=== PATIENT | female | born 1945 | race Caucasian/White ===

== ENCOUNTER → 2016-09-05 | Outpatient (CLI) | payer OTHER ==
[~2016-09-05] MED LIST: ADVIN25/60 INH; ASPEC325 PO; CHOL100027 PO; CYAN100020 PO; FRS/40 PO; LISI-725 PO; LPT/40 PO; METO-551 PO; POTA-327 PO; VERA360C2 PO
[2016-09-05 13:30] LABS: BASO % 0.4 %; BASO ABS # 0.04 K/uL (0-0.2); COMPLETE YES; EOS % 2.1 %; HEMATOCRIT 38.3 % (37-47); IG% 0.2 %; LYMPH % 17.9 %; LYMPH ABS # 1.95 K/uL (1.2-3.4); MEAN CELL VOLUME 85.5 fL (80-100); MEAN CORPUSCULAR HEMOGLOBIN 28.6 pg (25-34); MEAN CORPUSCULAR HGB CONC 33.4 g/dl (32-36); MEAN PLATELET VOLUME 11.1 fL (7.4-10.4); MONO % 7.3 %; NEUT % 72.1 %; PLATELET COUNT 283 K/uL (130-400); RED BLOOD COUNT 4.48 M/uL (4.2-5.4); WHITE BLOOD COUNT 10.88 K/uL (4.8-10.8)
[2016-09-05 13:43] LABS: BLOOD UREA NITROGEN 20 mg/dl (7-18); GLUCOSE 90 mg/dl (70-99)
[2016-09-05 13:44] LABS: ALT/SGPT 12 U/L (12-78); BUN/CREATININE RATIO 10.4 (10-20); CALCIUM 8.8 mg/dl (8.5-10.1); CARBON DIOXIDE 24 mmol/L (21-32); CHLORIDE 105 mmol/L (98-107); POTASSIUM 3.4 mmol/L (3.5-5.1); SODIUM 141 mmol/L (136-145)
[2016-09-05 13:46] LABS: ALB/GLOB RATIO 0.6 (0.9-2); ALKALINE PHOSPHATASE 121 U/L (45-117); AST/SGOT 10 U/L (15-37)
== END | disposition home or self-care (01) ==
LOC: C.LABBC 09:32
PROVIDERS: ATTEND Internal Medicine Geriatric Medicine
DX: I12.9 Hypertensive chronic kidney disease with stage 1 through stage 4 chronic kidney disease, or unspecified chronic kidney disease (principal); E78.5 Hyperlipidemia, unspecified; M19.90 Unspecified osteoarthritis, unspecified site; I42.2 Other hypertrophic cardiomyopathy; M48.00 Spinal stenosis, site unspecified; J44.9 Chronic obstructive pulmonary disease, unspecified; I65.23 Occlusion and stenosis of bilateral carotid arteries; N18.3 Chronic kidney disease, stage 3 (moderate); I25.10 Atherosclerotic heart disease of native coronary artery without angina pectoris

== ENCOUNTER → 2016-11-08 | Outpatient (CLI) | payer OTHER ==
--- NOTE | 2016-11-09 07:42 | MAMMOGRAPHY REPORT ---
BILATERAL DIGITAL SCREENING MAMMOGRAM WITH CAD: 11/08/2016 TECHNIQUE: Current study was also evaluated with a Computer Aided Detection (CAD) system. Bilatera l CC and MLO views were obtained. COMPARISON: Comparison is made to exams dated: 10/11/2014 mammogram, 10/02/2013 mammogram, 09/22/2012 m ammogram, 07/18/2010 mammogram, 06/22/2009 mammogram - [facility], and 04/19/2008. BREAST COMPOSITION: There are scattered areas of fibroglandular density in both breasts. FINDINGS: No suspicious masses, calcifications, or areas of architectural distortion are noted in e ither breast. There has been no significant interval change compared to prior exams. Scattered bilat eral benign-appearing calcifications are not significantly changed. Prominent bilateral axillary ly mph nodes are stable dating back to at least the 2008 and 2009 exams. IMPRESSION: ACR BI-RADS CATEGORY 2: BENIGN There is no mammographic evidence of malignancy. A 1 year screening mammogram is recommended. The p atient will receive written notification of the results. Approximately 10% of breast cancers are not detected with mammography. A negative mammographic repor t should not delay biopsy if a clinically suggestive mass is present. Destiny Anthony M.D. /:11/08/2016 16:21:48 Street Vendor: Brooklynn BO)(M), [facility] letter sent: Normal 1/2 BI-RADS Code: ACR BI-RADS Category 2: Benign
== END | disposition home or self-care (01) ==
LOC: C.MAMM 11:48
PROVIDERS: ATTEND Internal Medicine Geriatric Medicine
DX: Z12.31 Encounter for screening mammogram for malignant neoplasm of breast (principal)

== ENCOUNTER → 2017-01-09 | Outpatient (CLI) | payer OTHER ==
[2017-01-09 13:52] LABS: BASO % 0.4 %; BASO ABS # 0.04 K/uL (0-0.2); COMPLETE YES; HEMATOCRIT 39.4 % (37-47); IG% 0.4 %; LYMPH % 21.6 %; LYMPH ABS # 2.36 K/uL (1.2-3.4); MEAN CELL VOLUME 87.6 fL (80-100); MEAN CORPUSCULAR HEMOGLOBIN 28.7 pg (25-34); MEAN CORPUSCULAR HGB CONC 32.7 g/dl (32-36); MEAN PLATELET VOLUME 10.5 fL (7.4-10.4); MONO % 5.3 %; NEUT % 69.3 %; PLATELET COUNT 251 K/uL (130-400); WHITE BLOOD COUNT 10.91 K/uL (4.8-10.8)
[2017-01-09 18:09] LABS: ALT/SGPT 19 U/L (12-78); BLOOD UREA NITROGEN 23 mg/dl (7-18); BUN/CREATININE RATIO 13.5 (10-20); CARBON DIOXIDE 25 mmol/L (21-32); CHLORIDE 105 mmol/L (98-107); CHOLESTEROL 130 mg/dl (0-200); GLUCOSE 97 mg/dl (70-99); POTASSIUM 4.1 mmol/L (3.5-5.1); SODIUM 141 mmol/L (136-145); TRIGLYCERIDES 243 mg/dl (0-150); VERY LOW DENSITY LIPOPROT CALC 49 mg/dl
[2017-01-09 18:20] LABS: ALB/GLOB RATIO 0.9 (0.9-2); ALKALINE PHOSPHATASE 97 U/L (45-117); AST/SGOT 16 U/L (15-37); HDL CHOLESTEROL 26 mg/dl; LDL CHOLESTEROL CALCULATED 55 mg/dl
== END ==
LOC: C.LABBC 12:20
PROVIDERS: ATTEND Internal Medicine Geriatric Medicine
DX: I10 Essential (primary) hypertension (principal); E78.5 Hyperlipidemia, unspecified; I42.2 Other hypertrophic cardiomyopathy; E53.8 Deficiency of other specified B group vitamins; E55.9 Vitamin D deficiency, unspecified; I25.10 Atherosclerotic heart disease of native coronary artery without angina pectoris; N18.3 Chronic kidney disease, stage 3 (moderate)

== ENCOUNTER → 2017-01-14 | Outpatient (CLI) | payer OTHER ==
--- NOTE | 2017-01-14 15:42 | DIAGNOSTIC IMAGING REPORT ---
CHEST 2 VIEWS ROUTINE CLINICAL HISTORY: CHRONIC OBSTRUCTIVE PULMONARY DISEASE SHORTNESS OF BREATH COMPARISON STUDY: 10/06/2015 FINDINGS: The cardiac and mediastinal contours are normal. There is no evidence of focal pulmonary consolidation. There is no evidence of failure. No pleural effusions are visualized.[ There is minor basilar atelectasis. There are old mild thoracic vertebral body compression deformities.. IMPRESSION: No active disease in the chest. Electronically signed by: Monster Fernandez M.D. 01/14/2017 3:41 PM Dictated Date/Time: 01/14/2017 3:40 PM
== END ==
LOC: C.RADBC 15:23
PROVIDERS: ATTEND Internal Medicine Geriatric Medicine
DX: J44.9 Chronic obstructive pulmonary disease, unspecified (principal)

== ENCOUNTER → 2017-04-17 | Outpatient (CLI) | payer OTHER | END | disposition home or self-care (01) | LOC: C.PATHSPEC 16:57 | PROVIDERS: ATTEND Dermatology | DX: L82.1 Other seborrheic keratosis (principal) ==

== ENCOUNTER → 2017-07-23 | Outpatient (CLI) | payer OTHER ==
[2017-07-23 17:09] LABS: BASO % 0.3 %; BASO ABS # 0.04 K/uL (0-0.2); COMPLETE YES; EOS % 1.9 %; HEMATOCRIT 37.8 % (37-47); IG% 0.4 %; LYMPH % 17.5 %; LYMPH ABS # 2.25 K/uL (1.2-3.4); MEAN CELL VOLUME 87.7 fL (80-100); MEAN CORPUSCULAR HEMOGLOBIN 29.2 pg (25-34); MEAN CORPUSCULAR HGB CONC 33.3 g/dl (32-36); MEAN PLATELET VOLUME 10.5 fL (7.4-10.4); MONO % 6.2 %; NEUT % 73.7 %; PLATELET COUNT 289 K/uL (130-400); RED BLOOD COUNT 4.31 M/uL (4.2-5.4); WHITE BLOOD COUNT 12.85 K/uL (4.8-10.8)
[2017-07-23 17:21] LABS: BLOOD UREA NITROGEN 20 mg/dl (7-18); BUN/CREATININE RATIO 10.7 (10-20); CALCIUM 8.9 mg/dl (8.5-10.1); CARBON DIOXIDE 30 mmol/L (21-32); CHLORIDE 103 mmol/L (98-107); CREATININE 1.83 mg/dl (0.60-1.20); GLUCOSE 86 mg/dl (70-99); POTASSIUM 4.3 mmol/L (3.5-5.1); SODIUM 138 mmol/L (136-145)
== END | disposition home or self-care (01) ==
LOC: C.LABBC 14:06
PROVIDERS: ATTEND Internal Medicine Geriatric Medicine
DX: I12.9 Hypertensive chronic kidney disease with stage 1 through stage 4 chronic kidney disease, or unspecified chronic kidney disease (principal); N18.3 Chronic kidney disease, stage 3 (moderate)

== ENCOUNTER 2017-08-14 03:36 | Emergency (ER) | payer OTHER ==
[~2017-08-14] VITALS: Ht 154.9 cm; Wt 113.0 kg
[2017-08-14 03:41] VITALS: TEMP 36.5; Ht 154.9 cm; Wt 113.0 kg
[2017-08-14] MEDS ORDERED: ACETAMINOPHEN 500 MG TAB PO STA (04:55)
[2017-08-14 05:46] VITALS: BP 142/80; PULSE 86; O2SAT 95
--- NOTE | 2017-08-14 06:42 | DIAGNOSTIC IMAGING REPORT ---
L ANKLE MIN 3 VIEWS ROUTINE CLINICAL HISTORY: eval for fx. Trauma. Pain. COMPARISON: None. DISCUSSION: Tiny avulsion lateral talus medially inferior to the distal fibula. Soft tissue edema. No additional acute bony abnormality. The ankle mortise is aligned anatomically. IMPRESSION: Tiny avulsion lateral talus. Soft tissue edema. The above report was generated using voice recognition software. It may contain grammatical, syntax or spelling errors. Electronically signed by: Herb Velez M.D. 08/14/2017 6:41 AM Dictated Date/Time: 08/14/2017 6:39 AM
--- NOTE | 2017-08-14 07:45 | DIAGNOSTIC IMAGING REPORT ---
LEFT FOOT 3 VIEWS HISTORY: Left lateral foot pain. eval for fifth metatarsal fx. COMPARISON: None. FINDINGS: There is no fracture or dislocation. The Lisfranc joint is intact. Soft tissue swelling within the foot. Plantar and posterior calcaneal spurs. IMPRESSION: Soft tissue swelling within the left foot. No acute fractures. Electronically signed by: Farhad Dhillon M.D. 08/14/2017 7:44 AM Dictated Date/Time: 08/14/2017 7:40 AM
--- NOTE | 2017-08-14 09:18 | EMERGENCY ROOM VISIT NOTE ---
History Report prepared by Ludwig: Juliet Henriquez Under the Supervision of: Dr. Silvia Medina D.O. First contact with patient: 03:54 Chief Complaint: FALL Stated Complaint: FELL History of Present Illness The patient is a 72 year old female who presents to the Emergency Room with complaints of an episode of a fall occurring last night. The patient states that she has spinal stenosis and sometimes her legs go numb. She states that she was at the neighbor's house when this happened and she fell. She reports that she hurt her left ankle, but walked back to her house. She states that the pain has been getting worse and it has had increased swelling. She reports that now just sitting there it hurts. The patient denies hitting her head, taking anything for the pain, abdominal pain, and back pain. She notes a history of an abdominal aortic aneurysm and a heart murmur. Source of History: patient Onset: last night Position: other (global) Quality: other (swollen) Timing: other (episode) Associated Symptoms: No abdominal pain, No back pain Review of Systems See HPI for pertinent positives & negatives. A total of 10 systems reviewed and were otherwise negative. Past Medical & Surgical Medical Problems: (1) AAA (abdominal aortic aneurysm) (2) Asthma (3) Heart murmur (4) History of echocardiogram (5) History of kidney problems (6) Hypertension (7) Spinal stenosis Family History FHx: [place] (sister) Social History Smoking Status: Current Every Day Smoker Alcohol Use: none Marital Status: Housing Status: lives alone Occupation Status: disabled Current/Historical Medications Scheduled Aspirin (Aspirin *), 325 MG PO DAILY Atorvastatin (Lipitor), 40 MG PO DAILY Cholecalciferol (Vitamin D 1000 Unit), 3,000 INTER.UNIT PO DAILY Cyanocobalamin (Vitamin B12), 1,000 MCG PO BID Fluticasone Prop/Salmeterol (Advair Diskus 250/50 60 Dose), 1 PUFF INH BID Furosemide (Lasix), 40 MG PO DAILY Lisinopril (Zestril), 20 MG PO DAILY Metoprolol Tartrate (Lopressor), 50 MG PO BID Potassium Ext Rel (Klor-Con), 10 MEQ PO DAILY Verapamil Hcl (Verapamil Hcl Sr), 360 MG PO DAILY Allergies Coded Allergies: Cephalosporins (Verified Allergy, Mild, KEFLEX=RASH, 04/22/14) Diltiazem (Verified Allergy, Unknown, RASH, 04/22/14) Iodinated Contrast Media (Verified Adverse Reaction, Unknown, CT Contrast = kidney infection, 04/22/14) Physical Exam Vital Signs Date Time Temp Pulse Resp B/P (MAP) Pulse Ox O2 Delivery O2 Flow Rate FiO2 08/14/17 05:46 86 20 142/80 95 08/14/17 03:41 36.5 61 18 143/83 97 Room Air Physical Exam HEENT: Head - normocephalic and atraumatic. Pupils are equal, round, and reactive to light. Extraocular eye muscles are intact and sclera are anicteric. Ears - bilaterally patent canals with no evidence of hemotympanum. Nose - moist nasal mucosa without evidence of trauma or discharge. Mouth - moist buccal mucosa with no trauma to the teeth or signs of malocclusion. Neck: The neck is supple and there is no pain to palpation over the posterior cervical spine and no obvious step-offs or deformities. There is no JVD or tracheal deviation. Chest: There are no signs of deformities, contusions or abrasions to the chest wall. There is no obvious crepitus or paradoxical chest rise. Heart: Regular, rate, and rhythm. There is a normal S1 and S2 with no murmurs, clicks, or gallops appreciated. Lungs: Clear to auscultation bilaterally with no wheezes, rales, or rhonchi. Abdomen: Soft, completely nontender, nondistended, with good bowel sounds. There is no sign of trauma such as contusions, abrasions or penetrations. There are no palpable pulsatile masses or hepatosplenomegaly. There is no guarding, rigidity, or rebound noted. Pelvis: Stable to rock and compression. Extremities: No obvious deformities or contusions. There are easily palpable peripheral pulses. Left ankle has significant edema over the lateral malleolus and fifth metatarsal. Neuro: The patient is awake and alert and easily able to follow commands. Muscle strength is 5 out of 5 in all 4 extremities. Otherwise, neuro exam is unremarkable. Back: The entire thoracic, lumbar, and sacral spine were palpated. There are no obvious step-offs or deformities noted. There are no obvious signs of trauma such as contusions abrasions penetrations noted to the back. Medical Decision & Procedures ER Provider Diagnostic Interpretation: X-RAY LEFT FOOT AND ANKLE: The results were interpreted by me. No ankle fracture. No fifth metatarsal fracture. Medications Administered Medications (Trade) Dose Ordered Sig/Ashtyn Route Start Time Stop Time Status Last Admin Dose Admin Acetaminophen (Tylenol Tab) 1,000 mg NOW STAT PO 08/14/17 04:55 08/14/17 04:57 DC 08/14/17 05:05 1,000 MG Procedure 0455: Ordered Tylenol Tab 1000 mg PO. ED Course 0452: Past medical records reviewed. The patient was evaluated in room A2. A complete history and physical exam was performed. 0455: Ordered Tylenol Tab 1000 mg PO. The patient went for plain films of her left foot and ankle as described above. 0520: Upon reevaluation, the patient is doing better and states that the Tylenol helped. I discussed findings and results with her. She verbalized agreement of the treatment plan. The patient was discharged home. Medical Decision This is a 72-year-old female patient who fell at a friend's house tonight. After getting a from the fall and walking home, she noticed some discomfort in the left ankle and foot. Differential diagnoses include ankle fracture, ankle sprain, fifth metatarsal fracture. Patient has moderate edema over the left lateral malleolus but x-ray showed no obvious fracture. She was placed in a Gelfoam ankle splint and will use a walker. She can use Tylenol or Motrin for pain. Medication Reconcilliation Current Medication List: was personally reviewed by me Blood Pressure Screening Patient's blood pressure: Elevated blood pressure Blood pressure disposition: Elevated BP felt to be situational Impression Primary Impression: Left ankle sprain Scribe Attestation The scribe's documentation has been prepared under my direction and personally reviewed by me in its entirety. I confirm that the note above accurately reflects all work, treatment, procedures, and medical decision making performed by me. Departure Information Dispostion Home / Self-Care Referrals Len Hudson M.D. (PCP) Forms HOME CARE DOCUMENTATION FORM, IMPORTANT VISIT INFORMATION Patient Instructions My [facility] Additional Instructions Rest with your left foot elevated and iced. Wear splint when up walking. Use a walker Use tylenol for pain. Follow up with [facility]th[facility] if pain continues Problem Qualifiers Primary Impression: Left ankle sprain Encounter type: initial encounter Involved ligament of ankle: calcaneofibular ligament Qualified Codes: S93.412A - Sprain of calcaneofibular ligament of left ankle, initial encounter
== END 2017-08-14 05:35 | disposition home or self-care (01) ==
LOC: C.EDB 03:37 → C.EDA 05:35
DX: S93.412A Sprain of calcaneofibular ligament of left ankle, initial encounter (principal); W19.XXXA Unspecified fall, initial encounter; M48.00 Spinal stenosis, site unspecified; J45.909 Unspecified asthma, uncomplicated; I10 Essential (primary) hypertension; F17.200 Nicotine dependence, unspecified, uncomplicated; Z79.82 Long term (current) use of aspirin; Z82.49 Family history of ischemic heart disease and other diseases of the circulatory system

== ENCOUNTER → 2017-09-16 | Outpatient (CLI) | payer OTHER ==
--- NOTE | 2017-09-16 11:30 | DIAGNOSTIC IMAGING REPORT ---
CHEST 2 VIEWS ROUTINE CLINICAL HISTORY: Acute bronchitis. COMPARISON STUDY: Chest radiograph January 14, 2017. FINDINGS: Lung volumes are normal. No pneumothorax or pleural effusion is noted. Cardiac silhouette is unremarkable. There is no evidence for pulmonary edema. Lateral view demonstrates an old lower thoracic compression fracture. Mild bilateral lower lung opacities favor atelectasis. IMPRESSION: Mild bilateral lower lung opacities. Atelectasis is favored although a mild infectious process could appear similar. Electronically signed by: Noah Brown M.D. 09/16/2017 11:29 AM Dictated Date/Time: 09/16/2017 11:27 AM
== END | disposition home or self-care (01) ==
LOC: C.RADBC 10:51
PROVIDERS: ATTEND Internal Medicine Geriatric Medicine
DX: J20.9 Acute bronchitis, unspecified (principal)

== ENCOUNTER → 2017-11-05 | Outpatient (CLI) | payer OTHER ==
[2017-11-05 12:09] LABS: BASO % 0.3 %; BASO ABS # 0.04 K/uL (0-0.2); EOS % 2.1 %; EOS ABS # 0.26 K/uL (0-0.5); HEMATOCRIT 39.3 % (37-47); HEMOGLOBIN 13.3 g/dL (12.0-16.0); IG# 0.05 K/uL (0.00-0.02); LYMPH % 22.1 %; MEAN CELL VOLUME 86.8 fL (80-100); MEAN CORPUSCULAR HEMOGLOBIN 29.4 pg (25-34); MEAN CORPUSCULAR HGB CONC 33.8 g/dl (32-36); MEAN PLATELET VOLUME 10.1 fL (7.4-10.4); MONO % 5.5 %; NEUT % 69.6 %; NEUT ABS # 8.81 K/uL (1.4-6.5); PLATELET COUNT 292 K/uL (130-400); RED CELL DISTRIBUTION WIDTH SD 51.1 fL (36.4-46.3); WHITE BLOOD COUNT 12.66 K/uL (4.8-10.8)
[2017-11-05 12:23] LABS: BLOOD UREA NITROGEN 27 mg/dl (7-18); CALCIUM 9.1 mg/dl (8.5-10.1); CARBON DIOXIDE 27 mmol/L (21-32); CREATININE 2.14 mg/dl (0.60-1.20); GLUCOSE 96 mg/dl (70-99); POTASSIUM 4.5 mmol/L (3.5-5.1); SODIUM 135 mmol/L (136-145)
== END | disposition home or self-care (01) ==
LOC: C.LAB1850 10:42
PROVIDERS: ATTEND Physician Assistant Medical
DX: E55.9 Vitamin D deficiency, unspecified (principal); I25.10 Atherosclerotic heart disease of native coronary artery without angina pectoris; N18.3 Chronic kidney disease, stage 3 (moderate); J44.9 Chronic obstructive pulmonary disease, unspecified

== ENCOUNTER → 2018-03-31 | Outpatient (CLI) | payer OTHER ==
[2018-03-31 12:07] LABS: BASO % 0.2 %; BASO ABS # 0.02 K/uL (0-0.2); EOS % 2.9 %; HEMATOCRIT 37.7 % (37-47); HEMOGLOBIN 12.4 g/dL (12.0-16.0); IG# 0.02 K/uL (0.00-0.02); LYMPH % 22.9 %; LYMPH ABS # 2.39 K/uL (1.2-3.4); MEAN CELL VOLUME 89.8 fL (80-100); MEAN CORPUSCULAR HEMOGLOBIN 29.5 pg (25-34); MEAN CORPUSCULAR HGB CONC 32.9 g/dl (32-36); MEAN PLATELET VOLUME 11.2 fL (7.4-10.4); MONO % 5.4 %; MONO ABS # 0.56 K/uL (0.11-0.59); NEUT % 68.4 %; NEUT ABS # 7.15 K/uL (1.4-6.5); PLATELET COUNT 234 K/uL (130-400); RED CELL DISTRIBUTION WIDTH SD 48.9 fL (36.4-46.3); WHITE BLOOD COUNT 10.44 K/uL (4.8-10.8)
[2018-03-31 12:52] LABS: ALBUMIN 2.8 gm/dl (3.4-5.0); ALKALINE PHOSPHATASE 108 U/L (45-117); ALT/SGPT 13 U/L (12-78); AST/SGOT 13 U/L (15-37); BLOOD UREA NITROGEN 19 mg/dl (7-18); CALCIUM 8.6 mg/dl (8.5-10.1); CARBON DIOXIDE 25 mmol/L (21-32); CHOLESTEROL 122 mg/dl (0-200); CREATININE 1.63 mg/dl (0.60-1.20); GLUCOSE 86 mg/dl (70-99); LDL CHOLESTEROL CALCULATED 64 mg/dl; SODIUM 142 mmol/L (136-145); TOTAL PROTEIN 6.7 gm/dl (6.4-8.2)
== END | disposition home or self-care (01) ==
LOC: C.LAB1850 11:22
PROVIDERS: ATTEND Internal Medicine Geriatric Medicine
DX: I12.9 Hypertensive chronic kidney disease with stage 1 through stage 4 chronic kidney disease, or unspecified chronic kidney disease (principal); E78.5 Hyperlipidemia, unspecified; R05 Cough; E55.9 Vitamin D deficiency, unspecified; D72.819 Decreased white blood cell count, unspecified; N18.4 Chronic kidney disease, stage 4 (severe)

== ENCOUNTER 2020-04-30 08:29 | Observation (INO) ==
--- NOTE | 2020-04-30 08:48 | Emergency Department Note ---
History of Present Illness General Chief Complaint: Chest Pain Stated Complaint: CHEST PAIN Time Seen by Provider: 04/30/20 08:40 Source: patient, EMS, RN notes reviewed and old records reviewed Mode of arrival: EMS Limitations: no limitations History of Present Illness Provider Complaint: chest pain Onset (ago): hour(s) 2 Duration: intermittent and improved Onset: during rest and awoke with symptoms Pain Location: substernal and left chest Pain Radiation: back Severity: severe Maximum Pain Intensity: 10 Current Pain Intensity: 0 Quality: + tightness Relieved By: + rest Exacerbated By: + exertion Associated symptoms: no vomiting, no diaphoresis and no dyspnea Treatments prior to arrival: none This is a 74-year-old female who presents emergency department complaining of chest pain that radiates into her back that she describes as a pressure sensation. The patient reports movement makes the chest pain worse however rest makes the chest pain better. She has not taken anything for the pain prior to arrival. Patient has a history of COPD as well as CHF as well as a history of a AAA. She denies any abdominal pain. Related Data On Oral Contraceptives: No Home Medications Home Medications Medication Instructions Recorded Confirmed Type aspirin [Aspirin Low Dose] 81 mg PO QAM 05/11/19 04/30/20 History atorvastatin 40 mg PO QAM 05/11/19 04/30/20 History cholecalciferol (vitamin D3) 1,000 unit PO QAM 05/11/19 04/30/20 History [Vitamin D3] cyanocobalamin (vitamin B-12) 1,000 mcg PO QAM 05/11/19 04/30/20 History [Vitamin B-12] metoprolol succinate 50 mg 50 mg PO BID #180 tab 10/06/19 04/30/20 Rx tablet,extended release 24 hr amlodipine 5 mg tablet 5 mg PO DAILY #90 tab 01/13/20 04/30/20 Rx calcitriol 0.5 mcg capsule 0.5 mcg PO UD #45 cap 02/02/20 04/30/20 Rx losartan 100 mg tablet 100 mg PO QAM #30 tab 02/02/20 04/30/20 Rx furosemide 40 mg tablet 40 mg PO QAM #90 tab 02/25/20 04/30/20 Rx albuterol sulfate 90 mcg/actuation 2 puff INH Q4H PRN #18 g 04/12/20 04/30/20 Rx aerosol inhaler prednisone 20 mg tablet See Rx Instructions PO DAILY #11 04/25/20 04/30/20 Rx tab Allergies Allergy/AdvReac Type Severity Reaction Status Date / Time benzonatate Allergy Mild Dizziness Verified 04/25/20 09:33 Cephalosporins Allergy Mild KEFLEX=RASH Verified 04/25/20 09:33 diltiazem Allergy Mild RASH Verified 04/25/20 09:33 Iodinated Contrast Media Allergy Mild CT Verified 04/25/20 09:33 Contrast = kidney infection Past Med/Surg History Medical History AAA (abdominal aortic aneurysm) follows with Dr. Dangelo Abnormal diffusion capacity determined by pulmonary function test Anemia Asthma Atherosclerosis of both carotid arteries Atrial fibrillation per pt, no blood thinners just aspirin daily Cardiomyopathy, hypertrophic Carpal tunnel syndrome Chronic diastolic congestive heart failure Chronic kidney disease, stage IV (severe) Chronic osteoarthritis COPD (chronic obstructive pulmonary disease) Coronary artery disease Current smoker Dyslipidemia History of uterine cancer 2008--sx only Hypertension Nocturnal hypoxia Obstructive sleep apnea of adult no device Peripheral vascular disease Renal artery stenosis Secondary hyperparathyroidism Spinal stenosis Tubular adenoma of colon (~04/2014) Vitamin B12 deficiency Vitamin D deficiency Surgical History History of bilateral cataract extraction History of cardiac cath [address] Dangelo--no stent History of colonoscopy (~04/2014) History of tonsillectomy and adenoidectomy History of tooth extraction all teeth removed History of total hysterectomy with bilateral salpingo-oophorectomy (BSO) Family History Unknown Hypertension Mother Stroke syndrome Sister Uterine cancer Diabetes Other No family history of adverse response to anesthesia Social History Smoking Status: Current every day smoker Tobacco Type: Cigarettes Age Started Using Tobacco: 19; packs per day: 0.5; Cigarettes Per Day: 12; Second Hand Exposure: Yes (parents smoked/nephew smokes); Do You Dip or Chew Tobacco: No; Hx Alcohol Use: No Hx Substance Use: No Preferred Language: Gambian Communication Ability: Effective Visual Impairment: No Limitations Hearing Ability: Normal Pickling Operator Required: No Beliefs That Will Affect Care: None marital status: / Current Living Situation: Alone current occupational status: retired How many Children do You have: 0 Other Information That Helps Us Care for You: No Feels Safe at Home: Yes Safety Concerns: Feels Safe At This Time Childhood Exposure to Second-Hand Smoke: Yes caffeine: Yes Dental Care, Regularly: No Physical Activity Frequency: Does not Exercise Seatbelt Use: always Sunscreen Use: No Assistive Devices: Brace/Splint/Immobilizer and Oxygen - Continuous Review of Systems A total of 10 systems reviewed and were otherwise negative Physical Exam Vital Signs Vital Signs - 24 hr 04/30/20 08:31 Temperature 36.1 C L Temperature Source Oral Pulse Rate 66 Respiratory Rate 92 H Respiratory Effort / Characteristics Short of Breath Respiratory Pattern Regular Blood Pressure 142/70 H Blood Pressure Mean 94 Blood Pressure Position Sitting Pulse Oximetry 93 Oxygen Delivery Method Room Air Sepsis Recent Fever Within 48 Hours No Sepsis New/Unexplained Change in Mental Status N/A Sepsis Action Taken by Nursing No Action Required VITAL SIGNS - Vital signs and nursing notes were reviewed. GENERAL - 74-year-old female appearing stated age who is in no acute distress. Communicates well with provider and answers questions appropriately. SKIN - Without rashes. HEAD - NC/AT. EYES - PERRL with EOMI bilaterally. Sclera anicteric. Palpebral conjunctiva pink and moist with no injection noted. EARS - No deformities of external structures noted on gross examination bilaterally. No pain elicited with palpation of the tragus bilaterally. External auditory canals without discharge or otorrhea. Tympanic membranes pearly temple without retraction or bulging. No fluid or purulent material visualized behind the TM. Handle of malleus, umbo, cone of light, pars tensa/flaccid all easily visualized. NOSE - Midline and without cyanosis. No epistaxis or purulent drainage noted. Septum midline without deviation or septal hematoma noted. MOUTH/OROPHARYNX - Without perioral cyanosis. Buccal mucosa pink and moist and without leukoplakia. Tongue midline with equal elevation of palate bilaterally. No tonsillar hypertrophy, erythema, or exudates noted. dentition noted. NECK - Neck with FROM. Supple to palpation. lymphadenopathy noted. No nuchal rigidity. LUNGS - Chest wall symmetric without accessory muscle use, intercostals retractions, or central cyanosis. Normal vesicular breath sounds CTA B/L. No wheezes, rales, or rhonchi appreciated. CARDIAC - RRR with S1/S2. No murmur, rubs, or gallops appreciated. ABDOMEN - Abdominal contour without pulsations or visible masses. BS normoactive all four quadrants. No tenderness, palpable masses, hepatosplenomegaly, or ascites noted. EXTREMITIES - No clubbing or peripheral cyanosis. No pretibial edema present. +3/5 radial, posterior tibial, and dorsalis pedis pulses palpated throughout. +5/5 strength noted in UE/LE bilaterally. NEUROLOGIC - Cranial nerves II through XII grossly intact. Sensory intact to light touch throughout. Patellar reflexes +2/4. PSYCH - A&Ox3 and cooperates fully with examiner. Pt is very pleasant and interacts well with examiner. Course Administered Medications Albuterol (Albuterol Hfa 8 Gm Inhaler) 2 puffs INH Q4H PRN PRN Reason: shortness of breath or wheezing Stop: 05/30/20 12:33 Last Admin: 05/01/20 01:32 Dose: 2 puffs Documented by: [id number] Admin: 04/30/20 20:37 Dose: 2 puffs Documented by: [id number] Amlodipine Besylate (Amlodipine Besylate 5 Mg Tab) 10 mg PO DAILY [facility] Stop: 05/31/20 08:59 Last Admin: 05/01/20 08:24 Dose: 10 mg Documented by: [id number] Aspirin (Aspirin 81 Mg Ectab) 81 mg PO [facility] Stop: 05/30/20 10:59 Last Admin: 05/01/20 08:23 Dose: 81 mg Documented by: [id number] Admin: 04/30/20 14:21 Dose: 81 mg Documented by: [id number] Atorvastatin Calcium (Atorvastatin 40 Mg Tab) 40 mg PO [facility] Stop: 05/30/20 10:59 Last Admin: 05/01/20 08:23 Dose: 40 mg Documented by: [id number] Admin: 04/30/20 14:20 Dose: 40 mg Documented by: [id number] Cyanocobalamin (Cyanocobalamin 500 Mcg Tablet (Vitamin B-12)) 1,000 mcg PO [facility] Stop: 05/31/20 08:59 Last Admin: 05/01/20 08:24 Dose: 1,000 mcg Documented by: [id number] Famotidine (Famotidine 20 Mg Tab) 20 mg PO BID [facility] Stop: 05/30/20 10:59 Last Admin: 05/01/20 08:22 Dose: 20 mg Documented by: [id number] Admin: 04/30/20 19:57 Dose: 20 mg Documented by: [id number] Admin: 04/30/20 14:19 Dose: 20 mg Documented by: [id number] Furosemide (Furosemide 40 Mg Tab) 40 mg PO QAM [facility] Stop: 05/31/20 08:59 Last Admin: 05/01/20 08:22 Dose: 40 mg Documented by: [id number] Heparin Sodium (Porcine) (Heparin Sod 5,000 Unit/0.5 Ml Vial) 5,000 units SQ Q8 [facility] Stop: 05/30/20 21:59 Last Admin: 05/01/20 11:24 Dose: Not Given Documented by: [id number] Admin: 05/01/20 05:41 Dose: Not Given Documented by: [id number] Admin: 04/30/20 19:58 Dose: Not Given Documented by: [id number] Hydralazine HCl (Hydralazine Hcl 25 Mg Tab) 25 mg PO Q8 [facility] Stop: 05/31/20 13:59 Last Admin: 05/01/20 11:23 Dose: 25 mg Documented by: [id number] Losartan Potassium (Losartan Potassium 50 Mg Tab) 100 mg PO QAM [facility] Stop: 05/31/20 08:59 Last Admin: 05/01/20 08:23 Dose: 100 mg Documented by: [id number] Metoprolol Succinate (Metoprolol Succ 50mg Ext Rel Tab) 50 mg PO BID [facility] Stop: 05/30/20 20:59 Last Admin: 05/01/20 08:22 Dose: 50 mg Documented by: [id number] Admin: 04/30/20 19:57 Dose: Not Given Documented by: [id number] Umeclidinium Harris (Umeclidinium Harris 62.5mcg/Blister 7 Puffs/Inhaler) 1 puffs INH DAILY [facility] Stop: 05/30/20 12:59 Last Admin: 05/01/20 08:23 Dose: 1 puffs Documented by: [id number] Admin: 04/30/20 14:21 Dose: 1 puffs Documented by: [id number] Vitamin D (Cholecalciferol 1,000 Units 25 Mcg Tab) 1,000 units PO QAM [facility] Stop: 05/31/20 08:59 Last Admin: 05/01/20 08:24 Dose: 1,000 units Documented by: [id number] Discontinued Medications Albuterol (Albuterol Hfa 8 Gm Inhaler) 2 puffs INH NOW ONE Stop: 04/30/20 08:55 Last Admin: 04/30/20 09:03 Dose: 2 puffs Documented by: [id number] Amlodipine Besylate (Amlodipine Besylate 5 Mg Tab) 5 mg PO NOW ONE Stop: 04/30/20 09:37 Last Admin: 04/30/20 10:07 Dose: 5 mg Documented by: [id number] Calcium Carbonate (Calcium Carbonate 500 Mg Chewable Tab) 1,500 mg PO ONE ONE Stop: 04/30/20 10:58 Last Admin: 04/30/20 14:22 Dose: Not Given Documented by: [id number] Furosemide (Furosemide 40 Mg/4 Ml Vial) 40 mg IV NOW STA Stop: 04/30/20 08:55 Last Admin: 04/30/20 09:03 Dose: 40 mg Documented by: [id number] Hydralazine HCl (Hydralazine 10 Mg Tab) 10 mg PO Q8 [facility] Stop: 05/30/20 15:30 Last Admin: 05/01/20 05:40 Dose: 10 mg Documented by: [id number] Admin: 04/30/20 19:57 Dose: 10 mg Documented by: [id number] Admin: 04/30/20 16:13 Dose: 10 mg Documented by: [id number] Losartan Potassium (Losartan Potassium 50 Mg Tab) 100 mg PO QAM [facility] Stop: 05/30/20 09:44 Last Admin: 04/30/20 10:08 Dose: 100 mg Documented by: [id number] Metoprolol Succinate (Metoprolol Succ 50mg Ext Rel Tab) 50 mg PO NOW STA Stop: 04/30/20 09:37 Last Admin: 04/30/20 10:08 Dose: Not Given Documented by: [id number] Potassium Chloride (Potassium Chloride 20 Meq Tabcr) 40 meq PO NOW STA Stop: 04/30/20 09:17 Last Admin: 04/30/20 09:33 Dose: 40 meq Documented by: [id number] Tiotropium Harris (Tiotropium Harris 5 Puff/90 Mcg Inh) 1 puffs INH QAM [facility] Stop: 05/30/20 12:14 Last Admin: 04/30/20 14:31 Dose: Not Given Documented by: [id number] Verapamil HCl (Verapamil Hcl 180 Mg Tabcr) 360 mg PO NOW STA Stop: 04/30/20 09:37 Last Admin: 04/30/20 10:08 Dose: 360 mg Documented by: [id number] Medical Decision Making Differential Diagnosis + fracture of rib, + pneumothorax, + stable angina, + unstable angina pectoris, + atypical chest pain, + st elevation myocardial infarction, + costochondritis, + chest pain, + biliary colic, + cardiac ischemia, + myocarditis, + pericarditis, + costochondritis, + pleurisy, + aortic dissection, + pulmonary embolism, + pneumonia, + musculoskeletal, + infections, + cholecystitis, + pancreatitis and + esophageal rupture Medical Records Attestation: I reviewed the patient's medical records. Home Medications Current Medication List: was personally reviewed by me Laboratory Data Attestation: I reviewed the patient's lab results. Result diagrams: 05/01/20 05:39 05/01/20 05:39 Labs: Lab Results 04/30/20 04/30/20 04/30/20 Range/Units 08:49 08:49 08:49 WBC 15.11 H (4.8-10.8) K/uL RBC 3.79 L (4.2-5.4) M/uL Hgb 11.0 L (12.0-16.0) g/dL Hct 34.4 L (37-47) % MCV 90.8 (80-100) fL MCH 29.0 (25-34) pg MCHC 32.0 (32-36) g/dL RDW Std Deviation 54.7 H (36.4-46.3) fL RDW Coeff of Lakshmi 16.5 H (11.5-14.5) % Plt Count 308 (130-400) K/uL MPV 10.6 H (7.4-10.4) fL Immature Gran % (Auto) 1.1 % Neut % (Auto) 82.2 % Lymph % (Auto) 12.2 % Ray % (Auto) 4.4 % Eos % (Auto) 0.0 % Baso % (Auto) 0.1 % Neut # (Auto) 12.43 H (1.4-6.5) K/uL Lymph # (Auto) 1.85 (1.2-3.4) K/uL Ray # (Auto) 0.66 H (0.11-0.59) K/uL Eos # (Auto) 0.00 (0-0.5) K/uL Baso # (Auto) 0.01 (0-0.2) K/uL Immature Gran # (Auto) 0.16 H (0.00-0.02) K/uL Absolute Nucleated RBC 0.04 H (0-0) K/uL Nucleated RBC % (auto) 0.3 % PT 10.6 (9.0-12.0) Seconds INR 1.0 (0.9-1.1) APTT 23.6 (21.0-31.0) Seconds PTT Ratio 0.8 Sodium 144 (136-145) mmol/L Potassium 3.3 L (3.5-5.1) mmol/L Chloride 109 H (98-107) mmol/L Carbon Dioxide 26 (21-32) mmol/L Anion Gap 9.0 (3-11) BUN 31 H (7-18) mg/dl Creatinine 2.17 H (0.6-1.2) mg/dl Est Cr Clr Drug Dosing 26.6 ml/min Est GFR ( Amer) 25.5 Est GFR (Non-Af Amer) 22.0 BUN/Creatinine Ratio 14.2 (10-20) Glucose 121 H (70-99) mg/dl Calcium 9.6 (8.5-10.1) mg/dl Total Bilirubin 0.3 (0.2-1) mg/dl AST 12 L (15-37) U/L ALT 16 (12-78) U/L Alkaline Phosphatase 84 (45-117) U/L Total Creatine Kinase 26 (26-192) U/L CK-MB (CK-2) < 1.0 (0.5-3.6) ng/ml CK/CKMB % Calc TNP Troponin I 0.036 (0-0.045) ng/ml NT-Pro-B Natriuret Pep 91293 H (0-900) pg/ml Total Protein 7.0 (6.4-8.2) gm/dl Albumin 3.1 L (3.4-5.0) gm/dl Globulin 3.9 (2.5-4.0) gm/dl Albumin/Globulin Ratio 0.8 L (0.9-2) Lipase 83 (73-393) U/L Imaging Data Chest x-ray: Radiologist's impression: [facility], [place] [phone] XRay Report Patient: WYATT SANTOS AAdmit Date: 04/30/20 MR#: [id number]: Jose MABRY Acct ID:[id number]: Date: 1945City Zip: [place] [address] Age: 74Location: ED Sex: FRoom/Bed: Att Phy:Diagnosis: CHEST PAIN Lizet Phy: Shravan Chicas, DOService Date: 04/30/20 Fam Phy:Interpreting Phy: Javier Childs Admit Phy: Ordering Phy: Dylon Nolasco MD cc: ~ XR chest 1V portable HISTORY: 74 years-old Female Chest Pain acute atypical chest pain COMPARISON: Chest radiographs 01/13/2019 TECHNIQUE: Portable AP view of the chest FINDINGS: Cardiomediastinal and hilar silhouettes are within normal limits. Mild linear subsegmental bibasilar densities. Calcified plaque of the thoracic aortic arch. No pneumothorax or overt pulmonary edema. Degenerative changes of the shoulders and spine. IMPRESSION: 1. Mild linear bibasilar densities suggest atelectasis. ACT 112: Negative or not required by law. The above report was generated using voice recognition software. It may contain grammatical, syntax or spelling errors. Electronically signed by: Rex Childs M.D. 04/30/2020 9:45 AM Dictated: 04/30/20 0944 ECG Data Attestation: I personally reviewed and interpreted this ECG as follows: Indication: chest pain Rate (beats per minute): 62 Rhythm: sinus rhythm Findings: + other (Left axis deviation) and + 1st degree AV block Comparison ECG Date: from (06/04/2019) Change: no significant change MDM Narrative Patient was seen and evaluated as above in room B4. Review was performed of nursing notes and vital signs. I did review pertinent previous visits and patient history. After obtaining a thorough history and physical examination the above work up was performed. This is a 74-year-old female who presents emergency department complaining of chest pain. The patient appears to be volume overloaded and was given Lasix here in the emergency department. She was also given breathing treatments. She is pain-free here. Due to her multiple comorbidities I did discuss case the hospitalist service who did agree to meet the patient. Patient is in agreement with the treatment plan. She was found to have an elevation in her troponin as well as her white blood cell count. While in the department, I personally reevaluated the patient several times and each time the patient was found to be resting comfortably. The patient was educated upon management, educated upon todays findings/results, educated upon importance of follow up from today's visit, educated upon symptoms in which to return, had questions answered prior to discharge, verbalized understanding, and was discharged home in good condition. 74 An order was placed for continuous cardiac monitoring. The monitor shows a rate of 74 with Normal Sinus rhythm. The patient was evaluated during the global COVID-19 pandemic, and that diagnosis was suspected/considered upon their initial presentation. Their evaluation, treatment and testing was consistent with current guidelines for patients who present with complaints or symptoms that may be related to COVID- 19. Impression & Plan Chest pain, COPD (chronic obstructive pulmonary disease), Chronic diastolic congestive heart failure Discharge Plan Visit Data Chief Complaint: Chest Pain Stated Complaint: CHEST PAIN ED Provider: Dylon Nolasco Discharge Problem: Chest pain, COPD (chronic obstructive pulmonary disease), Chronic diastolic congestive heart failure Patient Disposition: Admitted As Inpatient Discharge Instructions Interventions: ED Discharge Assessment Last Done: 04/30/20 12:02 Discharge Problem: Chest pain Qualifiers: Chest pain type: unspecified Qualified Code(s): R07.9 - Chest pain, unspecified COPD (chronic obstructive pulmonary disease) Qualifiers: COPD type: unspecified COPD Qualified Code(s): J44.9 - Chronic obstructive pulmonary disease, unspecified
[2020-04-30] MEDS ORDERED: FUROSEMIDE 40 MG/4 ML VIAL IV STA (08:54)
[2020-04-30] MEDS ORDERED: ALBUTEROL HFA 8 GM INHALER INH ONE (08:54)
[2020-04-30 08:57] LABS: Basophils # (auto) 0.01 K/uL (0-0.2); Basophils % (auto) 0.1 %; Hematocrit (blood only) 34.4 % (37-47); Immature Granulocytes # (auto) 0.16 K/uL (0.00-0.02); Immature Granulocytes % (auto) 1.1 %; Lymphocytes # (auto) 1.85 K/uL (1.2-3.4); Lymphocytes % (auto) 12.2 %; Mean Corpuscular Volume 90.8 fL (80-100); Mean Platelet Volume 10.6 fL (7.4-10.4); Monocytes # (auto) 0.66 K/uL (0.11-0.59); Monocytes % (auto) 4.4 %; Neutrophils # (auto) 12.43 K/uL (1.4-6.5); Neutrophils % (auto) 82.2 %; Nucleated RBC # (auto) 0.04 K/uL (0-0); Nucleated RBC % (auto) 0.3 %; Platelet Count 308 K/uL (130-400); RDW Coefficient of Variation 16.5 % (11.5-14.5); RDW Standard Deviation 54.7 fL (36.4-46.3); Red Blood Count 3.79 M/uL (4.2-5.4); White Blood Count 15.11 K/uL (4.8-10.8)
[2020-04-30 09:11] LABS: Partial Thromboplastin Ratio 0.8; Partial Thromboplastin Time 23.6 Seconds (21.0-31.0); Prothrombin Time 10.6 Seconds (9.0-12.0)
[2020-04-30 09:14] LABS: Alanine Aminotransferase 16 U/L (12-78); Albumin Level 3.1 gm/dl (3.4-5.0); BUN Creatinine Ratio 14.2 (10-20); Blood Urea Nitrogen 31 mg/dl (7-18); Calcium 9.6 mg/dl (8.5-10.1); Carbon Dioxide 26 mmol/L (21-32); Chloride 109 mmol/L (98-107); Creatinine Clr Calc Pharmacy 26.6 ml/min; Est GFR (African American) 25.5; Glucose 121 mg/dl (70-99); Lipase 83 U/L (73-393); Potassium 3.3 mmol/L (3.5-5.1); Sodium 144 mmol/L (136-145)
[2020-04-30] MEDS ORDERED: POTASSIUM CHLORIDE 20 MEQ TABCR PO STA (09:16)
[2020-04-30 09:19] LABS: Albumin Globulin Ratio 0.8 (0.9-2); Alkaline Phosphatase 84 U/L (45-117); Aspartate Aminotransferase 12 U/L (15-37); Bilirubin,Total 0.3 mg/dl (0.2-1); Creatine Kinase 26 U/L (26-192); Creatine Kinase MB < 1.0 ng/ml (0.5-3.6); Globulin 3.9 gm/dl (2.5-4.0); NT Pro B Type Natriuretic Pept 17452 pg/ml (0-900); Troponin I 0.036 ng/ml (0-0.045)
[2020-04-30] MEDS ORDERED: VERAPAMIL HCL 180 MG TABCR PO STA (09:36)
[2020-04-30] MEDS ORDERED: METOPROLOL SUCC 50MG EXT REL TAB PO STA (09:36)
[2020-04-30] MEDS ORDERED: AMLODIPINE BESYLATE 5 MG TAB PO ONE (09:36)
[2020-04-30] MEDS ORDERED: LOSARTAN POTASSIUM 50 MG TAB PO SCH (09:45)
--- NOTE | 2020-04-30 09:47 | XRay Report ---
XR chest 1V portable HISTORY: 74 years-old Female Chest Pain acute atypical chest pain COMPARISON: Chest radiographs 01/13/2019 TECHNIQUE: Portable AP view of the chest FINDINGS: Cardiomediastinal and hilar silhouettes are within normal limits. Mild linear subsegmental bibasilar densities. Calcified plaque of the thoracic aortic arch. No pneumothorax or overt pulmonary edema. De generative changes of the shoulders and spine. IMPRESSION: 1. Mild linear bibasilar densities suggest atelectasis. ACT 112: Negative or not required by law. The above report was generated using voice recognition software. It may contain grammatical, syntax o r spelling errors. Electronically signed by: Rex Childs M.D. 04/30/2020 9:45 AM
--- NOTE | 2020-04-30 10:25 | History & Physical Report ---
Date of Service April 30, 2020 Assessment & Plan (1) Chest pain: Presents with substernal chest pain radiating to the mid back waking her from sleep and going away mostly on its own without any intervention. Lasted for 2 hours and troponin on arrival is 0.03. ECG without ischemic change s. She is high risk for acute coronary syndrome given HOCM, PAD, CKD stage IV, HTN with hypertensive urgency here proBNP is markedly elevated 12,000 although no baseline to follow-with HOCM she may always have some elevation Does not seem significantly volume overloaded but does report some increased lower extremity edema- did receive 1 dose of IV Lasix in the ER Chest pain could be GI in nature, does not seem musculoskeletal. She has been on prednisone for last 5 days which could cause some GI upset. Could be thoracic aortic dissection. No mediastinal widening on chest x-ray. She cannot have IV contrast due to CKD stage IV -Admit to PCU for telemetry monitoring -Serial troponin and ECG -Repeat echocardiogram for wall motion abnormalities and to look at aortic root -Will check noncontrast CT of the chest/abdomen/pelvis -Cardiology consultation placed in case discussed with cardiology -Will continue home blood pressure meds, and add hydralazine IV as needed for SBP greater than 180 to bring blood pressure down-hydralazine confirmed with cardiology that this is okay to be given with HOCM In general, want to avoid preload reducers such as nitroglycerin -Will try Tums and Pepcid as well in case of GI cause and hold on any further prednisone -Continue aspirin, statin, beta-harsha -No anticoagulation needed at this point unless troponin trends upwards (2) Chronic diastolic congestive heart failure: With HOCM as above With possible acute on chronic diastolic CHF with elevated proBNP and mildly increased lower extremity edema Received 1 dose of IV Lasix 40 mg in the ER Caution with overdiuresis in the setting of HOCM Will plan to just continue home Lasix p.o. in the morning, blood pressure control Checking echocardiogram (3) Cardiomyopathy, hypertrophic: As noted above, caution with preload reducers and overdiuresis She has been seen at the [facility] by cardiology who determined that she is not a good surgical candidate for myectomy or ablation therapy given her comorbid conditions (4) Chronic kidney disease, stage IV (severe): Creatinine is around baseline at 2.0, follows with nephrology at [facility] Yana Garvey Follow BMP Avoid nephrotoxins and will renally dose medications when necessary (5) Coronary artery disease: With mild to moderate nonobstructive disease on cardiac catheterization performed in 2007 with mild disease of the LAD and left circumflex as well as moderate mid RCA stenosis at that time Continue aspirin, statin, beta-harsha, losartan (6) Dyslipidemia: Continue statin, last LDL was only 51 in 10/2017 (7) Peripheral vascular disease: With known AAA with thrombus and distally occluded aorta with some collaterals Has lower extremity claudication Seen by vascular surgery at [facility] in [place] in 09/2019-deemed not a good surgical candidate for AAA or angiography given CKD and other comorbid conditions -Checking CT of the abdomen without contrast today to assess for enlargement of AAA (8) Current smoker: Counseled on cessation She continues to smoke 1/2 pack a day for decades (9) Spinal stenosis: Pain medication as needed (10) COPD (chronic obstructive pulmonary disease): Continues to smoke Continue home albuterol She was supposed to be on Spiriva as an outpatient-sees Dr. zarco for pulmonology -will prescribe Incruse Ellipta here (11) Hypertension: With hypertensive urgency as noted above likely secondary to chest pain and not taking her morning medications. She received first dose of her morning medications in the ER. Continue home amlodipine 5 mg daily, verapamil 360 mg once daily, metoprolol succinate 50 mg p.o. twice daily, losartan 100 mg p.o. once daily, and furosemide 40 mg p.o. once daily -Will add on hydralazine 10 mg IV every 8 hours as needed SBP greater than 180 in the setting of chest pain with hypertensive urgency (12) Atrial fibrillation: This is noted in the chart and patient admits to this, however I cannot find evidence of this in the notes She is not on anticoagulation Monitor on telemetry (13) Anemia: Hemoglobin chronically around 11 and is normocytic Most likely anemia of chronic kidney disease Transferrin saturation 12% in 07/2019 Follow iron studies as an outpatient with nephrology No acute issues at this time (14) Leukocytosis: WBC count elevated at 15 on admission, likely secondary to recent prednisone burst No evidence of infection or fevers at this time Holding prednisone and follow CBC (15) BMI 40.0-44.9, adult: BMI 39.5 Needs weight loss and low carbohydrate diet (16) Nocturnal hypoxia: Has known diagnosis of moderate JOAQUINA but continues to refuse CPAP therapy or oxygen therapy Follow pulse ox and apply supplemental O2 to keep pulse ox greater than 88% (17) AAA (abdominal aortic aneurysm): 5 cm infrarenal AAA noted on CT of the abdomen/pelvis in 05/2019 And noted to have a 5.6 cm AAA infrarenally on cardiac MRI from 10/2018 She also had a CT angiogram on 09/04/2027 which showed stability of the AAA size at 5.7 and she was seen by vascular surgery at [facility] in [place]-because of her high risk for surgery, they decided to continue with surveillance. Checking CT of the abdomen and pelvis without contrast today (18) Renal artery stenosis: Has a history of bilateral renal artery stenosis-abdominal MRI from 2005 shows 50-70% stenosis of left renal artery at origin and 50 to 60% stenosis in the right Patient reports she has not had any intervention She remains on losartan at this time and follows with nephrology Continue aspirin and statin Follow blood pressure and BMP (19) Hypokalemia: Potassium 3.3 on arrival, was given potassium chloride 40 mEq along with Lasix in the ER today Follow BMP (20) DVT prophylaxis: Heparin SQ, SCDs Disposition-admit to PCU, expected least a 2 midnight stay for hypertensive urgency, chest pain Lives alone DNR/DNI Patient reports that she is a and has no children. Her HCPOA while not officially on official paperwork is her good friend, Dia Gates. She designates Dia to make any decisions for her if she is not able to. Dia is aware that the patient is currently in the hospital. History of Present Illness Chief Complaint: Chest pain Primary Care Provider: Shravan Chicas, DO This patient is a 74-year-old female with a history of chronic diastolic CHF and hypertrophic obstructive cardiomyopathy, CAD, CKD stage IV, COPD, current smoker, atrial fibrillation not on anticoagulation, HTN, PAD, ALEXANDER without history of stent?, hyperlipidemia, AAA, JOAQUINA not on CPAP, and obesity, who presents to the ER after waking up with chest pain at 5:00 this morning. She reports the pain was substernal and severe in nature, radiated through to the upper mid back and was not associated with diaphoresis or nausea or vomiting. No abdominal pain. She got up out of bed and let her dog out and then decided to sit on the couch until the pain went away down to a very dull ache at which it remains. She did not take any medication at all and did not do anything to try to make the pain go away. She denies any heartburn symptoms. Denies headache or lightheadedness, no numbness or tingling or weakness or stroke symptoms. She does think that her legs have been a bit swollen in the last week since she had a fall hurting her hip and back last week. She was started on a prednisone burst for this about 5 days ago by her PCP. A friend drove her to the hospital and when she arrived, her blood pressure was significantly elevated at 200/100. She was given her usual morning medications for blood pressure. Her chest x-ray was clear but she seemed volume overloaded and was given IV Lasix. Her troponin was mildly elevated at 0.038 and her proBNP was markedly elevated at 17,452. Her CBC was significant for leukocytosis but she has been on prednisone. Otherwise she has stable mild anemia. Her creatinine was around baseline at 2.1. She will be admitted for chest pain work-up and hypertensive urgency. Allergies Allergy/AdvReac Type Severity Reaction Status Date / Time benzonatate Allergy Mild Dizziness Verified 04/25/20 09:33 Cephalosporins Allergy Mild KEFLEX=RASH Verified 04/25/20 09:33 diltiazem Allergy Mild RASH Verified 04/25/20 09:33 Iodinated Contrast Media Allergy Mild CT Verified 04/25/20 09:33 Contrast = kidney infection Home Medications Home Medications Medication Instructions Recorded Confirmed Type aspirin [Aspirin Low Dose] 81 mg PO QAM 05/11/19 04/30/20 History atorvastatin 40 mg PO QAM 05/11/19 04/30/20 History cholecalciferol (vitamin D3) 1,000 unit PO QAM 05/11/19 04/30/20 History [Vitamin D3] cyanocobalamin (vitamin B-12) 1,000 mcg PO QAM 05/11/19 04/30/20 History [Vitamin B-12] verapamil 360 mg 24 hr 360 mg PO QAM #90 cap 05/12/19 04/30/20 Rx capsule,extended release metoprolol succinate 50 mg 50 mg PO BID #180 tab 10/06/19 04/30/20 Rx tablet,extended release 24 hr amlodipine 5 mg tablet 5 mg PO DAILY #90 tab 01/13/20 04/30/20 Rx calcitriol 0.5 mcg capsule 0.5 mcg PO UD #45 cap 02/02/20 04/30/20 Rx losartan 100 mg tablet 100 mg PO QAM #30 tab 02/02/20 04/30/20 Rx furosemide 40 mg tablet 40 mg PO QAM #90 tab 02/25/20 04/30/20 Rx albuterol sulfate 90 mcg/actuation 2 puff INH Q4H PRN #18 g 04/12/20 04/30/20 Rx aerosol inhaler prednisone 20 mg tablet See Rx Instructions PO DAILY #11 04/25/20 04/30/20 Rx tab Past Med/Surg History Medical History AAA (abdominal aortic aneurysm) follows with Dr. Dangelo Abnormal diffusion capacity determined by pulmonary function test Anemia Asthma Atherosclerosis of both carotid arteries Atrial fibrillation per pt, no blood thinners just aspirin daily Cardiomyopathy, hypertrophic Carpal tunnel syndrome Chronic diastolic congestive heart failure Chronic kidney disease, stage IV (severe) Chronic osteoarthritis COPD (chronic obstructive pulmonary disease) Coronary artery disease Current smoker Dyslipidemia History of uterine cancer 2008--sx only Hypertension Nocturnal hypoxia Obstructive sleep apnea of adult no device Peripheral vascular disease Renal artery stenosis Secondary hyperparathyroidism Spinal stenosis Tubular adenoma of colon (~04/2014) Vitamin B12 deficiency Vitamin D deficiency Surgical History History of bilateral cataract extraction History of cardiac cath [address] Dangelo--no stent History of colonoscopy (~04/2014) History of tonsillectomy and adenoidectomy History of tooth extraction all teeth removed History of total hysterectomy with bilateral salpingo-oophorectomy (BSO) Family History Unknown Hypertension Mother Stroke syndrome Sister Uterine cancer Diabetes Other No family history of adverse response to anesthesia Social History (Updated 04/30/20 @ 11:33 by Shaunna Reyez MD) Smoking Status: Current every day smoker Tobacco Type: Cigarettes Age Started Using Tobacco: 19; packs per day: 0.5; Cigarettes Per Day: 12; Second Hand Exposure: Yes (parents smoked/nephew smokes); Do You Dip or Chew Tobacco: No; Hx Alcohol Use: No Hx Substance Use: No Preferred Language: Namibian Communication Ability: Effective Visual Impairment: No Limitations Hearing Ability: Normal [employer] Helper Required: No Beliefs That Will Affect Care: None marital status: / Current Living Situation: Alone current occupational status: retired How many Children do You have: 0 Other Information That Helps Us Care for You: No Feels Safe at Home: Yes Safety Concerns: Feels Safe At This Time Childhood Exposure to Second-Hand Smoke: Yes caffeine: Yes Dental Care, Regularly: No Physical Activity Frequency: Does not Exercise Seatbelt Use: always Sunscreen Use: No Assistive Devices: Denture - Upper and Denture - Lower Review of Systems Review of Systems: All systems reviewed & are unremarkable except as noted in HPI & below Physical Exam Constitutional: WD/WN, vitals as above + morbidly obese; no acute distress Eyes: PERRL, conjunctivae normal, anicteric sclerae ENMT: external ear and nose normal, oropharynx normal (With dentures in place) Neck: trachea midline, no thyromegaly Respiratory: Auscultation: + diminished lung sounds (Throughout due to body habitus) and + crackles (Mild at the bases bilaterally); no rhonchi and no wheezes Cardiovascular: Rate/Rhythm: regular rate and regular rhythm Heart Sounds: + murmur (3/6 holosystolic murmur heard at the lower sternal border) Extremities: + edema (Trace pitting edema of the ankles to the mid tibia bilaterally) Chest (Breasts): Chest: normal inspection of chest Additional Comments: No tenderness to palpation over the chest wall Gastrointestinal (Abdomen): normal bowel sounds, soft, nontender, no hepatosplenomegaly Musculoskeletal: Extremities: extremities normal to inspection; no cyanosis and no clubbing Skin: no rashes, warm and dry Neurologic: moves all extremities and awake; no focal motor deficits Psychiatric: Orientation: alert, oriented x 3 and cooperative Eye Contact: + fair eye contact Affect: + flat affect Results & Data Results & Data ([facility]) Vital Signs (Past 12 Hours) Vital Signs Temp Pulse Pulse Resp BP BP Pulse Ox 04/30/20 10:11 65 22 171/78 H 94 04/30/20 09:33 54 L 18 205/90 H 95 04/30/20 08:44 95 04/30/20 08:31 36.1 C L 66 92 H 142/70 H 93 Laboratory Results 04/30/20 04/30/20 04/30/20 Range/Units 08:49 08:49 08:49 WBC 15.11 H (4.8-10.8) K/uL RBC 3.79 L (4.2-5.4) M/uL Hgb 11.0 L (12.0-16.0) g/dL Hct 34.4 L (37-47) % MCV 90.8 (80-100) fL MCH 29.0 (25-34) pg MCHC 32.0 (32-36) g/dL RDW Std Deviation 54.7 H (36.4-46.3) fL RDW Coeff of Lakshmi 16.5 H (11.5-14.5) % Plt Count 308 (130-400) K/uL MPV 10.6 H (7.4-10.4) fL Immature Gran % (Auto) 1.1 % Neut % (Auto) 82.2 % Lymph % (Auto) 12.2 % Carroll % (Auto) 4.4 % Eos % (Auto) 0.0 % Baso % (Auto) 0.1 % Neut # (Auto) 12.43 H (1.4-6.5) K/uL Lymph # (Auto) 1.85 (1.2-3.4) K/uL Carroll # (Auto) 0.66 H (0.11-0.59) K/uL Eos # (Auto) 0.00 (0-0.5) K/uL Baso # (Auto) 0.01 (0-0.2) K/uL Immature Gran # (Auto) 0.16 H (0.00-0.02) K/uL Absolute Nucleated RBC 0.04 H (0-0) K/uL Nucleated RBC % (auto) 0.3 % PT 10.6 (9.0-12.0) Seconds INR 1.0 (0.9-1.1) APTT 23.6 (21.0-31.0) Seconds PTT Ratio 0.8 Sodium 144 (136-145) mmol/L Potassium 3.3 L (3.5-5.1) mmol/L Chloride 109 H (98-107) mmol/L Carbon Dioxide 26 (21-32) mmol/L Anion Gap 9.0 (3-11) BUN 31 H (7-18) mg/dl Creatinine 2.17 H (0.6-1.2) mg/dl Est Cr Clr Drug Dosing 26.6 ml/min Est GFR ( Amer) 25.5 Est GFR (Non-Af Amer) 22.0 BUN/Creatinine Ratio 14.2 (10-20) Glucose 121 H (70-99) mg/dl Calcium 9.6 (8.5-10.1) mg/dl Total Bilirubin 0.3 (0.2-1) mg/dl AST 12 L (15-37) U/L ALT 16 (12-78) U/L Alkaline Phosphatase 84 (45-117) U/L Total Creatine Kinase 26 (26-192) U/L CK-MB (CK-2) < 1.0 (0.5-3.6) ng/ml CK/CKMB % Calc TNP Troponin I 0.036 (0-0.045) ng/ml NT-Pro-B Natriuret Pep 38505 H (0-900) pg/ml Total Protein 7.0 (6.4-8.2) gm/dl Albumin 3.1 L (3.4-5.0) gm/dl Globulin 3.9 (2.5-4.0) gm/dl Albumin/Globulin Ratio 0.8 L (0.9-2) Lipase 83 (73-393) U/L Diagnostic Findings Chest x-ray image personally reviewed by me and agree with the following report: XR chest 1V portable HISTORY: 74 years-old Female Chest Pain acute atypical chest pain COMPARISON: Chest radiographs 01/13/2019 TECHNIQUE: Portable AP view of the chest FINDINGS: Cardiomediastinal and hilar silhouettes are within normal limits. Mild linear subsegmental bibasilar densities. Calcified plaque of the thoracic aortic arch. No pneumothorax or overt pulmonary edema. Degenerative changes of the shoulders and spine. IMPRESSION: 1. Mild linear bibasilar densities suggest atelectasis. ECG Additional Comments: ECG on 04/30/2020 at 0 841 with sinus rhythm with first- degree AV block, left axis deviation, LVH with repolarization abnormality with T wave inversions in leads I and aVL, unchanged from previous Code Status & VTE Plan Code Status DNR/DNI VTE Prophylaxis Plan VTE Prophylaxis will be ordered: Yes PG Care Time/CCT Total # of Minutes Spent Total Time Spent with Patient: Total time spent is greater than 50% in coordination of care (as documented) at patient's floor/unit and/or counseling patient: Coding Level of Care Code 04460 Initial Inpt Care Lvl 3 Diagnoses Chest pain R07.9 Chronic diastolic congestive heart failure I50.32 Cardiomyopathy, hypertrophic I42.2 Chronic kidney disease, stage IV (severe) N18.4 Coronary artery disease I25.10 Dyslipidemia E78.5 Peripheral vascular disease I73.9 Current smoker F17.200 Spinal stenosis M48.00 COPD (chronic obstructive pulmonary disease) J44.9 Hypertension I10 Atrial fibrillation I48.91 Anemia D64.9 Leukocytosis D72.829 BMI 40.0-44.9, adult Z68.41 Nocturnal hypoxia G47.34 AAA (abdominal aortic aneurysm) I71.4 Renal artery stenosis I70.1 Hypokalemia E87.6 DVT prophylaxis Z29.9
[2020-04-30] MEDS ORDERED: CALCIUM CARBONATE 500 MG CHEWABLE TAB PO ONE (10:57)
[2020-04-30] MEDS ORDERED: HydrALAZINE HCL 20 MG/ML VIAL IV PRN ×2 (10:57→11:06)
--- NOTE | 2020-04-30 11:55 | CT Scan Report ---
CT chest wo con, CT abd pelvis wo con CT DOSE: 2272.56 mGy.cm CLINICAL HISTORY: 74 years-old Female with chest pain,look for dissection,can't have IV con. Acute c hest and abdominal pain with shortness of breath. TECHNIQUE: Multiaxial CT images of the chest, abdomen and pelvis were performed without contrast. A dose lowering technique was utilized adhering to the principles of ALARA. COMPARISON: CT abdomen and pelvis 06/02/2019, chest CT 09/25/2018 FINDINGS: CT CHEST: Mild cardiomegaly with unchanged trace pericardial effusion. Extensive coronary artery calcifications . Calcifications of the aortic and mitral annulus and thoracic aorta. There is no thoracic aortic ane urysm or mediastinal hematoma. Mild left hemidiaphragmatic elevation. No pneumothorax or pleural effusion. Mild bilateral intralobul ar septal thickening with dependent subsegmental bibasilar atelectasis. Mild bibasilar predominant br onchial wall thickening. Stable 6 mm solid nodule of the right lower lobe, image 237 series 6. Unchan ged 6 mm solid nodule of the right upper lobe on image 106 series 6. There are a few additional scatt ered tiny pulmonary nodules measuring 2-3 mm. Central airways are patent. Soft tissues are unremarkab le. Degenerative changes of the shoulders and spine. No acute fracture or suspicious bone lesion. Unc hanged appearance of the T11 vertebral body suggestive of remote compression deformity versus develop mental segmentation anomaly. CT ABDOMEN/PELVIS: There is no pneumatosis or pneumoperitoneum. Limited evaluation of the solid abdominal organs without the use of IV contrast. Within the limitations of the study, the spleen, pancreas and adrenal glands are unremarkable. Cholelithiasis without CT evidence of acute cholecystitis. No biliary ductal dilat ion. Unremarkable liver. Mild nonspecific bilateral perinephric stranding. Bilateral renal cysts. 7 mm mildly hyperdense lesio n of the interpolar left kidney with Hounsfield unit of 81 is suggestive of a proteinaceous or hemorr hagic cyst. 1.7 cm lesion of the posterior interpolar right kidney demonstrates Hounsfield unit of 44 , previously 79 which is indeterminate however may also reflect a complex cyst. Cortical scarring of the bilateral kidneys. There are a few calcifications of the superior pole left kidney which are like ly vascular. No hydronephrosis. Mild urinary bladder distention. Hysterectomy. No adnexal mass lesion . Extensive calcified plaque of the abdominal aorta. Fusiform aneurysm dilation of the infrarenal abdom inal aorta redemonstrated measuring 5.2 x 5.2 cm. When measured in a similar fashion on comparison [facility] this measured the same on comparison. No periaortic stranding or retroperitoneal hematoma. Extens marilee calcified plaque of the iliac and femoral arteries with likely high-grade stenosis of the common iliac arteries. Evaluation limited without the use of IV contrast. Surgical clips are seen within the bilateral adnexal distributions. No bowel obstruction or bowel wall thickening. Mild colonic diverticulosis without acute diverticulit is. The terminal ileum is unremarkable. Unremarkable appendix. No ascites or mesenteric inflammation. Degenerative changes of the spine, pelvis and hips. No acute fracture. Lumbar levoscoliosis. IMPRESSION: 1. Fusiform aneurysmal dilation of the infrarenal abdominal aorta redemonstrated measuring 5.2 x 5.2 cm, unchanged in size and appearance from the 06/02/2019 exam. There is extensive associated atherosc lerotic vascular disease which extends into the bilateral iliac arteries. No retroperitoneal hematoma or evidence of aneurysm rupture. 2. Cardiomegaly with mild intralobular septal thickening of the lungs suggestive of mild pulmonary ed kamari. 3. No acute intra-abdominal or intrapelvic abnormality. 4. Cholelithiasis without CT evidence of acute cholecystitis. 5. Additional findings as above. ACT 112: Negative or not required by law. Electronically signed by: Rex Childs M.D. 04/30/2020 11:54 AM
[2020-04-30] MEDS ORDERED: TIOTROPIUM BROMIDE 5 PUFF/90 MCG INH INH SCH (12:15)
[2020-04-30] MEDS ORDERED: ACETAMINOPHEN 325 MG TAB PO PRN (12:30)
[2020-04-30] MEDS ORDERED: MoRPHine SULFATE 2 MG/ML CARP IV PRN (12:30)
[2020-04-30] MEDS ORDERED: NITROGLYCERIN SL 0.4 MG/TAB TAB SL PRN (12:30)
[2020-04-30] MEDS: FAMOTIDINE 20 MG TAB PO SCH ×2 (14:19→19:57)
[2020-04-30] MEDS: ATORVASTATIN 40 MG TAB PO SCH (14:20)
[2020-04-30] MEDS: UMECLIDINIUM BROMIDE 62.5MCG/BLISTER 7 PUFFS/INHALER INH SCH (14:21)
[2020-04-30] MEDS: ASPIRIN 81 MG ECTAB PO SCH (14:21)
--- NOTE | 2020-04-30 14:26 | Cardiology Consultation ---
Date of Consultation April 30, 2020 Assessment & Plan (1) Hypertensive urgency: (2) Chest pain: (3) AAA (abdominal aortic aneurysm): (4) Atrial fibrillation: (5) Renal artery stenosis: (6) Peripheral vascular disease: (7) Nocturnal hypoxia: (8) Current smoker: (9) Coronary artery disease: (10) Chronic kidney disease, stage IV (severe): (11) Cardiomyopathy, hypertrophic: I believe the patient's presenting symptoms are due to hypertensive urgency. Her echocardiogram shows no wall motion abnormalities and asymmetric septal hypertrophy without significant LVOT obstruction. Agree with medications being restarted and discontinuing the verapamil and increasing the amlodipine. BP still remains elevated so we will add low-dose hydralazine 10 mg p.o. every 8 hours and follow-up. History of Present Illness Reason for Consultation: Chest pain/hypertensive urgency Requesting Physician: Dr. Gonzalez Attending Physician: Shaunna Reyez MD History of Present Illness It was my pleasure to see Mrs. Bailon in cardiac consultation today April 30, 2020. She is a very pleasant 74-year-old woman who presents to the ER after waking up with chest pain at 5:00 this morning. She reports the pain was substernal and severe in nature, radiated through to the upper mid back and was not associated with diaphoresis or nausea or vomiting. No abdominal pain. She got up out of bed and let her dog out and then decided to sit on the couch until the pain went away down to a very dull ache at which it remains. She did not take any medication at all and did not do anything to try to make the pain go away. She denies any heartburn symptoms. Denies headache or lightheadedness, no numbness or tingling or weakness or stroke symptoms. She does think that her legs have been a bit swollen in the last week since she had a fall hurting her hip and back last week. She was started on a prednisone burst for this about 5 days ago by her PCP. A friend drove her to the hospital and when she arrived, her blood pressure was significantly elevated at 200/100. She was given her usual morning medications for blood pressure. Her chest x-ray was clear but she seemed volume overloaded and was given IV Lasix. Her troponin was mildly elevated at 0.038 and her proBNP was markedly elevated at 17,452. Her CBC was significant for leukocytosis but she has been on prednisone. Otherwise she has stable mild anemia. Her creatinine was around baseline at 2.1. Currently she is chest discomfort free and her only complaint is that of fatigue. Allergies Allergy/AdvReac Type Severity Reaction Status Date / Time benzonatate Allergy Mild Dizziness Verified 05/09/20 10:30 Cephalosporins Allergy Mild KEFLEX=RASH Verified 05/09/20 10:30 diltiazem Allergy Mild RASH Verified 05/09/20 10:30 Iodinated Contrast Media Allergy Mild CT Verified 05/09/20 10:30 Contrast = kidney infection Home Medications Home Medications Medication Instructions Recorded Confirmed Type aspirin [Aspirin Low Dose] 81 mg PO QAM 05/11/19 05/09/20 History atorvastatin 40 mg PO QAM 05/11/19 05/09/20 History cholecalciferol (vitamin D3) 1,000 unit PO QAM 05/11/19 05/09/20 History [Vitamin D3] cyanocobalamin (vitamin B-12) 1,000 mcg PO QAM 05/11/19 05/09/20 History [Vitamin B-12] metoprolol succinate 50 mg 50 mg PO BID #180 tab 10/06/19 05/09/20 Rx tablet,extended release 24 hr calcitriol 0.5 mcg capsule 0.5 mcg PO UD #45 cap 02/02/20 05/09/20 Rx losartan 100 mg tablet 100 mg PO QAM #30 tab 02/02/20 05/09/20 Rx furosemide 40 mg tablet 40 mg PO QAM #90 tab 02/25/20 05/09/20 Rx albuterol sulfate 90 mcg/actuation 2 puff INH Q4H PRN #18 g 04/12/20 05/09/20 Rx aerosol inhaler amlodipine 10 mg PO DAILY #30 tab 05/02/20 05/09/20 Rx hydralazine 50 mg tablet 50 mg PO BID 30 Days #60 tab 05/09/20 05/09/20 Rx Patient History Medical History AAA (abdominal aortic aneurysm) follows with Dr. Dangelo Abnormal diffusion capacity determined by pulmonary function test Anemia Asthma Atherosclerosis of both carotid arteries Atrial fibrillation per pt, no blood thinners just aspirin daily Cardiomyopathy, hypertrophic Carpal tunnel syndrome Chronic diastolic congestive heart failure Chronic kidney disease, stage IV (severe) Chronic osteoarthritis COPD (chronic obstructive pulmonary disease) Coronary artery disease Current smoker Dyslipidemia History of uterine cancer 2008--sx only Hypertension Nocturnal hypoxia Obstructive sleep apnea of adult no device Peripheral vascular disease Renal artery stenosis Secondary hyperparathyroidism Spinal stenosis Tubular adenoma of colon (~04/2014) Vitamin B12 deficiency Vitamin D deficiency Surgical History History of bilateral cataract extraction History of cardiac cath [address] Dangelo--no stent History of colonoscopy (~04/2014) History of tonsillectomy and adenoidectomy History of tooth extraction all teeth removed History of total hysterectomy with bilateral salpingo-oophorectomy (BSO) Family History Unknown Hypertension Mother Stroke syndrome Sister Uterine cancer Diabetes Other No family history of adverse response to anesthesia Social History Smoking Status: Current every day smoker Tobacco Type: Cigarettes Age Started Using Tobacco: 19; packs per day: 0.5; Cigarettes Per Day: 12; Second Hand Exposure: Yes (parents smoked/nephew smokes); Hx Alcohol Use: No Hx Substance Use: No Preferred Language: Slovak Communication Ability: Effective Visual Impairment: No Limitations Hearing Ability: Normal Solvent Mixer Required: No Beliefs That Will Affect Care: None marital status: / Current Living Situation: Alone current occupational status: retired How many Children do You have: 0 Feels Safe at Home: Yes Childhood Exposure to Second-Hand Smoke: Yes caffeine: Yes Dental Care, Regularly: No Physical Activity Frequency: Does not Exercise Seatbelt Use: always Sunscreen Use: No Assistive Devices: Denture - Upper, Denture - Lower and Oxygen - Continuous Review of Systems Review of Systems: All systems reviewed & are unremarkable except as noted in HPI & below Physical Exam Physical Exam: General: Awake, alert and oriented x 3. No acute distress. HEENT: Normocephalic, atraumatic. Pupils equal, round and reactive to light and accommodation. Extraocular muscles are intact. Anicteric sclera. Moist mucous membranes. Neck: No JVD. No bruit. Cardiovascular: Regular. Positive S-4. Normal S-1 and S-2. No S-3. 3/6 mid to late systolic ejection murmur, greatest at the right sternal border, second intercostal space with radiation to the bilateral carotids. No rubs. Pulmonary: Clear to auscultation bilaterally. No rales, rhonchi, or wheezing. Abdomen: Bowel sounds x 4, soft. No rebound, guarding or tenderness. No organomegaly. Extremities: No clubbing, cyanosis or edema. +2 pedal pulses bilaterally. Skin: Warm and dry. Results & Data ([facility]) Vital Signs (Past 12 Hours) Vital Signs Temp Pulse Pulse Resp BP BP Pulse Ox 04/30/20 12:26 56 L 04/30/20 12:15 36.7 C 50 L 24 172/78 H 94 04/30/20 11:50 59 L 20 209/93 H 04/30/20 10:48 55 L 20 208/100 H 94 04/30/20 10:11 65 22 171/78 H 94 04/30/20 09:33 54 L 18 205/90 H 95 04/30/20 08:44 95 04/30/20 08:31 36.1 C L 66 92 H 142/70 H 93
[2020-04-30] MEDS: HydrALAZINE 10 MG TAB PO SCH ×2 (16:13→19:57)
[2020-04-30] MEDS: METOPROLOL SUCC 50MG EXT REL TAB PO SCH (19:57)
[2020-04-30] MEDS: HEPARIN SOD 5,000 UNIT/0.5 ML VIAL SQ SCH (19:58)
[2020-04-30] MEDS: ALBUTEROL HFA 8 GM INHALER INH PRN (20:37)
[2020-04-30] MEDS ORDERED: HEPARIN SOD 5,000 UNIT/0.5 ML VIAL SQ SCH (21:00)
[2020-05-01] MEDS: ALBUTEROL HFA 8 GM INHALER INH PRN (01:32)
[2020-05-01] MEDS: HydrALAZINE 10 MG TAB PO SCH (05:40)
[2020-05-01] MEDS: HEPARIN SOD 5,000 UNIT/0.5 ML VIAL SQ SCH ×3 (05:41→21:46)
[2020-05-01 06:01] LABS: Basophils # (auto) 0.02 K/uL (0-0.2); Basophils % (auto) 0.1 %; Eosinophils % (auto) 0.5 %; Hematocrit (blood only) 32.6 % (37-47); Hemoglobin 10.5 g/dL (12.0-16.0); Immature Granulocytes # (auto) 0.21 K/uL (0.00-0.02); Immature Granulocytes % (auto) 1.1 %; Lymphocytes # (auto) 2.24 K/uL (1.2-3.4); Lymphocytes % (auto) 12.1 %; Mean Corpuscular Hemoglobin 28.9 pg (25-34); Mean Corpuscular Hgb Conc 32.2 g/dL (32-36); Mean Corpuscular Volume 89.8 fL (80-100); Mean Platelet Volume 10.6 fL (7.4-10.4); Monocytes # (auto) 1.85 K/uL (0.11-0.59); Neutrophils # (auto) 14.03 K/uL (1.4-6.5); Neutrophils % (auto) 76.2 %; Platelet Count 253 K/uL (130-400); RDW Coefficient of Variation 16.4 % (11.5-14.5); RDW Standard Deviation 53.9 fL (36.4-46.3); Red Blood Count 3.63 M/uL (4.2-5.4); White Blood Count 18.45 K/uL (4.8-10.8)
[2020-05-01 06:28] LABS: BUN Creatinine Ratio 16.4 (10-20); Calcium 8.5 mg/dl (8.5-10.1); Creatinine Clr Calc Pharmacy 27.9 ml/min; Est GFR (Non-African American) 23.3; Potassium 3.6 mmol/L (3.5-5.1)
[2020-05-01] MEDS: FUROSEMIDE 40 MG TAB PO SCH (08:22)
[2020-05-01] MEDS: METOPROLOL SUCC 50MG EXT REL TAB PO SCH ×2 (08:22→21:48)
[2020-05-01] MEDS: FAMOTIDINE 20 MG TAB PO SCH ×2 (08:22→21:47)
[2020-05-01] MEDS: LOSARTAN POTASSIUM 50 MG TAB PO SCH (08:23)
[2020-05-01] MEDS: ATORVASTATIN 40 MG TAB PO SCH (08:23)
[2020-05-01] MEDS: ASPIRIN 81 MG ECTAB PO SCH (08:23)
[2020-05-01] MEDS: UMECLIDINIUM BROMIDE 62.5MCG/BLISTER 7 PUFFS/INHALER INH SCH (08:23)
[2020-05-01] MEDS: CHOLECALCIFEROL 1,000 UNITS 25 MCG TAB PO SCH (08:24)
[2020-05-01] MEDS: CYANOCOBALAMIN 500 MCG TABLET (VITAMIN B-12) PO SCH (08:24)
[2020-05-01] MEDS: AMLODIPINE BESYLATE 5 MG TAB PO SCH (08:24)
--- NOTE | 2020-05-01 08:41 | Electrocardiogram Report ---
Test Reason : Blood Pressure : / mmHG Vent. Rate : 062 BPM Atrial Rate : 062 BPM P-R Int : 212 ms QRS Dur : 086 ms QT Int : 426 ms P-R-T Axes : 018 -33 125 degrees QTc Int : 432 ms Sinus rhythm with 1st degree A-V block Left axis deviation Left ventricular hypertrophy with repolarization abnormality Abnormal ECG When compared with ECG of 04-JUN-2019 15:31, No significant change was found Confirmed by Devante Dumont ([id number]) on 05/01/2020 8:40:48 AM Referred By: REFERRED SELF Confirmed By:Devante Dumont
--- NOTE | 2020-05-01 08:47 | Electrocardiogram Report ---
Test Reason : Blood Pressure : / mmHG Vent. Rate : 063 BPM Atrial Rate : 063 BPM P-R Int : 176 ms QRS Dur : 078 ms QT Int : 416 ms P-R-T Axes : 004 -41 110 degrees QTc Int : 425 ms Normal sinus rhythm Left axis deviation Left ventricular hypertrophy with repolarization abnormality Abnormal ECG When compared with ECG of 30-APR-2020 08:41, (unconfirmed) ID interval has decreased T wave inversion now evident in Anterior leads Confirmed by Devante Dumont ([id number]) on 05/01/2020 8:47:14 AM Referred By: REFERRED SELF Confirmed By:Devante Dumont
[2020-05-01] MEDS ORDERED: VERAPAMIL HCL 180 MG TABCR PO SCH (09:00)
[2020-05-01] MEDS ORDERED: AMLODIPINE BESYLATE 5 MG TAB PO SCH (09:00)
--- NOTE | 2020-05-01 14:27 | Cardiology Progress Note ---
Date of Service May 01, 2020 Assessment & Plan (1) Hypertensive urgency: (2) Chest pain: (3) AAA (abdominal aortic aneurysm): (4) Atrial fibrillation: (5) Renal artery stenosis: (6) Peripheral vascular disease: (7) Nocturnal hypoxia: (8) Current smoker: (9) Coronary artery disease: (10) Chronic kidney disease, stage IV (severe): (11) Cardiomyopathy, hypertrophic: I believe the patient's presenting symptoms are due to hypertensive urgency. Her echocardiogram shows no wall motion abnormalities and asymmetric septal hypertrophy without significant LVOT obstruction. Agree with medications being restarted and discontinuing the verapamil and increasing the amlodipine. BP still remains elevated so we will increase hydralazine to 25 mg and follow blood pressures. May require further titration. Would prefer patient remain admitted overnight, however, blood pressures are i mproved and should she insist on leaving would recommend follow-up with PCP within the week as well as follow-up with cardiology in the very near future. She will require nuclear stress testing as an outpatient to rule out any significant ischemic burden. Admission and Anticipated Discharge Date Admission Date: April 30, 2020 Subjective Patient seen and examined, chart reviewed. Patient states that she is not happy to have to be in the hospital and feels very fatigued today. She denies any chest pain, shortness of breath, palpitations, lightheadedness, dizziness or syncope. Telemetry reviewed: Normal sinus rhythm without arrhythmia or significant ectopy. Review of Systems Review of Systems: All systems reviewed & are unremarkable except as noted in HPI & below Physical Exam Physical Exam: General: Awake, alert and oriented x 3. No acute distress. HEENT: Normocephalic, atraumatic. Pupils equal, round and reactive to light and accommodation. Extraocular muscles are intact. Anicteric sclera. Moist mucous membranes. Neck: No JVD. No bruit. Cardiovascular: Regular. Positive S-4. Normal S-1 and S-2. No S-3. 3/6 mid to late systolic ejection murmur, greatest at the right sternal border, second intercostal space with radiation to the bilateral carotids. No rubs. Pulmonary: Clear to auscultation bilaterally. No rales, rhonchi, or wheezing. Abdomen: Bowel sounds x 4, soft. No rebound, guarding or tenderness. No organomegaly. Extremities: No clubbing, cyanosis or edema. +2 pedal pulses bilaterally. Skin: Warm and dry. Results & Data ([facility]) Vital Signs (Past 12 Hours) Vital Signs Temp Pulse Pulse Resp BP BP Pulse Ox 05/01/20 11:17 36.9 C 72 17 153/92 H 92 05/01/20 10:16 60 05/01/20 07:31 36.6 C 66 22 190/84 H 90 05/01/20 04:05 36.6 C 62 22 156/74 H 93 (1) Chest pain Chest pain type: unspecified Qualified Code(s): R07.9 - Chest pain, unspecified
--- NOTE | 2020-05-01 16:09 | Hospitalist Progress Note ---
Date of Service May 01, 2020 Assessment & Plan Admission and Anticipated Discharge Date Admission Date: April 30, 2020 Chest pain Presents with substernal chest pain radiating to the mid back waking her from sleep and going away mostly on its own without any intervention. Lasted for 2 hours, ECG without ischemic changes. She is high risk for acute coronary syndrome given hypertrophic cardiomyopathy, PAD, CKD stage IV, HTN with hypertensive urgency here proBNP is markedly elevated 12,000 although no baseline to follow-with HCM she may always have some elevation. Does not seem significantly volume overloaded but does report some increased lower extremity edema- did receive 1 dose of IV Lasix in the ER. Chest pain could be GI in nature, does not seem musculoskeletal. She has been on prednisone for last 5 days which could cause some GI upset. -Serial troponin 0.036 -> 0.102 -> 0.106 and ECG: Normal sinus rhythm, Left axis deviation, T-wave inversion in anterior leads -Noncontrast CT of the chest/abdomen/pelvis w/: fusiform aneurysmal dilation of infrarenal AA 5.2x5.2 cm (unchanged), cardiomegaly, and cholelithiasis -Cardiology consultation placed, case discussed with cardiology -Will continue home blood pressure meds, and add hydralazine IV as needed for SBP greater than 180 to bring blood pressure down-hydralazine confirmed with cardiology that this is okay to be given with HCM -In general, want to avoid preload reducers such as nitroglycerin -Will try Tums and Pepcid -holding prednisone given concern for GI source of pain -Continue aspirin, statin, beta-harsha -No anticoagulation needed at this point unless troponin trends upwards -plan for outpatient functional cardiac evaluation per cardiology Coronary artery disease: With mild to moderate nonobstructive disease on cardiac catheterization performed in 2007 with mild disease of the LAD and left circumflex as well as moderate mid RCA stenosis at that time - Continue aspirin, statin, beta-harsha, losartan Hypertension With hypertensive urgency as noted above likely secondary to chest pain and not taking her morning medications. She received first dose of her morning medications in the ER. - Amlodipine increased to 10 mg daily, - Discontinued Verapamil 360 mg once daily given pt. already on calcium channel harsha - Metoprolol succinate 50 mg p.o. twice daily, - Losartan 100 mg p.o. once daily - Furosemide 40 mg p.o. once daily - On hydralazine 10 mg IV every 8 hours as needed SBP greater than 180 in the setting of chest pain with hypertensive urgency Chronic diastolic congestive heart failure: - With HCM as above - With possible acute on chronic diastolic CHF with elevated proBNP and mildly increased lower extremity edema - Received 1 dose of IV Lasix 40 mg in the ER - Caution with overdiuresis in the setting of HCM - Will plan to just continue home Lasix p.o. - Echocardiogram with EF 55-60% and aortic sclerosis Cardiomyopathy, hypertrophic: As noted above, caution with preload reducers and overdiuresis She has been seen at the [facility] by cardiology who determined that she is not a good surgical candidate for myectomy or ablation therapy given her comorbid conditions Chronic kidney disease, stage IV (severe): Creatinine is around baseline at 2.0, follows with nephrology at [facility], Dr. Millan - Follow BMP - Avoid nephrotoxins and will renally dose medications when necessary COPD (chronic obstructive pulmonary disease): Continues to smoke - Continue home albuterol - She was supposed to be on Spiriva as an outpatient-sees Dr. zaroc for pulmonology - will prescribe Incruse Ellipta here Atrial fibrillation This is noted in the chart and patient admits to this, however I cannot find evidence of this in the notes She is not on anticoagulation Monitor on telemetry Anemia Hemoglobin chronically around 11 and is normocytic Most likely anemia of chronic kidney disease Transferrin saturation 12% in 07/2019 Follow iron studies as an outpatient with nephrology No acute issues at this time Leukocytosis: WBC count elevated at 15 on admission, likely secondary to recent prednisone burst No evidence of infection or fevers at this time Holding prednisone and follow CBC BMI 40.0-44.9, adult: BMI 39.5 Needs weight loss and low carbohydrate diet Nocturnal hypoxia: Has known diagnosis of moderate JOAQUINA but continues to refuse CPAP therapy or oxygen therapy Follow pulse ox and apply supplemental O2 to keep pulse ox greater than 88% AAA (abdominal aortic aneurysm): 5 cm infrarenal AAA noted on CT of the abdomen/pelvis in 05/2019 And noted to have a 5.6 cm AAA infrarenally on cardiac MRI from 10/2018 She also had a CT angiogram on 09/04/2027 which showed stability of the AAA size at 5.7 and she was seen by vascular surgery at [facility] in [place]-because of her high risk for surgery, they decided to continue with surveillance. Checking CT of the abdomen and pelvis without contrast today Renal artery stenosis: Has a history of bilateral renal artery stenosis-abdominal MRI from 2005 shows 50-70% stenosis of left renal artery at origin and 50 to 60% stenosis in the right - Patient reports she has not had any intervention - She remains on losartan at this time and follows with nephrology - Continue aspirin and statin - Follow blood pressure and BMP Hypokalemia (improved) - Potassium 3.3 on arrival, was given potassium chloride 40 mEq along with Lasix in the ER today - Follow BMP Dyslipidemia - Continue statin, last LDL was only 51 in 10/2017 Peripheral vascular disease With known AAA with thrombus and distally occluded aorta with some collaterals - Has lower extremity claudication - Seen by vascular surgery at [facility] in [place] in 09/2019-deemed not a good surgical candidate for AAA repair or angiography given CKD and other comorbid conditions - AAA stable on CT Current smoker Counseled on cessation - She continues to smoke 1/2 pack a day for decades Spinal stenosis Pain medication as needed DVT prophylaxis: - Heparin SQ, SCDs Disposition-admit to PCU, expected least a 2 midnight stay for hypertensive urgency, chest pain Lives alone - placed order for PT/OT given recent fall DNR/DNI Patient reports that she is a and has no children. Her HCPOA while not officially on official paperwork is her good friend, Dia Gates. She designates Dia to make any decisions for her if she is not able to. Dia is aware that the patient is currently in the hospital. Supervising Physician Co-Signing Physician Notes Resident Physician Supervision Note: I independently interviewed and examined the patient and verified the renee history and physical, reviewed labs and image studies, discussed the case with the resident Dr. Gil and agree with the findings and care plan. Subjective Talking with the patient today she explained that she had pain that started on 04/30 at 5 AM and lasted approximately 2 hours. The pain radiated to her back. She has also noticed some swelling in her legs. She was anxious to go home but understood that given her new oxygen requirement and elevated blood pressure that we want to continue to watch her. Review of Systems Review of Systems: Constitutional: denies fevers, chills Cardiac: denies chest pain, palpitations Pulm: denies cough, admits shortness of breath Physical Exam Constitutional: well developed and well nourished; no acute distress Eyes: PERRL, conjunctivae normal, anicteric sclerae ENMT: external ear and nose normal, oropharynx normal Neck: normal visual inspection Respiratory: - clear to auscultation with no wheezes, rhonchi, or rales - good air movement - no respiratory distress - able to speak in full sentences Cardiovascular: RRR, no murmur, no edema Gastrointestinal (Abdomen): - soft, nTTP, no guarding Skin: no rashes, warm and dry Results & Data Results & Data ([facility]) Vital Signs (Past 12 Hours) Vital Signs Temp Pulse Pulse Resp BP BP Pulse Ox 05/01/20 15:27 36.4 C L 68 20 159/79 H 92 05/01/20 11:17 36.9 C 72 17 153/92 H 92 05/01/20 10:16 60 05/01/20 07:31 36.6 C 66 22 190/84 H 90 05/01/20 04:05 36.6 C 62 22 156/74 H 93 CBC Results Results Complete Blood Count Results: RBC 3.63 M/uL (4.2-5.4) L 05/01/20 WBC 18.45 K/uL (4.8-10.8) H 05/01/20 Hgb 10.5 g/dL (12.0-16.0) L 05/01/20 Hct 32.6 % (37-47) L 05/01/20 Plt Count 253 K/uL (130-400) 05/01/20 Chemistry (BMP) Results BMP Results: Sodium 143 mmol/L (136-145) 05/01/20 Potassium 3.6 mmol/L (3.5-5.1) 05/01/20 Chloride 108 mmol/L (98-107) H 05/01/20 BUN 34 mg/dl (7-18) H 05/01/20 Creatinine 2.07 mg/dl (0.6-1.2) H 05/01/20 Glucose 87 mg/dl (70-99) 05/01/20 Resident Activity Tracking Resident Involvement: Resident Care Provided Care Provided: Adult [facility] Medicine
[2020-05-01] MEDS: HydrALAZINE TAB 50 MG TAB PO SCH (21:47)
[2020-05-02] MEDS: HydrALAZINE TAB 50 MG TAB PO SCH (06:19)
[2020-05-02] MEDS: HEPARIN SOD 5,000 UNIT/0.5 ML VIAL SQ SCH ×2 (06:20→13:13)
[2020-05-02 06:39] LABS: Basophils # (auto) 0.02 K/uL (0-0.2); Basophils % (auto) 0.2 %; Eosinophils # (auto) 0.23 K/uL (0-0.5); Eosinophils % (auto) 1.9 %; Hematocrit (blood only) 31.5 % (37-47); Hemoglobin 9.8 g/dL (12.0-16.0); Immature Granulocytes # (auto) 0.09 K/uL (0.00-0.02); Immature Granulocytes % (auto) 0.7 %; Lymphocytes # (auto) 1.58 K/uL (1.2-3.4); Lymphocytes % (auto) 12.7 %; Mean Corpuscular Hemoglobin 27.5 pg (25-34); Mean Corpuscular Hgb Conc 31.1 g/dL (32-36); Mean Corpuscular Volume 88.2 fL (80-100); Mean Platelet Volume 10.8 fL (7.4-10.4); Monocytes # (auto) 1.13 K/uL (0.11-0.59); Monocytes % (auto) 9.1 %; Neutrophils # (auto) 9.37 K/uL (1.4-6.5); Neutrophils % (auto) 75.4 %; Platelet Count 227 K/uL (130-400); RDW Coefficient of Variation 16.1 % (11.5-14.5); RDW Standard Deviation 51.9 fL (36.4-46.3); Red Blood Count 3.57 M/uL (4.2-5.4); White Blood Count 12.42 K/uL (4.8-10.8)
[2020-05-02 07:09] LABS: BUN Creatinine Ratio 15.2 (10-20); Calcium 8.5 mg/dl (8.5-10.1); Creatinine Clr Calc Pharmacy 30.4 ml/min; Est GFR (Non-African American) 25.9; Potassium 3.5 mmol/L (3.5-5.1)
[2020-05-02] MEDS ORDERED: HydrALAZINE TAB 50 MG TAB PO ONE (08:15)
[2020-05-02] MEDS: FUROSEMIDE 40 MG TAB PO SCH (08:42)
[2020-05-02] MEDS: LOSARTAN POTASSIUM 50 MG TAB PO SCH (08:42)
[2020-05-02] MEDS: ASPIRIN 81 MG ECTAB PO SCH (08:42)
[2020-05-02] MEDS: UMECLIDINIUM BROMIDE 62.5MCG/BLISTER 7 PUFFS/INHALER INH SCH (08:43)
[2020-05-02] MEDS: ATORVASTATIN 40 MG TAB PO SCH (08:44)
[2020-05-02] MEDS: CYANOCOBALAMIN 500 MCG TABLET (VITAMIN B-12) PO SCH (08:44)
[2020-05-02] MEDS: FAMOTIDINE 20 MG TAB PO SCH (08:44)
[2020-05-02] MEDS: CHOLECALCIFEROL 1,000 UNITS 25 MCG TAB PO SCH (08:45)
[2020-05-02] MEDS: AMLODIPINE BESYLATE 5 MG TAB PO SCH (08:45)
[2020-05-02] MEDS: METOPROLOL SUCC 50MG EXT REL TAB PO SCH (08:45)
[2020-05-02] MEDS ORDERED: CALCITRIOL 0.25 MCG CAPSULE PO SCH (09:00)
[2020-05-02 11:59] VITALS: PULSE 63; TEMP 98.1; O2SAT 94
[2020-05-02 12:49] VITALS: BP 190/84
--- NOTE | 2020-05-02 12:50 | Discharge Summary ---
Date of Service May 02, 2020 Admission HPI Per Admitting Provider This patient is a 74-year-old female with a history of chronic diastolic CHF and hypertrophic obstructive cardiomyopathy, CAD, CKD stage IV, COPD, current smoker, atrial fibrillation not on anticoagulation, HTN, PAD, ALEXANDER without history of stent?, hyperlipidemia, AAA, JOAQUINA not on CPAP, and obesity, who presents to the ER after waking up with chest pain at 5:00 this morning. She reports the pain was substernal and severe in nature, radiated through to the upper mid back and was not associated with diaphoresis or nausea or vomiting. No abdominal pain. She got up out of bed and let her dog out and then decided to sit on the couch until the pain went away down to a very dull ache at which it remains. She did not take any medication at all and did not do anything to try to make the pain go away. She denies any heartburn symptoms. Denies headache or lightheadedness, no numbness or tingling or weakness or stroke symptoms. She does think that her legs have been a bit swollen in the last week since she had a fall hurting her hip and back last week. She was started on a prednisone burst for this about 5 days ago by her PCP. A friend drove her to the hospital and when she arrived, her blood pressure was significantly elevated at 200/100. She was given her usual morning medications for blood pressure. Her chest x-ray was clear but she seemed volume overloaded and was given IV Lasix. Her troponin was mildly elevated at 0.038 and her proBNP was markedly elevated at 17,452. Her CBC was significant for leukocytosis but she has been on prednisone. Otherwise she has stable mild anemia. Her creatinine was around baseline at 2.1. She will be admitted for chest pain work-up and hypertensive urgency. Principal Diagnosis Hypertensive Urgency Discharge Exam Constitutional WD/WN, vitals as above Eyes PERRL, conjunctivae normal, anicteric sclerae ENMT external ear and nose normal, oropharynx normal Respiratory able to speak in complete sentences and + audible wheezes; no respiratory distress, no labored breathing, no nasal flaring and no pursed lip breathing Auscultation: + diminished lung sounds Cardiovascular RRR, no murmur, no edema Gastrointestinal (Abdomen) normal bowel sounds, soft, nontender, no hepatosplenomegaly Musculoskeletal no cyanosis or clubbing, extremities motor strength 5/5 Skin no rashes, warm and dry Neurologic patellar DTR's 2+ bilat, sensation intact and PERRL, EOMI, accommodation nl, no face palsy, no dysarthria Psychiatric A+Ox3, euthymic affect Discharge Data Allergies Allergy/AdvReac Type Severity Reaction Status Date / Time benzonatate Allergy Mild Dizziness Verified 04/25/20 09:33 Cephalosporins Allergy Mild KEFLEX=RASH Verified 04/25/20 09:33 diltiazem Allergy Mild RASH Verified 04/25/20 09:33 Iodinated Contrast Media Allergy Mild CT Verified 04/25/20 09:33 Contrast = kidney infection Consultations 04/30/20 10:15 ED Decision to Admit Stat 04/30/20 10:57 Consult Cardiology Routine 04/30/20 12:30 Consult Case Management - Discharge Planning Routine Ordered Studies 04/30/20 11:09 CT abd pelvis wo con Stat CT chest wo con Stat Hospital Course (1) Hypertensive urgency: Judi Bailon is a 74y/o F w/ PMH significant for hypertrophic cardiomyopathy, PAD, CKD stage IV, HTN with hypertensive urgency; who presented with substernal chest pain radiating to the mid back waking her from sleep and going away mostly on its own without any intervention. Lasted for 2 hours, ECG without ischemic changes. here proBNP is markedly elevated 12,000 although no baseline to follow-with HCM she may always have some elevation. Does not seem significantly volume overloaded but does report some increased lower extremity edema- did receive 1 dose of IV Lasix in the ER. Chest pain could be GI in nature, does not seem musculoskeletal. She has been on prednisone for last 5 days which could cause some GI upset. Chest pain -likely secondary to hypertensive urgency -Serial troponin trended -Noncontrast CT of the chest/abdomen/pelvis: fusiform aneurysmal dilation of infrarenal AA 5.2x5.2 cm (unchanged), cardiomegaly, and cholelithiasis -Cardiology consultation: symptoms likely secondary to uncontrolled hypertension -Continue home regimen with increase of Amlodipine, and addition of 50mg Hydralazine TID -plan for outpatient functional cardiac evaluation per cardiology Coronary artery disease: - Continue aspirin, statin, beta-harsha, losartan Hypertension: - Amlodipine increased to 10 mg daily - Hydralazine 50mg TID started - Discontinued Verapamil 360 mg once daily given pt. already on calcium channel harsha - Metoprolol succinate 50 mg p.o. BID - Losartan 100 mg p.o. once daily - Furosemide 40 mg p.o. once daily Chronic diastolic congestive heart failure: - With HCM as above - With possible acute on chronic diastolic CHF with elevated proBNP and mildly increased lower extremity edema - Received 1 dose of IV Lasix 40 mg in the ER - Caution with overdiuresis in the setting of HCM - Will plan to just continue home Lasix p.o. - Echocardiogram with EF 55-60% and aortic sclerosis Cardiomyopathy, hypertrophic: -caution with preload reducers and overdiuresis Chronic kidney disease, stage IV (severe): -Creatinine baseline at 2.0, follows with nephrology at [facility], Dr. Millan -Cr 1.90 on discharge COPD (chronic obstructive pulmonary disease): - continue home inhalers Obstructive sleep apnea: - Has known diagnosis of moderate JOAQUINA but continues to refuse CPAP therapy or oxygen therapy AAA (abdominal aortic aneurysm): -5 cm infrarenal AAA noted on CT of the abdomen/pelvis in 05/2019 And noted to have a 5.6 cm AAA infrarenally on cardiac MRI from 10/2018 -CT angiogram on 09/04/2017 which showed stability of the AAA size at 5.7 -Vascular surgery at [facility] in [place] previously decided to continue with surveillance due to high surgical risk Renal artery stenosis: Has a history of bilateral renal artery stenosis-abdominal MRI from 2005 shows 50-70% stenosis of left renal artery at origin and 50 to 60% stenosis in the right - Patient reports she has not had any intervention - She remains on losartan at this time and follows with nephrology - Continue aspirin and statin - Follow blood pressure and BMP Dyslipidemia: - Continue statin Peripheral vascular disease: - Has lower extremity claudication - Seen by vascular surgery at [facility] in [place] in 09/2019-deemed not a good surgical candidate for AAA repair or angiography given CKD and other comorbid conditions - AAA stable on CTl (2) Hypokalemia: (3) Chest pain: (4) Renal artery stenosis: (5) AAA (abdominal aortic aneurysm): (6) Cardiomyopathy, hypertrophic: (7) Chronic diastolic congestive heart failure: (8) Chronic kidney disease, stage IV (severe): (9) Coronary artery disease: (10) Dyslipidemia: (11) Peripheral vascular disease: (12) Current smoker: (13) COPD (chronic obstructive pulmonary disease): (14) Atrial fibrillation: (15) Hypertension: Total Time Total Time Spent Total Time Spent (In Minutes): <30 Discharge Plan Discharge Items Patient Disposition: Home - Self-Care Reason For Visit: CHEST PAIN,chf Discharge Diagnosis: Hypertensive urgency Activity: Per Instructions section Non-emergency contact: Primary Care Provider and Child Care Cook Call non-emergency contact if: you have any medication questions and your symptoms worsen Follow-up/Referrals: Shravan Chicas DO [Primary Care Provider] - 05/09/20 10:30 am Diet: Heart Healthy Addtl Attending Provider Instructions: You were seen and admitted following concern for new chest pain in the setting of your heart disease history. During this admission, you were evaluated for worsening of your heart disease and monitoring of your heart over this time. T his did not demonstrate a new worsening of your heart disease that would have generated the chest pain that you were experiencing. However, it was demonstrated that your blood pressure remained uncontrolled despite the medications that you are on at home. Looking back through your chart demonstrated that you had a sleep study in 2019 that demonstrated that you have sleep apnea, but did not want to use a CPAP mask. In addition to continuing smoking, not utilizing an effective treatment for your sleep apnea can increased your blood pressure. You should continue to have conversations with your PCP, and radiotelegrapher about these potential additional options. You are being discharged on your home anti-hypertensive regimen, with the following changes: increasing amlodipine to 10mg daily, and with the addition of Hydralazine 50mg that you take three times a day. Now that you are going home and with these new medications it is important that you continue to monitor to see if your blood pressure goes too low. This can look like lightheadedness, dizziness, passing out, and increase weakness when standing up. If you notice any of these symptoms or notice concerning symptoms, reduce the Hydralazine and call your primary care doctor for evaluation. Pending Studies at Discharge: No Stand-Alone Forms: [facility], Smoking Cessation Medications and DC Order Prescriptions: New hydralazine 50 mg tablet 50 mg PO TID 30 Days Qty: 90 RF: 0 amlodipine 10 mg tablet 10 mg PO DAILY Qty: 30 RF: 0 Continued metoprolol succinate 50 mg tablet extended release 24 hr 50 mg PO BID Qty: 180 RF: 3 losartan 100 mg tablet 100 mg PO QAM Qty: 30 RF: 5 calcitriol 0.5 mcg capsule 0.5 mcg PO UD Qty: 45 RF: 3 furosemide 40 mg tablet 40 mg PO QAM Qty: 90 RF: 3 albuterol sulfate [ProAir HFA] 90 mcg/actuation HFA aerosol inhaler 2 puff INH Q4H PRN (Reason: shortness of breath or wheezing) Qty: 18 RF: 1 cyanocobalamin (vitamin B-12) [Vitamin B-12] 1,000 mcg Tablet 1,000 mcg PO QAM RF: 0 aspirin [Aspirin Low Dose] 81 mg Tablet,Delayed Release (Dr/Ec) 81 mg PO QAM RF: 0 cholecalciferol (vitamin D3) [Vitamin D3] 1,000 unit Capsule 1,000 unit PO QAM RF: 0 atorvastatin 40 mg tablet 40 mg PO QAM RF: 0 Discontinued amlodipine 5 mg tablet 5 mg PO DAILY Qty: 90 RF: 3 prednisone 20 mg tablet See Rx Instructions PO DAILY Qty: 11 RF: 0 Discharge Orders: Discharge Order (Routine); Ordered 05/02/20 Ordered By: Josh Briones/Other Patient Handouts: Your High Blood Pressure Risk Factors, Taking Amlodipine, Hydralazine tablets Admission Data Admit Date/Time: 04/30/20 10:57 Attending Provider: Xiang Cramer Admit Provider: Shaunna Reyez Primary Care Provider: Shravan Chicas Other Providers: Ramírez Anderson ; Shaunna Reyez ; Giaan Pope Other Interventions: Discharge Summary Assessment (RN) Last Done: 05/02/20 12:45 Supervising Physician Co-Signing Physician Notes I personally examined the patient and verified all renee points of history and exam, discussed case, and agree with decision making with Dr Savage. feeling better breathing at baseline, really wants to go home vitals noted nad heent nc at mmm breathing unlabored no accessory muscles good effort skin no rashes no pallor or icterus HTN urgency - really wanting to go home, does appear medically stable - but seeing as she's dressed and ready to leave, i suspect she would leave AMA if she didn't leave with advice. increased meds - hydralazine 50mg TID - can titrate up further if she tolerates but the counter concern is of course orthostasis. refusing to consider smoke cessation or JOAQUINA treatment otherwise as above Resident Activity Tracking Resident Involvement: Resident Care Provided Care Provided: Adult [facility] Medicine
--- NOTE | 2020-05-02 13:15 | Cardiology Progress Note ---
Date of Service May 02, 2020 Assessment & Plan (1) Hypertensive urgency: (2) Chest pain: (3) AAA (abdominal aortic aneurysm): (4) Atrial fibrillation: (5) Renal artery stenosis: (6) Peripheral vascular disease: (7) Nocturnal hypoxia: (8) Current smoker: (9) Coronary artery disease: (10) Chronic kidney disease, stage IV (severe): (11) Cardiomyopathy, hypertrophic: I believe the patient's presenting symptoms are due to hypertensive urgency. Her echocardiogram shows no wall motion abnormalities and asymmetric septal hypertrophy without significant LVOT obstruction. Agree with medications being restarted and discontinuing the verapamil and increasing the amlodipine. BP still remains elevated so we will increase hydralazine to 100 mg and follow blood pressures. May require further titration. will need close f/u with pcp as well to follow bp She will require nuclear stress testing as an outpatient to rule out any significant ischemic burden. Admission and Anticipated Discharge Date Admission Date: April 30, 2020 Subjective Patient seen and examined, chart reviewed. Patient is aggravated that she remains hospitalized. Denies cardiac complaints of chest pain, shortness of breath, palpitations, lightheadedness, dizziness or syncope. Telemetry reviewed: Normal sinus rhythm without arrhythmia or significant ectopy. Review of Systems Review of Systems: All systems reviewed & are unremarkable except as noted in HPI & below Physical Exam Physical Exam: General: Awake, alert and oriented x 3. No acute distress. HEENT: Normocephalic, atraumatic. Pupils equal, round and reactive to light and accommodation. Extraocular muscles are intact. Anicteric sclera. Moist mucous membranes. Neck: No JVD. No bruit. Cardiovascular: Regular. Positive S-4. Normal S-1 and S-2. No S-3. 3/6 mid to late systolic ejection murmur, greatest at the right sternal border, second intercostal space with radiation to the bilateral carotids. No rubs. Pulmonary: Clear to auscultation bilaterally. No rales, rhonchi, or wheezing. Abdomen: Bowel sounds x 4, soft. No rebound, guarding or tenderness. No organomegaly. Extremities: No clubbing, cyanosis or edema. +2 pedal pulses bilaterally. Skin: Warm and dry. Results & Data ([facility]) Vital Signs (Past 12 Hours) Vital Signs Temp Pulse Pulse Resp BP BP Pulse Ox 05/02/20 12:45 36.7 C 63 20 115/60 190/84 H 94 05/02/20 11:58 36.7 C 63 20 115/60 94 05/02/20 10:06 76 (1) Chest pain Chest pain type: unspecified Qualified Code(s): R07.9 - Chest pain, unspecified
[2020-05-02] MEDS ORDERED: HydrALAZINE TAB 50 MG TAB PO SCH (14:00)
--- NOTE | 2020-05-02 19:05 | Billing Data ---
Date of Service May 02, 2020 Coding Level of Care Code D/C Day Management <30 mins
--- NOTE | 2020-05-03 05:55 | Electrocardiogram Report ---
Test Reason : Blood Pressure : / mmHG Vent. Rate : 064 BPM Atrial Rate : 064 BPM P-R Int : 184 ms QRS Dur : 084 ms QT Int : 430 ms P-R-T Axes : -05 -20 123 degrees QTc Int : 443 ms Normal sinus rhythm Left ventricular hypertrophy with repolarization abnormality Poor R wave progression, consider anterior MD vs. lead placement vs. LVH Abnormal ECG When compared with ECG of 01-MAY-2020 07:21, No significant change Confirmed by Kevin Bain ([id number]) on 05/03/2020 5:55:43 AM Referred By: REFERRED SELF Confirmed By:Kevin Bain
== END 2020-05-02 13:50 | disposition home or self-care (01) ==
LOC: ED 08:29 → SUATTDRO 10:57 → 2S 10:57 → INTOOBSV 10:57 → 2S 12:02

== ENCOUNTER 2022-04-13 15:52 | Observation (INO) ==
--- NOTE | 2022-04-13 16:04 | ED Triage Note ---
Date of Service April 13, 2022 History of Present Illness This patient was briefly evaluated while in triage. An abbreviated physical exam was performed. This patient is a 76-year-old Female with past medical history of CAD, HTN, HCMO, CHF, COPD, CKD who presents to the ED for evaluation of chest pain last night, her doctor told her to come. States the chest pain was in the center of her chest abdomen was normal and "someone was sitting on my chest." She denies any chest pain now. No SOB. Slipped out of chair in waiting room, but denies dizziness. Physical Exam CONSTITUTIONAL: No acute distress. Well appearing. RESPIRATORY: Clear to auscultation bilaterally. Equal expansion bilaterally. CARDIOVASCULAR: Regular rate and rhythm with no murmurs, rubs or gallops, quiet heart sounds. Normal peripheral perfusion. GASTROINTESTINAL: Soft, nontender. NEUROLOGIC: Alert and oriented X 4 with normal affect. Initial orders for labs and / or imaging were placed and patient was placed in the waiting area until a bed is available. Please see further documentation for the full ED course.
[2022-04-13 17:24] LABS: Basophils # (auto) 0.07 K/uL (0-0.2); Basophils % (auto) 0.6 %; Eosinophils # (auto) 0.11 K/uL (0-0.50); Eosinophils % (auto) 0.9 %; Hematocrit (blood only) 32.2 % (34.1-44.9); Hemoglobin 10.9 g/dl (12.0-16.0); Immature Granulocytes # (auto) 0.06 K/uL (0.00-0.02); Immature Granulocytes % (auto) 0.5 %; Lymphocytes % (auto) 11.9 %; Mean Corpuscular Hgb Conc 33.9 g/dL (32.0-36.0); Mean Corpuscular Volume 85.6 fL (80.0-100.0); Mean Platelet Volume 11.2 fL (9.4-12.3); Monocytes # (auto) 0.79 K/uL (0.24-0.82); Monocytes % (auto) 6.3 %; Neutrophils # (auto) 10.07 K/uL (1.4-6.5); Neutrophils % (auto) 79.8 %; Platelet Count 313 K/uL (130-400); RDW Coefficient of Variation 16.1 % (11.5-14.5); RDW Standard Deviation 50.5 fL (36.4-46.3); Red Blood Count 3.76 M/uL (3.93-5.22)
[2022-04-13 17:36] LABS: INR 1.1 (0.9-1.1); Partial Thromboplastin Time 26.8 Seconds (21.0-31.0); Prothrombin Time 11.4 Seconds (9.0-12.0)
[2022-04-13 17:56] LABS: Alanine Aminotransferase 8 U/L (7-52); Albumin Globulin Ratio 0.9 (0.9-2); Albumin Level 3.4 gm/dl (3.4-5.0); Alkaline Phosphatase 97 U/L (34-104); Anion Gap 12 (3-11); Aspartate Aminotransferase 12 U/L (13-39); BUN Creatinine Ratio 10.3 (10-20); Bilirubin,Total 0.4 mg/dl (0.2-1.0); Blood Urea Nitrogen 28 mg/dl (6-23); Carbon Dioxide 24 mmol/L (21-32); Chloride 97 mmol/L (98-107); Est GFR (African American) 19.3 ml/min; Est GFR (Non-African American) 16.6 ml/min; Globulin 3.8 gm/dl (2.5-4.0); Glucose 94 mg/dl (70-99(Fasting)); Lipase 16 U/L (11-82); Potassium 3.3 mmol/L (3.5-5.1); Sodium 133 mmol/L (136-145); Total Protein 7.2 gm/dl (6.0-8.3)
[2022-04-13 17:59] LABS: Troponin I High Sensitivity 261.4 pg/ml (0-14)
[2022-04-13] MEDS ORDERED: ASPIRIN CHEW 324 MG PO STA (18:07)
[2022-04-13] MEDS ORDERED: SODIUM CHLORIDE 0.9% 1000ML 500 ML IV ONE (18:07)
--- NOTE | 2022-04-13 18:23 | XRay Report ---
XR chest 1V portable HISTORY: 76 years-old Female Chest Pain acute chest pain COMPARISON: Chest radiograph 12/22/2020 TECHNIQUE: Portable AP view of the chest FINDINGS: Cardiac silhouette is enlarged. Atherosclerosis of the aorta. No pneumothorax, large pleural effusion or overt pulmonary edema. Mild linear subsegmental bibasilar densities. Degenerative changes of the shoulders and spine. IMPRESSION: Cardiomegaly with subsegmental bibasilar atelectasis. ACT 112: Negative or not required by law. The above report was generated using voice recognition software. It may contain grammatical, syntax o r spelling errors. Electronically signed by: Javier Childs M.D. 04/13/2022 6:21 PM
--- NOTE | 2022-04-13 18:36 | Emergency Department Note ---
Impression & Plan Non-ST elevation (NSTEMI) myocardial infarction, MATT (acute kidney injury), Chest pain ED Provider Note NAME: WYATT SANTOS AGE: 76 SEX: F : 1945 ARRIVES VIA: Walk-In INFORMANT: Patient ED PROVIDER(S): Xiang Melton DO CHIEF COMPLAINT: chest pain HPI: Patient is a 76-year-old female with a past medical history CHF, hypertrophic cardiomyopathy, A. fib, hypertension, AAA, COPD, asthma who presents the ER for chest pressure which started last night around 8 PM and lasted for several hours. It was midsternal and described as a heaviness. It resolved with her sisters nitro that she took. She denies any arm or jaw pain. She does have shortness of breath but notes that was stable and she always has shortness of breath. No belly pain, nausea, vomiting, or diarrhea. No dysuria, urgency, or frequency. No other exacerbating or remitting factors. ROS: See above HPI for pertinent positives & negatives. A total of 10 systems reviewed and were otherwise negative. PAST MEDICAL HISTORY:See Below PAST SURGICAL HISTORY:See Below FAMILY HISTORY:See Below SOCIAL HISTORY:See Below HOME MEDICATIONS:See Below ALLERGIES:See Below VITALS:See Below PHYSICAL EXAMINATION: GENERAL: Sitting up in bed, alert, well appearing, well nourished, no distress, non-toxic EYE EXAM: normal conjunctiva. OROPHARYNX: no exudate, no erythema, lips, buccal mucosa, and tongue normal and mucous membranes are moist NECK: supple, no nuchal rigidity, no adenopathy, non-tender LUNGS: Clear to auscultation. Normal chest wall mechanics HEART: no murmurs, S1 normal and S2 normal ABDOMEN: abdomen soft, non-tender, normo-active bowel sounds, no masses, no rebound or guarding. UPPER EXTREMITIES: upper extremities are grossly normal. LOWER EXTREMITIES: No pitting edema. NEURO EXAM: Normal sensorium, cranial nerves II-XII grossly intact, normal speech, no gross weakness of arms, no gross weakness of legs. MEDICAL DECISION MAKING: Patient is a 76-year-old female who presents ER for midsternal chest pain which started yesterday and resolved last night. IV was established blood work was obtained. Labs show mild leukocytosis of 12.6 thousand. Mild anemia 10. INR unremarkable. BMP with a mild hypokalemia 3.3 and creatinine at 2.7 up from baseline of what appears to be 2.2. Troponin was markedly elevated at 226. Lipase was negative. EKG did be slightly worse than previous. Patient was given aspirin. She is pain-free. She is updated bedside. Chest x-ray was unremarkable. She was discussed with hospitalist admitted for an NSTEMI. Triage Nursing notes reviewed. Limited review of prior medical records performed Vital Signs: reviewed and remarkable for no significant abnormalities Differential diagnosis: Cardiac ischemia, aortic dissection, pulmonary embolism, pneumothorax, pneumonia, pericarditis, myocarditis, esophageal rupture, GERD, cholecystitis, pancreatitis, musculoskeletal, as well as other pathologies. ER treatment provided: See below Diagnostics interpreted by me: ECG: Sinus rhythm at 63 Left axis T wave inversion in the high lateral leads with ST depressions as well as T wave inversion in V2 with ST depressions which are slightly worse than previous QTC 476 Cardiac Monitoring: An order was placed for continuous cardiac monitoring. The monitor shows a rate of 68 with sinus rhythm. Laboratory studies: As stated above and show below. Imaging studies: See below Consultation(s): Discussed with Michael Correia for further evaluation Procedures: none Critical Care: None Past Med/Surg History Medical History AAA (abdominal aortic aneurysm) Followed at [facility] Abnormal CT scan, chest Abnormal diffusion capacity determined by pulmonary function test Anemia Anemia due to chronic kidney disease Asthma Atherosclerosis of both carotid arteries Atrial fibrillation Cardiomyopathy, hypertrophic Carpal tunnel syndrome Chronic diastolic congestive heart failure Chronic kidney disease, stage IV (severe) Chronic osteoarthritis COPD (chronic obstructive pulmonary disease) Coronary artery disease Current smoker Diffusion capacity of lung (dl), decreased Dyslipidemia History of uterine cancer 2008--sx only Hypertension Hypotension Nocturnal hypoxia Obstructive sleep apnea of adult no device Paroxysmal atrial fibrillation Peripheral vascular disease Renal artery stenosis Secondary hyperparathyroidism Short of breath on exertion Shortness of breath Spinal stenosis Tobacco abuse counseling Tubular adenoma of colon (~04/2014) Vitamin B12 deficiency Vitamin D deficiency Surgical History History of bilateral cataract extraction History of cardiac cath [address] Dangelo--no stent History of colonoscopy (~04/2014) History of tonsillectomy and adenoidectomy History of tooth extraction all teeth removed History of total hysterectomy with bilateral salpingo-oophorectomy (BSO) Family History Unknown Hypertension Mother Stroke syndrome Sister Uterine cancer Diabetes Myocardial infarction Ovarian cancer Other No family history of adverse response to anesthesia Denies family history of Prostate cancer Breast cancer Lung cancer Colorectal cancer Social History Smoking Status: Heavy tobacco smoker Tobacco Type: Cigarettes Age Started Using Tobacco: 19; packs per day: 0.5; Cigarettes Per Day: 12; Second Hand Exposure: Yes (parents smoked/nephew smokes); Hx Alcohol Use: No Hx Substance Use: No Preferred Language: Syriac Communication Ability: Effective Visual Impairment: No Limitations Hearing Ability: Normal Freight Claim Investigator Required: No Beliefs That Will Affect Care: None marital status: / Current Living Situation: Family current occupational status: retired How many Children do You have: 0 Feels Safe at Home: Yes Childhood Exposure to Second-Hand Smoke: Yes caffeine: Yes Dental Care, Regularly: No Physical Activity Frequency: Does not Exercise Seatbelt Use: never Sunscreen Use: No Assistive Devices: None Allergies Allergies Allergy/AdvReac Type Severity Reaction Status Date / Time benzonatate Allergy Mild Dizziness Verified 04/13/22 14:50 Cephalosporins Allergy Mild KEFLEX=RASH Verified 04/13/22 14:50 diltiazem Allergy Mild RASH Verified 04/13/22 14:50 Iodinated Contrast Media Allergy Mild CT Verified 04/13/22 14:50 Contrast = kidney infection Home Meds Home Medications Medication Instructions Recorded Confirmed aspirin 81 mg tablet,delayed 81 mg PO QAM 05/11/19 04/13/22 release (Shahzad Low Dose Aspirin) lisinopril 5 mg tablet 5 mg PO DAILY 03/08/22 04/13/22 Previous Rx's Medication Instructions Recorded furosemide 40 mg tablet 40 mg PO .COMPLEX #90 tabs 07/10/21 atorvastatin 40 mg tablet 40 mg PO QPM #90 tabs 08/04/21 amlodipine 5 mg tablet 5 mg PO DAILY #90 tabs 08/18/21 albuterol sulfate 90 mcg/actuation 2 puff inhalation Q4H PRN 10/05/21 aerosol inhaler (ProAir HFA) shortness of breath or wheezing #18 grams metoprolol succinate 50 mg 50 mg PO BID #180 tabs 12/06/21 tablet,extended release 24 hr calcitriol 0.25 mcg capsule 0.25 mcg PO UD #45 caps 02/19/22 losartan 25 mg tablet 25 mg PO DAILY #90 tabs 02/19/22 Results & Data (ED) Vital Signs Vital Signs - 24 hr 04/13/22 15:58 04/13/22 18:41 04/13/22 20:00 Temperature 36.4 C L Temperature Source Temporal Artery Scan Pulse Rate 67 Pulse Rate [Finger] 54 L 47 L Pulse Rhythm [Finger] Regular Respiratory Rate 16 22 16 Respiratory Effort / Characteristics Non-Labored Respiratory Depth Normal Respiratory Pattern Regular Blood Pressure 103/61 Blood Pressure [Left Arm] 151/75 H 151/75 H Blood Pressure Mean 75 Blood Pressure Mean [Left Arm] 100 100 Blood Pressure Position [Left Arm] Lying Pulse Oximetry 93 98 97 Oxygen Delivery Method Room Air Room Air Sepsis Recent Fever Within 48 Hours No Sepsis New/Unexplained Change in Mental Status No Sepsis Action Taken by Nursing No Action Required Laboratory Data Result diagrams: 04/13/22 17:12 04/13/22 17:12 Lab Results 04/13/22 04/13/22 04/13/22 Range/Units 17:12 17:12 17:12 WBC 12.60 H (4.8-10.8) K/ul RBC 3.76 L (3.93-5.22) M/uL Hgb 10.9 L (12.0-16.0) g/dl Hct 32.2 L (34.1-44.9) % MCV 85.6 (80.0-100.0) fL MCH 29.0 (25.0-34.0) pg MCHC 33.9 (32.0-36.0) g/dL RDW Std Deviation 50.5 H (36.4-46.3) fL RDW Coeff of Lakshmi 16.1 H (11.5-14.5) % Plt Count 313 (130-400) K/uL MPV 11.2 (9.4-12.3) fL Immature Gran % (Auto) 0.5 % Neut % (Auto) 79.8 % Lymph % (Auto) 11.9 % [place] % (Auto) 6.3 % Eos % (Auto) 0.9 % Baso % (Auto) 0.6 % Neut # (Auto) 10.07 H (1.4-6.5) K/uL Lymph # (Auto) 1.50 (1.2-3.4) K/uL [place] # (Auto) 0.79 (0.24-0.82) K/uL Eos # (Auto) 0.11 (0-0.50) K/uL Baso # (Auto) 0.07 (0-0.2) K/uL Immature Gran # (Auto) 0.06 H (0.00-0.02) K/uL PT 11.4 (9.0-12.0) Seconds INR 1.1 (0.9-1.1) APTT 26.8 (21.0-31.0) Seconds PTT Ratio 1.0 Sodium 133 L (136-145) mmol/L Potassium 3.3 L (3.5-5.1) mmol/L Chloride 97 L (98-107) mmol/L Carbon Dioxide 24 (21-32) mmol/L Anion Gap 12 H (3-11) BUN 28 H (6-23) mg/dl Creatinine 2.71 H (0.6-1.2) mg/dl Est Cr Clr Drug Dosing Not Reportable Est GFR ( Amer) 19.3 ml/min Est GFR (Non-Af Amer) 16.6 ml/min BUN/Creatinine Ratio 10.3 (10-20) Glucose 94 (70-99(Fasting)) mg/dl Calcium 9.0 (8.5-10.1) mg/dl Total Bilirubin 0.4 (0.2-1.0) mg/dl AST 12 L (13-39) U/L ALT 8 (7-52) U/L Alkaline Phosphatase 97 (34-104) U/L Troponin I High Sens 261.4 H* (0-14) pg/ml Total Protein 7.2 (6.0-8.3) gm/dl Albumin 3.4 (3.4-5.0) gm/dl Globulin 3.8 (2.5-4.0) gm/dl Albumin/Globulin Ratio 0.9 (0.9-2) Lipase 16 (11-82) U/L SARS-CoV-2, RNA, NAAT (NEGATIVE) 04/13/22 Range/Units 18:37 WBC (4.8-10.8) K/ul RBC (3.93-5.22) M/uL Hgb (12.0-16.0) g/dl Hct (34.1-44.9) % MCV (80.0-100.0) fL MCH (25.0-34.0) pg MCHC (32.0-36.0) g/dL RDW Std Deviation (36.4-46.3) fL RDW Coeff of Lakshmi (11.5-14.5) % Plt Count (130-400) K/uL MPV (9.4-12.3) fL Immature Gran % (Auto) % Neut % (Auto) % Lymph % (Auto) % [place] % (Auto) % Eos % (Auto) % Baso % (Auto) % Neut # (Auto) (1.4-6.5) K/uL Lymph # (Auto) (1.2-3.4) K/uL [place] # (Auto) (0.24-0.82) K/uL Eos # (Auto) (0-0.50) K/uL Baso # (Auto) (0-0.2) K/uL Immature Gran # (Auto) (0.00-0.02) K/uL PT (9.0-12.0) Seconds INR (0.9-1.1) APTT (21.0-31.0) Seconds PTT Ratio Sodium (136-145) mmol/L Potassium (3.5-5.1) mmol/L Chloride (98-107) mmol/L Carbon Dioxide (21-32) mmol/L Anion Gap (3-11) BUN (6-23) mg/dl Creatinine (0.6-1.2) mg/dl Est Cr Clr Drug Dosing Est GFR ( Amer) ml/min Est GFR (Non-Af Amer) ml/min BUN/Creatinine Ratio (10-20) Glucose (70-99(Fasting)) mg/dl Calcium (8.5-10.1) mg/dl Total Bilirubin (0.2-1.0) mg/dl AST (13-39) U/L ALT (7-52) U/L Alkaline Phosphatase (34-104) U/L Troponin I High Sens (0-14) pg/ml Total Protein (6.0-8.3) gm/dl Albumin (3.4-5.0) gm/dl Globulin (2.5-4.0) gm/dl Albumin/Globulin Ratio (0.9-2) Lipase (11-82) U/L SARS-CoV-2, RNA, NAAT NEGATIVE (NEGATIVE) Administered Medications Atorvastatin Calcium (Atorvastatin 40 Mg Tab) 40 mg PO QPM YECENIA Stop: 05/13/22 21:58 Last Admin: 04/13/22 22:54 Dose: 40 mg Documented By: BS Heparin Sodium (Porcine) (Heparin Sod 5,000 Unit/0.5 Ml Vial) 5,000 units SQ Q12 YECENIA Stop: 05/13/22 21:58 Last Admin: 04/13/22 22:55 Dose: Not Given Documented By: BS Metoprolol Succinate (Metoprolol Succ 50mg Ext Rel Tab) 50 mg PO BID YECENIA Stop: 05/13/22 21:58 Last Admin: 04/13/22 22:53 Dose: 50 mg Documented By: BS Discontinued Medications Aspirin (Aspirin Chew 324 Mg) 324 mg PO NOW STA Stop: 04/13/22 18:08 Last Admin: 04/13/22 18:32 Dose: 324 mg Documented By: QGV Sodium Chloride (Nss 1000ml) 500 mls @ 999 mls/hr IV .Q31M ONE Stop: 04/13/22 18:37 Last Infusion: 04/13/22 20:03 Dose: 0 mls/hr Documented By: Admin: 04/13/22 18:31 Dose: 999 mls/hr Documented By: QGV Potassium Chloride (Potassium Chloride Crtab 20 Meq Tabcr) 40 meq PO NOW ONE Stop: 04/13/22 22:00 Last Admin: 04/13/22 22:53 Dose: 40 meq Documented By: BS Imaging Data Radiologist's Impression: Chest X-Ray 04/13/22 16:04 XR chest 1V portable HISTORY: 76 years-old Female Chest Pain acute chest pain COMPARISON: Chest radiograph 12/22/2020 TECHNIQUE: Portable AP view of the chest FINDINGS: Cardiac silhouette is enlarged. Atherosclerosis of the aorta. No pneumothorax, large pleural effusion or overt pulmonary edema. Mild linear subsegmental bibasilar densities. Degenerative changes of the shoulders and spine. IMPRESSION: Cardiomegaly with subsegmental bibasilar atelectasis. ACT 112: Negative or not required by law. The above report was generated using voice recognition software. It may contain grammatical, syntax or spelling errors. Electronically signed by: Javier Childs M.D. 04/13/2022 6:21 PM Discharge Plan Visit Data Chief Complaint: Illness Stated Complaint: CHEST PAIN, FELL ED Provider: Xiang Melton Discharge Problem: Non-ST elevation (NSTEMI) myocardial infarction, MATT (acute kidney injury), Chest pain Patient Disposition: Admitted As Inpatient Discharge Instructions Interventions: ED Discharge Assessment Last Done: 04/13/22 22:00
--- NOTE | 2022-04-13 19:28 | History & Physical Report ---
Date of Service April 13, 2022 Assessment & Plan (1) Chest pain at rest: Plan: Pt is a 76 yo female with PMH of CHF, AAA, HTN, hypertrophic cardiomyopathy, and COPD presenting with chest heaviness yesterday. Chest pain/heaviness - demand ischemia vs. NSTEMI vs. unstable angina - no current chest pain - EKG unrevealing, original trop slightly elevated - repeat trop pending - echo ordered assessing for new wall motion abnormalities and EF changes - cardio consulted MATT - Cr on admission 2.71, baseline ~ 2.2-2.3 - pt appears to be on both losartan and lisinopril as outpatient - held lisinopril, furosemide, and losartan for AM - BMP in AM, monitor Hypokalemia - 3.3 on admission - 40 meq PO ordered - BMP in AM HTN - continue home metoprolol 50 mg BID, amlodipine 5 mg daily - continue home atorvastatin 40 mg COPD - continue albuterol PRN Anemia - Hgb at 10.9, appears to be at baseline - CBC in AM (2) Hypokalemia: (3) Anemia: (4) COPD (chronic obstructive pulmonary disease): (5) Dyslipidemia: (6) Chronic diastolic congestive heart failure: (7) Acute kidney injury: (8) Hypertension: Plan Diet: heart healthy Fluids/electrolytes: potassium 40 meq PO DVT ppx: heparin 5000 BID Consults: cardio Code: DNR/DNI Dispo: med/tele History of Present Illness Chief Complaint: chest heaviness Primary Care Provider: Shravan Chicas DO Pt is a 76 yo female with PMH of CHF, AAA, HTN, hypertrophic cardiomyopathy, and COPD presenting with chest heaviness yesterday. Pt explains that last night she noticed a chest pressure/heaviness that she describes as "something sitting on my chest." This lasted about an hour. She describes the pain as midsternal and it did not radiate anywhere. She took one of her sister's nitro and this seemed to relieve the pain. She denies any associated symptoms with the chest pain including presyncope, diaphoresis, abdominal pain, visual changes, and increased SOB. She does have baseline SOB but she did not notice any change with her breathing associated with the chest pain. In the ER, she was given aspirin and a 500 mL bolus of NS. Her EKG showed sinus rhythm with 1st degree AV block, LVH, and possible old lateral infarct. These findings were unchanged from her previous EKG. CXR showed cardiomegaly with bibasilar atelectasis with no acute processes. Her CBC showed anemia at 10.9 which seems to be her baseline. Her Na was slightly low at 133 and potassium at 3.3. Her Cr was 2.71 (baseline ~2.2-2.3). Her troponin was slightly elevated at 261.4. Allergies Allergy/AdvReac Type Severity Reaction Status Date / Time benzonatate Allergy Mild Dizziness Verified 04/13/22 14:50 Cephalosporins Allergy Mild KEFLEX=RASH Verified 04/13/22 14:50 diltiazem Allergy Mild RASH Verified 04/13/22 14:50 Iodinated Contrast Media Allergy Mild CT Verified 04/13/22 14:50 Contrast = kidney infection Home Medications Medication Instructions Recorded Confirmed Type aspirin 81 mg tablet,delayed 81 mg PO QAM 05/11/19 04/13/22 History release (Shahzad Low Dose Aspirin) furosemide 40 mg tablet 40 mg PO .COMPLEX #90 tabs 07/10/21 04/13/22 Rx atorvastatin 40 mg tablet 40 mg PO QPM #90 tabs 08/04/21 04/13/22 Rx amlodipine 5 mg tablet 5 mg PO DAILY #90 tabs 08/18/21 04/13/22 Rx albuterol sulfate 90 mcg/actuation 2 puff inhalation Q4H PRN 10/05/21 04/13/22 Rx aerosol inhaler (ProAir HFA) shortness of breath or wheezing #18 grams metoprolol succinate 50 mg 50 mg PO BID #180 tabs 12/06/21 04/13/22 Rx tablet,extended release 24 hr calcitriol 0.25 mcg capsule 0.25 mcg PO UD #45 caps 02/19/22 04/13/22 Rx losartan 25 mg tablet 25 mg PO DAILY #90 tabs 02/19/22 04/13/22 Rx lisinopril 5 mg tablet 5 mg PO DAILY 03/08/22 04/13/22 History Past Med/Surg History Medical History AAA (abdominal aortic aneurysm) Followed at [facility] Abnormal CT scan, chest Abnormal diffusion capacity determined by pulmonary function test Anemia Anemia due to chronic kidney disease Asthma Atherosclerosis of both carotid arteries Atrial fibrillation Cardiomyopathy, hypertrophic Carpal tunnel syndrome Chronic diastolic congestive heart failure Chronic kidney disease, stage IV (severe) Chronic osteoarthritis COPD (chronic obstructive pulmonary disease) Coronary artery disease Current smoker Diffusion capacity of lung (dl), decreased Dyslipidemia History of uterine cancer 2008--sx only Hypertension Hypotension Nocturnal hypoxia Obstructive sleep apnea of adult no device Paroxysmal atrial fibrillation Peripheral vascular disease Renal artery stenosis Secondary hyperparathyroidism Short of breath on exertion Shortness of breath Spinal stenosis Tobacco abuse counseling Tubular adenoma of colon (~04/2014) Vitamin B12 deficiency Vitamin D deficiency Surgical History History of bilateral cataract extraction History of cardiac cath [address] Dangelo--no stent History of colonoscopy (~04/2014) History of tonsillectomy and adenoidectomy History of tooth extraction all teeth removed History of total hysterectomy with bilateral salpingo-oophorectomy (BSO) Family History Unknown Hypertension Mother Stroke syndrome Sister Uterine cancer Diabetes Myocardial infarction Ovarian cancer Other No family history of adverse response to anesthesia Denies family history of Prostate cancer Breast cancer Lung cancer Colorectal cancer Social History Smoking Status: Former smoker Tobacco Type: Cigarettes Age Started Using Tobacco: 19; packs per day: 0.5; Cigarettes Per Day: 12; Second Hand Exposure: Yes (parents smoked/nephew smokes); Hx Alcohol Use: No Hx Substance Use: No Preferred Language: Citizen Of [place] Communication Ability: Effective Visual Impairment: No Limitations Hearing Ability: Normal Director Marketing Analytics Required: No Beliefs That Will Affect Care: None marital status: / Current Living Situation: Alone current occupational status: retired How many Children do You have: 0 Feels Safe at Home: Yes Childhood Exposure to Second-Hand Smoke: Yes caffeine: Yes Dental Care, Regularly: No Physical Activity Frequency: Does not Exercise Seatbelt Use: never Sunscreen Use: No Assistive Devices: Denture - Upper, Denture - Lower and Oxygen - Continuous Review of Systems Constitutional: No fevers or chills. Eyes: No visual changes. Ear, Nose, Mouth, Throat: No hearing problems, sore throat, or congestion. Respiratory: Short of breath at baseline. Denies new/increased SOB, cough, or trouble breathing. Cardiovascular: Additional Comments: No chest pain or palpitations. Gastrointestinal: No diarrhea or constipation. Denies abdominal pain. Denies hematochezia. Integumentary: No unusual rashes or skin lesions. Neurologic: No perceived weakness or sensation disturbances. Physical Exam Constitutional: NAD, vitals WNL. Eyes: PERRLA. Conjunctivae normal. ENMT: TM normal. Nonerythematous oropharynx with no lesions. Respiratory: CTA bilaterally. Decreased air movement throughout lungs. No rhonchi, wheezing, or crackles. Cardiovascular: RRR. No murmurs noted. No LE edema. Gastrointestinal (Abdomen): Nontender, +BS. No masses noted. Skin: No rashes or skin lesions noted. Neurologic: Sensation grossly intact. No FND appreciated. Psychiatric: Speech of normal pace and content. Mood and affect congruent. Results & Data Results & Data ([facility]) Vital Signs (Past 12 Hours) Vital Signs Temp Pulse Pulse Resp BP BP Pulse Ox 04/13/22 18:41 54 L 22 151/75 H 98 04/13/22 15:58 36.4 C L 67 16 103/61 93 O2 Del Method 04/13/22 18:41 Room Air 04/13/22 15:58 Room Air Diagnostic Findings Chest X-Ray 04/13/22 16:04 XR chest 1V portable HISTORY: 76 years-old Female Chest Pain acute chest pain COMPARISON: Chest radiograph 12/22/2020 TECHNIQUE: Portable AP view of the chest FINDINGS: Cardiac silhouette is enlarged. Atherosclerosis of the aorta. No pneumothorax, large pleural effusion or overt pulmonary edema. Mild linear subsegmental bibasilar densities. Degenerative changes of the shoulders and spine. IMPRESSION: Cardiomegaly with subsegmental bibasilar atelectasis. ACT 112: Negative or not required by law. The above report was generated using voice recognition software. It may contain grammatical, syntax or spelling errors. Electronically signed by: Javier Childs M.D. 04/13/2022 6:21 PM Code Status & VTE Plan Code Status DNR/DNI VTE Prophylaxis Plan VTE Prophylaxis will be ordered: Yes Supervising Physician Co-Signing Physician Notes I supervised Sujatha Smithbauer, DO on this admission. I interviewed and examined the patient independently of her. The plan is as written in her note except for any following changes/exceptions: None 76yo F w/ hx of CAD and hypertrophic cardiomyopathy who presents with chest pain. Lasted for about 1 hour last evening. Took her sister's nitro with relief. Went to PCP and was sent to the ER. Troponin in the ER is 260 without any further symptoms since last night. EKG is stable from priors. Troponin not really concerning for ACS, especially after nearly 24 hours after episode. Will repeat x 1. Given significant heart history, will get limited echo and cardiology in AM, but relatively low concern for cardiac cause of her chest pain. Can f/u with Dr. Dangelo after discharge. Resident Activity Tracking Resident Involvement: Resident Care Provided Care Provided: Adult Hospital Medicine
--- NOTE | 2022-04-13 21:14 | Billing Data ---
Date of Service April 13, 2022 Coding Level of Care Code INT OBSERVATION CARE 70M LVL 3
[2022-04-13] MEDS ORDERED: POTASSIUM CHLORIDE CRTAB 20 MEQ TABCR PO ONE (21:59)
[2022-04-13] MEDS ORDERED: ATORVASTATIN 40 MG TAB PO SCH (21:59)
[2022-04-13] MEDS ORDERED: ALBUTEROL HFA 8 GM INHALER INH PRN (21:59)
[2022-04-13] MEDS: METOPROLOL SUCC 50MG EXT REL TAB PO SCH (22:53)
[2022-04-13] MEDS: HEPARIN SOD 5,000 UNIT/0.5 ML VIAL SQ SCH (22:55)
[2022-04-14 06:58] LABS: Hematocrit (blood only) 28.3 % (34.1-44.9); Hemoglobin 9.6 g/dl (12.0-16.0); Mean Corpuscular Hemoglobin 28.8 pg (25.0-34.0); Mean Corpuscular Hgb Conc 33.9 g/dL (32.0-36.0); Mean Platelet Volume 11.4 fL (9.4-12.3); Platelet Count 252 K/uL (130-400); RDW Coefficient of Variation 16.1 % (11.5-14.5); RDW Standard Deviation 50.1 fL (36.4-46.3); Red Blood Count 3.33 M/uL (3.93-5.22); White Blood Count 8.37 K/ul (4.8-10.8)
--- NOTE | 2022-04-14 07:26 | Hospitalist Progress Note ---
Date of Service April 14, 2022 Assessment & Plan (1) Chest pain at rest: Plan: Pt is a 76 yo female with PMH of CHF, AAA, HTN, hypertrophic cardiomyopathy, and COPD presenting with chest heaviness yesterday. Chest pain/heaviness - demand ischemia vs. NSTEMI has elevated high sens troponin without trend - EKG revealing sinus bossman and t wave inversions, , on aspirin, metoprolol succinate is with some bradycardia - echo pending - cardio consulted typically sees Dr Dangelo in office MATT with CKD3 - Cr on admission 2.71, baseline ~ 2.2-2.3 - pt appears to be on both losartan and lisinopril as outpatient - held lisinopril, furosemide, and losartan for AM, has hypertrophic cardiomyopathy and preserved EF on last echo in Dr Longoria note Hypokalemia - 3.3 on admission - 40 meq PO ordered PAF by history HTN - continue home metoprolol 50 mg BID, amlodipine 5 mg daily; kiesha arb held - continue home atorvastatin 40 mg COPD - continue albuterol PRN Anemia - Hgb at 10.9, appears to be at baseline (2) Hypokalemia: (3) Anemia: (4) COPD (chronic obstructive pulmonary disease): (5) Dyslipidemia: (6) Chronic diastolic congestive heart failure: (7) Acute kidney injury: (8) Hypertension: Plan Diet: heart healthy DVT ppx: heparin 5000 BID Code: DNR/DNI Admission and Anticipated Discharge Date Admission Date: April 13, 2022 Results & Data Results & Data ([facility]) Vital Signs (Past 12 Hours) Vital Signs Temp Pulse Pulse Resp BP Pulse Ox O2 Del Method 04/14/22 04:05 97.7 F 46 L 18 154/69 H 92 Room Air 04/13/22 22:16 49 L 04/13/22 21:52 58 L 04/13/22 22:23 Room Air 04/13/22 22:23 97.3 F L 59 L 20 131/74 93 Room Air 04/13/22 21:59 97.3 F L 59 L 20 131/74 93 Room Air 04/13/22 20:00 47 L 16 151/75 H 97 PG Care Time/CCT Total # of Minutes Spent Total Time Spent with Patient: Total time spent is greater than 50% in coordination of care (as documented) at patient's floor/unit and/or counseling patient: Coding Diagnoses Chest pain at rest R07.9 Hypokalemia E87.6 Anemia D64.9 COPD (chronic obstructive pulmonary disease) J44.9 Dyslipidemia E78.5 Chronic diastolic congestive heart failure I50.32 Acute kidney injury N17.9 Hypertension I10
[2022-04-14 07:30] LABS: BUN Creatinine Ratio 11.6 (10-20); Calcium 8.5 mg/dl (8.5-10.1); Creatinine Clr Calc Pharmacy 21.3 ml/min; Est GFR (African American) 21.2 ml/min; Est GFR (Non-African American) 18.3 ml/min; Potassium 3.8 mmol/L (3.5-5.1)
[2022-04-14] MEDS: METOPROLOL SUCC 50MG EXT REL TAB PO SCH (08:12)
[2022-04-14] MEDS: HEPARIN SOD 5,000 UNIT/0.5 ML VIAL SQ SCH (08:13)
[2022-04-14] MEDS ORDERED: amLODIPine BESYLATE 5 MG TAB PO SCH (09:00)
[2022-04-14] MEDS ORDERED: ASPIRIN 81 MG ECTAB PO SCH (09:00)
--- NOTE | 2022-04-14 09:10 | Cardiology Consultation ---
Date of Consultation April 14, 2022 History of Present Illness Reason for Consultation: Chest discomfort patient with known diffuse vascular disease Requesting Physician: Patient regular butt welder is Dr. Dangelo Attending Physician: Lenin Mckee MD History of Present Illness Patient an episode on where she was sitting where she had retrosternal chest pressure that lasted about an hour she was not doing anything at the time. She denied any palpitations or fluttering whether there was no associated diaphoresis or radiation to her neck jaw back or arm. She denied being short of breath with it. In the past she has had atrial fibrillation which is caused chest discomfort but denied any symptoms of A. fib. She notes she has had a more difficult time getting up out of a chair. When she grocery shop she actually sits in a cart. She denies any shortness of breath walking from 1 room to the next nor does she notice any discomfort at rest. She has some mild chronic lower extremity edema which is unchanged she denies any palpitations at home. She has about 8 steps to get into her home and she notes it is a challenge for her to do those 8 steps. She denies any bleeding dark stools or black stools. Her hemoglobin here is relatively stable she does have some worsening renal dysfunction. She has any orthopnea. It sounds like overall she is relatively sedentary. The rest of a complete review systems otherwise negative PAST extensive cardiovascular history from Drs. Dangelo's last note: Admission to [facility] April 30, 2020 with hypertensive urgency and chest pain. Echocardiography at that time revealed no wall motion abnormalities. Troponin I mildly elevated at 0.106. Electrocardiogram with sinus rhythm, mild first- degree AV block, left ventral hypertrophy with repolarization abnormalities. No significant change compared electrocardiogram June 04, 2019. CT scan without contrast revealed 5.2 x 5.2 infrarenal abdominal aneurysm. Extensive atherosclerotic disease extending into both iliac arteries. Increased heart size. Interlobular septal thickening consistent with heart failure. The patient did not have any cardiology follow-up visit with me from 2017 until October 07, 2020. At that she time she had symptomatic postural hypotension. Her hydralazine dose was decreased. Her creatinine was found to be elevated above baseline. Her furosemide was changed to every other day. On a follow-up nephrology visit October 24, 2020 hydralazine was completely discontinued. She wa s instructed by Dr. Millan to only take furosemide as needed. The patient presented to the emergency department October 26, 2020 with at least a 4 hour complaint of chest pressure. This was retrosternal. She was found to be in atrial fibrillation. Patient spontaneously converted to sinus rhythm in the emergency department. Her chest discomfort resolved. She was discharged home from the emergency department. Cardiac enzymes for acute myocardial injury were negative. She was not started on anticoagulation therapy. Electrocardiogram October 26 revealed atrial fibrillation, left ventricular ectopy, ST depression and T-wave inversions leads 1 aVL consistent with LVH and or ischemia. Chest x- ray reviewed by me. No evidence of heart failure. CT scan of the abdomen and chest revealed 5.4 cm infrarenal abdominal aortic aneurysm. Cholelithiasis. Hyperdense cyst versus neoplasm in right kidney. CT imaging of the chest revealed no evidence of pneumonia. Stable right lung nodule. On cardiology follow-up visit with me November 08, 2020 after her episode of atrial fibrillation documented on ED visit October 26, 2020 she was started on Xarelto 15 mg daily. On December 22, 2020 she was evaluated in the emergency department for a severe anemia with hemoglobin is 6.2. She complained of weakness. She declined admission. She did receive transfusion of 2 units packed red blood cells. Xarelto subsequently discontinued. Allergies Allergy/AdvReac Type Severity Reaction Status Date / Time benzonatate Allergy Mild Dizziness Verified 04/13/22 14:50 Cephalosporins Allergy Mild KEFLEX=RASH Verified 04/13/22 14:50 diltiazem Allergy Mild RASH Verified 04/13/22 14:50 Iodinated Contrast Media Allergy Mild CT Verified 04/13/22 14:50 Contrast = kidney infection Home Medications Medication Instructions Recorded Confirmed Type aspirin 81 mg tablet,delayed 81 mg PO QAM 05/11/19 04/13/22 History release (Shahzad Low Dose Aspirin) furosemide 40 mg tablet 40 mg PO .COMPLEX #90 tabs 07/10/21 04/13/22 Rx atorvastatin 40 mg tablet 40 mg PO QPM #90 tabs 08/04/21 04/13/22 Rx amlodipine 5 mg tablet 5 mg PO DAILY #90 tabs 08/18/21 04/13/22 Rx albuterol sulfate 90 mcg/actuation 2 puff inhalation Q4H PRN 10/05/21 04/13/22 Rx aerosol inhaler (ProAir HFA) shortness of breath or wheezing #18 grams metoprolol succinate 50 mg 50 mg PO BID #180 tabs 12/06/21 04/13/22 Rx tablet,extended release 24 hr calcitriol 0.25 mcg capsule 0.25 mcg PO UD #45 caps 02/19/22 04/13/22 Rx losartan 25 mg tablet 25 mg PO DAILY #90 tabs 02/19/22 04/13/22 Rx lisinopril 5 mg tablet 5 mg PO DAILY 03/08/22 04/13/22 History Patient History Medical History AAA (abdominal aortic aneurysm) Followed at [facility] Abnormal CT scan, chest Abnormal diffusion capacity determined by pulmonary function test Anemia Anemia due to chronic kidney disease Asthma Atherosclerosis of both carotid arteries Atrial fibrillation Cardiomyopathy, hypertrophic Carpal tunnel syndrome Chronic diastolic congestive heart failure Chronic kidney disease, stage IV (severe) Chronic osteoarthritis COPD (chronic obstructive pulmonary disease) Coronary artery disease Current smoker Diffusion capacity of lung (dl), decreased Dyslipidemia History of uterine cancer 2008--sx only Hypertension Hypotension Nocturnal hypoxia Obstructive sleep apnea of adult no device Paroxysmal atrial fibrillation Peripheral vascular disease Renal artery stenosis Secondary hyperparathyroidism Short of breath on exertion Shortness of breath Spinal stenosis Tobacco abuse counseling Tubular adenoma of colon (~04/2014) Vitamin B12 deficiency Vitamin D deficiency Surgical History History of bilateral cataract extraction History of cardiac cath [address] Dangelo--no stent History of colonoscopy (~04/2014) History of tonsillectomy and adenoidectomy History of tooth extraction all teeth removed History of total hysterectomy with bilateral salpingo-oophorectomy (BSO) Family History Unknown Hypertension Mother Stroke syndrome Sister Uterine cancer Diabetes Myocardial infarction Ovarian cancer Other No family history of adverse response to anesthesia Denies family history of Prostate cancer Breast cancer Lung cancer Colorectal cancer Social History Smoking Status: Heavy tobacco smoker Tobacco Type: Cigarettes Age Started Using Tobacco: 19; packs per day: 0.5; Cigarettes Per Day: 12; Second Hand Exposure: Yes (parents smoked/nephew smokes); Hx Alcohol Use: No Hx Substance Use: No Preferred Language: Serbian Communication Ability: Effective Visual Impairment: No Limitations Hearing Ability: Normal Roll Carrier Required: No Beliefs That Will Affect Care: None marital status: / Current Living Situation: Family current occupational status: retired How many Children do You have: 0 Feels Safe at Home: Yes Childhood Exposure to Second-Hand Smoke: Yes caffeine: Yes Dental Care, Regularly: No Physical Activity Frequency: Does not Exercise Seatbelt Use: never Sunscreen Use: No Assistive Devices: None Results & Data ([facility]) Vital Signs (Past 12 Hours) Vital Signs Temp Pulse Pulse Resp BP Pulse Ox O2 Del Method 04/14/22 06:16 44 L 04/14/22 07:42 36.4 C L 53 L 16 131/73 91 Room Air 04/14/22 04:05 36.5 C 46 L 18 154/69 H 92 Room Air 04/13/22 22:16 49 L 04/13/22 21:52 58 L 04/13/22 22:23 Room Air 04/13/22 22:23 36.3 C L 59 L 20 131/74 93 Room Air 04/13/22 21:59 36.3 C L 59 L 20 131/74 93 Room Air she is awake alert and oriented x3 she is in no acute distress Lungs: Globally decreased breath sounds no rales rhonchi or wheezing Heart: Regular rate and rhythm (bradycardic) with a soft systolic ejection murmur at the right sternal border Abdomen: Soft nontender nondistended positive bowel sounds Extremities: No clubbing cyanosis she has mild bilateral lower extremity edema Psychiatric: Her affect appeared appropriate EKG: Sinus bradycardia left ventricular hypertrophy with secondary ST-T wave changes cannot rule out lateral ischemia but will compare to her prior EKGs there is no significant change in the T wave inversions Creatinine is 2.7 up from a baseline of 2.1-2.2 and her highly sensitive troponin is positive without a demonstrable change between the first and second IMPRESSIONS: 1. Chest discomfort concerning for angina without evidence of EKG changes over the positive highly sensitive troponin 2. Hypertrophic cardiomyopathy with a history of LVOT obstruction and severe left ventricular hypertrophy 3. History of AAA measuring 5.5 cm with severe common iliac disease 4. History of paroxysmal atrial fibrillation with an extensive GI bleed on anticoagulation 5. History of normal left ventricular systolic function 6. History of tobacco abuse 7. Chronic kidney disease with a baseline creatinine of 2.1-2.2 most recently 2.7 this admission 8. Intolerance of IV contrast noted in the chart I agree with the hospitalist service I would try to treat her medically. I am sure she has extensive coronary disease given the fact that she is a vasculopath and smoked for an extended period of time. Given her chronic kidney disease and acute kidney injury cardiac catheterization would be incredibly high risk with regards to worsening renal dysfunction and there is some concern about IV contrast and the risk of kidney infection that is been noted in her chart. She is currently pain-free. There is no room to adjust her antianginal regimen as she is excessively bradycardic this morning at 55 on beta-blockers for her hy pertrophic cardiomyopathy. I would avoid nitrates as it will drop her preload and only make her LV obstruction worse. Additionally calcium channel blockers will be relatively contraindicated as well. Will assess her echocardiogram for any wall motion abnormalities. I would have her walk in the hallway and see how she feels. She actually wants to go home. If she feels well and her echo is normal and there are no wall motion abnormalities at that point it becomes a discussion of the risk benefits of staying for additional testing. Further conversations will have to be had before any consideration of invasive testing with her primary butt welder.
--- NOTE | 2022-04-14 10:39 | Electrocardiogram Report ---
Test Reason : Blood Pressure : / mmHG Vent. Rate : 063 BPM Atrial Rate : 063 BPM P-R Int : 224 ms QRS Dur : 086 ms QT Int : 466 ms P-R-T Axes : 021 -35 138 degrees QTc Int : 476 ms Sinus rhythm with 1st degree A-V block Left axis deviation Left ventricular hypertrophy with repolarization abnormality Possible Lateral infarct (cited on or before 16-FEB-2021) Lateral T wave inversions cponsider ischemia Abnormal ECG When compared with ECG of 16-FEB-2021 13:59, QT has lengthened Otherwise no significant change Confirmed by Cristobal Lee ([id number]) on 04/14/2022 10:38:29 AM Referred By: Shravan Chicas Confirmed By:Cristobal Lee
--- NOTE | 2022-04-14 17:22 | Discharge Summary ---
Date of Service April 14, 2022 Admission HPI Per Admitting Provider Pt is a 76 yo female with PMH of CHF, AAA, HTN, hypertrophic cardiomyopathy, and COPD presenting with chest heaviness yesterday. Pt explains that last night she noticed a chest pressure/heaviness that she describes as "something sitting on my chest." This lasted about an hour. She describes the pain as midsternal and it did not radiate anywhere. She took one of her sister's nitro and this seemed to relieve the pain. She denies any associated symptoms with the chest pain including presyncope, diaphoresis, abdominal pain, visual changes, and increased SOB. She does have baseline SOB but she did not notice any change with her breathing associated with the chest pain. In the ER, she was given aspirin and a 500 mL bolus of NS. Her EKG showed sinus rhythm with 1st degree AV block, LVH, and possible old lateral infarct. These findings were unchanged from her previous EKG. CXR showed cardiomegaly with bibasilar atelectasis with no acute processes. Her CBC showed anemia at 10.9 which seems to be her baseline. Her Na was slightly low at 133 and potassium at 3.3. Her Cr was 2.71 (baseline ~2.2-2.3). Her troponin was slightly elevated at 261.4. Principal Diagnosis unstable angina request to leave AMA, in presence of family told pt she could go home and of a heart attack she says she will take that risk, is agreeable to get RX ordered isosorbide Discharge Exam The patient appeared stable Vital signs as documented. Lungs are unlabored Neurologic exam is alert and oriented, no focal loss of strength or sensation Skin is without bruises or rashes Psychologically is without concerns for anxiety or depression. Discharge Data Allergies Allergy/AdvReac Type Severity Reaction Status Date / Time benzonatate Allergy Mild Dizziness Verified 04/13/22 14:50 Cephalosporins Allergy Mild KEFLEX=RASH Verified 04/13/22 14:50 diltiazem Allergy Mild RASH Verified 04/13/22 14:50 Iodinated Contrast Media Allergy Mild CT Verified 04/13/22 14:50 Contrast = kidney infection Consultations 04/13/22 18:45 ED Decision to Admit Stat 04/13/22 21:59 Consult Cardiology Routine Hospital Course (1) Chest pain at rest: Pt is a 76 yo female with PMH of CHF, AAA, HTN, hypertrophic cardiomyopathy, and COPD presenting with chest heaviness yesterday. Chest pain/heaviness - demand ischemia vs. NSTEMI has elevated high sens troponin without trend - EKG revealing sinus bossman and t wave inversions, , on aspirin, metoprolol succinate is with some bradycardia - echo without RWMA - cardio consulted typically sees Dr Daneglo in office, Dr quinones recommended pt stay for further testing or medication trial MATT with CKD3 - Cr on admission 2.71, baseline ~ 2.2-2.3 - pt appears to be on both losartan and lisinopril as outpatient has hypertrophic cardiomyopathy and preserved EF on last echo in Dr Longoria note Hypokalemia - 3.3 on admission - 40 meq PO ordered PAF by history HTN - continue home metoprolol 50 mg BID, amlodipine 5 mg daily; kiesha arb held - continue home atorvastatin 40 mg COPD - continue albuterol PRN Anemia - Hgb at 10.9, appears to be at baseline (2) Hypokalemia: (3) Anemia: (4) COPD (chronic obstructive pulmonary disease): (5) Dyslipidemia: (6) Chronic diastolic congestive heart failure: (7) Acute kidney injury: (8) Hypertension: Total Time Total Time Spent Total Time Spent (In Minutes): It required greater than 30 minutes to prepare this patient for discharge including lively bedside conversation as patient left AMA Discharge Plan Discharge Items Patient Disposition: Against Medical Advice Reason For Visit: CHEST PRESSURE/HEAVINESS Discharge Diagnosis: unstable angina threatening heart attack Activity: Per Instructions section Activity Comment: avoid strenuous exercise Non-emergency contact: Primary Care Provider and Coal Dumping Equipment Operator Call non-emergency contact if: your symptoms worsen Follow-up/Referrals: Shravan Chicas, [Primary Care Provider] - Diet: Heart Healthy Addtl Attending Provider Instructions: It is not recommended that you are being discharged today, if you feel worse return, you could be at danger of having a heart attack. see your famiy doctor as soon as able Pending Studies at Discharge: No Stand-Alone Forms: [facility] [employer], Smoking Cessation Medications and DC Order Prescriptions: New isosorbide mononitrate 30 mg tablet extended release 24 hr 30 mg PO DAILY Qty: 30 0RF Continued furosemide 40 mg tablet 40 mg PO .COMPLEX Qty: 90 3RF Rx Instructions: 40 mg PO QOD. Weigh self daily. Take an extra furosemide tablet on no furosemide days if weight is greater than 2 lb or more compared to the previous day. metoprolol succinate 50 mg tablet extended release 24 hr 50 mg PO BID Qty: 180 3RF amlodipine 5 mg tablet 5 mg PO DAILY Qty: 90 3RF calcitriol 0.25 mcg capsule 0.25 mcg PO UD Qty: 45 3RF Rx Instructions: 3 times weekly losartan 25 mg tablet 25 mg PO DAILY Qty: 90 3RF lisinopril 5 mg tablet 5 mg PO DAILY atorvastatin 40 mg tablet 40 mg PO QPM Qty: 90 3RF albuterol sulfate [ProAir HFA] 90 mcg/actuation HFA aerosol inhaler 2 puff INH Q4H PRN (Reason: shortness of breath or wheezing) Qty: 18 5RF aspirin [Shahzad Low Dose Aspirin] 81 mg Tablet,Delayed Release (Dr/Ec) 81 mg PO QAM Discharge Orders: Left Against Medical Advice (Routine); Ordered 04/14/22 Ordered By: Lenin Mckee Admission Data Admit Date/Time: 04/13/22 20:20 Attending Provider: Lenin Mckee Admit Provider: Sujatha Noe Primary Care Provider: Shravan Chicas Other Providers: Michael Correia ; Cristobal Qiunones Other Interventions: Discharge Summary Assessment (RN) Last Done: 04/14/22 12:06 Coding Level of Care Code D/C DAY MANAGEMENT >30 MINS Diagnoses Chest pain at rest R07.9 Hypokalemia E87.6 Anemia D64.9 COPD (chronic obstructive pulmonary disease) J44.9 Dyslipidemia E78.5 Chronic diastolic congestive heart failure I50.32 Acute kidney injury N17.9 Hypertension I10
[2022-04-16] MEDS ORDERED: CALCITRIOL 0.25 MCG CAPSULE PO SCH (09:00)
== END 2022-04-14 12:25 | disposition left against medical advice (07) ==
LOC: 2N 15:52 → ED 15:52 → SUATTDRO 20:20 → 2N 22:00

== ENCOUNTER 2022-04-17 21:33 | Inpatient (IN) ==
[2022-04-17] MEDS ORDERED: ASPIRIN CHEW 324 MG PO STA (21:43)
[2022-04-17 22:08] LABS: Hemoglobin 10.3 g/dl (12.0-16.0); White Blood Count 9.36 K/ul (4.8-10.8)
[2022-04-17 22:25] LABS: Acanthocytes 1+; Basophils # (auto) 0.08 K/uL (0-0.2); Basophils % (auto) 0.9 %; Echinocytes 2+; Eosinophils # (auto) 0.26 K/uL (0-0.50); Eosinophils % (auto) 2.8 %; Immature Granulocytes # (auto) 0.04 K/uL (0.00-0.02); Immature Granulocytes % (auto) 0.4 %; Lymphocytes # (auto) 2.49 K/uL (1.2-3.4); Lymphocytes % (auto) 26.6 %; Mean Corpuscular Hemoglobin 28.5 pg (25.0-34.0); Mean Corpuscular Hgb Conc 32.2 g/dL (32.0-36.0); Mean Corpuscular Volume 88.4 fL (80.0-100.0); Mean Platelet Volume 12.3 fL (9.4-12.3); Monocytes # (auto) 0.67 K/uL (0.24-0.82); Monocytes % (auto) 7.2 %; Neutrophils # (auto) 5.82 K/uL (1.4-6.5); Neutrophils % (auto) 62.1 %; Ovalocytes 1+; Platelet Count 254 K/uL (130-400); RDW Coefficient of Variation 16.4 % (11.5-14.5); RDW Standard Deviation 53.1 fL (36.4-46.3); Red Blood Count 3.62 M/uL (3.93-5.22); Schistocytes 1+
[2022-04-17 22:27] LABS: Albumin Globulin Ratio 1.1 (0.9-2); Albumin Level 3.3 gm/dl (3.4-5.0); BUN Creatinine Ratio 13.2 (10-20); Bilirubin,Total 0.3 mg/dl (0.2-1.0); Calcium 8.6 mg/dl (8.5-10.1); Creatinine Clr Calc Pharmacy 28.2 ml/min; Est GFR (Non-African American) 23.3 ml/min; Globulin 3.1 gm/dl (2.5-4.0); Potassium 3.7 mmol/L (3.5-5.1); Total Protein 6.4 gm/dl (6.0-8.3)
[2022-04-17 22:29] LABS: Troponin I High Sensitivity 38.6 pg/ml (0-14)
--- NOTE | 2022-04-18 00:25 | Emergency Department Note ---
Impression & Plan Non-STEMI (non-ST elevated myocardial infarction), COPD (chronic obstructive pulmonary disease), Tobacco dependence ED Provider Note CHIEF COMPLAINT: Chest pain HISTORY OF PRESENT ILLNESS: This 76-year-old female patient presents to the emergency department with complaints of substernal chest pressure that radiates to the left side. Patient does have a history of atrial fibrillation, COPD and was recently into [facility] due to a non-STEMI. The patient did sign out AGAINST MEDICAL ADVICE but did see Dr. Dangelo in follow-up. She does continue to smoke cigarettes. Patient continues to complain of pain currently but states it is better than it was. She did take her medications this morning. He denies any fevers, chills, abdominal pain, vomiting or diarrhea. REVIEW OF SYSTEMS: A review of systems was performed with positives and pertinent negatives listed in the history of present illness. 10 systems were reviewed and are otherwise negative. ALLERGIES: see below MEDICATIONS: see below PMH: see below SOCIAL HISTORY: see below DDx:Cardiac ischemia, aortic dissection, pulmonary embolism, pneumothorax, pneumonia, pericarditis, myocarditis, esophageal rupture, GERD, cholecystitis, pancreatitis, musculoskeletal, as well as other pathologies. PHYSICAL EXAM: Vital signs reviewed. General: Chronically ill-appearing 76-year-old female, in some discomfort. HEENT: No scleral icterus, PERRLA, neck supple. On nasal cannula oxygen Cardiovascular: Irregular but rate controlled, no extra sounds Pulmonary: Coarse and distant breath sounds to auscultation bilaterally, increased work of breathing. Abdomen: Soft, nontender, nondistended, positive bowel sounds. Musculoskeletal: Atraumatic, no peripheral edema. Neurologic: Patient awake alert and oriented x 3, speech is clear Skin: Warm, dry, no rash EMERGENCY DEPARTMENT COURSE/MDM: This patient was evaluated and appeared to be in no significant distress but in some discomfort. IV access was obtained and laboratory work was drawn. Patient was given aspirin 324 mg prior to arrival. She was started on a heparin drip due to elevated troponin. EKG reveals nonspecific ST changes, no evidence of ST elevation. MONITORING: An order for cardiac monitoring was placed and the patient is noted to be in a rate controlled atrial fibrillation at 87 beats per minute. RADIOLOGY: See below EKG: Atrial fibrillation at [address] changes. Left axis deviation, QTC is 469. No PVC, no PAC. When compared to previous dated April 13, 2022, atrial fibrillation has replaced a sinus rhythm. DISPOSITION: Admission I have personally spent 30 minutes of critical care time in the direct management of this patient. This was a life/limb threatening event. This 30 minutes is in excess of all separately billable procedures. Past Med/Surg History Medical History AAA (abdominal aortic aneurysm) Followed at [facility] Abnormal CT scan, chest Abnormal diffusion capacity determined by pulmonary function test Anemia Anemia due to chronic kidney disease Asthma Atherosclerosis of both carotid arteries Atrial fibrillation Cardiomyopathy, hypertrophic Carpal tunnel syndrome Chronic diastolic congestive heart failure Chronic kidney disease, stage 3b Chronic kidney disease, stage IV (severe) Chronic osteoarthritis COPD (chronic obstructive pulmonary disease) Coronary artery disease Current smoker Diffusion capacity of lung (dl), decreased Dyslipidemia History of uterine cancer 2008--sx only Hypertension Hypotension Nocturnal hypoxia Obstructive sleep apnea of adult no device Paroxysmal atrial fibrillation Peripheral vascular disease Renal artery stenosis Secondary hyperparathyroidism Short of breath on exertion Shortness of breath Spinal stenosis Tobacco abuse counseling Tubular adenoma of colon (~04/2014) Vitamin B12 deficiency Vitamin D deficiency Surgical History History of bilateral cataract extraction History of cardiac cath [address] Dangelo--no stent History of colonoscopy (~04/2014) History of tonsillectomy and adenoidectomy History of tooth extraction all teeth removed History of total hysterectomy with bilateral salpingo-oophorectomy (BSO) Hx of cardiac cath Family History Unknown Hypertension Mother Stroke syndrome Sister Uterine cancer Diabetes Myocardial infarction Ovarian cancer Other No family history of adverse response to anesthesia Denies family history of Prostate cancer Breast cancer Lung cancer Colorectal cancer Social History Smoking Status: Current every day smoker Tobacco Type: Cigarettes Age Started Using Tobacco: 19; packs per day: 0.5; Cigarettes Per Day: 12; Second Hand Exposure: Yes; Hx Alcohol Use: No Hx Substance Use: No Preferred Language: Chinese Communication Ability: Effective Visual Impairment: No Limitations Hearing Ability: Normal [employer] Required: No Beliefs That Will Affect Care: None marital status: / Current Living Situation: Alone current occupational status: retired How many Children do You have: 0 Feels Safe at Home: Yes Childhood Exposure to Second-Hand Smoke: Yes caffeine: Yes Dental Care, Regularly: No Physical Activity Frequency: Does not Exercise Seatbelt Use: never Sunscreen Use: No Assistive Devices: None Allergies Allergies Allergy/AdvReac Type Severity Reaction Status Date / Time benzonatate Allergy Mild Dizziness Verified 04/23/22 09:33 Cephalosporins Allergy Mild KEFLEX=RASH Verified 04/23/22 09:33 diltiazem Allergy Mild RASH Verified 04/23/22 09:33 Iodinated Contrast Media Allergy Mild CT Verified 04/23/22 09:33 Contrast = kidney infection Home Meds Home Medications Medication Instructions Recorded Confirmed aspirin 81 mg tablet,delayed 81 mg PO QAM 05/11/19 04/23/22 release (Shahzad Low Dose Aspirin) Previous Rx's Medication Instructions Recorded furosemide 40 mg tablet 40 mg PO .COMPLEX #90 tabs 07/10/21 atorvastatin 40 mg tablet 40 mg PO QPM #90 tabs 08/04/21 albuterol sulfate 90 mcg/actuation 2 puff inhalation Q4H PRN 10/05/21 aerosol inhaler (ProAir HFA) shortness of breath or wheezing #18 grams calcitriol 0.25 mcg capsule 0.25 mcg PO UD #45 caps 02/19/22 isosorbide mononitrate 30 mg 30 mg PO DAILY #30 tabs 04/14/22 tablet,extended release 24 hr metoprolol succinate 50 mg 25 mg PO BID #180 tabs 04/19/22 tablet,extended release 24 hr nitroglycerin 0.4 mg sublingual 0.4 mg sublingual Q5M PRN chest 04/19/22 tablet pain #1 btl clopidogrel 75 mg tablet 75 mg PO QAM #30 tabs 04/21/22 colchicine 0.6 mg tablet (Colcrys) 0.6 mg PO BID #60 tabs 04/21/22 Results & Data (ED) Vital Signs Vital Signs - 24 hr 04/17/22 21:39 04/17/22 21:39 04/17/22 21:47 Temperature 36.6 C Temperature Source Oral Pulse Rate 128 H Pulse Rate [Apical] Respiratory Rate 22 Respiratory Effort / Characteristics Spontaneous Labored Respiratory Depth Respiratory Pattern Blood Pressure 126/76 Blood Pressure [Left Arm] Blood Pressure Mean 92 Blood Pressure Mean [Left Arm] Blood Pressure Position Sitting Pulse Oximetry 94 94 Oxygen Delivery Method Room Air Room Air Room Air Sepsis Recent Fever Within 48 Hours No Sepsis New/Unexplained Change in Mental Status No Sepsis Action Taken by Nursing No Action Required 04/17/22 21:43 04/17/22 22:00 04/17/22 23:00 Temperature Temperature Source Pulse Rate Pulse Rate [Apical] 87 50 L Respiratory Rate 18 16 Respiratory Effort / Characteristics Non-Labored Spontaneous Respiratory Depth Normal Respiratory Pattern Regular Blood Pressure Blood Pressure [Left Arm] 106/68 135/66 Blood Pressure Mean Blood Pressure Mean [Left Arm] 80 89 Blood Pressure Position Pulse Oximetry 97 96 95 Oxygen Delivery Method Room Air Room Air Room Air Sepsis Recent Fever Within 48 Hours Sepsis New/Unexplained Change in Mental Status Sepsis Action Taken by Care Home Medications Current Medication List: was personally reviewed by me Laboratory Data Attestation: I reviewed the patient's lab results. Result diagrams: 04/19/22 06:31 04/19/22 06:31 Lab Results 04/17/22 04/17/22 04/17/22 Range/Units 21:10 21:10 21:10 WBC 9.36 (4.8-10.8) K/ul RBC 3.62 L (3.93-5.22) M/uL Hgb 10.3 L (12.0-16.0) g/dl Hct 32.0 L (34.1-44.9) % MCV 88.4 (80.0-100.0) fL MCH 28.5 (25.0-34.0) pg MCHC 32.2 (32.0-36.0) g/dL RDW Std Deviation 53.1 H (36.4-46.3) fL RDW Coeff of Lakshmi 16.4 H (11.5-14.5) % Plt Count 254 (130-400) K/uL MPV 12.3 (9.4-12.3) fL Immature Gran % (Auto) 0.4 % Neut % (Auto) 62.1 % Lymph % (Auto) 26.6 % Dodge % (Auto) 7.2 % Eos % (Auto) 2.8 % Baso % (Auto) 0.9 % Neut # (Auto) 5.82 (1.4-6.5) K/uL Lymph # (Auto) 2.49 (1.2-3.4) K/uL Dodge # (Auto) 0.67 (0.24-0.82) K/uL Eos # (Auto) 0.26 (0-0.50) K/uL Baso # (Auto) 0.08 (0-0.2) K/uL Immature Gran # (Auto) 0.04 H (0.00-0.02) K/uL Ovalocytes 1+ Echinocytes 2+ Acanthocytes (Spur) 1+ Schistocytes 1+ PT Cancelled INR Cancelled APTT Cancelled PTT Ratio Cancelled Sodium 136 (136-145) mmol/L Potassium 3.7 (3.5-5.1) mmol/L Chloride 104 (98-107) mmol/L Carbon Dioxide 21 (21-32) mmol/L Anion Gap 11 (3-11) BUN 27 H (6-23) mg/dl Creatinine 2.05 H (0.6-1.2) mg/dl Est Cr Clr Drug Dosing 28.2 ml/min Est GFR ( Amer) 27.0 ml/min Est GFR (Non-Af Amer) 23.3 ml/min BUN/Creatinine Ratio 13.2 (10-20) Glucose 104 H (70-99(Fasting)) mg/dl Calcium 8.6 (8.5-10.1) mg/dl Magnesium (1.7-2.4) mg/dl Total Bilirubin 0.3 (0.2-1.0) mg/dl AST 12 L (13-39) U/L ALT 7 (7-52) U/L Alkaline Phosphatase 97 (34-104) U/L Troponin I High Sens 38.6 H D (0-14) pg/ml Total Protein 6.4 (6.0-8.3) gm/dl Albumin 3.3 L (3.4-5.0) gm/dl Globulin 3.1 (2.5-4.0) gm/dl Albumin/Globulin Ratio 1.1 (0.9-2) Lipase 21 (11-82) U/L SARS-CoV-2, RNA, NAAT (NEGATIVE) 04/17/22 04/17/22 Range/Units 21:48 23:17 WBC (4.8-10.8) K/ul RBC (3.93-5.22) M/uL Hgb (12.0-16.0) g/dl Hct (34.1-44.9) % MCV (80.0-100.0) fL MCH (25.0-34.0) pg MCHC (32.0-36.0) g/dL RDW Std Deviation (36.4-46.3) fL RDW Coeff of Lakshmi (11.5-14.5) % Plt Count (130-400) K/uL MPV (9.4-12.3) fL Immature Gran % (Auto) % Neut % (Auto) % Lymph % (Auto) % Dodge % (Auto) % Eos % (Auto) % Baso % (Auto) % Neut # (Auto) (1.4-6.5) K/uL Lymph # (Auto) (1.2-3.4) K/uL Dodge # (Auto) (0.24-0.82) K/uL Eos # (Auto) (0-0.50) K/uL Baso # (Auto) (0-0.2) K/uL Immature Gran # (Auto) (0.00-0.02) K/uL Ovalocytes Echinocytes Acanthocytes (Spur) Schistocytes PT INR APTT PTT Ratio Sodium (136-145) mmol/L Potassium (3.5-5.1) mmol/L Chloride (98-107) mmol/L Carbon Dioxide (21-32) mmol/L Anion Gap (3-11) BUN (6-23) mg/dl Creatinine (0.6-1.2) mg/dl Est Cr Clr Drug Dosing ml/min Est GFR ( Amer) ml/min Est GFR (Non-Af Amer) ml/min BUN/Creatinine Ratio (10-20) Glucose (70-99(Fasting)) mg/dl Calcium (8.5-10.1) mg/dl Magnesium 1.7 (1.7-2.4) mg/dl Total Bilirubin (0.2-1.0) mg/dl AST (13-39) U/L ALT (7-52) U/L Alkaline Phosphatase (34-104) U/L Troponin I High Sens 750.9 H* D (0-14) pg/ml Total Protein (6.0-8.3) gm/dl Albumin (3.4-5.0) gm/dl Globulin (2.5-4.0) gm/dl Albumin/Globulin Ratio (0.9-2) Lipase (11-82) U/L SARS-CoV-2, RNA, NAAT NEGATIVE (NEGATIVE) Administered Medications Discontinued Medications Adenosine (Adenosine Iv Soln 3 Mg/Ml 20 Ml Vial) Confirm Administered Dose 120 mg IV .STK-MED ONE Stop: 04/18/22 13:57 Last Admin: 04/18/22 14:20 Dose: 120 mg Documented By: FORTINO Adenosine (Adenosine Iv Soln 3 Mg/Ml 20 Ml Vial) Confirm Administered Dose 60 mg IV .STK-MED ONE Stop: 04/18/22 14:08 Last Admin: 04/18/22 14:20 Dose: 60 mg Documented By: FORTINO Adenosine (Adenosine Iv Soln 3 Mg/Ml 20 Ml Vial) Confirm Administered Dose 60 mg IV [email or web address] ONE Stop: 04/18/22 14:13 Last Admin: 04/18/22 14:20 Dose: 60 mg Documented By: FORTINO Aspirin (Aspirin Chew 324 Mg) 324 mg PO NOW STA Stop: 04/17/22 21:44 Last Admin: 04/17/22 21:47 Dose: Not Given Documented By: ALLEN Aspirin (Aspirin 81 Mg Ectab) 81 mg PO [facility] Stop: 05/18/22 08:59 Last Admin: 04/19/22 10:01 Dose: 81 mg Documented By: Admin: 04/18/22 08:54 Dose: 81 mg Documented By: LAMAR Atorvastatin Calcium (Atorvastatin 40 Mg Tab) 40 mg PO QPM [facility] Stop: 05/18/22 20:59 Last Admin: 04/18/22 20:48 Dose: 40 mg Documented By: AM Atropine Sulfate (Atropine Sulfate 0.1 Mg/Ml 10ml Syr) Confirm Administered Dose 1 mg IV .STK-MED ONE Stop: 04/18/22 13:49 Last Admin: 04/18/22 14:20 Dose: Not Given Documented By: FORTINO Calcitriol (Calcitriol 0.25 Mcg Capsule) 0.25 mcg PO [email or web address] [facility] Stop: 05/18/22 08:59 Last Admin: 04/18/22 08:54 Dose: 0.25 mcg Documented By: LAMAR Clopidogrel Bisulfate (Clopidogrel Bisulfate 75 Mg Tab) [facility] Stop: 05/19/22 08:59 Last Admin: 04/19/22 10:01 Dose: Not Given Documented By: MEGHANA Clopidogrel Bisulfate (Clopidogrel Bisulfate 300 Mg Tab) 300 mg PO NOW STA Stop: 04/18/22 16:31 Last Admin: 04/18/22 19:19 Dose: 300 mg Documented By: OKSANA Diphenhydramine HCl (Diphenhydramine 50 Mg/Ml Vial) Confirm Administered Dose 50 mg .ROUTE .[employer]-MED ONE Stop: 04/18/22 13:29 Last Admin: 04/18/22 14:20 Dose: 50 mg Documented By: MSD Famotidine (Famotidine 20mg/5ml Iv Push) Confirm Administered Dose 20 mg IV .[email or web address] ONE Stop: 04/18/22 13:30 Last Admin: 04/18/22 14:20 Dose: 20 mg Documented By: MSD Fentanyl Citrate (Fentanyl Citrate 100 Mcg/2 Ml Vial) Confirm Administered Dose 100 mcg .ROUTE .[email or web address] ONE Stop: 04/18/22 13:01 Last Increment: 04/18/22 14:18 Dose: 25 mcg Documented By: MSD Heparin Sodium (Porcine) (Heparin Sod (Porcine) 1000 Unit/Ml) 1 units IV NOW ONE Stop: 04/18/22 01:25 Last Admin: 04/18/22 01:57 Dose: 4,000 units Documented By: AN Co-signed By: CARISSA Heparin Sodium (Porcine) (Heparin (Porcine) 1000 Unit/Ml 10 Ml (Dog Food Dough Mixer Use Only)) Confirm Administered Dose 10,000 units .ROUTE .[email or web address] ONE Stop: 04/18/22 13:01 Last Admin: 04/18/22 14:18 Dose: 6,000 units Documented By: MSD Heparin Sodium/Dextrose (Heparin Iv Adult Wt-Based Low-Dose With Bolus Protocol) 1 each IV NOW STA; Protocol Stop: 04/18/22 01:08 Last Admin: 04/18/22 01:58 Dose: 1 each Documented By: AN Heparin Sodium/Sodium Chloride (Heparin In Nss Infusion 1000 Unit/500 Ml (2 U/Ml) Bag) Confirm Administered Dose 3,000 units IV .[email or web address] ONE Stop: 04/18/22 13:01 Last Admin: 04/18/22 14:19 Dose: 3,000 units Documented By: MSD Hydralazine HCl (Hydralazine Hcl 20 Mg/Ml Vial) Confirm Administered Dose 20 mg .ROUTE .STK-MED ONE Stop: 04/18/22 14:19 Last Admin: 04/18/22 15:56 Dose: Not Given Documented By: LAMAR Heparin Sodium/Dextrose (Heparin Sodium/Dextrose) 25,000 units in 500 mls @ 12 mls/hr IV .Q24H YECENIA; Protocol Stop: 05/18/22 01:29 Last Admin: 04/19/22 08:43 Dose: Not Given Documented By: Titration: 04/19/22 08:43 Dose: 0 units/hr, 0 mls/hr Documented By: CA Co-signed By: CG Titration: 04/19/22 05:00 Dose: 0 units/hr, 0 mls/hr Documented By: AM Co-signed By: CLC Titration: 04/19/22 00:47 Dose: 600 units/hr, 12 mls/hr Documented By: AM Co-signed By: NMS Titration: 04/18/22 19:15 Dose: 600 units/hr, 12 mls/hr Documented By: AM Co-signed By: DAA Titration: 04/18/22 07:00 Dose: 600 units/hr, 12 mls/hr Documented By: KS Co-signed By: ASH Titration: 04/18/22 06:17 Dose: 600 units/hr, 12 mls/hr Documented By: ASH Co-signed By: CLC Titration: 04/18/22 04:17 Dose: 0 units/hr, 0 mls/hr Documented By: CLC Co-signed By: NMS Admin: 04/18/22 01:57 Dose: 900 units/hr, 18 mls/hr Documented By: KODI Co-signed By: CARISSA Sodium Chloride (Nss 1000ml) 1,000 mls @ 125 mls/hr IV .Q8H YECENIA Stop: 04/18/22 17:41 Last Infusion: 04/18/22 22:09 Dose: 0 mls/hr Documented By: Admin: 04/18/22 08:49 Dose: 75 mls/hr Documented By: LAMAR Isosorbide Mononitrate (Isosorbide Dodge Extended Rel 30 Mg Tabcr) 30 mg PO DAILY YECENIA Stop: 05/18/22 08:59 Last Admin: 04/19/22 08:25 Dose: 30 mg Documented By: Admin: 04/18/22 08:54 Dose: 30 mg Documented By: LAMAR Methylprednisolone (Methylprednisolone 125 Mg/2 Ml Vial) Confirm Administered Dose 125 mg .ROUTE .STK-MED ONE Stop: 04/18/22 13:30 Last Admin: 04/18/22 14:20 Dose: 125 mg Documented By: FORTINO Metoprolol Succinate (Metoprolol Succ 25mg Ext Rel Tab) 25 mg PO BID [facility] Stop: 05/18/22 20:59 Last Admin: 04/19/22 08:24 Dose: 25 mg Documented By: Admin: 04/18/22 21:02 Dose: Not Given Documented By: AM Midazolam HCl (Midazolam Hcl 1 Mg/Ml 2ml Vial) Confirm Administered Dose 2 mg .ROUTE .STK-MED ONE Stop: 04/18/22 13:01 Last Increment: 04/18/22 14:19 Dose: 1 mg Documented By: FORTINO Miscellaneous (Pending Order) 1 each N/A Q1H [facility] Stop: 05/18/22 16:44 Last Admin: 04/18/22 20:49 Dose: 1 each Documented By: Admin: 04/18/22 20:49 Dose: 1 each Documented By: Admin: 04/18/22 20:49 Dose: 1 each Documented By: Admin: 04/18/22 19:15 Dose: 1 each Documented By: Admin: 04/18/22 17:30 Dose: 1 each Documented By: OKSANA Nicardipine HCl (Nicardipine Hcl Inj 2.5 Mg/Ml 10 Ml Amp) Confirm Administered Dose 25 mg .ROUTE .STK-MED ONE Stop: 04/18/22 13:01 Last Admin: 04/18/22 14:19 Dose: 25 mg Documented By: FORTINO Nitroglycerin/Dextrose (Nitroglycerin/D5w 100mcg/Ml 20ml Syr) Confirm Administered Dose 2,000 mcg .ROUTE .STK-MED ONE Stop: 04/18/22 13:01 Last Admin: 04/18/22 14:19 Dose: 2,000 mcg Documented By: FORTINO Imaging Data Attestation: I personally reviewed and interpreted this imaging study as follows: My Impression: Interstitial thickening at the right base, cardiomegaly, no focal lung consolidation to suggest pneumonia, no heart failure. Blood Pressure Blood Pressure Findings: Elevated blood pressure Blood Pressure Disposition: further management by hospitalist Discharge Plan Visit Data Chief Complaint: Cardiac Assessment ED Provider: Lyndsay Whatley Discharge Problem: Non-STEMI (non-ST elevated myocardial infarction), COPD (chronic obstructive pulmonary disease), Tobacco dependence Patient Disposition: Admitted As Inpatient Discharge Instructions Interventions: ED Discharge Assessment Last Done: 04/18/22 02:28
[2022-04-18 00:38] LABS: Magnesium 1.7 mg/dl (1.7-2.4)
[2022-04-18 00:44] LABS: Troponin I High Sensitivity 750.9 pg/ml (0-14)
[2022-04-18] MEDS ORDERED: Heparin IV Adult Wt-Based Low-Dose WITH Bolus Protocol IV STA (01:07)
--- NOTE | 2022-04-18 01:21 | History & Physical Report ---
Date of Service April 18, 2022 Assessment & Plan (1) Non-ST elevation (NSTEMI) myocardial infarction: Plan: NSTEMI/elevated troponin/chronic diastolic CHF/first-degree AV block/prolonged QT/hypertension/PAF/hypertrophic cardiomyopathy- The patient will be admitted to telemetry for serial cardiac enzymes, serial EKG's, cardiac rhythm monitoring. Recent admission for NSTEMI from 04/13-04/14/2022 and left AMA Troponin is increased from 38.6-750.9. The ED was advised to begin heparin drip per protocol Continued bradycardia, with heart rate in the upper 30s to mid 40s to low 50s while in the ED She was seen by her wastewater analyst Dr. Dangelo in the outpatient setting on the morning of 04/14, and he was unable to adjust beta-harsha or nitro glycerin dose due to bradycardia and borderline blood pressure Tobacco cessation is a must, however, patient has no desire to quit Continue aspirin 81 mg every morning, isosorbide mononitrate 30 mg p.o. daily, and metoprolol succinate 50 mg p.o. twice daily with hold parameters Will admit as above, and consult cardiology (2) Paroxysmal atrial fibrillation: Plan: See above (3) Cardiomyopathy, hypertrophic: Plan: See above (4) Hypertension: Plan: See above (5) Anemia due to chronic kidney disease: Plan: Hemoglobin stable at 10.3 Follow serially (6) Chronic kidney disease, stage IV (severe): Plan: Creatinine 2.05 on admission, with range 1.92-3.21 Continue to follow serially (7) COPD (chronic obstructive pulmonary disease): Plan: Linked to continued tobacco use Continue inhalers as outpatient (8) Tobacco abuse counseling: Plan: Again attempt cessation counseling. Her responses that she has heard at all before (9) Hypertension: Plan: See above (10) Coronary artery disease: Plan: See above (11) Peripheral vascular disease: Plan: Treatment of same risk factors for CAD (12) AAA (abdominal aortic aneurysm): Plan: Followed in the outpatient setting (13) Vitamin B12 deficiency: Plan: Not on supplementation (14) Vitamin D deficiency: Plan: Continue calcitriol 0.25 mcg daily History of Present Illness Chief Complaint: The patient presents to the emergency department with complaints of recurrent substernal chest pressure radiating to her left side. Primary Care Provider: Shravan Chicas, DO The patient is a 76-year-old female with a past medical history including first- degree AV block, prolonged QT interval, NSTEMI, hypertension, anemia due to CKD, tobacco abuse disorder, paroxysmal atrial fibrillation, franck B12 deficiency, vitamin D deficiency, chronic diastolic heart failure, hypertrophic cardiomyopathy, AAA, CAD, PAD, dyslipidemia, COPD, nocturnal hypoxemia, renal artery stenosis and spinal stenosis. The patient was recently admitted to [facility] from 04/13-04/2010 for NSTEMI, and left AMA. She was seen by her outpatient wastewater analyst Dr. Dangelo yesterday morning, who because of her current blood pressure and heart rate was unable to adjust beta-blockers or nitrates, and advised the patient to quit smoking. She developed recurrent chest pressure with radiation to her left side, and presented to the ED this evening. Troponin was found elevated to 750.9, creatinine increased to 2.05. Patient was given aspirin 324 mg by the ED, and I advised them to start heparin drip. Heart rate remained in the upper 30s to low over 40s while in the ED. The patient continues to smoke tobacco daily, and has no intention of quitting Allergies Allergy/AdvReac Type Severity Reaction Status Date / Time benzonatate Allergy Mild Dizziness Verified 04/17/22 22:34 Cephalosporins Allergy Mild KEFLEX=RASH Verified 04/17/22 22:34 diltiazem Allergy Mild RASH Verified 04/17/22 22:34 Iodinated Contrast Media Allergy Mild CT Verified 04/17/22 22:34 Contrast = kidney infection Home Medications Medication Instructions Recorded Confirmed Type aspirin 81 mg tablet,delayed 81 mg PO QAM 05/11/19 04/17/22 History release (Shahzad Low Dose Aspirin) furosemide 40 mg tablet 40 mg PO .COMPLEX #90 tabs 07/10/21 04/17/22 Rx atorvastatin 40 mg tablet 40 mg PO QPM #90 tabs 08/04/21 04/17/22 Rx albuterol sulfate 90 mcg/actuation 2 puff inhalation Q4H PRN 10/05/21 04/17/22 Rx aerosol inhaler (ProAir HFA) shortness of breath or wheezing #18 grams metoprolol succinate 50 mg 50 mg PO BID #180 tabs 12/06/21 04/17/22 Rx tablet,extended release 24 hr calcitriol 0.25 mcg capsule 0.25 mcg PO UD #45 caps 02/19/22 04/17/22 Rx isosorbide mononitrate 30 mg 30 mg PO DAILY #30 tabs 04/14/22 04/17/22 Rx tablet,extended release 24 hr Past Med/Surg History Medical History AAA (abdominal aortic aneurysm) Followed at [facility] Abnormal CT scan, chest Abnormal diffusion capacity determined by pulmonary function test Anemia Anemia due to chronic kidney disease Asthma Atherosclerosis of both carotid arteries Atrial fibrillation Cardiomyopathy, hypertrophic Carpal tunnel syndrome Chronic diastolic congestive heart failure Chronic kidney disease, stage IV (severe) Chronic osteoarthritis COPD (chronic obstructive pulmonary disease) Coronary artery disease Current smoker Diffusion capacity of lung (dl), decreased Dyslipidemia History of uterine cancer 2008--sx only Hypertension Hypotension Nocturnal hypoxia Obstructive sleep apnea of adult no device Paroxysmal atrial fibrillation Peripheral vascular disease Renal artery stenosis Secondary hyperparathyroidism Short of breath on exertion Shortness of breath Spinal stenosis Tobacco abuse counseling Tubular adenoma of colon (~04/2014) Vitamin B12 deficiency Vitamin D deficiency Surgical History History of bilateral cataract extraction History of cardiac cath [address] Dangelo--no stent History of colonoscopy (~04/2014) History of tonsillectomy and adenoidectomy History of tooth extraction all teeth removed History of total hysterectomy with bilateral salpingo-oophorectomy (BSO) Family History Unknown Hypertension Mother Stroke syndrome Sister Uterine cancer Diabetes Myocardial infarction Ovarian cancer Other No family history of adverse response to anesthesia Denies family history of Prostate cancer Breast cancer Lung cancer Colorectal cancer Social History Smoking Status: Current every day smoker Tobacco Type: Cigarettes Age Started Using Tobacco: 19; packs per day: 0.5; Cigarettes Per Day: 12; Second Hand Exposure: Yes (parents smoked/nephew smokes); Hx Alcohol Use: No Hx Substance Use: No Preferred Language: Occitan Communication Ability: Effective Visual Impairment: No Limitations Hearing Ability: Normal Internal Medicine Doctor Required: No Beliefs That Will Affect Care: None marital status: / Current Living Situation: Family current occupational status: retired How many Children do You have: 0 Feels Safe at Home: Yes Childhood Exposure to Second-Hand Smoke: Yes caffeine: Yes Dental Care, Regularly: No Physical Activity Frequency: Does not Exercise Seatbelt Use: never Sunscreen Use: No Assistive Devices: None Review of Systems Review of Systems: The patient denies cough, lower extremity swelling, sore throat, fevers, chills, sweats, nausea, vomiting, diarrhea , constipation, abdominal pain, pelvic pain, blood in urine or stool, dysuria, urinary frequency or urgency, lightheadedness, dizziness, headache, memory loss, loss of consciousness, rash, abnormal bruising or bleeding, imbalance, focal weakness, numbness or tingling in arms or legs, generalized arthralgias or myalgias, back or neck pain, or night sweats. The review of systems is otherwise negative other than for that already noted above, and at least 10 systems have been reviewed. Physical Exam Physical Exam: The patient is awake, alert and oriented 3, well developed and well nourished, normocephalic and atraumatic, lying in bed and in no acute distress. HEENT--PERRL, EOMI, mucous membranes and oropharynx normal Neck--supple. No JVD. No bruits. Thyroid normal, trachea midline, no adenopathy. Heart--bradycardic. Normal S1 and S2. No murmurs, rubs or gallops. Lungs--clear bilaterally, no respiratory distress, no accessory muscle use. Abdomen--normal bowel sounds and soft. Nontender. Nondistended, no hernias or masses, no organomegaly. Obese. Extremities--no cyanosis or clubbing. No edema. Dermatologic--normal skin turgor, normal color, no abnormal lymph nodes, no rash. Neurologic--cranial nerves II through XII grossly intact. Rheumatologic--normal range of motion. Psychiatric--normal affect. Results & Data Results & Data ([facility]) Vital Signs (Past 12 Hours) Vital Signs Temp Pulse Pulse Resp BP BP Pulse Ox 04/18/22 00:30 42 L 16 167/81 H 100 04/17/22 23:00 50 L 16 135/66 95 04/17/22 22:00 87 18 106/68 96 04/17/22 21:43 97 04/17/22 21:47 94 04/17/22 21:39 36.6 C 128 H 22 126/76 94 04/17/22 21:39 O2 Del Method 04/18/22 00:30 Room Air 04/17/22 23:00 Room Air 04/17/22 22:00 Room Air 04/17/22 21:43 Room Air 04/17/22 21:47 Room Air 04/17/22 21:39 Room Air 04/17/22 21:39 Room Air Laboratory Results Laboratory Results WBC 9.36 K/ul (4.8-10.8) 04/17/22 21:10 RBC 3.62 M/uL (3.93-5.22) L 04/17/22 21:10 Hgb 10.3 g/dl (12.0-16.0) L 04/17/22 21:10 Hct 32.0 % (34.1-44.9) L 04/17/22 21:10 MCV 88.4 fL (80.0-100.0) 04/17/22 21:10 MCH 28.5 pg (25.0-34.0) 04/17/22 21:10 MCHC 32.2 g/dL (32.0-36.0) 04/17/22 21:10 RDW Std Deviation 53.1 fL (36.4-46.3) H 04/17/22 21:10 RDW Coeff of Lakshmi 16.4 % (11.5-14.5) H 04/17/22 21:10 Plt Count 254 K/uL (130-400) 04/17/22 21:10 MPV 12.3 fL (9.4-12.3) 04/17/22 21:10 Immature Gran % (Auto) 0.4 % 04/17/22 21:10 Neut % (Auto) 62.1 % 04/17/22 21:10 Lymph % (Auto) 26.6 % 04/17/22 21:10 [place] % (Auto) 7.2 % 04/17/22 21:10 Eos % (Auto) 2.8 % 04/17/22 21:10 Baso % (Auto) 0.9 % 04/17/22 21:10 Neut # (Auto) 5.82 K/uL (1.4-6.5) 04/17/22 21:10 Lymph # (Auto) 2.49 K/uL (1.2-3.4) 04/17/22 21:10 [place] # (Auto) 0.67 K/uL (0.24-0.82) 04/17/22 21:10 Eos # (Auto) 0.26 K/uL (0-0.50) 04/17/22 21:10 Baso # (Auto) 0.08 K/uL (0-0.2) 04/17/22 21:10 Immature Gran # (Auto) 0.04 K/uL (0.00-0.02) H 04/17/22 21:10 Ovalocytes 1+ 04/17/22 21:10 Echinocytes 2+ 04/17/22 21:10 Acanthocytes (Spur) 1+ 04/17/22 21:10 Schistocytes 1+ 04/17/22 21:10 PT Cancelled 04/17/22 21:10 INR Cancelled 04/17/22 21:10 APTT Cancelled 04/17/22 21:10 PTT Ratio Cancelled 04/17/22 21:10 Sodium 136 mmol/L (136-145) 04/17/22 21:10 Potassium 3.7 mmol/L (3.5-5.1) 04/17/22 21:10 Chloride 104 mmol/L (98-107) 04/17/22 21:10 Carbon Dioxide 21 mmol/L (21-32) 04/17/22 21:10 Anion Gap 11 (3-11) 04/17/22 21:10 BUN 27 mg/dl (6-23) H 04/17/22 21:10 Creatinine 2.05 mg/dl (0.6-1.2) H 04/17/22 21:10 Est Cr Clr Drug Dosing 28.2 ml/min 04/17/22 21:10 Est GFR ( Amer) 27.0 ml/min 04/17/22 21:10 Est GFR (Non-Af Amer) 23.3 ml/min 04/17/22 21:10 BUN/Creatinine Ratio 13.2 (10-20) 04/17/22 21:10 Glucose 104 mg/dl (70-99(Fasting)) H 04/17/22 21:10 Calcium 8.6 mg/dl (8.5-10.1) 04/17/22 21:10 Magnesium 1.7 mg/dl (1.7-2.4) 04/17/22 23:17 Total Bilirubin 0.3 mg/dl (0.2-1.0) 04/17/22 21:10 AST 12 U/L (13-39) L 04/17/22 21:10 ALT 7 U/L (7-52) 04/17/22 21:10 Alkaline Phosphatase 97 U/L (34-104) 04/17/22 21:10 Troponin I High Sens 750.9 pg/ml (0-14) H* D 04/17/22 23:17 Total Protein 6.4 gm/dl (6.0-8.3) 04/17/22 21:10 Albumin 3.3 gm/dl (3.4-5.0) L 04/17/22 21:10 Globulin 3.1 gm/dl (2.5-4.0) 04/17/22 21:10 Albumin/Globulin Ratio 1.1 (0.9-2) 04/17/22 21:10 Lipase 21 U/L (11-82) 04/17/22 21:10 SARS-CoV-2, RNA, NAAT NEGATIVE (NEGATIVE) 04/17/22 21:48 Code Status & VTE Plan Code Status Full code VTE Prophylaxis Plan VTE Prophylaxis will be ordered: Yes PG Care Time/CCT Total # of Minutes Spent Total Time Spent with Patient: Total time spent is greater than 50% in coordination of care (as documented) at patient's floor/unit and/or counseling patient: Coding Level of Care Code 49480 Initial Inpt Care Lvl 3 Diagnoses Non-ST elevation (NSTEMI) myocardial infarction I21.4 Paroxysmal atrial fibrillation I48.0 Cardiomyopathy, hypertrophic I42.2 Hypertension I10 Anemia due to chronic kidney disease N18.9; D63.1 Chronic kidney disease, stage IV (severe) N18.4 COPD (chronic obstructive pulmonary disease) J44.9 Tobacco abuse counseling Z71.6 Hypertension I10 Coronary artery disease I25.10 Peripheral vascular disease I73.9 AAA (abdominal aortic aneurysm) I71.4 Vitamin B12 deficiency E53.8 Vitamin D deficiency E55.9
[2022-04-18] MEDS ORDERED: HEPARIN SOD (PORCINE) 1000 UNIT/ML IV ONE (01:24)
[2022-04-18] MEDS: HEPARIN SODIUM/DEXTROSE 25,000 UNITS/500 ML BAG IV SCH (01:57)
[2022-04-18] MEDS ORDERED: ALBUTEROL HFA 8 GM INHALER INH PRN (03:05)
[2022-04-18] MEDS ORDERED: ONDANSETRON INJ 2 MG/ML 2 ML VIAL IV PRN (03:05)
[2022-04-18 03:44] LABS: INR 1.1 (0.9-1.1); Partial Thromboplastin Ratio 4.7; Prothrombin Time 11.9 Seconds (9.0-12.0)
[2022-04-18 04:13] LABS: Partial Thromboplastin Time 128.7 Seconds (21.0-31.0)
[2022-04-18] MEDS ORDERED: SODIUM CHLORIDE 0.9% 1000ML 1,000 ML IV SCH (08:30)
[2022-04-18] MEDS: ISOSORBIDE MONO EXTENDED REL 30 MG TABCR PO SCH (08:54)
[2022-04-18] MEDS: ASPIRIN 81 MG ECTAB PO SCH (08:54)
--- NOTE | 2022-04-18 08:58 | XRay Report ---
XR chest 1V portable HISTORY: Left-sided chest pain. COMPARISON: Chest 04/13/2022. FINDINGS: No pneumothorax. The cardiac silhouette remains mildly enlarged. Bibasilar linear densities persist and favor subsegmental atelectasis. No evidence for pulmonary edema. No new focal lung conso lidations identified. IMPRESSION: No change in the mild cardiomegaly and subsegmental bibasilar atelectasis. ACT 112: Negative or not required by law. Electronically signed by: Farhad Dhillon M.D. 04/18/2022 8:57 AM
[2022-04-18] MEDS ORDERED: METOPROLOL SUCC 50MG EXT REL TAB PO SCH (09:00)
[2022-04-18] MEDS ORDERED: CALCITRIOL 0.25 MCG CAPSULE PO SCH (09:00)
[2022-04-18 09:42] LABS: Basophils # (auto) 0.06 K/uL (0-0.2); Basophils % (auto) 0.9 %; Eosinophils # (auto) 0.13 K/uL (0-0.50); Eosinophils % (auto) 1.8 %; Hematocrit (blood only) 29.8 % (34.1-44.9); Hemoglobin 9.8 g/dl (12.0-16.0); Immature Granulocytes # (auto) 0.03 K/uL (0.00-0.02); Immature Granulocytes % (auto) 0.4 %; Lymphocytes # (auto) 1.53 K/uL (1.2-3.4); Lymphocytes % (auto) 21.7 %; Mean Corpuscular Hemoglobin 28.5 pg (25.0-34.0); Mean Corpuscular Hgb Conc 32.9 g/dL (32.0-36.0); Mean Corpuscular Volume 86.6 fL (80.0-100.0); Mean Platelet Volume 11.1 fL (9.4-12.3); Monocytes # (auto) 0.43 K/uL (0.24-0.82); Monocytes % (auto) 6.1 %; Neutrophils # (auto) 4.87 K/uL (1.4-6.5); Neutrophils % (auto) 69.1 %; Platelet Count 277 K/uL (130-400); RDW Coefficient of Variation 16.7 % (11.5-14.5); RDW Standard Deviation 52.3 fL (36.4-46.3); Red Blood Count 3.44 M/uL (3.93-5.22); White Blood Count 7.05 K/ul (4.8-10.8)
[2022-04-18 09:56] LABS: Prothrombin Time 11.1 Seconds (9.0-12.0)
[2022-04-18 10:10] LABS: Albumin Level 2.9 gm/dl (3.4-5.0); BUN Creatinine Ratio 13.1 (10-20); Bilirubin,Total 0.3 mg/dl (0.2-1.0); Calcium 8.4 mg/dl (8.5-10.1); Creatinine Clr Calc Pharmacy 28.7 ml/min; Est GFR (Non-African American) 24.1 ml/min; Globulin 2.8 gm/dl (2.5-4.0); Potassium 3.3 mmol/L (3.5-5.1); Total Protein 5.7 gm/dl (6.0-8.3)
--- NOTE | 2022-04-18 10:18 | Cardiology Consultation ---
Date of Consultation April 18, 2022 Assessment & Plan (1) Non-ST elevation (NSTEMI) myocardial infarction: Given her longstanding tobacco abuse, hypertension, dyslipidemia, peripheral arterial disease, chronic renal insufficiency, I suspect that she has significant underlying coronary artery disease. Most likely this represents a type I non-ST elevation NE. However, she also has chronic renal insufficiency, hypertension, and severe LVH which could account for non-ACS type II non-ST elevation NE (global demand ischemia). I strongly have recommended that she undergo definitive evaluation by coronary angiography given increased morbidity and mortality for untreated ACS/NE. Furthermore, this will help us direct her medical therapy. PCI should be performed as indicated at the time of procedure. She is currently deliberating but my suspicion is she will refuse catheterization. Of note, should she be willing to undergo catheterization it should be known that she has poor access from both groins based on prior scan of the bilateral iliofemoral system. Her right radial artery pulse could not be identified and therefore she may be a difficult vascular access. Additionally, chronic renal insufficiency stage IIIb increases her risk for contrast-induced nephropathy. Optimization outcome will require normal saving IV fluid infusion as well as limitation of IVP contrast. She has allergy to IVP contrast and will need to be pretreated. She should remain on heparin drip. Continue aspirin, beta-harsha, and statin. I would not load her with Plavix as there is a fair chance that she has multivessel coronary disease and coronary artery bypass grafting may be a more appropriate revascularization strategy. (2) Chronic kidney disease, stage 3b: Reviewing her most recent renal functions her current BUN/creatinine/GFR are in her typical range. Therefore, does not appear to be in acute kidney injury on top of her chronic renal insufficiency. Avoid nephrotoxic agents as much as possible. Gentle IV fluid resuscitation recommended. Limit IVP contrast. Present on Admission?: Yes (3) Hypertension: Blood pressure is labile. Continue Toprol succinate ER 50 mg p.o. twice daily and isosorbide mononitrate 30 mg p.o. daily. We will have to hold off on SANDRA inhibitor/ARB given her renal function. If needed, she may tolerate Norvasc. (4) Anemia due to chronic kidney disease: H&H are stable. Does not need transfusion at this point. Continue to follow while she is on anticoagulant. Present on Admission?: Yes (5) Paroxysmal atrial fibrillation: She is not currently in atrial fibrillation. The EKG computer read out suggests junctional bradycardia, however, there is a clear P waves with first-degree AV block. The P wave is of low voltage. Patient currently on heparin drip. I do not see that she is on anticoagulation as an outpatient. My suspicion is that she is either had prior bleeding or has refused anticoagulant. We will try to investigate this further. Ideally, at discharge she would be on aspirin or Plavix plus an anticoagulant. Xarelto may be her best option given her periph eral arterial disease. Present on Admission?: No (6) Chronic diastolic congestive heart failure: Patient has no significant volume overload at this time. Continue Toprol-XL and Lasix per home regimen. Present on Admission?: Yes (7) AAA (abdominal aortic aneurysm): Last evaluated by noncontrast enhanced CT scan. Measured at 5.1 x 5.0 cm. This does not meet surgical criteria for repair. However, this has been stable as reported on CT scan and given her additional severe atherosclerotic disease of the lower extremities I suspect vascular surgery was waiting for this to become more urgent. Contrast was not utilized because of chronic renal insufficiency but would provide more accurate measurement. For now, continue risk factor modification including control of blood pressure, lipids, and we will continue to encourage her to stop smoking. Present on Admission?: Yes (8) Dyslipidemia: High risk. High intensity statin therapy with atorvastatin 40 mg daily. Her last LDL was at target. No further changes at this time. Present on Admission?: Yes History of Present Illness Reason for Consultation: Chest pain, non-ST elevation NE Attending Physician: Cam Cox History of Present Illness 76-year-old female who was recently admitted to the hospital for non-ST elevation NE. She did experience chest pain prior to that admission. However, she left AMA. Chronic cardiac issues include: Infrarenal fusiform AAA measured at 5.1 x 5.0 cm, paroxysmal atrial fibrillation, severe left ventricular hypertrophy without evidence of LV outflow tract obstruction, chronic diastolic heart failure, first-degree AV block, and prolonged QTC. 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 Dangelo yesterday morning. She had no further chest discomfort. Her blood pressure and heart rate precluded further titration of her heart medications at that time. Patient is a dedicated tobacco addict. She has completely refused to try to reduce her tobacco use. She came back to the emergency department last evening with severe chest discomfort lasting over an hour. She has subsequently been admitted and her troponin is significantly elevated. I was asked to see her regarding these issues. Patient has been placed on heparin drip. Unfortunately, the patient ate this morning. Currently she has no further chest discomfort. She tells me what she is really worried about is her AAA. This is followed at [facility] in [place]. She states that it has been several years since it was last evaluated, however, review of her records demonstrate noncontrast enhanced CT of the abdomen and pelvis performed in September 2021. Stable aneurysm compared to prior. She states that she would feel better if she had cigarettes. I discussed with her her typical symptoms and blood work suggesting significant myocardial infarction. I recommended cardiac catheterization be performed as soon as possible to reduce morbidity and mortality. She stated she would "think about it". She previously had a catheterization many years ago at which time no stent was required. She does not recall that procedure from the past. She denies ongoing anginal chest pain at this time, syncope, near syncope, orthopnea, PND, racing heartbeat, palpitations, or edema. She does have exertional dyspnea but also has severe COPD and does not feel that there is been significant change. She also denies abdominal pain. Allergies Allergy/AdvReac Type Severity Reaction Status Date / Time benzonatate Allergy Mild Dizziness Verified 04/17/22 22:34 Cephalosporins Allergy Mild KEFLEX=RASH Verified 04/17/22 22:34 diltiazem Allergy Mild RASH Verified 04/17/22 22:34 Iodinated Contrast Media Allergy Mild CT Verified 04/17/22 22:34 Contrast = kidney infection Home Medications Medication Instructions Recorded Confirmed Type aspirin 81 mg tablet,delayed 81 mg PO QAM 05/11/19 04/17/22 History release (Shahzad Low Dose Aspirin) furosemide 40 mg tablet 40 mg PO .COMPLEX #90 tabs 07/10/21 04/17/22 Rx atorvastatin 40 mg tablet 40 mg PO QPM #90 tabs 08/04/21 04/17/22 Rx albuterol sulfate 90 mcg/actuation 2 puff inhalation Q4H PRN 10/05/21 04/17/22 Rx aerosol inhaler (ProAir HFA) shortness of breath or wheezing #18 grams metoprolol succinate 50 mg 50 mg PO BID #180 tabs 12/06/21 04/17/22 Rx tablet,extended release 24 hr calcitriol 0.25 mcg capsule 0.25 mcg PO UD #45 caps 02/19/22 04/17/22 Rx isosorbide mononitrate 30 mg 30 mg PO DAILY #30 tabs 04/14/22 04/17/22 Rx tablet,extended release 24 hr Patient History Medical History (Updated 04/18/22 @ 10:56 by Yaya Bird MD, PhD) AAA (abdominal aortic aneurysm) Followed at [facility] Abnormal CT scan, chest Abnormal diffusion capacity determined by pulmonary function test Anemia Anemia due to chronic kidney disease Asthma Atherosclerosis of both carotid arteries Atrial fibrillation Cardiomyopathy, hypertrophic Carpal tunnel syndrome Chronic diastolic congestive heart failure Chronic kidney disease, stage 3b Chronic kidney disease, stage IV (severe) Chronic osteoarthritis COPD (chronic obstructive pulmonary disease) Coronary artery disease Current smoker Diffusion capacity of lung (dl), decreased Dyslipidemia History of uterine cancer 2008--sx only Hypertension Hypotension Nocturnal hypoxia Obstructive sleep apnea of adult no device Paroxysmal atrial fibrillation Peripheral vascular disease Renal artery stenosis Secondary hyperparathyroidism Short of breath on exertion Shortness of breath Spinal stenosis Tobacco abuse counseling Tubular adenoma of colon (~04/2014) Vitamin B12 deficiency Vitamin D deficiency Surgical History History of bilateral cataract extraction History of cardiac cath [address] Dangelo--no stent History of colonoscopy (~04/2014) History of tonsillectomy and adenoidectomy History of tooth extraction all teeth removed History of total hysterectomy with bilateral salpingo-oophorectomy (BSO) Family History Unknown Hypertension Mother Stroke syndrome Sister Uterine cancer Diabetes Myocardial infarction Ovarian cancer Other No family history of adverse response to anesthesia Denies family history of Prostate cancer Breast cancer Lung cancer Colorectal cancer Social History Smoking Status: Current every day smoker Tobacco Type: Cigarettes Age Started Using Tobacco: 19; packs per day: 0.5; Cigarettes Per Day: 12; Second Hand Exposure: Yes; Hx Alcohol Use: No Hx Substance Use: No Preferred Language: Monegasque Communication Ability: Effective Visual Impairment: No Limitations Hearing Ability: Normal Special Duty Nurse Required: No Beliefs That Will Affect Care: None marital status: / Current Living Situation: Family current occupational status: retired How many Children do You have: 0 Feels Safe at Home: Yes Childhood Exposure to Second-Hand Smoke: Yes caffeine: Yes Dental Care, Regularly: No Physical Activity Frequency: Does not Exercise Seatbelt Use: never Sunscreen Use: No Assistive Devices: None Review of Systems Review of Systems: Negative x12 point review except as per HPI. Physical Exam Constitutional: Awake alert and oriented morbidly obese elderly female who appears disheveled. She is in no acute distress at this time. Eyes: Extraocular muscles intact. Anicteric ENMT: Oral mucosa is pink and dry. Neck: . thick, no JVD. Respiratory: Scattered wheezes. Poor air movement. No respiratory distress. Cardiovascular: Bradycardic rate. Sinus with first-degree AV block. Increased PMI displaced towards left axilla. Gastrointestinal (Abdomen): NABS Neurologic: Cognition is intact. Speech is fluent. No focal deficits. No tremor. Psychiatric: Easily agitated. Defiant. Results & Data ([facility]) Vital Signs (Past 12 Hours) Vital Signs Temp Pulse Pulse Resp BP Pulse Ox O2 Del Method 04/18/22 07:47 37.5 C 62 18 132/76 95 Room Air 04/18/22 07:30 41 L 04/18/22 06:38 36.8 C 45 L 18 138/72 95 04/18/22 03:00 60 04/18/22 03:00 Room Air 04/18/22 02:55 36.4 C L 55 L 17 165/80 H 95 Room Air 04/18/22 02:27 48 L 16 152/95 H 96 Room Air 04/18/22 02:00 53 L 16 182/95 H 96 Room Air 04/18/22 00:30 42 L 16 167/81 H 100 Room Air 04/17/22 23:00 50 L 16 135/66 95 Room Air Laboratory Results Pertinent: Hemoglobin 9.8, hematocrit 29.8 Potassium 3.3, GFR 28 Troponin: Peak 8100, current 6400 ECG Additional Comments: Sinus bradycardia. Heart rate in the 40s. First-degree AV block. LVH by voltage criteria with T wave abnormalities consistent with LVH. PG Care Time/CCT Total # of Minutes Spent Total Time Spent with Patient: Total time spent is greater than 50% in coordination of care (as documented) at patient's floor/unit and/or counseling patient: Coding Level of Care Code 32249 Inpt Consult Level 5 Diagnoses Non-ST elevation (NSTEMI) myocardial infarction I21.4 Chronic kidney disease, stage 3b N18.32 Hypertension I10 Anemia due to chronic kidney disease N18.9; D63.1 Paroxysmal atrial fibrillation I48.0 Chronic diastolic congestive heart failure I50.32 AAA (abdominal aortic aneurysm) I71.4 Dyslipidemia E78.5
--- NOTE | 2022-04-18 12:15 | Electrocardiogram Report ---
Test Reason : Blood Pressure : / mmHG Vent. Rate : 091 BPM Atrial Rate : 080 BPM P-R Int : 000 ms QRS Dur : 086 ms QT Int : 382 ms P-R-T Axes : 000 -44 134 degrees QTc Int : 469 ms Atrial fibrillation Left axis deviation Voltage criteria for left ventricular hypertrophy Marked ST abnormality, possible lateral subendocardial injury Abnormal ECG When compared with ECG of 13-APR-2022 17:03, Atrial fibrillation has replaced Sinus rhythm Confirmed by Jacob Portillo ([id number]) on 04/18/2022 12:14:43 PM Referred By: REFERRED SELF Confirmed By:Jacob Portillo
--- NOTE | 2022-04-18 12:34 | Electrocardiogram Report ---
Test Reason : Blood Pressure : / mmHG Vent. Rate : 044 BPM Atrial Rate : 075 BPM P-R Int : 000 ms QRS Dur : 096 ms QT Int : 506 ms P-R-T Axes : 000 -45 140 degrees QTc Int : 432 ms Sinus bradycardia Left anterior fascicular block Left ventricular hypertrophy with repolarization abnormality Marked T wave abnormality, consider lateral ischemia Abnormal ECG When compared with ECG of 17-APR-2022 21:42, (unconfirmed) Sinus bradycardia has replaced Atrial fibrillation Vent. rate has decreased BY 47 BPM Nonspecific T wave abnormality now evident in Anterior leads Confirmed by Jacob Portillo ([id number]) on 04/18/2022 12:33:55 PM Referred By: REFERRED SELF Confirmed By:Jacob Portillo
[2022-04-18 12:41] LABS: Partial Thromboplastin Ratio 1.1; Partial Thromboplastin Time 30.8 Seconds (21.0-31.0)
[2022-04-18] MEDS ORDERED: NITROGLYCERIN/D5W 100MCG/ML 20ML SYR ONE (13:00)
[2022-04-18] MEDS ORDERED: MIDAZOLAM HCL 1 MG/ML 2ML VIAL ONE (13:00)
[2022-04-18] MEDS ORDERED: HEPARIN (PORCINE) 1000 UNIT/ML 10 ML (CATH LAB USE ONLY) ONE (13:00)
[2022-04-18] MEDS ORDERED: fentaNYL citrate 100 MCG/2 ML VIAL ONE (13:00)
[2022-04-18] MEDS ORDERED: niCARdipine HCL INJ 2.5 MG/ML 10 ML AMP ONE (13:00)
--- NOTE | 2022-04-18 13:16 | Pre Anesthesia Assessment ---
Date of Service April 18, 2022 Pre Sedation Assessment Vital Signs Temp Pulse Pulse Resp BP BP Pulse Ox 04/18/22 11:36 97.7 F 48 L 22 166/77 H 93 04/18/22 07:47 99.5 F 62 18 132/76 95 04/18/22 07:30 41 L 04/18/22 06:38 98.2 F 45 L 18 138/72 95 04/18/22 03:00 60 04/18/22 03:00 04/18/22 02:55 97.5 F L 55 L 17 165/80 H 95 04/18/22 02:27 48 L 16 152/95 H 96 04/18/22 02:00 53 L 16 182/95 H 96 04/18/22 00:30 42 L 16 167/81 H 100 04/17/22 23:00 50 L 16 135/66 95 04/17/22 22:00 87 18 106/68 96 04/17/22 21:43 97 04/17/22 21:47 94 04/17/22 21:39 97.9 F 128 H 22 126/76 94 04/17/22 21:39 O2 Del Method 04/18/22 11:36 Room Air 04/18/22 07:47 Room Air 04/18/22 07:30 04/18/22 06:38 04/18/22 03:00 04/18/22 03:00 Room Air 04/18/22 02:55 Room Air 04/18/22 02:27 Room Air 04/18/22 02:00 Room Air 04/18/22 00:30 Room Air 04/17/22 23:00 Room Air 04/17/22 22:00 Room Air 04/17/22 21:43 Room Air 04/17/22 21:47 Room Air 04/17/22 21:39 Room Air 04/17/22 21:39 Room Air Cardiovascular RRR, no murmur, no edema Respiratory normal respiratory effort, lungs clear to auscultation Pre-Sedation Airway Assessment Smoking Status: Current every day smoker Hx Sleep Apnea: No Hx Difficult Intubation: No Short, Thick Neck: No Thyromental Distance: > or= 3.5 Finger Breadths Oral Cavity: + WNL Mallampati Class: III ASA: ASA3 Procedure Planning Contraindications for Sedation: none Current Medications Reviewed: Yes Notes The planned sedation has been discussed with the patient. Informed Consent was obtained. I have identified the patient, determined the appropriateness of sedation and have assessed the patient immediately prior to the procedure. All medicine(s) and interventions are by my order.
[2022-04-18] MEDS ORDERED: diphenhydrAMINE 50 MG/ML VIAL ONE (13:28)
[2022-04-18] MEDS ORDERED: methylPREDNISolone 125 MG/2 ML VIAL ONE (13:29)
[2022-04-18] MEDS ORDERED: FAMOTIDINE 20MG/5ML IV PUSH IV ONE (13:29)
[2022-04-18] MEDS ORDERED: ATROPINE SULFATE 0.1 MG/ML 10ML SYR IV ONE (13:48)
[2022-04-18] MEDS ORDERED: ADENOSINE IV SOLN 3 MG/ML 20 ML VIAL IV ONE ×3 (13:56→14:12)
[2022-04-18] MEDS ORDERED: hydrALAZINE HCL 20 MG/ML VIAL ONE (14:18)
--- NOTE | 2022-04-18 15:58 | Post Anesthesia Assessment ---
Date of Service April 18, 2022 Post Sedation Assessment Vital Signs Temp Pulse Pulse Resp BP BP Pulse Ox 04/18/22 15:15 56 L 141/80 H 04/18/22 15:00 59 L 143/78 H 04/18/22 15:15 56 L 141/80 H 04/18/22 15:00 59 L 143/78 H 04/18/22 14:31 97.7 F 61 18 157/82 H 98 04/18/22 14:31 97.7 F 61 18 157/82 H 98 04/18/22 09:00 04/18/22 11:36 97.7 F 48 L 22 166/77 H 93 04/18/22 07:47 99.5 F 62 18 132/76 95 04/18/22 07:30 41 L 04/18/22 06:38 98.2 F 45 L 18 138/72 95 04/18/22 03:00 60 04/18/22 03:00 04/18/22 02:55 97.5 F L 55 L 17 165/80 H 95 04/18/22 02:27 48 L 16 152/95 H 96 04/18/22 02:00 53 L 16 182/95 H 96 04/18/22 00:30 42 L 16 167/81 H 100 04/17/22 23:00 50 L 16 135/66 95 04/17/22 22:00 87 18 106/68 96 04/17/22 21:43 97 04/17/22 21:47 94 04/17/22 21:39 97.9 F 128 H 22 126/76 94 04/17/22 21:39 O2 Del Method 04/18/22 15:15 04/18/22 15:00 04/18/22 15:15 04/18/22 15:00 04/18/22 14:31 Room Air 04/18/22 14:31 Room Air 04/18/22 09:00 Room Air 04/18/22 11:36 Room Air 04/18/22 07:47 Room Air 04/18/22 07:30 04/18/22 06:38 04/18/22 03:00 04/18/22 03:00 Room Air 04/18/22 02:55 Room Air 04/18/22 02:27 Room Air 04/18/22 02:00 Room Air 04/18/22 00:30 Room Air 04/17/22 23:00 Room Air 04/17/22 22:00 Room Air 04/17/22 21:43 Room Air 04/17/22 21:47 Room Air 04/17/22 21:39 Room Air 04/17/22 21:39 Room Air Recovery Score Activity: Moves 4 extremities Respiration: Deep Breath/Cough Circulation: +/-20% PreAnes Value Consciousness: Fully Awake Oxygen Saturation: O2 needed for >90% Discharge Sedation Level of Care: Fast Track Phase II Post Sedation Plan On clinical assessment, the patient appears to have tolerated the sedation without complications. Patient is recovering as anticipated. Patient will continue to be monitored by nursing and may be discharged when sedation discharge criteria are met per below protocol. Upon Completions of procedure up to 15 minutes continue every 5 minute vital signs and the P.A.R. score; then discharge to a Phase I or Fast Track to Phase II per the following guidelines: * Discharge Patient to appropriate Phase II area if PAR is 8 or greater or return to pre- procedure baseline. The post - procedure orders will be as directed. * If PAR score is less than 8 or not return to pre-procedure baseline then patient will follow Phase I monitoring till PAR is reached for Phase II. The Phase I may be done in procedure room or may call to secure a Phase I area. * If naloxone or flumazenil are used for reversal, hold in Phase I for continued monitoring from when last reversal dose was given for a minimum of 60 minutes or longer pending the nurse and/or physician discretion of patient condition before discharge to Phase II. Please call the Sedation Physician to re-evaluate and complete post-note for discharge to Phase II area. Do NOT discharge from procedure sedation or Phase 1 until post- sedation evaluation note is complete by procedure /sedation MD Sedation Discharge Instructions to be given to the patient at discharge to home.
--- NOTE | 2022-04-18 16:01 | Cardiac Catheterization ---
[facility] Data: Vacation Guide Cardiac Status Clinical evaluation leading to the procedure CAD Presenation: Non STEMI Anginal Classification: CCS IV Diagnostic Physicians Name: Jesse Yuen MD Closure Device Recommendations: Medical Therapy and/or Counseling Cardiac Cath Procedure Full Procedure Date April 18, 2022 Pre-Procedure Diagnosis Pre-Procedure Diagnosis: Non STEMI AUC Score AUC Score: 8 Post-Procedure Diagnosis Post-Procedure Diagnosis: Severe CAD Procedure(s) Performed Procedure(s) Performed: Coronary Angiography, Left Heart Cath and Fractional Flow [place] [employer] Jesse Yuen MD Estimated Blood Loss Estimated Blood Loss: 10 Medication(s) Medication(s): Fentanyl, Heparin, Lidocaine 1%, Nicardipine, Nitroglycerin and Versed Summary of Findings Indication: NSTEMI Access: 6 Fr right ulnar artery under ultrasound guidance Catheters: [place], EBU 3.5 guide Findings: LM -large caliber, calcified, 20% ostial LAD -large caliber, calcified focal mid 60% stenosis at takeoff of large septal. Remainder of vessel without significant disease. D1 without significant di sease. Circumflex -medium caliber, luminal irregularities. Large OM2, OM3 without significant disease. RCA -dominant, calcified, medium caliber, 40% proximal disease. Mid segment with SEBASTIÁN II flow prior to subtotal occlusion with questionable thrombus. PDA/PLB fill retrograde via [id number] collaterals. LVEDP -9 FFR procedure: -Left main cannulated with EBU 3.5 guide -Transit Mixer Driver 50 wire placed into distal LAD -ACIST Catheter placed across stenosis -Pd/Pa 0.94 -FFR 0.84 -Coronary angiography revealed no apparent complications post wire/catheter removal Arterial Closure: TR band Summary: 1. Multivessel coronary artery disease -Subtotal acute on chronic latemid RCA occlusion with [id number] collaterals 60% focal calcified mid LAD stenosis (FFR 0.84) 2. Normal intracardiac filling pressure Recommendations: Recommend medical management of patient's occluded RCA and nonobstructive mid LAD disease. Continue heparin infusion overnight Start clopidogrel. Recommend DAPT with aspirin/clopidogrel for 1 year or dual therapy with clopidogrel/DOAC if being anticoagulated for A. fib Maximize antianginal therapy Continue ASCVD risk factor modification Hemodynamics Rest Ao:: 120/51/76 Final Ao: 224/92/136 LV: 102/9 Recommendations Recommendations: Medical Therapy and/or Counseling Specimens Specimens: None Radiation Exposure (mGy) 1853 Contrast (mls) 75 Anesthesia Moderate [id number] Procedural Complication(s) None Disposition PCU I attest to the content of the Intraoperative Record and any orders documented therein. Any exceptions are noted below. [facility] Card Cath Procedure Codes Cardiac Catheterization Procedure 1: Cardiovascular Cath Procedures: 19957 Coronaries and LHC (+/-LV) Procedure 2: Cardiovascular Cath Procedures: 08372 (Doppler) Pressure Wire Moderate Sedation Procedure 1: Sedation/Anesthesia: 78950 Mod Sedation by the same physician;Init15 Min Child Age 5 & Up Procedure 2: Sedation/Anesthesia: 75306 Mod Sedation by the same physician; Ea [id number] Minutes PG Care Time/CCT Total # of Minutes Spent Total Time Spent with Patient: Total time spent is greater than 50% in coordination of care (as documented) at patient's floor/unit and/or counseling patient:
[2022-04-18] MEDS ORDERED: CLOPIDOGREL BISULFATE 300 MG TAB PO STA (16:30)
[2022-04-18] MEDS ORDERED: ATORVASTATIN 40 MG TAB PO SCH (21:00)
[2022-04-18] MEDS: METOPROLOL SUCC 25MG EXT REL TAB PO SCH (21:02)
--- NOTE | 2022-04-18 21:13 | Hospitalist Progress Note ---
Date of Service April 18, 2022 Assessment & Plan (1) Non-ST elevation (NSTEMI) myocardial infarction: Plan: Peak troponin 8100 and now trending down. s/p heart cath today by Dr Yuen with results as follows - Findings: LM - large caliber, calcified, 20% ostial LAD -large caliber, calcified focal mid 60% stenosis at takeoff of large septal. Remainder of vessel without significant disease. D1 without significant disease. Circumflex -medium caliber, luminal irregularities. Large OM2, OM3 without significant disease. RCA -dominant, calcified, medium caliber, 40% proximal disease. Mid segment with SEBASTIÁN II flow prior to subtotal occlusion with questionable thrombus. PDA/PLB fill retrograde via [id number] collaterals. Culprit vessel thought to be the RCA lesion - likely acute on chronic thrombus. Nothing conducive to stenting - medical management advised. Plan - * IV heparin until tomorrow * asa 81mg daily * plavix 75mg daily * imdur 30mg daily * metoprolol succinate - dose reduced to 25mg BID due to severe bradycardia Appreciate Dr Yuen' assistance. Needs tobacco cessation. (2) Paroxysmal atrial fibrillation: Plan: Presented to the hospital in rapid a.fib. Converted to NSR and has been in sinus since then. Has known past h/o PAF. She is not on anticoagulation. Consider such - Eliquis? other? Cont telemetry. Cont beta harsha. No TSH in several years - check TSH in am. (3) Cardiomyopathy, hypertrophic: Plan: h/o such. cont beta harsha. repeat echo pending. (4) Hypertension: Plan: Cont BB Cont imdur BPs post-cath acceptable (5) Anemia due to chronic kidney disease: Plan: Hemoglobin remains stable CBC in am (6) Chronic kidney disease, stage IV (severe): Plan: Baseline CrCl upper 20s Creatinine is stable this admission Repeat BMP in am given contrast given for cath today (7) COPD (chronic obstructive pulmonary disease): Plan: Cont usual inhalers No evidence of exacerbation (8) Tobacco abuse counseling: Plan: Ware Tester to quit smoking (9) Coronary artery disease: Plan: See #1 (10) Peripheral vascular disease: Plan: Statin Asa Plavix Smoking cessation (11) AAA (abdominal aortic aneurysm): Plan: 09/2021 - CT a/p with infrarenal abdominal aorta measuring up to 5.1 x 5.0 cm needs ongoing surveillance cont BB needs tobacco cessation (12) Vitamin B12 deficiency: Plan: history of -- now resolved B12 level 08/2021 >500 (13) Vitamin D deficiency: Plan: Continue calcitriol 0.25 mcg daily Plan d/c home tomorrow? Admission and Anticipated Discharge Date Admission Date: April 18, 2022 Subjective saw patient post-catheterization she was sleepy she had a brief episode of dyspnea but no chest pain symptoms self-resolved no nausea or emesis doesn't have much appetite - just wants to rest asks when she can leave the hospital tele overnight - sinus bradycardia in the 40s/50s Review of Systems Review of Systems: gen - fatigue cv - no chest pains; no orthopnea pulm - no cough GI - no abd pain/nausea/emesis Physical Exam Physical Exam: gen - obese, NAD; sleepy neck - no JVD mouth - MMM heart - bradycardic, s1 s2, no murmur lungs - decreased BS bases but no rales or wheeze abd - soft NT ND BS+ vascular - radial and ulnar pulses 2+ right wrist; no hematoma ext - no edema, pulses 2+ b/l skin - no rash psych - sleepy but answers questions Results & Data Results & Data ([facility]) Vital Signs (Past 12 Hours) Vital Signs Temp Pulse Resp BP Pulse Ox O2 Del Method 04/18/22 18:45 58 L 20 159/93 H 97 Room Air 04/18/22 17:45 61 18 174/95 H 97 Room Air 04/18/22 16:45 62 20 124/83 97 Room Air 04/18/22 16:15 63 18 129/70 96 Room Air 04/18/22 19:15 36.3 C L 56 L 20 156/87 H 93 Room Air 04/18/22 15:45 60 20 137/82 97 Room Air 04/18/22 15:30 63 24 129/70 97 Room Air 04/18/22 15:45 Room Air 04/18/22 15:15 56 L 141/80 H 04/18/22 15:00 59 L 143/78 H 04/18/22 15:15 56 L 141/80 H 04/18/22 15:00 59 L 143/78 H 04/18/22 14:31 36.5 C 61 18 157/82 H 98 Room Air 04/18/22 14:31 36.5 C 61 18 157/82 H 98 Room Air 04/18/22 11:36 36.5 C 48 L 22 166/77 H 93 Room Air Laboratory Results Laboratory Results - last 24 hr 04/17/22 04/17/22 04/17/22 21:10 21:10 21:10 WBC 9.36 RBC 3.62 L Hgb 10.3 L Hct 32.0 L MCV 88.4 MCH 28.5 MCHC 32.2 RDW Std Deviation 53.1 H RDW Coeff of Lakshmi 16.4 H Plt Count 254 MPV 12.3 Immature Gran % (Auto) 0.4 Neut % (Auto) 62.1 Lymph % (Auto) 26.6 Carlton % (Auto) 7.2 Eos % (Auto) 2.8 Baso % (Auto) 0.9 Neut # (Auto) 5.82 Lymph # (Auto) 2.49 Carlton # (Auto) 0.67 Eos # (Auto) 0.26 Baso # (Auto) 0.08 Immature Gran # (Auto) 0.04 H Ovalocytes 1+ Echinocytes 2+ Acanthocytes (Spur) 1+ Schistocytes 1+ PT Cancelled INR Cancelled APTT Cancelled PTT Ratio Cancelled Sodium 136 Potassium 3.7 Chloride 104 Carbon Dioxide 21 Anion Gap 11 BUN 27 H Creatinine 2.05 H Est Cr Clr Drug Dosing 28.2 Est GFR ( Amer) 27.0 Est GFR (Non-Af Amer) 23.3 BUN/Creatinine Ratio 13.2 Glucose 104 H Calcium 8.6 Magnesium Total Bilirubin 0.3 AST 12 L ALT 7 Alkaline Phosphatase 97 Troponin I High Sens 38.6 H D Total Protein 6.4 Albumin 3.3 L Globulin 3.1 Albumin/Globulin Ratio 1.1 Lipase 21 SARS-CoV-2, RNA, NAAT 04/17/22 04/17/22 04/18/22 21:48 23:17 03:10 WBC RBC Hgb Hct MCV MCH MCHC RDW Std Deviation RDW Coeff of Lakshmi Plt Count MPV Immature Gran % (Auto) Neut % (Auto) Lymph % (Auto) Carlton % (Auto) Eos % (Auto) Baso % (Auto) Neut # (Auto) Lymph # (Auto) Carlton # (Auto) Eos # (Auto) Baso # (Auto) Immature Gran # (Auto) Ovalocytes Echinocytes Acanthocytes (Spur) Schistocytes PT INR APTT PTT Ratio Sodium Potassium Chloride Carbon Dioxide Anion Gap BUN Creatinine Est Cr Clr Drug Dosing Est GFR ( Amer) Est GFR (Non-Af Amer) BUN/Creatinine Ratio Glucose Calcium Magnesium 1.7 Total Bilirubin AST ALT Alkaline Phosphatase Troponin I High Sens 750.9 H* D 8104.3 H* D Total Protein Albumin Globulin Albumin/Globulin Ratio Lipase SARS-CoV-2, RNA, NAAT NEGATIVE 04/18/22 04/18/22 04/18/22 03:10 09:19 09:19 WBC 7.05 RBC 3.44 L Hgb 9.8 L Hct 29.8 L MCV 86.6 MCH 28.5 MCHC 32.9 RDW Std Deviation 52.3 H RDW Coeff of Lakshmi 16.7 H Plt Count 277 MPV 11.1 Immature Gran % (Auto) 0.4 Neut % (Auto) 69.1 Lymph % (Auto) 21.7 Carlton % (Auto) 6.1 Eos % (Auto) 1.8 Baso % (Auto) 0.9 Neut # (Auto) 4.87 Lymph # (Auto) 1.53 Carlton # (Auto) 0.43 Eos # (Auto) 0.13 Baso # (Auto) 0.06 Immature Gran # (Auto) 0.03 H Ovalocytes Echinocytes Acanthocytes (Spur) Schistocytes PT 11.9 INR 1.1 APTT 128.7 H* PTT Ratio 4.7 Sodium Potassium Chloride Carbon Dioxide Anion Gap BUN Creatinine Est Cr Clr Drug Dosing Est GFR ( Amer) Est GFR (Non-Af Amer) BUN/Creatinine Ratio Glucose Calcium Magnesium Total Bilirubin AST ALT Alkaline Phosphatase Troponin I High Sens 6396.7 H* D Total Protein Albumin Globulin Albumin/Globulin Ratio Lipase SARS-CoV-2, RNA, NAAT 04/18/22 04/18/22 04/18/22 09:19 09:19 11:58 WBC RBC Hgb Hct MCV MCH MCHC RDW Std Deviation RDW Coeff of Lakshmi Plt Count MPV Immature Gran % (Auto) Neut % (Auto) Lymph % (Auto) Carlton % (Auto) Eos % (Auto) Baso % (Auto) Neut # (Auto) Lymph # (Auto) Carlton # (Auto) Eos # (Auto) Baso # (Auto) Immature Gran # (Auto) Ovalocytes Echinocytes Acanthocytes (Spur) Schistocytes PT 11.1 INR 1.0 APTT 30.8 PTT Ratio 1.1 Sodium 138 Potassium 3.3 L Chloride 106 Carbon Dioxide 25 Anion Gap 7 BUN 26 H Creatinine 1.99 H Est Cr Clr Drug Dosing 28.7 Est GFR ( Amer) 28.0 Est GFR (Non-Af Amer) 24.1 BUN/Creatinine Ratio 13.1 Glucose 123 H Calcium 8.4 L Magnesium Total Bilirubin 0.3 AST 18 ALT 7 Alkaline Phosphatase 79 Troponin I High Sens Total Protein 5.7 L Albumin 2.9 L Globulin 2.8 Albumin/Globulin Ratio 1.0 Lipase SARS-CoV-2, RNA, NAAT 04/18/22 16:40 WBC RBC Hgb Hct MCV MCH MCHC RDW Std Deviation RDW Coeff of Lakshmi Plt Count MPV Immature Gran % (Auto) Neut % (Auto) Lymph % (Auto) Carlton % (Auto) Eos % (Auto) Baso % (Auto) Neut # (Auto) Lymph # (Auto) Carlton # (Auto) Eos # (Auto) Baso # (Auto) Immature Gran # (Auto) Ovalocytes Echinocytes Acanthocytes (Spur) Schistocytes PT INR APTT PTT Ratio Sodium Potassium Chloride Carbon Dioxide Anion Gap BUN Creatinine Est Cr Clr Drug Dosing Est GFR ( Amer) Est GFR (Non-Af Amer) BUN/Creatinine Ratio Glucose Calcium Magnesium Total Bilirubin AST ALT Alkaline Phosphatase Troponin I High Sens 3259.6 H* D Total Protein Albumin Globulin Albumin/Globulin Ratio Lipase SARS-CoV-2, RNA, NAAT PG Care Time/CCT Total # of Minutes Spent Total Time Spent with Patient: Total time spent is greater than 50% in coordination of care (as documented) at patient's floor/unit and/or counseling patient: Coding Level of Care Code 79245 Subseq Hosp Care Lvl 2 Diagnoses Non-ST elevation (NSTEMI) myocardial infarction I21.4 Paroxysmal atrial fibrillation I48.0 Cardiomyopathy, hypertrophic I42.2 Hypertension I10 Anemia due to chronic kidney disease N18.9; D63.1 Chronic kidney disease, stage IV (severe) N18.4 COPD (chronic obstructive pulmonary disease) J44.9 Tobacco abuse counseling Z71.6 Coronary artery disease I25.10 Peripheral vascular disease I73.9 AAA (abdominal aortic aneurysm) I71.4 Vitamin B12 deficiency E53.8 Vitamin D deficiency E55.9
[2022-04-19 00:33] LABS: Partial Thromboplastin Ratio 1.8
[2022-04-19 00:45] LABS: Partial Thromboplastin Time 49.3 Seconds (21.0-31.0)
[2022-04-19 06:52] LABS: Basophils # (auto) 0.01 K/uL (0-0.2); Basophils % (auto) 0.1 %; Hematocrit (blood only) 28.4 % (34.1-44.9); Hemoglobin 9.4 g/dl (12.0-16.0); Immature Granulocytes # (auto) 0.02 K/uL (0.00-0.02); Immature Granulocytes % (auto) 0.3 %; Lymphocytes # (auto) 0.64 K/uL (1.2-3.4); Lymphocytes % (auto) 8.9 %; Mean Corpuscular Hemoglobin 28.6 pg (25.0-34.0); Mean Corpuscular Hgb Conc 33.1 g/dL (32.0-36.0); Mean Corpuscular Volume 86.3 fL (80.0-100.0); Mean Platelet Volume 11.3 fL (9.4-12.3); Monocytes # (auto) 0.07 K/uL (0.24-0.82); Neutrophils # (auto) 6.49 K/uL (1.4-6.5); Neutrophils % (auto) 89.7 %; Platelet Count 288 K/uL (130-400); RDW Coefficient of Variation 16.4 % (11.5-14.5); RDW Standard Deviation 51.8 fL (36.4-46.3); Red Blood Count 3.29 M/uL (3.93-5.22); White Blood Count 7.23 K/ul (4.8-10.8)
--- NOTE | 2022-04-19 06:55 | Ultrasound Report ---
US extremity non-vascular ltd CLINICAL HISTORY: right arm hematoma following catheterization COMPARISON STUDY: No previous studies for comparison. TECHNIQUE: Color and duplex sonography of the distal right forearm at site of hematoma was performed. FINDINGS: Note is made of a 3.9 x 1.5 x 2.1 cm vascular abnormality of the anteromedial distal right forearm which contains to-and-fro vascular flow within the yin jimenez appearance. This contains a small amount of thrombus. This represents a pseudoaneurysm which likely arises from the distal right ulnar artery. No additional pseudoaneurysms are identified. IMPRESSION: 3.9 x 1.5 x 2.1 cm pseudoaneurysm likely arising from the distal right ulnar artery. The pseudoaneury sm contains a small amount of thrombus. Vascular surgery consultation is recommended. ACT 112: Negative or not required by law. Electronically signed by: Noah Brown M.D. 04/19/2022 6:53 AM
[2022-04-19 07:03] LABS: Partial Thromboplastin Ratio 1.1; Partial Thromboplastin Time 29.3 Seconds (21.0-31.0)
[2022-04-19 07:21] LABS: Albumin Level 3.1 gm/dl (3.4-5.0); BUN Creatinine Ratio 13.8 (10-20); Bilirubin,Total 0.4 mg/dl (0.2-1.0); Calcium 8.9 mg/dl (8.5-10.1); Creatinine Clr Calc Pharmacy 27.3 ml/min; Est GFR (African American) 26.2 ml/min; Est GFR (Non-African American) 22.6 ml/min; Globulin 3.1 gm/dl (2.5-4.0); Magnesium 1.8 mg/dl (1.7-2.4); Potassium 4.2 mmol/L (3.5-5.1); Total Protein 6.2 gm/dl (6.0-8.3)
[2022-04-19 07:26] LABS: HCO3 VBG 23 mmol/L; Oxygen Saturation VBG < 60.0 %; PCO2 VBG 40 mmHg (38-50); PO2 VBG 29 mmHg; pH VBG 7.34 (7.36-7.41)
[2022-04-19] MEDS: METOPROLOL SUCC 25MG EXT REL TAB PO SCH (08:24)
[2022-04-19] MEDS: ISOSORBIDE MONO EXTENDED REL 30 MG TABCR PO SCH (08:25)
[2022-04-19] MEDS: ASPIRIN 81 MG ECTAB PO SCH ×2 (08:25→10:01)
[2022-04-19] MEDS: HEPARIN SODIUM/DEXTROSE 25,000 UNITS/500 ML BAG IV SCH (08:43)
[2022-04-19] MEDS ORDERED: CLOPIDOGREL BISULFATE 75 MG TAB PO SCH (09:00)
--- NOTE | 2022-04-19 10:40 | Cardiology Progress Note ---
Date of Service April 19, 2022 Assessment & Plan (1) Non-ST elevation (NSTEMI) myocardial infarction: Plan: 2. Multivessel CAD - acute on chronic RCA occlusion, 60% mid LAD 3. CKD 4. Chronic diastolic heart failure 5. Anemia 6. Hypertension 7. History of atrial fibrillation - has not been on anticoagulation. 8. Ongoing tobacco abuse 9. Pericardial effusion - stable 10. Post cath ulnar pseudoaneurysm No recurrent chest pain. Troponin downtrending Echo shows unchanged LV function. Reviewed ulnar ultrasound - does have a small pseudoaneurysm. Ultrasound guided manual compression done at bedside with minimal residual flow and mostly thrombosed pseudoaneurysm space. -- Heparin stopped. Will hold clopidogrel for now. Likely resume as an outpatient -- Continue daily aspirin -- Continue current toprol XL, and home imdur -- Continue statin TR band left in place for 1 hr. Will reassess ulnar access site ~12 pm. If stable OK for discharge today. F/up with cardiology next week with repeat ultrasound and BMP. Admission and Anticipated Discharge Date Admission Date: April 18, 2022 Subjective Reports feeling well this morning. Denies any chest pain. Mild discomfort at RT wrist. No other concerns. Overnight concern for RUE hematoma -- underwent ultrasound showing ulnar pseudoaneurysm. Review of Systems Review of Systems: All systems reviewed & are unremarkable except as noted in HPI & below Physical Exam Physical Exam: General: Comfortable HEENT: Sclerae anicteric Lungs: Clear anteriorly, few wheezes Cardiac: Regular rate and rhythm, Vascular: Ecchymosis around ulnar access site, no hematoma around access site but pulsatile at access site. Distal sensation, cap refill intact. NL pleth waveforms on digits 2-5. Abdomen: Soft, nontender Extremities: Well perfused, no peripheral edema Neuro: Nonfocal Psych: Alert orient x3, normal affect and mood Results & Data ([facility]) Vital Signs (Past 12 Hours) Vital Signs Temp Pulse Pulse Resp BP Pulse Ox Pulse Ox 04/19/22 07:00 66 04/19/22 08:00 98.1 F 55 L 14 144/79 H 96 04/19/22 05:00 97.5 F L 62 20 151/64 H 97 04/19/22 03:05 96 04/18/22 23:00 56 L 04/18/22 22:50 97.2 F L 55 L 18 144/79 H 96 O2 Del Method O2 Del Method 04/19/22 07:00 04/19/22 08:00 Room Air 04/19/22 05:00 Room Air 04/19/22 03:05 Room Air 04/18/22 23:00 04/18/22 22:50 Room Air PG Care Time/CCT Total # of Minutes Spent Total Time Spent with Patient: Total time spent is greater than 50% in coordination of care (as documented) at patient's floor/unit and/or counseling patient: Coding Level of Care Code 25086 Subseq Hosp Care Lvl 3 Diagnoses Non-ST elevation (NSTEMI) myocardial infarction I21.4
--- NOTE | 2022-04-19 10:54 | XCELERA ---
[id number]
--- NOTE | 2022-04-19 14:10 | Discharge Summary ---
Date of Service April 19, 2022 Admission HPI Per Admitting Provider The patient is a 76-year-old female with a past medical history including first- degree AV block, prolonged QT interval, NSTEMI, hypertension, anemia due to CKD, tobacco abuse disorder, paroxysmal atrial fibrillation, franck B12 deficiency, vitamin D deficiency, chronic diastolic heart failure, hypertrophic cardiomyopathy, AAA, CAD, PAD, dyslipidemia, COPD, nocturnal hypoxemia, renal artery stenosis and spinal stenosis. The patient was recently admitted to [facility] from 04/13-04/2010 for NSTEMI, and left AMA. She was seen by her outpatient ammonia solution preparer Dr. Dangelo yesterday morning, who because of her current blood pre ssure and heart rate was unable to adjust beta-blockers or nitrates, and advised the patient to quit smoking. She developed recurrent chest pressure with radiation to her left side, and presented to the ED this evening. Troponin was found elevated to 750.9, creatinine increased to 2.05. Patient was given aspirin 324 mg by the ED, and I advised them to start heparin drip. Heart rate remained in the upper 30s to low over 40s while in the ED. The patient continues to smoke tobacco daily, and has no intention of quitting Discharge Data Allergies Allergy/AdvReac Type Severity Reaction Status Date / Time benzonatate Allergy Mild Dizziness Verified 04/17/22 22:34 Cephalosporins Allergy Mild KEFLEX=RASH Verified 04/17/22 22:34 diltiazem Allergy Mild RASH Verified 04/17/22 22:34 Iodinated Contrast Media Allergy Mild CT Verified 04/17/22 22:34 Contrast = kidney infection Consultations 04/18/22 00:58 ED Decision to Admit Stat 04/18/22 03:05 Consult Cardiology Routine Procedures Performed Operation Date: 04/18/22 13:00 Actual Procedures p Cath, Left with Cors and Vent - Alfonzo Yuen MD s Ultrasound Vascular Access - Alfonzo Yuen MD s Fraction Flow Bagdad SGL Ves - Alfonzo Yuen MD Ordered Studies 04/18/22 12:03 CL Cath Imgs for PACS use only Routine 04/19/22 05:18 extremity non-vascular ltd Urgent Discharge Plan Discharge Items Patient Disposition: Home - Self-Care Reason For Visit: Heart attack, atrial fibrillation Discharge Diagnosis: 1. heart attack 2. coronary artery disease 3. episode of atrial fibrillation 4. chronic kidney disease 5. pseudoaneurysm of right ulnar artery 6. hypertrophic cardiomyopathy 7. COPD Activity: Per Instructions section Sexual Activity: Wait until after follow-up appointment Exercise/Sports: Wait until after follow-up appointment Driving/Machine Use: No driving until seen by cardiology and cleared to do so Non-emergency contact: Primary Care Provider and Firer [employer]ort Call non-emergency contact if: you have any medication questions, your symptoms worsen, your wound has increased redness, your wound has increased drainage and your wound pain has increased Follow-up/Referrals: Alfonzo Yuen MD [Physician] - (1 week for recheck of right wrist, heart, and labs ) Shravan Chicas DO [Primary Care Provider] - 04/23/22 10:00 am (1 week ) Diet: Heart Healthy Addtl Attending Provider Instructions: Mrs Bailon, You were hospitalized after having had a heart attack. Blood work for the heart showed that you indeed suffered a heart attack. You were seen by [facility] who recommended a heart catheterization. This was done by Dr Jesse Yuen on 04/18. This showed several blockages in the coronary arteries of the heart (also known as "coronary artery disease"). The culprit blocked artery was an artery at the bottom of the heart. No stents were placed. Dr Yuen is recommending medications to treat your coronary disease. On the morning of 04/19 swelling was noted of your right wrist. You have something called a "pseudoaneurysm" of the artery of the wrist. There is nothing to do for this except watch it carefully for any worsening of the area (worsening swelling, redness, bleeding, pain, etc). Also, please avoid excessive use of the right arm/hand until you see cardiology in the clinic. Recommendations - 1. Please REDUCE the dose of your metoprolol succinate from 50mg twice daily to 25mg twice daily. 2. Avoid use of any anti-inflammatory pills (motrin, ibuprofen, naprosyn, alleve). CONTINUE YOUR ASPIRIN 81mg DAILY PREVIOUS however. 3. For emergency purposes please keep your bottle of nitroglycerin tablets with you at all times. If you have chest pain, severe shortness of breath, arm pain/neck pain/jaw pain - any symptoms that remind you of your heart attack - take the nitroglycerin under the tongue to help resolve the symptoms. You can take up to 3 tabs in 15 minutes. If you take nitroglycerin please seek medical attention right away. 4. Please talk to Dr Chicas about ways to quit smoking. 5. You had an episode of atrial fibrillation when you arrived at the hospital. Your heart went back to normal rhythm after this episode. See handout on atrial fibrillation. Dr Yuen and Dr Dangelo may add additional medications in the future for this condition. 6. Check your weight every day at home as previous. Use the lasix (furosemide water pill) per previous instructions. 7. See handout on coronary artery disease. Follow-up - see separate section Return to [facility] if - * you have fevers over 100 degrees * you have to use nitroglycerin tablets * you have chest pains * you are short of breath * you are concerned about your right wrist * any other concerns Addtl Vp Product Provider Instructions: ACTIVITY RECOMMENDATIONS following your heart catheterization: It is common to feel weak and fatigue for a few days. * Do not drive or operate any motorized equipment UNTIL CLEARED BY CARDIOLOGY. * Limit stair usage (2 or 3 trips a day only) for the next three days. * Do not lift anything heavier than 10 pounds until seen by cardiology. Only use the left hand/arm to lift objects at this time. Avoid use of the right arm/hand. * Do not engage in vigorous exercise or any sports. * You may shower at this time but do not immerse the RIGHT WRIST for three days in a tub of water, sinkful of water, swimming pool, etc. Cleanse the site gently with soap and water. SPECIAL CARE INSTRUCTIONS: * You may replace the pressure dressing or band-aid the morning after the procedure. * After your procedure, it is normal to have a small bruise or small lump at the site. Examine your site daily for any change in the bruise or lump, redness, swelling, drainage or numbness. Notify your doctor if any change. BLEEDING: * If there is a small amount of bleeding at the site, lie down and apply firm pressure with a clean cloth for ten minutes. When the bleeding stops, lie quietly keeping the procedure limb straight for six hours. Notify your doctor as soon as possible. * If the bleeding does not stop after ten minutes or if there is a large amount of bleeding or spurting, call 911 immediately. Continue to lie down and hold firm pressure until help arrives. SKIN IRRITATION: * You may experience some redness and/or swelling in the area where radiation was administered. If any skin irritation occurs, please contact your family physician. FOLLOW UP VISIT: Keep any scheduled doctor appointments. Pending Studies at Discharge: No Stand-Alone Forms: My [facility], Smoking Cessation Medications and DC Order Prescriptions: New nitroglycerin 0.4 mg tablet, sublingual 0.4 mg sublingual Q5M PRN (Reason: chest pain) Qty: 1 0RF Rx Instructions: max 3 tabs in 15 minutes Continued furosemide 40 mg tablet 40 mg PO .COMPLEX Qty: 90 3RF Rx Instructions: 40 mg PO QOD. Weigh self daily. Take an extra furosemide tablet on no furosemide days if weight is greater than 2 lb or more compared to the previous day. calcitriol 0.25 mcg capsule 0.25 mcg PO UD Qty: 45 3RF Rx Instructions: 3 times weekly atorvastatin 40 mg tablet 40 mg PO QPM Qty: 90 3RF albuterol sulfate [ProAir HFA] 90 mcg/actuation HFA aerosol inhaler 2 puff INH Q4H PRN (Reason: shortness of breath or wheezing) Qty: 18 5RF aspirin [Shahzad Low Dose Aspirin] 81 mg Tablet,Delayed Release (Dr/Ec) 81 mg PO QAM isosorbide mononitrate 30 mg tablet extended release 24 hr 30 mg PO DAILY Qty: 30 0RF Changed metoprolol succinate 50 mg tablet extended release 24 hr 25 mg PO BID Qty: 180 3RF Discharge Orders: Discharge Order (Routine); Ordered 04/19/22 Ordered By: Cam Briones/Other Patient Handouts: CAD, AFib Admission Data Admit Date/Time: 04/18/22 01:20 Attending Provider: Cam Cox Admit Provider: Phi Wetzel Primary Care Provider: Shravan Chicas Other Providers: Phi Wetzel ; Irving Dangelo Jr Coding
--- NOTE | 2022-04-19 21:06 | Electrocardiogram Report ---
Test Reason : Blood Pressure : / mmHG Vent. Rate : 055 BPM Atrial Rate : 055 BPM P-R Int : 222 ms QRS Dur : 094 ms QT Int : 472 ms P-R-T Axes : 001 -43 130 degrees QTc Int : 451 ms Sinus bradycardia with 1st degree A-V block Left axis deviation Left ventricular hypertrophy with repolarization abnormality Cannot rule out Inferior infarct (cited on or before 18-APR-2022) Abnormal ECG When compared with ECG of 18-APR-2022 06:29, No significant change Confirmed by Kevin Bain ([id number]) on 04/19/2022 9:05:48 PM Referred By: REFERRED SELF Confirmed By:Kevin Bain
--- NOTE | 2022-04-20 05:35 | Electrocardiogram Report ---
Test Reason : Blood Pressure : / mmHG Vent. Rate : 057 BPM Atrial Rate : 057 BPM P-R Int : 226 ms QRS Dur : 090 ms QT Int : 462 ms P-R-T Axes : 004 -34 140 degrees QTc Int : 449 ms Sinus bradycardia with 1st degree A-V block Left axis deviation Left ventricular hypertrophy with repolarization abnormality Inferior infarct (cited on or before 18-APR-2022) Poor R wave progression, consider anterior MO vs. lead placement vs. LVH Abnormal ECG When compared with ECG of 18-APR-2022 15:11, T wave inversion now evident in Anterior leads Confirmed by Kevin Bain ([id number]) on 04/20/2022 5:34:32 AM Referred By: REFERRED SELF Confirmed By:Kevin Bain
== END 2022-04-19 14:34 | disposition home or self-care (01) | DRG 281 ==
LOC: ED 21:33 → 2S 04-18 01:20 → SUATTDRO 04-18 01:20 → 2S 04-18 02:28

== ENCOUNTER 2022-04-20 00:02 | Observation (INO) ==
[2022-04-20] MEDS ORDERED: fentaNYL citrate 100 MCG/2 ML VIAL IV STA (00:38)
[2022-04-20 00:50] LABS: Basophils # (auto) 0.03 K/uL (0-0.2); Basophils % (auto) 0.2 %; Hematocrit (blood only) 27.3 % (34.1-44.9); Immature Granulocytes # (auto) 0.11 K/uL (0.00-0.02); Immature Granulocytes % (auto) 0.7 %; Lymphocytes # (auto) 1.11 K/uL (1.2-3.4); Lymphocytes % (auto) 6.7 %; Mean Corpuscular Hemoglobin 28.9 pg (25.0-34.0); Mean Corpuscular Volume 87.8 fL (80.0-100.0); Mean Platelet Volume 11.7 fL (9.4-12.3); Monocytes # (auto) 0.94 K/uL (0.24-0.82); Monocytes % (auto) 5.7 %; Neutrophils # (auto) 14.35 K/uL (1.4-6.5); Neutrophils % (auto) 86.7 %; Nucleated RBC # (auto) 0.03 K/uL (0-0); Nucleated RBC % (auto) 0.2 %; Platelet Count 319 K/uL (130-400); RDW Coefficient of Variation 17.1 % (11.5-14.5); RDW Standard Deviation 54.1 fL (36.4-46.3); Red Blood Count 3.11 M/uL (3.93-5.22); White Blood Count 16.54 K/ul (4.8-10.8)
[2022-04-20 01:15] LABS: Albumin Globulin Ratio 1.2 (0.9-2); Albumin Level 3.3 gm/dl (3.4-5.0); BUN Creatinine Ratio 14.8 (10-20); Bilirubin,Total 0.3 mg/dl (0.2-1.0); Creatinine Clr Calc Pharmacy 22.9 ml/min; Est GFR (African American) 23.5 ml/min; Est GFR (Non-African American) 20.3 ml/min; Globulin 2.8 gm/dl (2.5-4.0); Magnesium 1.9 mg/dl (1.7-2.4); Phosphorus 3.2 mg/dl (2.5-4.9); Potassium 3.5 mmol/L (3.5-5.1); Total Protein 6.1 gm/dl (6.0-8.3); Troponin I High Sensitivity 759.1 pg/ml (0-14)
[2022-04-20] MEDS ORDERED: COLCHICINE 0.6 MG TAB PO ONE (01:47)
[2022-04-20] MEDS ORDERED: ASPIRIN 81 MG CHEW PO ONE (02:08)
--- NOTE | 2022-04-20 02:14 | History & Physical Report ---
Date of Service April 20, 2022 Assessment & Plan (1) Pericarditis: Plan: Pericarditis/pericardial effusion/recent NSTEMI/medical management of CAD/long- term aspirin use/hypertension- The patient will be admitted to telemetry for serial cardiac enzymes, serial EKG's, cardiac rhythm monitoring Aspirin 3 and 25 mg p.o. twice daily Colchicine 0.6 mg p.o. twice daily Continue furosemide, isosorbide mononitrate, metoprolol succinate and nitroglycerin sublingual as needed Consult cardiology Dr. Yuen (2) Pericardial effusion: Plan: See above (3) Antiplatelet or antithrombotic long-term use: Plan: Adjust antiplatelet agents as noted (4) Non-ST elevation (NSTEMI) myocardial infarction: Plan: Follow serial cardiac enzymes, already trending downward (5) Tobacco abuse counseling: Plan: Tobacco abuse disorder- Continue counseling (6) Paroxysmal atrial fibrillation: Plan: See above (7) Chronic kidney disease, stage 3b: Plan: Creatinine 2.30, with range 1.99-3.21 Follow serially (8) Cardiomyopathy, hypertrophic: Plan: See above (9) Chronic diastolic congestive heart failure: Plan: Continue furosemide as directed (10) Hypertension: (11) Coronary artery disease: (12) Dyslipidemia: Plan: Continue atorvastatin (13) COPD (chronic obstructive pulmonary disease): Plan: Continue routine inhalers History of Present Illness Chief Complaint: The patient presents to the emergency department with a recurrence of the severe intermittent chest pain that she experienced while at rest at home. Primary Care Provider: Shravan Chicas DO The patient is a 76-year-old female most recently admitted and discharged from [facility] from 04/18-04/19 for NSTEMI, having undergone a cardiac catheterization by interventional is Dr. Jesse Yuen, found to have multivessel CAD, with acute on chronic RCA occlusion, 60% mid LAD lesion, echo with unchanged LV function. Plan was to continue daily aspirin, continue current dosing of Toprol-XL and home Imdur, continue statin, and then follow-up in the outpatient office with cardiology. Due to recurrence of her chest pain, she presents to the ED for assessment, and was felt to possibly have pericarditis associated with recently detected pericardial effusion, started on colchicine, and referred for evaluation for admission. Allergies Allergy/AdvReac Type Severity Reaction Status Date / Time benzonatate Allergy Mild Dizziness Verified 04/20/22 01:06 Cephalosporins Allergy Mild KEFLEX=RASH Verified 04/20/22 01:06 diltiazem Allergy Mild RASH Verified 04/20/22 01:06 Iodinated Contrast Media Allergy Mild CT Verified 04/20/22 01:06 Contrast = kidney infection Home Medications Medication Instructions Recorded Confirmed Type aspirin 81 mg tablet,delayed 81 mg PO QAM 05/11/19 04/20/22 History release (Shahzad Low Dose Aspirin) furosemide 40 mg tablet 40 mg PO .COMPLEX #90 tabs 07/10/21 04/20/22 Rx atorvastatin 40 mg tablet 40 mg PO QPM #90 tabs 08/04/21 04/20/22 Rx albuterol sulfate 90 mcg/actuation 2 puff inhalation Q4H PRN 10/05/21 04/20/22 Rx aerosol inhaler (ProAir HFA) shortness of breath or wheezing #18 grams calcitriol 0.25 mcg capsule 0.25 mcg PO UD #45 caps 02/19/22 04/20/22 Rx isosorbide mononitrate 30 mg 30 mg PO DAILY #30 tabs 04/14/22 04/20/22 Rx tablet,extended release 24 hr metoprolol succinate 50 mg 25 mg PO BID #180 tabs 04/19/22 04/20/22 Rx tablet,extended release 24 hr nitroglycerin 0.4 mg sublingual 0.4 mg sublingual Q5M PRN chest 04/19/22 04/20/22 Rx tablet pain #1 btl Past Med/Surg History Medical History (Updated 04/20/22 @ 03:52 by Phi Wetzel MD) AAA (abdominal aortic aneurysm) Followed at [facility] Abnormal CT scan, chest Abnormal diffusion capacity determined by pulmonary function test Anemia Anemia due to chronic kidney disease Asthma Atherosclerosis of both carotid arteries Atrial fibrillation Cardiomyopathy, hypertrophic Carpal tunnel syndrome Chronic diastolic congestive heart failure Chronic kidney disease, stage 3b Chronic kidney disease, stage IV (severe) Chronic osteoarthritis COPD (chronic obstructive pulmonary disease) Coronary artery disease Current smoker Diffusion capacity of lung (dl), decreased Dyslipidemia History of uterine cancer 2008--sx only Hypertension Hypotension Nocturnal hypoxia Obstructive sleep apnea of adult no device Paroxysmal atrial fibrillation Peripheral vascular disease Renal artery stenosis Secondary hyperparathyroidism Short of breath on exertion Shortness of breath Spinal stenosis Tobacco abuse counseling Tubular adenoma of colon (~04/2014) Vitamin B12 deficiency Vitamin D deficiency Surgical History History of bilateral cataract extraction History of cardiac cath [address] Dangelo--no stent History of colonoscopy (~04/2014) History of tonsillectomy and adenoidectomy History of tooth extraction all teeth removed History of total hysterectomy with bilateral salpingo-oophorectomy (BSO) Family History Unknown Hypertension Mother Stroke syndrome Sister Uterine cancer Diabetes Myocardial infarction Ovarian cancer Other No family history of adverse response to anesthesia Denies family history of Prostate cancer Breast cancer Lung cancer Colorectal cancer Social History Smoking Status: Current every day smoker Tobacco Type: Cigarettes Age Started Using Tobacco: 19; packs per day: 0.5; Cigarettes Per Day: 12; Second Hand Exposure: Yes; Hx Alcohol Use: No Hx Substance Use: No Preferred Language: Slovenian Communication Ability: Effective Visual Impairment: No Limitations Hearing Ability: Normal Support Analyst Required: No Beliefs That Will Affect Care: None marital status: / Current Living Situation: Family current occupational status: retired How many Children do You have: 0 Feels Safe at Home: Yes Childhood Exposure to Second-Hand Smoke: Yes caffeine: Yes Dental Care, Regularly: No Physical Activity Frequency: Does not Exercise Seatbelt Use: never Sunscreen Use: No Assistive Devices: None Review of Systems Review of Systems: The patient denies palpitations, shortness of breath, dyspnea on exertion, cough, lower extremity swelling, sore throat, fevers, chills, sweats, weight change, fatigue, nausea, vomiting, diarrhea , constipation, abdominal pain, pelvic pain, blood in urine or stool, dysuria, urinary frequency or urgency, lightheadedness, dizziness, headache, memory loss, loss of consciousness, rash, abnormal bruising or bleeding, imbalance, focal weakness, numbness or tingling in arms or legs, neck pain, or night sweats. The review of systems is otherwise negative other than for that already noted above, and at least 10 systems have been reviewed. Physical Exam Physical Exam: The patient is awake, alert and oriented 3, well developed and well nourished, normocephalic and atraumatic, lying in bed and in no acute distress. HEENT--PERRL, EOMI, mucous membranes and oropharynx normal. Neck--supple. No JVD. No bruits. Thyroid normal, trachea midline, no adenopathy. Heart--normal S1 and S2. No murmurs, rubs or gallops. Lungs--clear bilaterally, no respiratory distress, no accessory muscle use. Abdomen--normal bowel sounds and soft. Nontender. Nondistended, no hernias or masses, no organomegaly. Extremities--no cyanosis or clubbing. No edema. Dermatologic--normal skin turgor, normal color, no abnormal lymph nodes, no rash. Neurologic--cranial nerves II through XII grossly intact. Rheumatologic--normal range of motion. Psychiatric--normal affect. Results & Data Results & Data ([facility]) Vital Signs (Past 12 Hours) Vital Signs Temp Pulse Resp BP Pulse Ox O2 Del Method 04/20/22 00:20 94 Room Air 04/20/22 00:16 18 94 Room Air 04/20/22 00:16 94 Room Air 04/19/22 23:51 36.3 C L 115 H 18 133/83 93 Room Air Laboratory Results Laboratory Results WBC 16.54 K/ul (4.8-10.8) H 04/20/22 00:26 RBC 3.11 M/uL (3.93-5.22) L 04/20/22 00:26 Hgb 9.0 g/dl (12.0-16.0) L 04/20/22 00:26 Hct 27.3 % (34.1-44.9) L 04/20/22 00:26 MCV 87.8 fL (80.0-100.0) 04/20/22 00:26 MCH 28.9 pg (25.0-34.0) 04/20/22 00:26 MCHC 33.0 g/dL (32.0-36.0) 04/20/22 00:26 RDW Std Deviation 54.1 fL (36.4-46.3) H 04/20/22 00:26 RDW Coeff of Lakshmi 17.1 % (11.5-14.5) H 04/20/22 00:26 Plt Count 319 K/uL (130-400) 04/20/22 00:26 MPV 11.7 fL (9.4-12.3) 04/20/22 00:26 Immature Gran % (Auto) 0.7 % 04/20/22 00:26 Neut % (Auto) 86.7 % 04/20/22 00:26 Lymph % (Auto) 6.7 % 04/20/22 00:26 [place] % (Auto) 5.7 % 04/20/22 00:26 Eos % (Auto) 0.0 % 04/20/22 00:26 Baso % (Auto) 0.2 % 04/20/22 00:26 Neut # (Auto) 14.35 K/uL (1.4-6.5) H 04/20/22 00:26 Lymph # (Auto) 1.11 K/uL (1.2-3.4) L 04/20/22 00:26 [place] # (Auto) 0.94 K/uL (0.24-0.82) H 04/20/22 00:26 Eos # (Auto) 0.00 K/uL (0-0.50) 04/20/22 00:26 Baso # (Auto) 0.03 K/uL (0-0.2) 04/20/22 00:26 Immature Gran # (Auto) 0.11 K/uL (0.00-0.02) H 04/20/22 00:26 Absolute Nucleated RBC 0.03 K/uL (0-0) H 04/20/22 00:26 Nucleated RBC % (auto) 0.2 % 04/20/22 00:26 ESR 31 mm/hr (0-30) H 04/20/22 00:26 Sodium 138 mmol/L (136-145) 04/20/22 00:26 Potassium 3.5 mmol/L (3.5-5.1) 04/20/22 00:26 Chloride 105 mmol/L (98-107) 04/20/22 00:26 Carbon Dioxide 21 mmol/L (21-32) 04/20/22 00:26 Anion Gap 12 (3-11) H 04/20/22 00:26 BUN 34 mg/dl (6-23) H 04/20/22 00:26 Creatinine 2.30 mg/dl (0.6-1.2) H 04/20/22 00:26 Est Cr Clr Drug Dosing 22.9 ml/min 04/20/22 00:26 Est GFR ( Amer) 23.5 ml/min 04/20/22 00:26 Est GFR (Non-Af Amer) 20.3 ml/min 04/20/22 00:26 BUN/Creatinine Ratio 14.8 (10-20) 04/20/22 00:26 Glucose 153 mg/dl (70-99(Fasting)) H 04/20/22 00:26 Calcium 9.0 mg/dl (8.5-10.1) 04/20/22 00:26 Phosphorus 3.2 mg/dl (2.5-4.9) 04/20/22 00:26 Magnesium 1.9 mg/dl (1.7-2.4) 04/20/22 00:26 Total Bilirubin 0.3 mg/dl (0.2-1.0) 04/20/22 00:26 AST 12 U/L (13-39) L 04/20/22 00:26 ALT 8 U/L (7-52) 04/20/22 00:26 Alkaline Phosphatase 90 U/L (34-104) 04/20/22 00:26 Troponin I High Sens 759.1 pg/ml (0-14) H* D 04/20/22 00:26 Total Protein 6.1 gm/dl (6.0-8.3) 04/20/22 00:26 Albumin 3.3 gm/dl (3.4-5.0) L 04/20/22 00:26 Globulin 2.8 gm/dl (2.5-4.0) 04/20/22 00:26 Albumin/Globulin Ratio 1.2 (0.9-2) 04/20/22 00:26 Lipase 21 U/L (11-82) 04/20/22 00:26 Procalcitonin 0.05 ng/ml (0-0.5) 04/20/22 01:37 SARS-CoV-2, RNA, NAAT NEGATIVE (NEGATIVE) 04/20/22 00:26 Code Status & VTE Plan Code Status Full code VTE Prophylaxis Plan VTE Prophylaxis will be ordered: Yes PG Care Time/CCT Total # of Minutes Spent Total Time Spent with Patient: Total time spent is greater than 50% in coordination of care (as documented) at patient's floor/unit and/or counseling patient: Coding Level of Care Code INT OBSERVATION CARE 70M LVL 3 Diagnoses Pericarditis I31.9 Pericardial effusion I31.3 Antiplatelet or antithrombotic long-term use Z79.02 Non-ST elevation (NSTEMI) myocardial infarction I21.4 Tobacco abuse counseling Z71.6 Paroxysmal atrial fibrillation I48.0 Chronic kidney disease, stage 3b N18.32 Cardiomyopathy, hypertrophic I42.2 Chronic diastolic congestive heart failure I50.32 Hypertension I10 Coronary artery disease I25.10 Dyslipidemia E78.5 COPD (chronic obstructive pulmonary disease) J44.9
[2022-04-20] MEDS ORDERED: NITROGLYCERIN SL 0.4 MG/TAB TAB SL PRN (04:07)
[2022-04-20] MEDS ORDERED: ALBUTEROL HFA 8 GM INHALER INH PRN (04:07)
[2022-04-20] MEDS ORDERED: ONDANSETRON INJ 2 MG/ML 2 ML VIAL IV PRN (04:07)
[2022-04-20] MEDS ORDERED: ACETAMINOPHEN 325 MG TAB PO PRN (04:07)
--- NOTE | 2022-04-20 04:39 | Emergency Department Note ---
Impression & Plan Substernal chest pain, Pericardial effusion, Elevated troponin, CKD (chronic kidney disease) ED Provider Note NAME: WYATT SANTOS AGE: 76 SEX: F ARRIVES VIA: Ambulance INFORMANT: Patient ED PROVIDER(S): Jack Mclaughlin MD CHIEF COMPLAINT: Chest pain PLAN: Disposition: Admit MEDICAL DECISION MAKING: The patient is a pleasant 76-year-old woman with a past medical history of CAD, CKD, hypertension, hyperlipidemia, atrial fibrillation, AAA, COPD, current everyday smoker, renal artery stenosis who presents to the emergency department from home via EMS for evaluation of chest pain that began approximately 2 hours prior to arrival when the patient was sitting in the couch watching TV. Patient's symptoms occur in the setting of being discharged this afternoon around 3 PM from this facility following admission for an NSTEMI. Patient did have a heart catheterization yesterday that demonstrated coronary disease not amenable to intervention with medical management recommended. Patient denies any chest pain prior to leaving to the hospital. She denies any fevers, cough, congestion, GI or symptoms. On arrival patient is uncomfortable no distress, afebrile with heart rate in the 100-120s in atrial fibrillation and vital signs otherwise stable. She appears euvolemic. EKG demonstrates atrial fibrillation with RVR without overt acute ischemia. Morphology similar to prior EKGs. CXR with vascular congestion. WBC 16.5K nonspecific. H/H similar to prior. Platelets within normal limits. Chemistry without metabolic acidosis. Creatinine 2.3 similar to patient's prior values in the setting of CKD. LFTs without significant abnormality. High- sensitivity troponin 759, downtrending from recent admission. Procalcitonin 0.0 5, within normal limits. Lipase is not elevated. COVID-19 RNA, DIAMOND test was negative. Limited bedside cardiac ultrasound was performed and demonstrates small pericardial effusion which appears similar to what had been described both before and after her recent heart catheterization. The patient does report having increased pain when she lies flat and so possibility of pericarditis considered. The patient was given fentanyl for pain in addition to trial of colchicine. Case was discussed with Dr. Wetzel, [facility] hospitalist, who will evaluate the patient for admission. Triage Nursing notes reviewed and agree them. Prior medical records reviewed Vital Signs: reviewed and remarkable for tachycardia. Differential diagnosis: Cardiac ischemia, aortic dissection, pulmonary embolism, pneumothorax, pneumonia, pericarditis, myocarditis, esophageal rupture, GERD, cholecystitis, pancreatitis, musculoskeletal, as well as other pathologies. ER treatment provided: See below. Diagnostics interpreted by me: ECG: Atrial fibrillation, RVR, 121 bpm, no ectopy, marked ST abnormality, no overt ST elevation, QTC of 483, QRS 90. Cardiac Monitoring: An order for continuous cardiac monitoring was placed and demonstrated Atrial fibrillation, RVR, 121 bpm, no ectopy. Laboratory studies: See below Imaging studies: See below Consultation(s): Case was discussed with Dr. Wetzel, [facility] hospitalist, who will evaluate the patient for admission. HPI: The patient is a pleasant 76-year-old woman with a past medical history of CAD, CKD, hypertension, hyperlipidemia, atrial fibrillation, AAA, COPD, current everyday smoker, renal artery stenosis who presents to the emergency department from home via EMS for evaluation of chest pain that began approximately 2 hours prior to arrival when the patient was sitting in the couch watching TV. Patient's symptoms occur in the setting of being discharged this afternoon ar ound 3 PM from this facility following admission for an NSTEMI. Patient did have a heart catheterization yesterday that demonstrated coronary disease not amenable to intervention with medical management recommended. Patient denies any chest pain prior to leaving to the hospital. She denies any fevers, cough, congestion, GI or symptoms. ROS: See above HPI for pertinent positives & negatives. A total of 10 systems reviewed and were otherwise negative. VITALS:See Below PHYSICAL EXAMINATION: GENERAL: Awake, alert, fatigued-appearing, in no distress HENT: Normocephalic, atraumatic. Oropharynx unremarkable. EYES: Normal conjunctiva. Sclera non-icteric. NECK: Supple. No nuchal rigidity. FROM. No JVD. RESPIRATORY: Diminished at bases otherwise clear to auscultation. CARDIAC: Tachycardic rate, irregular rhythm. Extremities warm and well perfused. Pulses equal. ABDOMEN: Soft, non-distended. No tenderness to palpation. No rebound or guarding. No masses. RECTAL: Deferred. MUSCULOSKELETAL: Chest examination reveals no tenderness. The back is symmetrical on inspection without obvious abnormality. There is no CVA tenderness to palpation. No joint edema. LOWER EXTREMITIES: Calves are equal size bilaterally and non-tender. No edema. No discoloration. NEURO: Normal sensorium. No sensory or motor deficits noted. SKIN: No rash or jaundice noted. ED COURSE: Critical Care: I have personally spent greater than 35 minutes of critical care time in the direct management of this patient. This includes bedside care, interpretation of diagnostic studies, and testing, discussion with consultants, patient, and family members, and other required patient management activities. This 35 min utes is in excess of all separately billable procedures. Jack Mclaughlin MD Past Med/Surg History Medical History (Updated 04/20/22 @ 13:40 by Mini Willett DO) AAA (abdominal aortic aneurysm) Followed at [facility] Abnormal CT scan, chest Abnormal diffusion capacity determined by pulmonary function test Anemia Anemia due to chronic kidney disease Asthma Atherosclerosis of both carotid arteries Atrial fibrillation Cardiomyopathy, hypertrophic Carpal tunnel syndrome Chronic diastolic congestive heart failure Chronic kidney disease, stage 3b Chronic kidney disease, stage IV (severe) Chronic osteoarthritis COPD (chronic obstructive pulmonary disease) Coronary artery disease Current smoker Diffusion capacity of lung (dl), decreased Dyslipidemia History of uterine cancer 2008--sx only Hypertension Hypotension Nocturnal hypoxia Obstructive sleep apnea of adult no device Paroxysmal atrial fibrillation Peripheral vascular disease Renal artery stenosis Secondary hyperparathyroidism Short of breath on exertion Shortness of breath Spinal stenosis Tobacco abuse counseling Tubular adenoma of colon (~04/2014) Vitamin B12 deficiency Vitamin D deficiency Surgical History History of bilateral cataract extraction History of cardiac cath [address] Dangelo--no stent History of colonoscopy (~04/2014) History of tonsillectomy and adenoidectomy History of tooth extraction all teeth removed History of total hysterectomy with bilateral salpingo-oophorectomy (BSO) Family History Unknown Hypertension Mother Stroke syndrome Sister Uterine cancer Diabetes Myocardial infarction Ovarian cancer Other No family history of adverse response to anesthesia Denies family history of Prostate cancer Breast cancer Lung cancer Colorectal cancer Social History Smoking Status: Current every day smoker Tobacco Type: Cigarettes Age Started Using Tobacco: 19; packs per day: 0.5; Cigarettes Per Day: 12; Second Hand Exposure: Yes; Hx Alcohol Use: No Hx Substance Use: No Preferred Language: Thai Communication Ability: Effective Visual Impairment: No Limitations Hearing Ability: Normal Insurance Commissioner Required: No Beliefs That Will Affect Care: None marital status: / Current Living Situation: Alone current occupational status: retired How many Children do You have: 0 Feels Safe at Home: Yes Childhood Exposure to Second-Hand Smoke: Yes caffeine: Yes Dental Care, Regularly: No Physical Activity Frequency: Does not Exercise Seatbelt Use: never Sunscreen Use: No Assistive Devices: None Allergies Allergies Allergy/AdvReac Type Severity Reaction Status Date / Time benzonatate Allergy Mild Dizziness Verified 04/20/22 01:06 Cephalosporins Allergy Mild KEFLEX=RASH Verified 04/20/22 01:06 diltiazem Allergy Mild RASH Verified 04/20/22 01:06 Iodinated Contrast Media Allergy Mild CT Verified 04/20/22 01:06 Contrast = kidney infection Home Meds Home Medications Medication Instructions Recorded Confirmed aspirin 81 mg tablet,delayed 81 mg PO QAM 05/11/19 04/20/22 release (Shahzad Low Dose Aspirin) Previous Rx's Medication Instructions Recorded furosemide 40 mg tablet 40 mg PO .COMPLEX #90 tabs 07/10/21 atorvastatin 40 mg tablet 40 mg PO QPM #90 tabs 08/04/21 albuterol sulfate 90 mcg/actuation 2 puff inhalation Q4H PRN 10/05/21 aerosol inhaler (ProAir HFA) shortness of breath or wheezing #18 grams calcitriol 0.25 mcg capsule 0.25 mcg PO UD #45 caps 02/19/22 isosorbide mononitrate 30 mg 30 mg PO DAILY #30 tabs 04/14/22 tablet,extended release 24 hr metoprolol succinate 50 mg 25 mg PO BID #180 tabs 04/19/22 tablet,extended release 24 hr nitroglycerin 0.4 mg sublingual 0.4 mg sublingual Q5M PRN chest 04/19/22 tablet pain #1 btl Results & Data (ED) Vital Signs Vital Signs - 24 hr 04/19/22 23:51 04/20/22 00:16 04/20/22 00:16 Temperature 36.3 C L Temperature Source Oral Pulse Rate 115 H Pulse Rate from SpO2 Sensor Pulse Rhythm Irregular Respiratory Rate 18 18 Respiratory Depth Deep Deep Blood Pressure 133/83 Blood Pressure Mean 99 Pulse Oximetry 93 94 94 Oxygen Delivery Method Room Air Room Air Room Air Sepsis Recent Fever Within 48 Hours No Sepsis New/Unexplained Change in Mental Status No Sepsis Action Taken by Nursing No Action Required 04/20/22 00:20 04/20/22 00:08 04/20/22 00:09 Temperature Temperature Source Pulse Rate 114 H Pulse Rate from SpO2 Sensor 58 L Pulse Rhythm Respiratory Rate 21 Respiratory Depth Blood Pressure 133/83 Blood Pressure Mean 99 Pulse Oximetry 94 93 Oxygen Delivery Method Room Air Sepsis Recent Fever Within 48 Hours Sepsis New/Unexplained Change in Mental Status Sepsis Action Taken by Nursing 04/20/22 00:09 04/20/22 00:10 04/20/22 00:20 Temperature Temperature Source Pulse Rate 108 H 126 H 127 H Pulse Rate from SpO2 Sensor 108 H 117 H 131 H Pulse Rhythm Respiratory Rate 18 19 18 Respiratory Depth Blood Pressure Blood Pressure Mean Pulse Oximetry 93 93 94 Oxygen Delivery Method Sepsis Recent Fever Within 48 Hours Sepsis New/Unexplained Change in Mental Status Sepsis Action Taken by Nursing 04/20/22 00:30 04/20/22 00:30 04/20/22 00:40 Temperature Temperature Source Pulse Rate 104 H 112 H Pulse Rate from SpO2 Sensor 105 H 98 H Pulse Rhythm Respiratory Rate 19 19 Respiratory Depth Blood Pressure 116/87 Blood Pressure Mean 96 Pulse Oximetry 93 94 Oxygen Delivery Method Sepsis Recent Fever Within 48 Hours Sepsis New/Unexplained Change in Mental Status Sepsis Action Taken by Nursing 04/20/22 00:50 04/20/22 01:00 04/20/22 01:01 Temperature Temperature Source Pulse Rate 92 H 112 H 110 H Pulse Rate from SpO2 Sensor 105 H 87 110 H Pulse Rhythm Respiratory Rate 26 H 15 19 Respiratory Depth Blood Pressure Blood Pressure Mean Pulse Oximetry 92 92 91 Oxygen Delivery Method Sepsis Recent Fever Within 48 Hours Sepsis New/Unexplained Change in Mental Status Sepsis Action Taken by Nursing 04/20/22 01:01 04/20/22 01:10 04/20/22 01:20 Temperature Temperature Source Pulse Rate 113 H 120 H Pulse Rate from SpO2 Sensor 127 H 105 H Pulse Rhythm Respiratory Rate 21 22 Respiratory Depth Blood Pressure 135/110 H Blood Pressure Mean 118 Pulse Oximetry 90 93 Oxygen Delivery Method Sepsis Recent Fever Within 48 Hours Sepsis New/Unexplained Change in Mental Status Sepsis Action Taken by Nursing 04/20/22 01:30 04/20/22 01:31 04/20/22 01:31 Temperature Temperature Source Pulse Rate 102 H 121 H Pulse Rate from SpO2 Sensor 103 H 119 H Pulse Rhythm Respiratory Rate 24 24 Respiratory Depth Blood Pressure 118/71 Blood Pressure Mean 86 Pulse Oximetry 90 91 Oxygen Delivery Method Sepsis Recent Fever Within 48 Hours Sepsis New/Unexplained Change in Mental Status Sepsis Action Taken by Nursing 04/20/22 01:40 04/20/22 01:50 04/20/22 02:00 Temperature Temperature Source Pulse Rate 112 H 100 H 102 H Pulse Rate from SpO2 Sensor 115 H 91 H 115 H Pulse Rhythm Respiratory Rate 24 21 25 H Respiratory Depth Blood Pressure Blood Pressure Mean Pulse Oximetry 90 91 90 Oxygen Delivery Method Sepsis Recent Fever Within 48 Hours Sepsis New/Unexplained Change in Mental Status Sepsis Action Taken by Nursing 04/20/22 02:01 04/20/22 02:01 04/20/22 02:10 Temperature Temperature Source Pulse Rate 115 H 117 H Pulse Rate from SpO2 Sensor 108 H 116 H Pulse Rhythm Respiratory Rate 27 H 21 Respiratory Depth Blood Pressure 113/91 Blood Pressure Mean 98 Pulse Oximetry 92 91 Oxygen Delivery Method Sepsis Recent Fever Within 48 Hours Sepsis New/Unexplained Change in Mental Status Sepsis Action Taken by Nursing Laboratory Data Attestation: I reviewed the patient's lab results. Result diagrams: 04/20/22 14:02 04/20/22 00:26 Lab Results 04/20/22 04/20/22 04/20/22 Range/Units 00:26 00:26 00:26 WBC 16.54 H (4.8-10.8) K/ul RBC 3.11 L (3.93-5.22) M/uL Hgb 9.0 L (12.0-16.0) g/dl Hct 27.3 L (34.1-44.9) % MCV 87.8 (80.0-100.0) fL MCH 28.9 (25.0-34.0) pg MCHC 33.0 (32.0-36.0) g/dL RDW Std Deviation 54.1 H (36.4-46.3) fL RDW Coeff of Lakshmi 17.1 H (11.5-14.5) % Plt Count 319 (130-400) K/uL MPV 11.7 (9.4-12.3) fL Immature Gran % (Auto) 0.7 % Neut % (Auto) 86.7 % Lymph % (Auto) 6.7 % [place] % (Auto) 5.7 % Eos % (Auto) 0.0 % Baso % (Auto) 0.2 % Neut # (Auto) 14.35 H (1.4-6.5) K/uL Lymph # (Auto) 1.11 L (1.2-3.4) K/uL [place] # (Auto) 0.94 H (0.24-0.82) K/uL Eos # (Auto) 0.00 (0-0.50) K/uL Baso # (Auto) 0.03 (0-0.2) K/uL Immature Gran # (Auto) 0.11 H (0.00-0.02) K/uL Absolute Nucleated RBC 0.03 H (0-0) K/uL Nucleated RBC % (auto) 0.2 % ESR (0-30) mm/hr Sodium 138 (136-145) mmol/L Potassium 3.5 (3.5-5.1) mmol/L Chloride 105 (98-107) mmol/L Carbon Dioxide 21 (21-32) mmol/L Anion Gap 12 H (3-11) BUN 34 H (6-23) mg/dl Creatinine 2.30 H (0.6-1.2) mg/dl Est Cr Clr Drug Dosing 22.9 ml/min Est GFR ( Amer) 23.5 ml/min Est GFR (Non-Af Amer) 20.3 ml/min BUN/Creatinine Ratio 14.8 (10-20) Glucose 153 H (70-99(Fasting)) mg/dl Calcium 9.0 (8.5-10.1) mg/dl Phosphorus 3.2 (2.5-4.9) mg/dl Magnesium 1.9 (1.7-2.4) mg/dl Total Bilirubin 0.3 (0.2-1.0) mg/dl AST 12 L (13-39) U/L ALT 8 (7-52) U/L Alkaline Phosphatase 90 (34-104) U/L Troponin I High Sens 759.1 H* D (0-14) pg/ml Total Protein 6.1 (6.0-8.3) gm/dl Albumin 3.3 L (3.4-5.0) gm/dl Globulin 2.8 (2.5-4.0) gm/dl Albumin/Globulin Ratio 1.2 (0.9-2) Lipase 21 (11-82) U/L Procalcitonin (0-0.5) ng/ml SARS-CoV-2, RNA, NAAT NEGATIVE (NEGATIVE) 04/20/22 04/20/22 Range/Units 00:26 01:37 WBC (4.8-10.8) K/ul RBC (3.93-5.22) M/uL Hgb (12.0-16.0) g/dl Hct (34.1-44.9) % MCV (80.0-100.0) fL MCH (25.0-34.0) pg MCHC (32.0-36.0) g/dL RDW Std Deviation (36.4-46.3) fL RDW Coeff of Lakshmi (11.5-14.5) % Plt Count (130-400) K/uL MPV (9.4-12.3) fL Immature Gran % (Auto) % Neut % (Auto) % Lymph % (Auto) % [place] % (Auto) % Eos % (Auto) % Baso % (Auto) % Neut # (Auto) (1.4-6.5) K/uL Lymph # (Auto) (1.2-3.4) K/uL [place] # (Auto) (0.24-0.82) K/uL Eos # (Auto) (0-0.50) K/uL Baso # (Auto) (0-0.2) K/uL Immature Gran # (Auto) (0.00-0.02) K/uL Absolute Nucleated RBC (0-0) K/uL Nucleated RBC % (auto) % ESR 31 H (0-30) mm/hr Sodium (136-145) mmol/L Potassium (3.5-5.1) mmol/L Chloride (98-107) mmol/L Carbon Dioxide (21-32) mmol/L Anion Gap (3-11) BUN (6-23) mg/dl Creatinine (0.6-1.2) mg/dl Est Cr Clr Drug Dosing ml/min Est GFR ( Amer) ml/min Est GFR (Non-Af Amer) ml/min BUN/Creatinine Ratio (10-20) Glucose (70-99(Fasting)) mg/dl Calcium (8.5-10.1) mg/dl Phosphorus (2.5-4.9) mg/dl Magnesium (1.7-2.4) mg/dl Total Bilirubin (0.2-1.0) mg/dl AST (13-39) U/L ALT (7-52) U/L Alkaline Phosphatase (34-104) U/L Troponin I High Sens (0-14) pg/ml Total Protein (6.0-8.3) gm/dl Albumin (3.4-5.0) gm/dl Globulin (2.5-4.0) gm/dl Albumin/Globulin Ratio (0.9-2) Lipase (11-82) U/L Procalcitonin 0.05 (0-0.5) ng/ml SARS-CoV-2, RNA, NAAT (NEGATIVE) Administered Medications Calcitriol (Calcitriol 0.25 Mcg Capsule) 0.25 mcg PO MoWeFr@0900 [facility] Stop: 05/20/22 08:59 Last Admin: 04/20/22 08:33 Dose: 0.25 mcg Documented By: SUB Colchicine (Colchicine 0.6 Mg Tab) 0.6 mg PO BID [facility] Stop: 05/20/22 08:59 Last Admin: 04/20/22 08:34 Dose: 0.6 mg Documented By: SUB Furosemide (Furosemide 40 Mg Tab) 40 mg PO QAM [facility] Stop: 05/20/22 08:59 Last Admin: 04/20/22 08:33 Dose: 40 mg Documented By: SUB Heparin Sodium/Dextrose (Heparin Sodium/Dextrose) 25,000 units in 500 mls @ 28 mls/hr IV .[id number] [facility]; Protocol Stop: 05/20/22 13:44 Last Admin: 04/20/22 15:06 Dose: 1,400 units/hr, 28 mls/hr Documented By: KRISS Co-signed By: PATTIE Isosorbide Mononitrate (Isosorbide [place] Extended Rel 30 Mg Tabcr) 30 mg PO DAILY [facility] Stop: 05/20/22 08:59 Last Admin: 04/20/22 08:34 Dose: 30 mg Documented By: SUB Metoprolol Succinate (Metoprolol Succ 25mg Ext Rel Tab) 25 mg PO BID [facility] Stop: 05/20/22 08:59 Last Admin: 04/20/22 08:33 Dose: 25 mg Documented By: SUB Discontinued Medications Aspirin (Aspirin 81 Mg Chew) 243 mg PO ONCE ONE Stop: 04/20/22 02:09 Last Admin: 04/20/22 02:22 Dose: 243 mg Documented By: SYLVAIN Colchicine (Colchicine 0.6 Mg Tab) 0.6 mg PO NOW ONE Stop: 04/20/22 01:48 Last Admin: 04/20/22 02:22 Dose: 0.6 mg Documented By: SYLVAIN Fentanyl Citrate (Fentanyl Citrate 100 Mcg/2 Ml Vial) 25 mcg IV NOW STA Stop: 04/20/22 00:39 Last Admin: 04/20/22 00:57 Dose: 25 mcg Documented By: SYLVAIN Heparin Sodium (Porcine) 6,000 (units/ Syringe) 6 mls @ 10 mls/min IV TODAY@1400 ONE Stop: 04/20/22 14:01 Last Admin: 04/20/22 15:06 Dose: 10 mls/min Documented By: KRISS Co-signed By: PATTIE Imaging Data Radiologist's Impression: Chest X-Ray 04/20/22 00:20 XR chest 1V portable CLINICAL HISTORY: Chest Pain TECHNIQUE: Single frontal radiograph of the chest was obtained. Comparison: Comparison is made to chest radiograph 04/17/2022 FINDINGS: No lines and tubes are seen. Cardiomegaly is noted. Prominence and cephalization of the vasculature is seen. No evidence of pleural effusion or pneumothorax. IMPRESSION: Mild cardiomegaly and stable mild vascular congestion. ACT 112: Negative or not required by law. Electronically signed by: Pavan Samson M.D. 04/20/2022 8:35 AM Discharge Plan Visit Data Chief Complaint: Chest Pain Stated Complaint: CHEST PAIN ED Provider: Jack Mclaughlin Discharge Problem: Substernal chest pain, Pericardial effusion, Elevated troponin, CKD (chronic kidney disease) Patient Disposition: Admitted As Inpatient Discharge Instructions Interventions: ED Discharge Assessment Last Done: 04/20/22 04:12
[2022-04-20] MEDS: FUROSEMIDE 40 MG TAB PO SCH (08:33)
[2022-04-20] MEDS: METOPROLOL SUCC 25MG EXT REL TAB PO SCH ×2 (08:33→19:55)
[2022-04-20] MEDS: COLCHICINE 0.6 MG TAB PO SCH ×2 (08:34→19:55)
[2022-04-20] MEDS: ISOSORBIDE MONO EXTENDED REL 30 MG TABCR PO SCH (08:34)
--- NOTE | 2022-04-20 08:37 | XRay Report ---
XR chest 1V portable CLINICAL HISTORY: Chest Pain TECHNIQUE: Single frontal radiograph of the chest was obtained. Comparison: Comparison is made to chest radiograph 04/17/2022 FINDINGS: No lines and tubes are seen. Cardiomegaly is noted. Prominence and cephalization of the vasculature i s seen. No evidence of pleural effusion or pneumothorax. IMPRESSION: Mild cardiomegaly and stable mild vascular congestion. ACT 112: Negative or not required by law. Electronically signed by: Pavan Samson M.D. 04/20/2022 8:35 AM
[2022-04-20] MEDS ORDERED: ASPIRIN 325 MG ECTAB PO SCH ×2 (09:00→17:00)
[2022-04-20] MEDS ORDERED: CALCITRIOL 0.25 MCG CAPSULE PO SCH (09:00)
--- NOTE | 2022-04-20 12:44 | Cardiology Consultation ---
Date of Consultation April 20, 2022 Assessment & Plan (1) Non-ST elevation (NSTEMI) myocardial infarction: Plan 2. Multivessel CAD - acute on chronic RCA occlusion, 60% mid LAD 3. CKD IV 4. Severe LVH/Chronic diastolic heart failure 5. Anemia 6. Hypertension 7. History of atrial fibrillation - has not been on anticoagulation due to prior GI bleed on Xarelto 8. COPD/Ongoing tobacco abuse 9. Pericardial effusion - possible pericarditis 10. Post cath ulnar pseudoaneurysm - resolved 11. Infrarenal AAA Recurrent acute chest pain with significant troponin elevation. Does have small stable pericardial effusion on bedside echo today and elevated ESR. However, no pleuritic or positional component to pain and no ECG findings consistent with pericarditis. Pericarditis not in line with degree of troponin elevation. Overall suspect symptoms more consistent with recurrent ACS event-previously had a subtotal mid RCA occlusion with trickle antegrade RCA flow. Question whether recurrent symptoms related to now complete occlusion of RCA with flow only from [id number] collaterals. Repeat bedside echo today shows unchanged LV function with no new regional wall motion abnormalities. Symptoms/troponin elevation also likely affected by presenting A. fib with RVR and known severe LVH. Going forward recommend: Trend troponin until peak Restart heparin infusion and continue overnight Restart clopidogrel 75 mg daily. (Repeat ultrasound today shows appropriately thrombosed ulnar "pseudoaneurysm.") Reduce aspirin to 81 mg daily Reasonable to continue colchicine 0.6 mg twice daily Increase metoprolol back to 50 mg daily. With prior question of LVOT obstruction we will hold off on increasing Imdur further We discussed potential retrial of long-term oral anticoagulation with her paroxysmal atrial fibrillation. Prior substantial GI bleed, advanced CKD. P atient declined. Continue statin Patient agreeable to stay overnight for additional monitoring. Anxious for discharge tomorrow. History of Present Illness Attending Physician: Xiang Cramer DO History of Present Illness Georgiana is a 76-year-old woman with complex CAD and recent NSTEMI readmitted overnight with acute onset chest pain and rising troponin. Complex past medical history as outlined below. Patient initially presented 1 week ago with acute onset chest pain. Troponin mildly elevated, echo showed hyperdynamic LV. Patient left AMA prior to additional testing. She returned 3 days ago again with chest pain. Troponin more elevated trending up to >8000. Underwent cardiac catheterization revealing an acute on chronic latemid RCA subtotal occlusion with [id number] collaterals and a 60% (negative by FFR) focal mid LAD stenosis. Medical managem ent recommended. Maintained on heparin, clopidogrel overnight but developed hematoma/pseudoaneurysm managed with ultrasound-guided compression. Repeat echocardiogram showed unchanged LV function, small pericardial effusion. Discharged home yesterday on aspirin alone, reduced prior Toprol-XL in the setting of asymptomatic sinus bradycardia to the 40s at night. Patient was home for approximately 6 hours before again developed burning chest pain across her entire chest beginning while she was watching TV. Symptoms persisted for approximate hour before EMS contacted. On arrival continued to have chest pain. Initial ECG showed A. fib with RVR to 120s with new anterior ST depressions. Troponin trending up from 700 to 4000-28,000 this morning. Currently patient reports feeling well, chest pain resolved, feeling at recent baseline. Converted to sinus rhythm approximately 6 AM this morning. Was started on colchicine, twice daily full dose aspirin for possible pericarditis Allergies Allergy/AdvReac Type Severity Reaction Status Date / Time benzonatate Allergy Mild Dizziness Verified 04/20/22 01:06 Cephalosporins Allergy Mild KEFLEX=RASH Verified 04/20/22 01:06 diltiazem Allergy Mild RASH Verified 04/20/22 01:06 Iodinated Contrast Media Allergy Mild CT Verified 04/20/22 01:06 Contrast = kidney infection Home Medications Medication Instructions Recorded Confirmed Type aspirin 81 mg tablet,delayed 81 mg PO QAM 05/11/19 04/20/22 History release (Shahzad Low Dose Aspirin) furosemide 40 mg tablet 40 mg PO .COMPLEX #90 tabs 07/10/21 04/20/22 Rx atorvastatin 40 mg tablet 40 mg PO QPM #90 tabs 08/04/21 04/20/22 Rx albuterol sulfate 90 mcg/actuation 2 puff inhalation Q4H PRN 10/05/21 04/20/22 Rx aerosol inhaler (ProAir HFA) shortness of breath or wheezing #18 grams calcitriol 0.25 mcg capsule 0.25 mcg PO UD #45 caps 02/19/22 04/20/22 Rx isosorbide mononitrate 30 mg 30 mg PO DAILY #30 tabs 04/14/22 04/20/22 Rx tablet,extended release 24 hr metoprolol succinate 50 mg 25 mg PO BID #180 tabs 04/19/22 04/20/22 Rx tablet,extended release 24 hr nitroglycerin 0.4 mg sublingual 0.4 mg sublingual Q5M PRN chest 04/19/22 04/20/22 Rx tablet pain #1 btl Patient History Medical History (Updated 04/20/22 @ 04:39 by Jack Mclaughlin MD) AAA (abdominal aortic aneurysm) Followed at [facility] Abnormal CT scan, chest Abnormal diffusion capacity determined by pulmonary function test Anemia Anemia due to chronic kidney disease Asthma Atherosclerosis of both carotid arteries Atrial fibrillation Cardiomyopathy, hypertrophic Carpal tunnel syndrome Chronic diastolic congestive heart failure Chronic kidney disease, stage 3b Chronic kidney disease, stage IV (severe) Chronic osteoarthritis COPD (chronic obstructive pulmonary disease) Coronary artery disease Current smoker Diffusion capacity of lung (dl), decreased Dyslipidemia History of uterine cancer 2008--sx only Hypertension Hypotension Nocturnal hypoxia Obstructive sleep apnea of adult no device Paroxysmal atrial fibrillation Peripheral vascular disease Renal artery stenosis Secondary hyperparathyroidism Short of breath on exertion Shortness of breath Spinal stenosis Tobacco abuse counseling Tubular adenoma of colon (~04/2014) Vitamin B12 deficiency Vitamin D deficiency Surgical History History of bilateral cataract extraction History of cardiac cath [address] Dangelo--no stent History of colonoscopy (~04/2014) History of tonsillectomy and adenoidectomy History of tooth extraction all teeth removed History of total hysterectomy with bilateral salpingo-oophorectomy (BSO) Family History Unknown Hypertension Mother Stroke syndrome Sister Uterine cancer Diabetes Myocardial infarction Ovarian cancer Other No family history of adverse response to anesthesia Denies family history of Prostate cancer Breast cancer Lung cancer Colorectal cancer Social History Smoking Status: Current every day smoker Tobacco Type: Cigarettes Age Started Using Tobacco: 19; packs per day: 0.5; Cigarettes Per Day: 12; Second Hand Exposure: Yes; Hx Alcohol Use: No Hx Substance Use: No Preferred Language: Croatian Communication Ability: Effective Visual Impairment: No Limitations Hearing Ability: Normal Safety Glass Installer Required: No Beliefs That Will Affect Care: None marital status: / Current Living Situation: Alone current occupational status: retired How many Children do You have: 0 Feels Safe at Home: Yes Childhood Exposure to Second-Hand Smoke: Yes caffeine: Yes Dental Care, Regularly: No Physical Activity Frequency: Does not Exercise Seatbelt Use: never Sunscreen Use: No Assistive Devices: Denture - Upper and Denture - Lower Review of Systems Review of Systems: All systems reviewed & are unremarkable except as noted in HPI & below Physical Exam Physical Exam: General: Comfortable HEENT: Sclerae anicteric Lungs: Clear to auscultation bilaterally, prolonged expiratory, no crackles or wheezes Cardiac: Regular rate and rhythm, distant heart sounds, no murmurs. Vascular: Nonpalpable right radial pulse. Ecchymosis/hematoma over right ulnar access site. Pulse intact, distal sensation, cap refill intact Abdomen: Soft, nontender Extremities: Well perfused, no peripheral edema Neuro: Nonfocal Psych: Alert orient x3, normal affect and mood Results & Data ([facility]) Vital Signs (Past 12 Hours) Vital Signs Temp Pulse Pulse Resp BP BP Pulse Ox 04/20/22 11:16 97.3 F L 61 18 149/65 H 92 04/20/22 07:47 54 L 04/20/22 07:47 04/20/22 07:22 97.5 F L 61 20 155/67 H 94 04/20/22 04:12 04/20/22 04:05 111 H 04/20/22 04:12 04/20/22 04:12 97.5 F L 101 H 27 H 118/96 94 04/20/22 04:07 97.5 F L 04/20/22 03:40 110 H 28 H 94 04/20/22 03:30 105 H 20 94 04/20/22 03:30 137/109 H 04/20/22 03:20 107 H 19 93 04/20/22 03:10 102 H 21 90 04/20/22 03:00 101 H 25 H 92 04/20/22 03:00 154/85 H 04/20/22 02:50 119 H 23 95 04/20/22 02:40 108 H 25 H 94 04/20/22 02:31 155/95 H 04/20/22 02:31 123 H 19 96 04/20/22 02:30 133 H 21 93 09/16/22 02:20 107 H 23 93 04/20/22 02:10 117 H 21 91 04/20/22 02:01 115 H 27 H 92 04/20/22 02:01 113/91 04/20/22 02:00 102 H 25 H 90 04/20/22 01:50 100 H 21 91 04/20/22 01:40 112 H 24 90 04/20/22 01:31 121 H 24 91 04/20/22 01:31 118/71 04/20/22 01:30 102 H 24 90 04/20/22 01:20 120 H 22 93 04/20/22 01:10 113 H 21 90 04/20/22 01:01 135/110 H 04/20/22 01:01 110 H 19 91 04/20/22 01:00 112 H 15 92 04/20/22 00:50 92 H 26 H 92 04/20/22 00:40 112 H 19 94 O2 Del Method 04/20/22 11:16 Room Air 04/20/22 07:47 04/20/22 07:47 Room Air 04/20/22 07:22 Room Air 04/20/22 04:12 Room Air 04/20/22 04:05 04/20/22 04:12 Room Air 04/20/22 04:12 Room Air 04/20/22 04:07 04/20/22 03:40 04/20/22 03:30 04/20/22 03:30 04/20/22 03:20 04/20/22 03:10 04/20/22 03:00 04/20/22 03:00 04/20/22 02:50 04/20/22 02:40 04/20/22 02:31 04/20/22 02:31 04/20/22 02:30 04/20/22 02:20 04/20/22 02:10 04/20/22 02:01 04/20/22 02:01 04/20/22 02:00 04/20/22 01:50 04/20/22 01:40 04/20/22 01:31 04/20/22 01:31 04/20/22 01:30 04/20/22 01:20 04/20/22 01:10 04/20/22 01:01 04/20/22 01:01 04/20/22 01:00 04/20/22 00:50 04/20/22 00:40 PG Care Time/CCT Total # of Minutes Spent Total Time Spent with Patient: Total time spent is greater than 50% in coordination of care (as documented) at patient's floor/unit and/or counseling patient: Coding Level of Care Code 92962 Initial Inpt Care Lvl 3 Diagnoses Non-ST elevation (NSTEMI) myocardial infarction I21.4
--- NOTE | 2022-04-20 13:27 | Hospitalist Progress Note ---
Date of Service April 20, 2022 Assessment & Plan (1) Non-ST elevation (NSTEMI) myocardial infarction: Plan: NSTEMI - recurrence of chest pain after cardiac catheterization yesterday - had multivessel CAD with acute on chronic RCA occlusion, 60% LAD lesion - troponin continue to trend up; most recent [id number]; trend troponin to peak - Cardiology consulted; per recommendations will restart heparin infusion - Restart clopidogrel 75mg daily - reduce aspirin to 81mg daily - continue metoprolol 25mg BID; heart rate 50-60s- could consider increasing to 50 per cardiology recommendations if heart rate increases - continue furosemide, isosorbide mononitrate, and nitroglycerin sublingual as needed -Continue to monitor on telemetry Pericardial effusion - small periodical effusion noted on echo; current symptoms not consistent with pericarditis - will continue Colchicine 0.6 mg p.o. 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 due to GI bleed and advanced CKD Tobacco abuse disorder Continue to encourage cessation Chronic kidney disease, stage 3b: Creatinine 2.30, with baseline range 1.99-3.21 Chronic diastolic congestive heart failure: Continue furosemide as directed Dyslipidemia: Continue atorvastatin COPD (chronic obstructive pulmonary disease): Continue routine inhalers (2) Pericarditis: (3) Antiplatelet or antithrombotic long-term use: (4) Tobacco abuse counseling: (5) Pericardial effusion: (6) Chronic kidney disease, stage 3b: (7) Cardiomyopathy, hypertrophic: (8) Chronic diastolic congestive heart failure: (9) Hypertension: (10) Coronary artery disease: (11) Dyslipidemia: (12) COPD (chronic obstructive pulmonary disease): Admission and Anticipated Discharge Date Admission Date: April 20, 2022 Supervising Physician Co-Signing Physician Notes I personally examined the patient and verified all renee points of history and exam, discussed case, and agree with decision making with Dr Willett feeling OK no further chest pain vitals ntoed nad heent nc at mmm breathing unlabored no accessory muscles good effort skin no rashes no pallor or icterus neuro no focal deficits CP/angina/NSTEMI - med management, monitor, heparin gtt otherwise as above Subjective This morning she stated that her chest pain was no longer present. Denies dyspnea, chest pressure/tightness. She states that they pain she was having was not positional and was not pleuritic. Review of Systems Review of Systems: As per HPI Physical Exam Physical Exam: Constitutional: well-appearing, no acute distress HEENT: NCAT, no conjunctival injection CV: regular rhythm, no murmur appreciated, extremities well-perfused, no LE edema Resp: CTABL, no wheezes/rales/rhonchi appreciated, no increased work of breathing GI: soft, nondistended, nontender, BS normoactive MSK: no gross deformities appreciated Skin: warm, dry, no rash appreciated Neuro: alert, oriented, no focal neurologic deficit appreciated Results & Data Results & Data ([facility]) Vital Signs (Past 12 Hours) Vital Signs Temp Pulse Pulse Resp BP BP Pulse Ox 04/20/22 07:47 54 L 04/20/22 07:47 04/20/22 07:22 36.4 C L 61 20 155/67 H 94 04/20/22 04:12 04/20/22 04:05 111 H 04/20/22 04:12 04/20/22 04:12 36.4 C L 101 H 27 H 118/96 94 04/20/22 04:07 36.4 C L 04/20/22 03:40 110 H 28 H 94 04/20/22 03:30 105 H 20 94 04/20/22 03:30 137/109 H 04/20/22 03:20 107 H 19 93 04/20/22 03:10 102 H 21 90 04/20/22 03:00 101 H 25 H 92 04/20/22 03:00 154/85 H 04/20/22 02:50 119 H 23 95 04/20/22 02:40 108 H 25 H 94 04/20/22 02:31 155/95 H 04/20/22 02:31 123 H 19 96 04/20/22 02:30 133 H 21 93 04/20/22 02:20 107 H 23 93 04/20/22 02:10 117 H 21 91 04/20/22 02:01 115 H 27 H 92 04/20/22 02:01 113/91 04/20/22 02:00 102 H 25 H 90 04/20/22 01:50 100 H 21 91 04/20/22 01:40 112 H 24 90 04/20/22 01:31 121 H 24 91 04/20/22 01:31 118/71 04/20/22 01:30 102 H 24 90 04/20/22 01:20 120 H 22 93 04/20/22 01:10 113 H 21 90 04/20/22 01:01 135/110 H 04/20/22 01:01 110 H 19 91 04/20/22 01:00 112 H 15 92 04/20/22 00:50 92 H 26 H 92 04/20/22 00:40 112 H 19 94 04/20/22 00:30 104 H 19 93 04/20/22 00:30 116/87 04/20/22 00:20 127 H 18 94 04/20/22 00:10 126 H 19 93 04/20/22 00:09 108 H 18 93 04/20/22 00:09 133/83 04/20/22 00:08 114 H 21 93 04/20/22 00:20 94 04/20/22 00:16 18 94 04/20/22 00:16 94 04/19/22 23:51 36.3 C L 115 H 18 133/83 93 O2 Del Method 04/20/22 07:47 04/20/22 07:47 Room Air 04/20/22 07:22 Room Air 04/20/22 04:12 Room Air 04/20/22 04:05 04/20/22 04:12 Room Air 04/20/22 04:12 Room Air 04/20/22 04:07 04/20/22 03:40 04/20/22 03:30 04/20/22 03:30 04/20/22 03:20 04/20/22 03:10 04/20/22 03:00 04/20/22 03:00 04/20/22 02:50 04/20/22 02:40 04/20/22 02:31 04/20/22 02:31 04/20/22 02:30 04/20/22 02:20 04/20/22 02:10 04/20/22 02:01 04/20/22 02:01 04/20/22 02:00 04/20/22 01:50 04/20/22 01:40 04/20/22 01:31 04/20/22 01:31 04/20/22 01:30 04/20/22 01:20 04/20/22 01:10 04/20/22 01:01 04/20/22 01:01 04/20/22 01:00 04/20/22 00:50 04/20/22 00:40 04/20/22 00:30 04/20/22 00:30 04/20/22 00:20 04/20/22 00:10 04/20/22 00:04/20/22 00:09 04/20/22 00:08 04/20/22 00:20 Room Air 04/20/22 00:16 Room Air 04/20/22 00:16 Room Air 04/19/22 23:51 Room Air Resident Activity Tracking Resident Involvement: Resident Care Provided Care Provided: Adult Hospital Medicine
[2022-04-20] MEDS ORDERED: Heparin IV Adult Wt-Based Standard WITH Bolus Protocol IV SCH (13:34)
[2022-04-20] MEDS ORDERED: HEPARIN SOD (PORCINE) 1000 UNIT/ML IV ONE (13:43)
[2022-04-20] MEDS ORDERED: HEPARIN IV BOLUS 6,000 UNITS in SYRINGE 0 ML IV ONE (14:00)
[2022-04-20 14:55] LABS: Basophils # (auto) 0.04 K/uL (0-0.2); Basophils % (auto) 0.3 %; Eosinophils # (auto) 0.04 K/uL (0-0.50); Eosinophils % (auto) 0.3 %; Hemoglobin 8.2 g/dl (12.0-16.0); Immature Granulocytes # (auto) 0.08 K/uL (0.00-0.02); Immature Granulocytes % (auto) 0.6 %; Lymphocytes # (auto) 1.58 K/uL (1.2-3.4); Lymphocytes % (auto) 12.5 %; Mean Corpuscular Hemoglobin 28.6 pg (25.0-34.0); Mean Corpuscular Hgb Conc 32.8 g/dL (32.0-36.0); Mean Corpuscular Volume 87.1 fL (80.0-100.0); Mean Platelet Volume 11.7 fL (9.4-12.3); Monocytes % (auto) 7.9 %; Neutrophils # (auto) 9.86 K/uL (1.4-6.5); Neutrophils % (auto) 78.4 %; Nucleated RBC # (auto) 0.03 K/uL (0-0); Nucleated RBC % (auto) 0.2 %; Platelet Count 279 K/uL (130-400); RDW Coefficient of Variation 17.2 % (11.5-14.5); RDW Standard Deviation 54.7 fL (36.4-46.3); Red Blood Count 2.87 M/uL (3.93-5.22)
[2022-04-20 15:06] LABS: INR 1.1 (0.9-1.1); Partial Thromboplastin Ratio 0.9; Partial Thromboplastin Time 25.1 Seconds (21.0-31.0); Prothrombin Time 11.2 Seconds (9.0-12.0)
[2022-04-20] MEDS: HEPARIN SODIUM/DEXTROSE 25,000 UNITS/500 ML BAG IV SCH (15:06)
--- NOTE | 2022-04-20 15:42 | Electrocardiogram Report ---
Test Reason : Blood Pressure : / mmHG Vent. Rate : 121 BPM Atrial Rate : 091 BPM P-R Int : 000 ms QRS Dur : 090 ms QT Int : 340 ms P-R-T Axes : 000 -36 145 degrees QTc Int : 482 ms Atrial fibrillation with rapid ventricular response Left axis deviation Voltage criteria for left ventricular hypertrophy Inferior infarct (cited on or before 18-APR-2022) Marked ST abnormality, possible lateral subendocardial injury Abnormal ECG When compared with ECG of 19-APR-2022 06:39, Atrial fibrillation has replaced Sinus rhythm Vent. rate has increased BY [address] now depressed in Anterior leads T wave inversion no longer evident in Anterior leads Confirmed by Jacob Portillo ([id number]) on 04/20/2022 3:41:56 PM Referred By: REFERRED SELF Confirmed By:Jacob Portillo
[2022-04-20] MEDS ORDERED: ATORVASTATIN 40 MG TAB PO SCH (21:00)
[2022-04-20 22:04] LABS: Partial Thromboplastin Ratio > 5.1
[2022-04-20 22:09] LABS: Partial Thromboplastin Time > 139.0 Seconds (21.0-31.0)
[2022-04-21 00:06] LABS: Partial Thromboplastin Ratio 3.3
[2022-04-21 00:42] LABS: Partial Thromboplastin Time 91.3 Seconds (21.0-31.0)
--- NOTE | 2022-04-21 06:55 | Hospitalist Progress Note ---
Date of Service April 21, 2022 Assessment & Plan (1) Non-ST elevation (NSTEMI) myocardial infarction: Plan: NSTEMI - recurrence of chest pain after cardiac catheterization 04/18 - had multivessel CAD with acute on chronic RCA occlusion, 60% LAD lesion, cards recommended medical management at that time - hsTrop peak 27.429.2 <-- 28,943.7 <-- 2156. Cardiology consulted; per recommendations will restart heparin infusion - Restart clopidogrel 75mg daily - reduce aspirin to 81mg daily - continue metoprolol 25mg BID; heart rate 50-60s- could consider increasing to 50 per cardiology recommendations if heart rate increases - continue furosemide, isosorbide mononitrate, and nitroglycerin sublingual as needed - continue to monitor on telemetry Pericardial effusion - small periodical effusion noted on echo; current symptoms not consistent with pericarditis - will continue Colchicine 0.6 mg p.o. twice daily Atrial Fibrillation - continue metoprolol for rate control - not currently on correction anticoagulation due to GI bleed and advanced CKD Tobacco abuse disorder Continue to encourage cessation Chronic kidney disease, stage 3b: Creatinine 2.30, with baseline range 1.99-3.21 Chronic diastolic congestive heart failure: Continue furosemide as directed Dyslipidemia: Continue atorvastatin COPD (chronic obstructive pulmonary disease): Continue routine inhalers (2) Pericarditis: (3) Antiplatelet or antithrombotic long-term use: (4) Tobacco abuse counseling: (5) Pericardial effusion: (6) Chronic kidney disease, stage 3b: (7) Cardiomyopathy, hypertrophic: (8) Chronic diastolic congestive heart failure: (9) Hypertension: (10) Coronary artery disease: (11) Dyslipidemia: (12) COPD (chronic obstructive pulmonary disease): Admission and Anticipated Discharge Date Admission Date: April 20, 2022 Subjective Patient notes that she is doing well this morning. No CP or SOB. Patient is interested in going home today. Review of Systems Review of Systems: See above. Physical Exam Physical Exam: Constitutional: well-appearing, no acute distress HEENT: NCAT, no conjunctival injection CV: regular rhythm, no murmur appreciated, extremities well-perfused, no LE edema Resp: CTAB, no wheezes/rales/rhonchi appreciated, no increased work of breathing MSK: no gross deformities appreciated Skin: warm, dry, no rash appreciated Neuro: alert, oriented, no focal neurologic deficit appreciated Results & Data Results & Data ([facility]) Vital Signs (Past 12 Hours) Vital Signs Temp Pulse Resp BP Pulse Ox O2 Del Method 04/21/22 02:45 36.6 C 46 L 18 158/61 H 95 Room Air 04/20/22 22:39 36.4 C L 50 L 16 146/56 H 93 Room Air 04/20/22 19:55 Room Air 04/20/22 19:00 36.8 C 54 L 16 118/51 L 92 Room Air
[2022-04-21 07:08] LABS: Basophils # (auto) 0.05 K/uL (0-0.2); Basophils % (auto) 0.5 %; Eosinophils # (auto) 0.21 K/uL (0-0.50); Eosinophils % (auto) 2.2 %; Hematocrit (blood only) 25.1 % (34.1-44.9); Hemoglobin 8.3 g/dl (12.0-16.0); Immature Granulocytes # (auto) 0.08 K/uL (0.00-0.02); Immature Granulocytes % (auto) 0.8 %; Lymphocytes # (auto) 1.48 K/uL (1.2-3.4); Lymphocytes % (auto) 15.5 %; Mean Corpuscular Hemoglobin 28.8 pg (25.0-34.0); Mean Corpuscular Hgb Conc 33.1 g/dL (32.0-36.0); Mean Corpuscular Volume 87.2 fL (80.0-100.0); Mean Platelet Volume 11.2 fL (9.4-12.3); Monocytes # (auto) 0.83 K/uL (0.24-0.82); Monocytes % (auto) 8.7 %; Neutrophils # (auto) 6.88 K/uL (1.4-6.5); Neutrophils % (auto) 72.3 %; Platelet Count 229 K/uL (130-400); RDW Coefficient of Variation 17.2 % (11.5-14.5); Red Blood Count 2.88 M/uL (3.93-5.22); White Blood Count 9.53 K/ul (4.8-10.8)
[2022-04-21 07:45] LABS: Albumin Globulin Ratio 1.3 (0.9-2); Albumin Level 2.9 gm/dl (3.4-5.0); BUN Creatinine Ratio 15.7 (10-20); Bilirubin,Total 0.4 mg/dl (0.2-1.0); Calcium 8.3 mg/dl (8.5-10.1); Creatinine Clr Calc Pharmacy 31.2 ml/min; Est GFR (African American) 28.3 ml/min; Est GFR (Non-African American) 24.4 ml/min; Globulin 2.3 gm/dl (2.5-4.0); Potassium 3.4 mmol/L (3.5-5.1); Total Protein 5.2 gm/dl (6.0-8.3)
[2022-04-21 07:58] LABS: Partial Thromboplastin Ratio 2.4; Partial Thromboplastin Time 65.2 Seconds (21.0-31.0)
[2022-04-21] MEDS ORDERED: POTASSIUM CHLORIDE CRTAB 20 MEQ TABCR PO STA (08:02)
[2022-04-21] MEDS: ISOSORBIDE MONO EXTENDED REL 30 MG TABCR PO SCH (08:31)
[2022-04-21] MEDS: FUROSEMIDE 40 MG TAB PO SCH (08:31)
[2022-04-21] MEDS: COLCHICINE 0.6 MG TAB PO SCH (08:31)
[2022-04-21] MEDS: METOPROLOL SUCC 25MG EXT REL TAB PO SCH (08:32)
[2022-04-21] MEDS ORDERED: CLOPIDOGREL BISULFATE 75 MG TAB PO SCH (09:00)
[2022-04-21] MEDS ORDERED: ASPIRIN 81 MG CHEW PO SCH (09:00)
--- NOTE | 2022-04-21 11:56 | Cardiology Progress Note ---
Date of Service April 21, 2022 Assessment & Plan (1) Non-ST elevation (NSTEMI) myocardial infarction: Plan: [place] [address], [place] [address]. -no further chest discomfort. -per Dr. Yuen, the patient likely occluded the previously noted subtotal mid RCA occlusion. -bedside echocardiogram yesterday noted normal systolic function without wall motion abnormalities. -would discontinue intravenous heparin. -stable for hospital discharge later today.. (2) Paroxysmal atrial fibrillation: Plan: -noted at time of presentation. -converted spontaneously back to sinus rhythm. -she has refused a retrial of long-term anticoagulation. (3) Pericardial effusion: Plan: -possibility of pericarditis has been entertained. -currently on colchicine 0.6 mg b.i.d. Admission and Anticipated Discharge Date Admission Date: April 20, 2022 Subjective The patient is resting comfortably in bed without complaints of chest pain or dyspnea. She has been ambulating in the room without difficulty. She is anxious for hospital discharge. Physical Exam Physical Exam: In general is well-developed well-nourished female in no acute distress. HEENT exam is negative. Neck is supple with full carotid upstrokes. No carotid bruits. Jugular is pressure is flat 90. There is no thyromegaly. Cardiovascular exam reveals a regular rhythm with distant heart sounds. No obvious murmurs. Lungs are clear without rales, rhonchi, or wheezes. Abdomen is soft and nontender without bruits. Extremities reveal intact radial artery pulses bilaterally. 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 No significant dysrhythmias. PG Care Time/CCT Total # of Minutes Spent Total Time Spent with Patient: Total time spent is greater than 50% in coordination of care (as documented) at patient's floor/unit and/or counseling patient: Coding Level of Care Code 38595 Subseq Hosp Care Lvl 3 Diagnoses Non-ST elevation (NSTEMI) myocardial infarction I21.4 Paroxysmal atrial fibrillation I48.0 Pericardial effusion I31.3
--- NOTE | 2022-04-21 13:32 | Discharge Summary ---
Date of Service April 21, 2022 Admission HPI Per Admitting Provider The patient is a 76-year-old female most recently admitted and discharged from [facility] from 04/18-04/19 for NSTEMI, having undergone a cardiac catheterization by interventional is Dr. Jesse Yuen, found to have multivessel CAD, with acute on chronic RCA occlusion, 60% mid LAD lesion, echo with unchanged LV function. Plan was to continue daily aspirin, continue current dosing of Toprol-XL and home Imdur, continue statin, and then follow-up in the outpatient office with cardiology. Due to recurrence of her chest pain, she presents to the ED for assessment, and was felt to possibly have pericarditis associated with recently detected pericardial effusion, started on colchicine, and referred for evaluation for admission. Admission Exam Per Admitting Provider The patient is awake, alert and oriented 3, well developed and well nourished, normocephalic and atraumatic, lying in bed and in no acute distress. HEENT--PERRL, EOMI, mucous membranes and oropharynx normal. Neck--supple. No JVD. No bruits. Thyroid normal, trachea midline, no adenopathy. Heart--normal S1 and S2. No murmurs, rubs or gallops. Lungs--clear bilaterally, no respiratory distress, no accessory muscle use. Abdomen--normal bowel sounds and soft. Nontender. Nondistended, no hernias or masses, no organomegaly. Extremities--no cyanosis or clubbing. No edema. Dermatologic--normal skin turgor, normal color, no abnormal lymph nodes, no rash. Neurologic--cranial nerves II through XII grossly intact. Rheumatologic--normal range of motion. Psychiatric--normal affect. Principal Diagnosis non-STEMI Discharge Exam Constitutional: well-appearing, no acute distress HEENT: NCAT, no conjunctival injection CV: regular rhythm, no murmur appreciated, extremities well-perfused, no LE edema Resp: CTAB, no wheezes/rales/rhonchi appreciated, no increased work of breathing MSK: no gross deformities appreciated Skin: warm, dry, no rash appreciated Neuro: alert, oriented, no focal neurologic deficit appreciated Discharge Data Allergies Allergy/AdvReac Type Severity Reaction Status Date / Time benzonatate Allergy Mild Dizziness Verified 04/20/22 01:06 Cephalosporins Allergy Mild KEFLEX=RASH Verified 04/20/22 01:06 diltiazem Allergy Mild RASH Verified 04/20/22 01:06 Iodinated Contrast Media Allergy Mild CT Verified 04/20/22 01:06 Contrast = kidney infection Consultations 04/20/22 01:37 ED Decision to Admit Stat 04/20/22 04:07 Consult Cardiology Routine Ordered Studies Chest X-Ray 04/20/22 00:20 XR chest 1V portable CLINICAL HISTORY: Chest Pain TECHNIQUE: Single frontal radiograph of the chest was obtained. Comparison: Comparison is made to chest radiograph 04/17/2022 FINDINGS: No lines and tubes are seen. Cardiomegaly is noted. Prominence and cephalization of the vasculature is seen. No evidence of pleural effusion or pneumothorax. IMPRESSION: Mild cardiomegaly and stable mild vascular congestion. ACT 112: Negative or not required by law. Electronically signed by: Pavan Samson M.D. 04/20/2022 8:35 AM Hospital Course (1) Non-ST elevation (NSTEMI) myocardial infarction: 76 y/o female who presented back to the ED with chest pain on 04/20. She had a cardiac catheterization 04/[address] Yuen and was discharged on 04/19. Her symptoms returned so she came to the ED. Her troponins peaked at 37,528.3, ECHO showed normal EF >70, and she was HDS during her admission. She is medically cleared for discharge home. NSTEMI - recurrence of chest pain after cardiac catheterization 04/18 - had multivessel CAD with acute on chronic RCA occlusion, 60% LAD lesion, cards recommended medical management at that time - hsTrop peak 37,528.3. 27,429.2 at the time of discharge Cardiology consulted; restarted heparin infusion. Will d/c heparin prior to discharge. Discharge medications per cards - clopidogrel 75mg daily aspirin to 81mg daily,continue metoprolol 25mg BID (could consider increasing to 50 per cardiology recommendations if heart rate increases) continue furosemide, isosorbide mononitrate, and nitroglycerin sublingual as needed Pericardial effusion - small periodical effusion noted on echo; current symptoms not consistent with pericarditis - will continue Colchicine 0.6 mg p.o. twice daily Atrial Fibrillation - continue metoprolol for rate control - not currently on longterm anticoagulation due to GI bleed and advanced CKD Tobacco abuse disorder Continue to encourage cessation Chronic kidney disease, stage 3b: Creatinine 2.30 on admission, 1.97 at the time of discharge, with baseline range 1.99-3.21 Chronic diastolic congestive heart failure: Continue furosemide as directed Dyslipidemia: Continue atorvastatin COPD (chronic obstructive pulmonary disease): Continue routine inhalers (2) Pericarditis: (3) Antiplatelet or antithrombotic long-term use: (4) Tobacco abuse counseling: (5) Pericardial effusion: (6) Chronic kidney disease, stage 3b: (7) Cardiomyopathy, hypertrophic: (8) Chronic diastolic congestive heart failure: (9) Hypertension: (10) Coronary artery disease: (11) Dyslipidemia: (12) COPD (chronic obstructive pulmonary disease): Total Time Total Time Spent Total Time Spent (In Minutes): See attending attestation. Discharge Plan Discharge Items Patient Disposition: Home - Self-Care Reason For Visit: PERICARDITIS Discharge Diagnosis: Multivessel CAD Activity: Per Instructions section Non-emergency contact: Primary Care Provider and Stone Gang Sawyer Call non-emergency contact if: you have any medication questions, your pain is concerning for you and your wound has increased redness Follow-up/Referrals: Shravan Chicas DO [Primary Care Provider] - 04/30/22 11:30 am Diet: Heart Healthy Addtl Attending Provider Instructions: You were seen in the hospital for chest pain following your catheterization with Dr. Yuen. You had this procedure done due to a heart attack. Cardiology recommends medical management with plavix and colchicine in addition to your home medications. These prescriptions were sent to your pharmacy. Your symptoms have since resolved and your echo showed good function of the heart. Recommended you return to the hospital if your pain worsens. Follow up with cardiology outpatient. Pending Studies at Discharge: No Stand-Alone Forms: My [facility] [employer], Smoking Cessation Medications and DC Order Prescriptions: New clopidogrel 75 mg Tablet 75 mg PO QAM Qty: 30 0RF colchicine [Colcrys] 0.6 mg Tablet 0.6 mg PO BID Qty: 60 0RF Continued furosemide 40 mg tablet 40 mg PO .COMPLEX Qty: 90 3RF Rx Instructions: 40 mg PO QOD. Weigh self daily. Take an extra furosemide tablet on no furosemide days if weight is greater than 2 lb or more compared to the previous day. calcitriol 0.25 mcg capsule 0.25 mcg PO UD Qty: 45 3RF Rx Instructions: 3 times weekly atorvastatin 40 mg tablet 40 mg PO QPM Qty: 90 3RF albuterol sulfate [ProAir HFA] 90 mcg/actuation HFA aerosol inhaler 2 puff INH Q4H PRN (Reason: shortness of breath or wheezing) Qty: 18 5RF aspirin [Shahzad Low Dose Aspirin] 81 mg Tablet,Delayed Release (Dr/Ec) 81 mg PO QAM isosorbide mononitrate 30 mg tablet extended release 24 hr 30 mg PO DAILY Qty: 30 0RF nitroglycerin 0.4 mg tablet, sublingual 0.4 mg sublingual Q5M PRN (Reason: chest pain) Qty: 1 0RF Rx Instructions: max 3 tabs in 15 minutes metoprolol succinate 50 mg tablet extended release 24 hr 25 mg PO BID Qty: 180 3RF Discharge Orders: Discharge Order (Routine); Ordered 04/21/22 Ordered By: Karla Briones/Other Patient Handouts: Heart Attack Dc Admission Data Admit Date/Time: 04/20/22 02:14 Attending Provider: Xiang Cramer Admit Provider: Phi Wetzel Primary Care Provider: Shravan Chicas Other Providers: Phi Wetzel ; Alfonzo Yuen Other Interventions: Discharge Summary Assessment (RN) Last Done: 04/21/22 14:13 Supervising Physician Co-Signing Physician Notes I personally examined the patient and verified all renee points of history and exam, discussed case, and agree with decision making with Dr Willett feeling OK no further chest pain wants to go home. vitals ntoed nad heent nc at mmm breathing unlabored no accessory muscles good effort skin no rashes no pallor or icterus neuro no focal deficits CP/angina/NSTEMI - med management, outpt f/u. consider initiating SANDRA/ARB at outpt if BP allows otherwise as above Resident Activity Tracking Resident Involvement: Resident Care Provided Care Provided: Adult Hospital Medicine
[2022-04-21] MEDS: HEPARIN SODIUM/DEXTROSE 25,000 UNITS/500 ML BAG IV SCH (14:08)
--- NOTE | 2022-04-21 14:44 | Billing Data ---
Date of Service April 21, 2022 Coding Level of Care Code D/C DAY MANAGEMENT <30 MINS
== END 2022-04-21 14:29 | disposition home or self-care (01) ==
LOC: 2E 00:02 → ED 00:02 → SUATTDRO 02:14 → 2E 04:12

== ENCOUNTER 2022-08-21 04:00 | Inpatient (IN) ==
[2022-08-21] MEDS ORDERED: NITROGLYCERIN SL 0.4 MG/TAB TAB SL PRN ×2 (04:05→06:22)
[2022-08-21] MEDS ORDERED: fentaNYL citrate 100 MCG/2 ML VIAL IV STA (04:05)
--- NOTE | 2022-08-21 04:20 | Emergency Department Note ---
History of Present Illness General Chief complaint: Chest Pain Stated complaint: CHEST PAIN Time Seen by Provider: 08/21/22 04:05 History of Present Illness Maximum Pain Intensity: 8 Home Medications Medication Instructions Recorded Confirmed Type aspirin 81 mg tablet,delayed 81 mg PO QAM 05/11/19 08/16/22 History release (Shahzad Low Dose Aspirin) furosemide 40 mg tablet 40 mg PO .COMPLEX #90 tabs 07/10/21 08/16/22 Rx atorvastatin 40 mg tablet 40 mg PO QPM #90 tabs 08/04/21 08/16/22 Rx albuterol sulfate 90 mcg/actuation 2 puff inhalation Q4H PRN 10/05/21 08/16/22 Rx aerosol inhaler (ProAir HFA) shortness of breath or wheezing #18 grams metoprolol succinate 50 mg 25 mg PO BID #180 tabs 04/19/22 08/16/22 Rx tablet,extended release 24 hr nitroglycerin 0.4 mg sublingual 0.4 mg sublingual Q5M PRN chest 04/19/22 08/16/22 Rx tablet pain #1 btl clopidogrel 75 mg tablet 75 mg PO QAM #30 tabs 06/04/22 08/16/22 Rx isosorbide mononitrate 30 mg 30 mg PO DAILY #30 tabs 06/04/22 08/16/22 Rx tablet,extended release 24 hr tiotropium bromide 2.5 2 inh inhalation QAM #4 grams 08/15/22 08/16/22 Rx mcg/actuation mist for inhalation (Spiriva Respimat) Allergies Allergy/AdvReac Type Severity Reaction Status Date / Time benzonatate Allergy Mild Dizziness Verified 08/16/22 10:31 Cephalosporins Allergy Mild KEFLEX=RASH Verified 08/16/22 10:31 diltiazem Allergy Mild RASH Verified 08/16/22 10:31 Iodinated Contrast Media Allergy Mild CT Verified 08/16/22 10:31 Contrast = kidney infection Past Med/Surg History Medical History (Updated 08/21/22 @ 04:58 by Ramírez Walters DO) AAA (abdominal aortic aneurysm) Followed at [facility] Abnormal CT scan, chest Abnormal diffusion capacity determined by pulmonary function test Anemia Anemia due to chronic kidney disease Asthma Atherosclerosis of both carotid arteries Atrial fibrillation Cardiomyopathy, hypertrophic Carpal tunnel syndrome Chronic diastolic congestive heart failure Chronic kidney disease, stage 3b Chronic kidney disease, stage IV (severe) Chronic osteoarthritis COPD (chronic obstructive pulmonary disease) Coronary artery disease Current smoker Diffusion capacity of lung (dl), decreased Dyslipidemia First degree AV block History of uterine cancer 2008--sx only Hypertension Hypotension Nocturnal hypoxia Obstructive sleep apnea of adult no device Paroxysmal atrial fibrillation Pericardial effusion Peripheral vascular disease Renal artery stenosis Secondary hyperparathyroidism Short of breath on exertion Shortness of breath Spinal stenosis Tobacco abuse counseling Tubular adenoma of colon (~04/2014) Vitamin B12 deficiency Vitamin D deficiency Surgical History History of bilateral cataract extraction History of cardiac cath [address] Dangelo--no stent History of colonoscopy (~04/2014) History of tonsillectomy and adenoidectomy History of tooth extraction all teeth removed History of total hysterectomy with bilateral salpingo-oophorectomy (BSO) Hx of cardiac cath Family History Unknown Hypertension Mother Stroke syndrome Sister Uterine cancer Diabetes Myocardial infarction Ovarian cancer Other No family history of adverse response to anesthesia Denies family history of Prostate cancer Breast cancer Lung cancer Colorectal cancer Social History Smoking Status: Current every day smoker Tobacco Type: Cigarettes Age Started Using Tobacco: 19; packs per day: 0.5; Cigarettes Per Day: 12; Second Hand Exposure: Yes; Hx Alcohol Use: No Hx Substance Use: No Preferred Language: [place] Communication Ability: Effective Visual Impairment: No Limitations Hearing Ability: Normal Paper Sorter Required: No Beliefs That Will Affect Care: None marital status: / Current Living Situation: Alone current occupational status: retired current occupation: Retired How many Children do You have: 0 Feels Safe at Home: Yes Childhood Exposure to Second-Hand Smoke: Yes caffeine: Yes Dental Care, Regularly: No Physical Activity Frequency: Does not Exercise Seatbelt Use: never Sunscreen Use: No Assistive Devices: None Physical Exam Vital Signs Vital Signs - 24 hr 08/21/22 04:05 08/21/22 04:00 08/21/22 04:23 Temperature 36.6 C Temperature Source Oral Pulse Rate 109 H Pulse Rate [Apical] Pulse Rhythm Irregular Pulse Rhythm [Apical] Pulse Strength [Apical] Respiratory Rate 20 Respiratory Effort / Characteristics Non-Labored Spontaneous Respiratory Depth Normal Respiratory Pattern Regular Blood Pressure 122/57 L Blood Pressure [Right Arm] Blood Pressure Mean 78 Blood Pressure Mean [Right Arm] Blood Pressure Position Semi-fowlers Blood Pressure Position [Right Arm] Pulse Oximetry 98 95 89 L Oxygen Delivery Method Room Air Room Air Room Air Nasal Cannula Oxygen Flow Rate 0 Sepsis Recent Fever Within 48 Hours No Sepsis New/Unexplained Change in Mental Status N/A Sepsis Action Taken by Nursing No Action Required Oxygen Flow Rate - Titration 3 Pulse Oximetry Post Tiitration 93 08/21/22 04:33 Temperature Temperature Source Pulse Rate Pulse Rate [Apical] 97 H Pulse Rhythm Pulse Rhythm [Apical] Irregular Pulse Strength [Apical] Normal Respiratory Rate 20 Respiratory Effort / Characteristics Non-Labored Spontaneous Respiratory Depth Normal Respiratory Pattern Regular Blood Pressure Blood Pressure [Right Arm] 113/61 Blood Pressure Mean Blood Pressure Mean [Right Arm] 78 Blood Pressure Position Blood Pressure Position [Right Arm] Semi-fowlers Pulse Oximetry 96 Oxygen Delivery Method Nasal Cannula Oxygen Flow Rate 3 Sepsis Recent Fever Within 48 Hours Sepsis New/Unexplained Change in Mental Status Sepsis Action Taken by Nursing Oxygen Flow Rate - Titration Pulse Oximetry Post Tiitration GENERAL: Patient is awake alert in no acute distress patient is resting comfortably and showing no signs of anxiety EYES: The conjunctivae are clear. The pupils are round and reactive. EARS, NOSE, MOUTH AND THROAT: The nose is without any evidence of any deformity. Mucous membranes are moist. Tongue is midline. NECK: The neck is nontender and supple. RESPIRATORY: Normal respiratory effort is noted there is no evidence of wheezing rhonchi or rales CARDIOVASCULAR: Regular rate and rhythm noted there no murmurs rubs or gallops normal S1 normal S2. GASTROINTESTINAL: The abdomen is soft. Abdomen is nontender. BACK: No midline tenderness or or step-off noted range of motion in flexion extension as well as rotation no signs of muscle spasm noted MUSCULOSKELETAL/EXTREMITIES: There is no evidence of gross deformity full range of motion is noted in the hips and shoulders. Bilateral lower extremity pitting edema SKIN: There is no obvious evidence of any rash. There are no petechiae, pallor or cyanosis noted. NEUROLOGIC: Patient is awake alert and oriented x3 strength is symmetric PSYCH: Normal affect Course Reevaluation(s) Reevaluation #1: Patient resting in no distress; patient was given IV fentanyl and nitro and had taken aspirin prior to arrival. Time: 05:49 Consultations Consultation #1: Case was discussed with the [facility] hospitalist for admission and he agrees to inpatient admission for chest pain Time: 05:00 Administered Medications Nitroglycerin (Nitroglycerin Sl 0.4 Mg/Tab Tab) 0.4 mg SL UD PRN PRN Reason: Chest Pain Stop: 09/20/22 04:04 Last Admin: 08/21/22 04:14 Dose: 0.4 mg Documented By: CARISSA Discontinued Medications Fentanyl Citrate (Fentanyl Citrate 100 Mcg/2 Ml Vial) 50 mcg IV NOW STA Stop: 08/21/22 04:06 Last Admin: 08/21/22 04:14 Dose: 50 mcg Documented By: CARISSA Critical Care Time Critical Care Time: Yes Total Critical Care Time: 35 I have personally spent greater than 35 minutes of critical care time in the direct management of this patient. This includes bedside care, interpretation of diagnostic studies, and testing, discussion with consultants, patient, and family members, and other required patient management activities. These minutes are in excess of all separately billable procedures. Medical Decision Making Medical Records Attestation: I reviewed the patient's medical records. Home Medications Current Medication List: was personally reviewed by me Laboratory Data Attestation: I reviewed the patient's lab results. Patient has a mild elevation in troponinand is anemic as well 08/21/22 04:08 08/21/22 04:08 Lab Results 08/21/22 08/21/22 08/21/22 Range/Units 04:08 04:08 04:08 WBC 11.17 H (4.8-10.8) K/ul RBC 3.12 L (3.93-5.22) M/uL Hgb 9.5 L (12.0-16.0) g/dl Hct 29.5 L (34.1-44.9) % MCV 94.6 (80.0-100.0) fL MCH 30.4 (25.0-34.0) pg MCHC 32.2 (32.0-36.0) g/dL RDW Std Deviation 56.6 H (36.4-46.3) fL RDW Coeff of Lakshmi 16.4 H (11.5-14.5) % Plt Count 229 (130-400) K/uL MPV 10.8 (9.4-12.3) fL Immature Gran % (Auto) 0.4 % Neut % (Auto) 73.7 % Lymph % (Auto) 15.6 % Blanco % (Auto) 8.0 % Eos % (Auto) 1.8 % Baso % (Auto) 0.5 % Neut # (Auto) 8.23 H (1.4-6.5) K/uL Lymph # (Auto) 1.74 (1.2-3.4) K/uL Blanco # (Auto) 0.89 H (0.24-0.82) K/uL Eos # (Auto) 0.20 (0-0.50) K/uL Baso # (Auto) 0.06 (0-0.2) K/uL Immature Gran # (Auto) 0.05 H (0.00-0.02) K/uL PT 10.9 (9.0-12.0) Seconds INR 1.0 (0.9-1.1) APTT 25.5 (21.0-31.0) Seconds PTT Ratio 0.9 Sodium 142 (136-145) mmol/L Potassium 3.4 L (3.5-5.1) mmol/L Chloride 110 H (98-107) mmol/L Carbon Dioxide 25 (21-32) mmol/L Anion Gap 7 (3-11) BUN 35 H (6-23) mg/dl Creatinine 1.68 H (0.6-1.2) mg/dl Est Cr Clr Drug Dosing 30.1 ml/min Est GFR ( Amer) 34.1 ml/min Est GFR (Non-Af Amer) 29.4 ml/min BUN/Creatinine Ratio 20.8 H (10-20) Glucose 123 H (70-99(Fasting)) mg/dl Calcium 8.7 (8.5-10.1) mg/dl Total Bilirubin 0.3 (0.2-1.0) mg/dl AST 10 L (13-39) U/L ALT 7 (7-52) U/L Alkaline Phosphatase 89 (34-104) U/L Troponin I High Sens 23.5 H (0-14) pg/ml Total Protein 6.3 (6.0-8.3) gm/dl Albumin 3.3 L (3.4-5.0) gm/dl Globulin 3.0 (2.5-4.0) gm/dl Albumin/Globulin Ratio 1.1 (0.9-2) Imaging Data Attestation: I personally reviewed and interpreted this imaging study as follows : My Impression: Chest x-ray interpreted by me cardiomegaly, normal mediastinum no obvious pneumothorax ECG Data Attestation: I personally reviewed and interpreted this ECG as follows: Additional Comments: EKG interpreted by me rapid atrial fibrillation rate of 113 left axis deviation left ventricular hypertrophy nonspecific ST-T changes there seems to be ST depr ession in lead II and leads 4 5 and 6; prior EKG of April 20, 2022 shows rapid A. fib with a rate of 121 with essentially unchanged EKG otherwise in comparison to this evening's the EKG from EMS was also reviewed which shows rapid A. fib with ST segment depression in V4 V5 and V6 MDM Narrative Medical decision making differential diagnosis angina, unstable angina, acute TN, acute coronary syndrome, COPD exacerbation, I do not suspect thoracic aortic dissection or pulmonary embolism at this time. Plan is to check labs, EKG, chest x-ray, patient had received aspirin prior to arrival, give nitro, give fentanyl. Reviewed patient's prior records Nursing notes reviewed and appreciated Prior external records were reviewed including the cardiology consultation in April 2022 involving the patient having an NSTEMI at that time and the pat ient have a cardiac cath without stenting Spoke independently with EMS regarding the patient's presentation at bedside Impression & Plan Chest pain, COPD (chronic obstructive pulmonary disease), Chronic kidney disease, stage IV (severe), A-fib Discharge Plan Visit Data Chief Complaint: Chest Pain Stated Complaint: CHEST PAIN ED Provider: Ramírez Walters Discharge Problem: Chest pain, COPD (chronic obstructive pulmonary disease), Chronic kidney disease, stage IV (severe), A-fib Patient Disposition: Admitted As Inpatient Forms Stand Alone Forms: My [facility] Prescriptions Prescriptions: No Action furosemide 40 mg tablet 40 mg PO .COMPLEX Qty: 90 3RF Rx Instructions: 40 mg PO QOD. Weigh self daily. Take an extra furosemide tablet on no furosemide days if weight is greater than 2 lb or more compared to the previous day. isosorbide mononitrate 30 mg tablet extended release 24 hr 30 mg PO DAILY Qty: 30 11RF clopidogrel 75 mg tablet 75 mg PO QAM Qty: 30 11RF Spiriva Respimat 2.5 mcg/actuation mist 2 inh inhalation QAM Qty: 4 2RF atorvastatin 40 mg tablet 40 mg PO QPM Qty: 90 3RF albuterol sulfate [ProAir HFA] 90 mcg/actuation HFA aerosol inhaler 2 puff INH Q4H PRN (Reason: shortness of breath or wheezing) Qty: 18 5RF aspirin [Shahzad Low Dose Aspirin] 81 mg Tablet,Delayed Release (Dr/Ec) 81 mg PO QAM nitroglycerin 0.4 mg tablet, sublingual 0.4 mg sublingual Q5M PRN (Reason: chest pain) Qty: 1 0RF Rx Instructions: max 3 tabs in 15 minutes metoprolol succinate 50 mg tablet extended release 24 hr 25 mg PO BID Qty: 180 3RF Referrals Referrals: Shravan Chicas DO [Primary Care Provider] -
[2022-08-21 04:29] LABS: Basophils # (auto) 0.06 K/uL (0-0.2); Basophils % (auto) 0.5 %; Eosinophils % (auto) 1.8 %; Hematocrit (blood only) 29.5 % (34.1-44.9); Hemoglobin 9.5 g/dl (12.0-16.0); Immature Granulocytes # (auto) 0.05 K/uL (0.00-0.02); Immature Granulocytes % (auto) 0.4 %; Lymphocytes # (auto) 1.74 K/uL (1.2-3.4); Lymphocytes % (auto) 15.6 %; Mean Corpuscular Hemoglobin 30.4 pg (25.0-34.0); Mean Corpuscular Hgb Conc 32.2 g/dL (32.0-36.0); Mean Corpuscular Volume 94.6 fL (80.0-100.0); Mean Platelet Volume 10.8 fL (9.4-12.3); Monocytes # (auto) 0.89 K/uL (0.24-0.82); Neutrophils # (auto) 8.23 K/uL (1.4-6.5); Neutrophils % (auto) 73.7 %; Platelet Count 229 K/uL (130-400); RDW Coefficient of Variation 16.4 % (11.5-14.5); RDW Standard Deviation 56.6 fL (36.4-46.3); Red Blood Count 3.12 M/uL (3.93-5.22); White Blood Count 11.17 K/ul (4.8-10.8)
[2022-08-21 04:47] LABS: Partial Thromboplastin Ratio 0.9; Partial Thromboplastin Time 25.5 Seconds (21.0-31.0); Prothrombin Time 10.9 Seconds (9.0-12.0)
[2022-08-21 04:50] LABS: Albumin Globulin Ratio 1.1 (0.9-2); Albumin Level 3.3 gm/dl (3.4-5.0); BUN Creatinine Ratio 20.8 (10-20); Bilirubin,Total 0.3 mg/dl (0.2-1.0); Calcium 8.7 mg/dl (8.5-10.1); Creatinine Clr Calc Pharmacy 30.1 ml/min; Est GFR (African American) 34.1 ml/min; Est GFR (Non-African American) 29.4 ml/min; Potassium 3.4 mmol/L (3.5-5.1); Total Protein 6.3 gm/dl (6.0-8.3)
[2022-08-21 04:55] LABS: Troponin I High Sensitivity 23.5 pg/ml (0-14)
--- NOTE | 2022-08-21 05:51 | History & Physical Report ---
Date of Service August 21, 2022 Assessment & Plan (1) A-fib: (2) Hypertension: (3) Tobacco dependence: (4) Non-STEMI (non-ST elevated myocardial infarction): (5) Chronic kidney disease, stage 3b: (6) Hypertension: (7) Anemia due to chronic kidney disease: (8) Paroxysmal atrial fibrillation: (9) Vitamin B12 deficiency: (10) Vitamin D deficiency: (11) Cardiomyopathy, hypertrophic: (12) AAA (abdominal aortic aneurysm): (13) Coronary artery disease: (14) Peripheral vascular disease: (15) Dyslipidemia: (16) COPD (chronic obstructive pulmonary disease): Plan Chest pain/NSTEMI/HFpEF/paroxysmal atrial fibrillation/hypertrophic cardiomyopathy/hypertension- The patient will be admitted to telemetry for serial cardiac enzymes, serial EKG's, cardiac rhythm monitoring and a 2-D echocardiogram with Dopplers. Underwent cardiac catheterization with plans for medical management Continue aspirin 81 mg daily, clopidogrel 75 mg daily, isosorbide mononitrate extended release, 30 mg daily, metoprolol succinate 25 mg p.o. twice daily, nitroglycerin sublingual's as needed. Placed on furosemide 40 mg IV every morning. Follow serial BMP and magnesium levels Consult her corporate legal assistant Dr. Yuen Dyslipidemia- Continue atorvastatin 40 mg daily COPD- Continue routine inhalers Tobacco abuse disorder-has had multiple episodes of tobacco cessation counseling in the past, all of which she has been resistant to. History of Present Illness Chief Complaint: The patient presents to the emergency department with complaint of left sided parasternal chest pain Primary Care Provider: Shravan Chicas DO The patient is a 77-year-old female with a past medical history including CAD, NSTEMI, paroxysmal atrial fibrillation, hypertrophic cardiomyopathy, hypertension, anemia due to chronic disease, CKD stage IV, COPD, tobacco abuse, hypertension, peripheral vascular disease, AAA, B12 deficiency and vitamin D deficiency. She presents to the emergency department with complaint of left- sided parasternal chest pain that began at rest this evening. She denies any recent signs of infection. She reports taking her medications as directed. Allergies Allergy/AdvReac Type Severity Reaction Status Date / Time benzonatate Allergy Mild Dizziness Verified 08/16/22 10:31 Cephalosporins Allergy Mild KEFLEX=RASH Verified 08/16/22 10:31 diltiazem Allergy Mild RASH Verified 08/16/22 10:31 Iodinated Contrast Media Allergy Mild CT Verified 08/16/22 10:31 Contrast = kidney infection Home Medications Medication Instructions Recorded Confirmed Type aspirin 81 mg tablet,delayed 81 mg PO QAM 05/11/19 08/16/22 History release (Shahzad Low Dose Aspirin) furosemide 40 mg tablet 40 mg PO .COMPLEX #90 tabs 07/10/21 08/16/22 Rx atorvastatin 40 mg tablet 40 mg PO QPM #90 tabs 08/04/21 08/16/22 Rx albuterol sulfate 90 mcg/actuation 2 puff inhalation Q4H PRN 10/05/21 08/16/22 Rx aerosol inhaler (ProAir HFA) shortness of breath or wheezing #18 grams metoprolol succinate 50 mg 25 mg PO BID #180 tabs 04/19/22 08/16/22 Rx tablet,extended release 24 hr nitroglycerin 0.4 mg sublingual 0.4 mg sublingual Q5M PRN chest 04/19/22 08/16/22 Rx tablet pain #1 btl clopidogrel 75 mg tablet 75 mg PO QAM #30 tabs 06/04/22 08/16/22 Rx isosorbide mononitrate 30 mg 30 mg PO DAILY #30 tabs 06/04/22 08/16/22 Rx tablet,extended release 24 hr tiotropium bromide 2.5 2 inh inhalation QAM #4 grams 08/15/22 08/16/22 Rx mcg/actuation mist for inhalation (Spiriva Respimat) Past Med/Surg History Medical History (Updated 08/21/22 @ 04:58 by Ramírez Walters, DO) AAA (abdominal aortic aneurysm) Followed at [facility] Abnormal CT scan, chest Abnormal diffusion capacity determined by pulmonary function test Anemia Anemia due to chronic kidney disease Asthma Atherosclerosis of both carotid arteries Atrial fibrillation Cardiomyopathy, hypertrophic Carpal tunnel syndrome Chronic diastolic congestive heart failure Chronic kidney disease, stage 3b Chronic kidney disease, stage IV (severe) Chronic osteoarthritis COPD (chronic obstructive pulmonary disease) Coronary artery disease Current smoker Diffusion capacity of lung (dl), decreased Dyslipidemia First degree AV block History of uterine cancer 2008--sx only Hypertension Hypotension Nocturnal hypoxia Obstructive sleep apnea of adult no device Paroxysmal atrial fibrillation Pericardial effusion Peripheral vascular disease Renal artery stenosis Secondary hyperparathyroidism Short of breath on exertion Shortness of breath Spinal stenosis Tobacco abuse counseling Tubular adenoma of colon (~04/2014) Vitamin B12 deficiency Vitamin D deficiency Surgical History History of bilateral cataract extraction History of cardiac cath [address] Dangelo--no stent History of colonoscopy (~04/2014) History of tonsillectomy and adenoidectomy History of tooth extraction all teeth removed History of total hysterectomy with bilateral salpingo-oophorectomy (BSO) Hx of cardiac cath Family History Unknown Hypertension Mother Stroke syndrome Sister Uterine cancer Diabetes Myocardial infarction Ovarian cancer Other No family history of adverse response to anesthesia Denies family history of Prostate cancer Breast cancer Lung cancer Colorectal cancer Social History Smoking Status: Current every day smoker Tobacco Type: Cigarettes Age Started Using Tobacco: 19; packs per day: 0.5; Cigarettes Per Day: 12; Second Hand Exposure: Yes; Hx Alcohol Use: No Hx Substance Use: No Preferred Language: Setswana Communication Ability: Effective Visual Impairment: No Limitations Hearing Ability: Normal Music Worker Required: No Beliefs That Will Affect Care: None marital status: / Current Living Situation: Alone current occupational status: retired current occupation: Retired How many Children do You have: 0 Feels Safe at Home: Yes Childhood Exposure to Second-Hand Smoke: Yes caffeine: Yes Dental Care, Regularly: No Physical Activity Frequency: Does not Exercise Seatbelt Use: never Sunscreen Use: No Assistive Devices: None Review of Systems Review of Systems: The patient denies palpitations, shortness of breath, dyspnea on exertion, cough, lower extremity swelling, sore throat, fevers, chills, sweats, weight change, fatigue, nausea, vomiting, diarrhea , constipation, abdominal pain, pelvic pain, blood in urine or stool, dysuria, urinary frequency or urgency, lightheadedness, dizziness, headache, memory loss, loss of consciousness, rash, abnormal bruising or bleeding, imbalance, focal or generalized weakness, numbness or tingling in arms or legs, generalized arthralgias or myalgias, back or neck pain, or night sweats. The review of systems is otherwise negative other than for that already noted above, and at least 10 systems have been reviewed. Physical Exam Physical Exam: The patient is awake, alert and oriented 3, well developed and well nourished, normocephalic and atraumatic, lying in bed and in no acute distress. HEENT--PERRL, EOMI, mucous membranes and oropharynx dry. Neck--supple. No JVD. No bruits. Thyroid normal, trachea midline, no adenopathy. Heart--normal S1 and S2. No murmurs, rubs or gallops. Lungs--crackles at the bases bilaterally. No respiratory distress, no accessory muscle use. Abdomen--normal bowel sounds and soft. Nontender. Nondistended, no hernias or masses, no organomegaly. Extremities--no cyanosis or clubbing. 1+ bilateral pretibial pitting edema Dermatologic--normal skin turgor, normal color, no abnormal lymph nodes, no rash. Neurologic--cranial nerves II through XII grossly intact. Rheumatologic--normal range of motion. Psychiatric--normal affect. Results & Data Results & Data ([facility]) Vital Signs (Past 12 Hours) Vital Signs Temp Pulse Pulse Resp BP BP Pulse Ox 08/21/22 04:33 97 H 20 113/61 96 08/21/22 04:23 89 L 08/21/22 04:00 36.6 C 109 H 20 122/57 L 95 08/21/22 04:05 98 O2 Del Method O2 Flow Rate 08/21/22 04:33 Nasal Cannula 3 08/21/22 04:23 Room Air, Nasal Cannula 0 08/21/22 04:00 Room Air 08/21/22 04:05 Room Air Laboratory Results Laboratory Results WBC 11.17 K/ul (4.8-10.8) H 08/21/22 04:08 RBC 3.12 M/uL (3.93-5.22) L 08/21/22 04:08 Hgb 9.5 g/dl (12.0-16.0) L 08/21/22 04:08 Hct 29.5 % (34.1-44.9) L 08/21/22 04:08 MCV 94.6 fL (80.0-100.0) 08/21/22 04:08 MCH 30.4 pg (25.0-34.0) 08/21/22 04:08 MCHC 32.2 g/dL (32.0-36.0) 08/21/22 04:08 RDW Std Deviation 56.6 fL (36.4-46.3) H 08/21/22 04:08 RDW Coeff of Lakshmi 16.4 % (11.5-14.5) H 08/21/22 04:08 Plt Count 229 K/uL (130-400) 08/21/22 04:08 MPV 10.8 fL (9.4-12.3) 08/21/22 04:08 Immature Gran % (Auto) 0.4 % 08/21/22 04:08 Neut % (Auto) 73.7 % 08/21/22 04:08 Lymph % (Auto) 15.6 % 08/21/22 04:08 Tift % (Auto) 8.0 % 08/21/22 04:08 Eos % (Auto) 1.8 % 08/21/22 04:08 Baso % (Auto) 0.5 % 08/21/22 04:08 Neut # (Auto) 8.23 K/uL (1.4-6.5) H 08/21/22 04:08 Lymph # (Auto) 1.74 K/uL (1.2-3.4) 08/21/22 04:08 Tift # (Auto) 0.89 K/uL (0.24-0.82) H 08/21/22 04:08 Eos # (Auto) 0.20 K/uL (0-0.50) 08/21/22 04:08 Baso # (Auto) 0.06 K/uL (0-0.2) 08/21/22 04:08 Immature Gran # (Auto) 0.05 K/uL (0.00-0.02) H 08/21/22 04:08 PT 10.9 Seconds (9.0-12.0) 08/21/22 04:08 INR 1.0 (0.9-1.1) 08/21/22 04:08 APTT 25.5 Seconds (21.0-31.0) 08/21/22 04:08 PTT Ratio 0.9 08/21/22 04:08 Sodium 142 mmol/L (136-145) 08/21/22 04:08 Potassium 3.4 mmol/L (3.5-5.1) L 08/21/22 04:08 Chloride 110 mmol/L (98-107) H 08/21/22 04:08 Carbon Dioxide 25 mmol/L (21-32) 08/21/22 04:08 Anion Gap 7 (3-11) 08/21/22 04:08 BUN 35 mg/dl (6-23) H 08/21/22 04:08 Creatinine 1.68 mg/dl (0.6-1.2) H 08/21/22 04:08 Est Cr Clr Drug Dosing 30.1 ml/min 08/21/22 04:08 Est GFR ( Amer) 34.1 ml/min 08/21/22 04:08 Est GFR (Non-Af Amer) 29.4 ml/min 08/21/22 04:08 BUN/Creatinine Ratio 20.8 (10-20) H 08/21/22 04:08 Glucose 123 mg/dl (70-99(Fasting)) H 08/21/22 04:08 Calcium 8.7 mg/dl (8.5-10.1) 08/21/22 04:08 Total Bilirubin 0.3 mg/dl (0.2-1.0) 08/21/22 04:08 AST 10 U/L (13-39) L 08/21/22 04:08 ALT 7 U/L (7-52) 08/21/22 04:08 Alkaline Phosphatase 89 U/L (34-104) 08/21/22 04:08 Troponin I High Sens 23.5 pg/ml (0-14) H 08/21/22 04:08 Total Protein 6.3 gm/dl (6.0-8.3) 08/21/22 04:08 Albumin 3.3 gm/dl (3.4-5.0) L 08/21/22 04:08 Globulin 3.0 gm/dl (2.5-4.0) 08/21/22 04:08 Albumin/Globulin Ratio 1.1 (0.9-2) 08/21/22 04:08 Code Status & VTE Plan Code Status Full code VTE Prophylaxis Plan VTE Prophylaxis will be ordered: Yes PG Care Time/CCT Total # of Minutes Spent Total Time Spent with Patient: Total time spent is greater than 50% in coordination of care (as documented) at patient's floor/unit and/or counseling patient: Coding Level of Care Code 75813 INT INP/OBS CARE MIN Diagnoses A-fib I48.91 Hypertension I10 Tobacco dependence F17.200 Non-STEMI (non-ST elevated myocardial infarction) I21.4 Chronic kidney disease, stage 3b N18.32 Hypertension I10 Anemia due to chronic kidney disease N18.9; D63.1 Paroxysmal atrial fibrillation I48.0 Vitamin B12 deficiency E53.8 Vitamin D deficiency E55.9 Cardiomyopathy, hypertrophic I42.2 AAA (abdominal aortic aneurysm) I71.4 Coronary artery disease I25.10 Peripheral vascular disease I73.9 Dyslipidemia E78.5 COPD (chronic obstructive pulmonary disease) J44.9
[2022-08-21] MEDS ORDERED: ALBUTEROL HFA 8 GM INHALER INH PRN (06:22)
[2022-08-21] MEDS ORDERED: ONDANSETRON INJ 2 MG/ML 2 ML VIAL IV PRN (06:22)
[2022-08-21] MEDS ORDERED: ACETAMINOPHEN 325 MG TAB PO PRN (06:22)
[2022-08-21] MEDS: FUROSEMIDE 40 MG/4 ML VIAL IV SCH (06:41)
--- NOTE | 2022-08-21 07:05 | XRay Report ---
XR chest 1V portable HISTORY: 77 years-old Female Chest pain, nonspecific acute chest pain COMPARISON: Chest CT August 15, 2022, chest radiograph 04/20/2022 TECHNIQUE: AP view of the chest FINDINGS: Cardiac silhouette is enlarged. Atherosclerosis of the aorta. Unchanged mild left hemidiaphragmatic e levation with subsegmental left basilar atelectasis versus scarring. Mild pulmonary vascular congesti on. No pneumothorax, large pleural effusion or overt pulmonary edema. Degenerative changes of the darrian ulders and spine. IMPRESSION: Cardiomegaly with pulmonary vascular congestion. ACT 112: Negative or not required by law. The above report was generated using voice recognition software. It may contain grammatical, syntax o r spelling errors. Electronically signed by: Javier Childs M.D. 08/21/2022 7:03 AM
[2022-08-21] MEDS: UMECLIDINIUM BROMIDE 62.5MCG/BLISTER 7 PUFFS/INHALER INH SCH (08:30)
[2022-08-21] MEDS: ASPIRIN 81 MG ECTAB PO SCH (08:31)
[2022-08-21] MEDS: ISOSORBIDE MONO EXTENDED REL 30 MG TABCR PO SCH (08:31)
[2022-08-21] MEDS: CLOPIDOGREL BISULFATE 75 MG TAB PO SCH (08:31)
[2022-08-21] MEDS ORDERED: METOPROLOL SUCC 25MG EXT REL TAB PO SCH (09:00)
[2022-08-21] MEDS ORDERED: POTASSIUM CHLORIDE CRTAB 20 MEQ TABCR PO STA (10:59)
--- NOTE | 2022-08-21 13:51 | Cardiology Consultation ---
Date of Consultation August 21, 2022 Assessment & Plan (1) Paroxysmal atrial fibrillation: (2) Non-STEMI (non-ST elevated myocardial infarction): (3) Acute on chronic heart failure with preserved ejection fraction (HFpEF): (4) Coronary artery disease: (5) Cardiomyopathy, hypertrophic: (6) Substernal chest pain: (7) Hypertension: (8) Chronic kidney disease, stage 3b: (9) Dyslipidemia: (10) Tobacco abuse counseling: Plan ASSESSMENT/PLAN: 1. Paroxysmal atrial fibrillation: Chronic issue. Symptoms appear to correlate with atrial fibrillation as a result when Janna donahue spontaneously converted to sinus rhythm. Given her severe CAD, history of hypertrophic cardiomyopathy, and other comorbidities, she does not appear to tolerate atrial fibrillation and had elevated troponins, suggesting myocardial injury while in atrial fibrillation. Therefore, recommend antiarrhythmic therapy to try to maintain sinus rhythm. This could be complicated given baseline bradycardia. Start amiodarone 200 mg twice daily. Discontinue beta-harsha for now. Anticipate reducing amiodarone on discharge to 200 mg daily with close follow-up in her cardiology office. If significant bradycardia occurs, would consider pacemaker for tachybradycardia syndrome. In regards to anticoagulation therapy for stroke risk reduction, she was on Xarelto 15 mg once daily in the past and had heme positive stool and profound anemia requiring blood transfusion. Therefore, anticoagulation therapy is not recommended at this time. Could consider watchman device as an outpatient if she is willing to consider. TSH ordered. 2. NSTEMI: Likely due to demand ischemia in the setting of severe CAD and hypertrophic cardiomyopathy in the setting of atrial fibrillation with rapid ventricular response. Trend troponin until peak. Less likely acute coronary syndrome. Angina resolved when atrial fibrillation resolved. Holding beta- harsha due to bradycardia while initiating amiodarone as above. Continue antiplatelet therapy and high intensity statin therapy. Echo pending. 3: CAD: Severe CAD involving the RCA as per most recent cardiac catheterization with moderate CAD involving the LAD. Plan as above. Continue antiplatelet therapy and statin therapy. Repeat cardiac catheterization not recommended at this time. 4. Chest pain: As above. Chest pain resolved with atrial fibrillation converted to sinus. Likely angina in the setting of severe CAD, Janna donahue with RVR, and hypertrophic cardiomyopathy with prior LVOT obstruction. 5. Acute on chronic heart failure with preserved EF: She appears hypervolemic. Agree with intravenous Lasix. We will try to achieve at least 1 L net negative fluid balance today. If necessary, can give additional dose later today. Strict I's and O's. Daily weights. Low-sodium diet. Given her multiple comorbidities, will refer her to the heart failure program. 6. CKD: Seems to be at her baseline. Continue to monitor. 7. Hypertension: Blood pressure normotensive to mildly hypertensive. May improve with diuresis. 8. Dyslipidemia: Continue high intensity statin therapy. 9. Tobacco abuse: Recommended that she stop smoking. 10. Hypertrophic cardiomyopathy: Plan as above. Repeat echo is pending. 11. Disposition: Cardiology will continue to follow. Patient care personally discussed with Dr. Buenrostro of the primary hospitalist service. On discharge, she should have close follow-up with Dr. Dangelo, her primary aml analyst. Also re commend heart failure program referral. Highly complex medical issues. Thank you for allowing me to participate in the care of your patient. Please call for any other questions or concerns. Sincerely, Patrick Bain M.D. History of Present Illness Reason for Consultation: Chest pain, CHF Requesting Physician: Dr. Wetzel Attending Physician: Cam Buenrostro MD History of Present Illness Ms. Bailon is a pleasant 77-year-old female with a history significant for CAD, NSTEMI, COPD, hypertension, dyslipidemia, heart failure with preserved EF, CKD, hypertrophic cardiomyopathy, paroxysmal atrial fibrillation, and AAA. She also has a history of GI bleed with heme positive stool in December 2020 while on Xarelto and hemoglobin of 6.2, receiving 2 units of PRBC. Anticoagulation was discontinued at that time. Her primary aml analyst is Dr. Dangelo. She has had the following studies/procedures: 1. MRA thoracic and abdominal aorta October 2018 [facility]: Severe LVH with LVOT obstruction. Diffuse atherosclerosis within the thoracic aorta. Occluded infrarenal AAA. Occlusion of iliac arteries with reconstitution of the internal iliac arteries via collateral flow. 2. Cardiac cath 04/18/2022 [facility] (Dr. Yuen): Ostial LM 20%. Mid LAD 60% with calcification. Luminal irregularities within the circumflex. Dominant RCA. Proximal RCA 40%. Mid segment [place] II flow prior to subtotal occlusion with questionable thrombus. PDA and PL fill retrograde via left to right collaterals. LVEDP 9. FFR of LAD 0.84. Medical therapy recommended. 3. Echo 04/19/2022: Small LV with severe concentric LVH. EF > 70%. Normal wall motion. No significant valvular abnormalities. Small pericardial effusion without sign of tamponade. She presented and was admitted on 08/21/2022 with chest pain and shortness of breath. She was watching TV at approximately 2 AM and acutely developed substernal chest pressure as though something was sitting on her chest. There was associated shortness of breath. There was no radiation of the pain. On presentation, ECG demonstrated atrial fibrillation with rapid ventricular response at 113 bpm. She denies palpitations. Near 9 AM this morning, she became bradycardic and an ECG was checked in the emergency department and she was found to be in sinus bradycardia. She reportedly felt much better following spontaneous conversion to sinus. She is now chest pain-free. She denies shortness of breath currently but is on supplemental oxygen, although she does not use supplemental oxygen at home. She denies melena, hematochezia, or hematuria. Reviewing records, she had heme positive stool in 2020 while on Xarelto, which was being used for stroke risk reduction given paroxysmal atrial fibrillation. Anticoagulation therapy was discontinued at that time as her hemoglobin was 6.2. She denies syncope, near syncope, palpitations. She has noted lower extremity edema for the past 2 weeks or so. She maintains a low-sodium diet but does not weigh herself regularly. She states that she is compliant with her medical therapy. Initial troponin was 23.5 but has been increasing and most recently 984. While in the emergency department, she received Lasix 40 mg IV x1. Review of systems: As above. Review of systems otherwise negative/unremarkable. Family history: Positive for CAD. Social history: Smokes 1 pack/day and has been smoking since age of 18, up to 2 packs/day in the past. She denies alcohol or drug abuse. She lives alone. She has no children. She was unaccompanied in her hospital room. She states that she has siblings nearby. Allergies Allergy/AdvReac Type Severity Reaction Status Date / Time benzonatate Allergy Mild Dizziness Verified 08/16/22 10:31 Cephalosporins Allergy Mild KEFLEX=RASH Verified 08/16/22 10:31 diltiazem Allergy Mild RASH Verified 08/16/22 10:31 Iodinated Contrast Media Allergy Mild CT Verified 08/16/22 10:31 Contrast = kidney infection Home Medications Medication Instructions Recorded Confirmed Type aspirin 81 mg tablet,delayed 81 mg PO QAM 05/11/19 08/16/22 History release (Shahzad Low Dose Aspirin) furosemide 40 mg tablet 40 mg PO .COMPLEX #90 tabs 07/10/21 08/16/22 Rx atorvastatin 40 mg tablet 40 mg PO QPM #90 tabs 08/04/21 08/16/22 Rx albuterol sulfate 90 mcg/actuation 2 puff inhalation Q4H PRN 10/05/21 08/16/22 Rx aerosol inhaler (ProAir HFA) shortness of breath or wheezing #18 grams metoprolol succinate 50 mg 25 mg PO BID #180 tabs 04/19/22 08/16/22 Rx tablet,extended release 24 hr nitroglycerin 0.4 mg sublingual 0.4 mg sublingual Q5M PRN chest 04/19/22 08/16/22 Rx tablet pain #1 btl clopidogrel 75 mg tablet 75 mg PO QAM #30 tabs 06/04/22 08/16/22 Rx isosorbide mononitrate 30 mg 30 mg PO DAILY #30 tabs 06/04/22 08/16/22 Rx tablet,extended release 24 hr tiotropium bromide 2.5 2 inh inhalation QAM #4 grams 08/15/22 08/16/22 Rx mcg/actuation mist for inhalation (Spiriva Respimat) Patient History Medical History AAA (abdominal aortic aneurysm) Followed at [facility] Abnormal CT scan, chest Abnormal diffusion capacity determined by pulmonary function test Anemia Anemia due to chronic kidney disease Asthma Atherosclerosis of both carotid arteries Atrial fibrillation Cardiomyopathy, hypertrophic Carpal tunnel syndrome Chronic diastolic congestive heart failure Chronic kidney disease, stage 3b Chronic kidney disease, stage IV (severe) Chronic osteoarthritis COPD (chronic obstructive pulmonary disease) Coronary artery disease Current smoker Diffusion capacity of lung (dl), decreased Dyslipidemia First degree AV block History of uterine cancer 2008--sx only Hypertension Hypotension Nocturnal hypoxia Obstructive sleep apnea of adult no device Paroxysmal atrial fibrillation Pericardial effusion Peripheral vascular disease Renal artery stenosis Secondary hyperparathyroidism Short of breath on exertion Shortness of breath Spinal stenosis Tobacco abuse counseling Tubular adenoma of colon (~04/2014) Vitamin B12 deficiency Vitamin D deficiency Surgical History History of bilateral cataract extraction History of cardiac cath [address] Dangelo--no stent History of colonoscopy (~04/2014) History of tonsillectomy and adenoidectomy History of tooth extraction all teeth removed History of total hysterectomy with bilateral salpingo-oophorectomy (BSO) Hx of cardiac cath Family History Unknown Hypertension Mother Stroke syndrome Sister Uterine cancer Diabetes Myocardial infarction Ovarian cancer Other No family history of adverse response to anesthesia Denies family history of Prostate cancer Breast cancer Lung cancer Colorectal cancer Social History Smoking Status: Current every day smoker Tobacco Type: Cigarettes Age Started Using Tobacco: 19; packs per day: 0.5; Cigarettes Per Day: 12; Second Hand Exposure: Yes; Hx Alcohol Use: No Hx Substance Use: No Preferred Language: Greek Communication Ability: Effective Visual Impairment: No Limitations Hearing Ability: Normal Batch And Furnace Operator Required: No Beliefs That Will Affect Care: None marital status: / Current Living Situation: Alone current occupational status: retired current occupation: Retired How many Children do You have: 0 Feels Safe at Home: Yes Childhood Exposure to Second-Hand Smoke: Yes caffeine: Yes Dental Care, Regularly: No Physical Activity Frequency: Does not Exercise Seatbelt Use: never Sunscreen Use: No Assistive Devices: None Physical Exam Physical Exam: Gen.: No acute distress. Alert. HEENT: Anicteric sclera. Neck: No appreciable JVD, but thick neck. No bruits. Normal carotid upstrokes bilaterally. Cardiac: No ventricular heave. Regular in the 50s. Distant S1-S2. No murmurs, rubs, or gallops. Pulmonary: Decreased breath sounds throughout, but otherwise, clear to ausc ultation bilaterally without wheezes, rales, or rhonchi. Abdomen: Soft, nontender, nondistended, with normoactive bowel sounds. No bruits noted. Extremities: 2+ radial pulses bilaterally. 2+ posterior tibialis pulses bilaterally. 1+ bilateral lower extremity edema. No cyanosis. Results & Data ([place]) Vital Signs (Past 12 Hours) Vital Signs Temp Pulse Pulse Resp BP BP Pulse Ox 08/21/22 13:30 54 L 23 93 08/21/22 13:01 54 L 17 96 08/21/22 13:01 124/44 L 08/21/22 13:00 53 L 22 96 08/21/22 12:31 57 L 21 96 08/21/22 12:31 117/33 L 08/21/22 12:30 58 L 16 97 08/21/22 12:01 54 L 21 94 08/21/22 12:01 125/43 L 08/21/22 12:00 55 L 25 H 80 L 08/21/22 11:31 51 L 19 96 08/21/22 11:31 133/69 08/21/22 11:30 54 L 21 96 08/21/22 11:00 54 L 25 H 96 08/21/22 11:00 137/58 L 08/21/22 10:37 59 L 94 08/21/22 10:37 136/56 L 08/21/22 10:31 56 L 18 93 08/21/22 10:31 127/48 L 08/21/22 10:30 54 L 14 08/21/22 10:01 134/60 08/21/22 10:01 53 L 20 96 08/21/22 10:00 55 L 24 08/21/22 09:30 54 L 22 94 08/21/22 09:30 136/57 L 08/21/22 09:02 124/55 L 08/21/22 09:02 55 L 26 H 94 08/21/22 09:00 54 L 20 92 08/21/22 08:31 105/86 08/21/22 08:31 124 H 16 95 08/21/22 08:30 120 H 26 H 95 08/21/22 08:01 136/81 08/21/22 08:01 122 H 18 96 08/21/22 08:00 100 H 20 94 08/21/22 07:30 122 H 15 95 08/21/22 07:30 127/93 08/21/22 07:00 108 H 22 94 08/21/22 07:00 120/93 08/21/22 06:30 108 H 27 H 96 08/21/22 06:30 134/84 08/21/22 10:35 58 L 16 136/56 L 95 08/21/22 09:47 55 L 18 136/57 L 96 08/21/22 08:27 104 H 16 136/81 96 08/21/22 07:00 109 H 18 120/93 96 08/21/22 06:20 116 H 22 94 08/21/22 06:10 101 H 20 96 08/21/22 06:01 109/87 08/21/22 06:01 123 H 20 96 08/21/22 06:00 105 H 21 95 08/21/22 05:50 111 H 21 96 08/21/22 05:40 96 H 24 95 08/21/22 05:31 99 H 24 96 08/21/22 05:31 122/96 08/21/22 05:30 110 H 23 96 08/21/22 05:20 96 H 24 96 08/21/22 05:10 98 H 22 97 08/21/22 05:00 111 H 22 95 08/21/22 05:00 112/76 08/21/22 04:50 103 H 22 98 08/21/22 04:40 121 H 20 96 08/21/22 04:39 116/98 08/21/22 04:39 93 H 13 08/21/22 04:33 113/61 08/21/22 04:33 99 H 18 92 08/21/22 04:30 88 24 94 08/21/22 04:20 98 H 18 94 08/21/22 04:11 105 H 16 92 08/21/22 04:11 122/57 L 08/21/22 04:10 113 H 14 91 08/21/22 04:08 87 16 91 08/21/22 04:33 97 H 20 113/61 96 08/21/22 04:23 89 L 08/21/22 04:00 36.6 C 109 H 20 122/57 L 95 08/21/22 04:05 98 O2 Del Method O2 Flow Rate 08/21/22 13:30 08/21/22 13:01 08/21/22 13:01 08/21/22 13:00 08/21/22 12:31 08/21/22 12:31 08/21/22 12:30 08/21/22 12:01 08/21/22 12:01 08/21/22 12:00 08/21/22 11:31 08/21/22 11:31 08/21/22 11:30 08/21/22 11:00 08/21/22 11:00 08/21/22 10:37 08/21/22 10:37 08/21/22 10:31 08/21/22 10:31 08/21/22 10:30 08/21/22 10:01 08/21/22 10:01 08/21/22 10:00 08/21/22 09:30 08/21/22 09:30 08/21/22 09:02 08/21/22 09:02 08/21/22 09:00 08/21/22 08:31 08/21/22 08:31 08/21/22 08:30 08/21/22 08:01 08/21/22 08:01 08/21/22 08:00 08/21/22 07:30 08/21/22 07:30 08/21/22 07:00 08/21/22 07:00 08/21/22 06:30 08/21/22 06:30 08/21/22 10:35 Nasal Cannula 2 08/21/22 09:47 Nasal Cannula 3 08/21/22 08:27 Nasal Cannula 3 08/21/22 07:00 Nasal Cannula 3 08/21/22 06:20 08/21/22 06:10 08/21/22 06:01 08/21/22 06:01 08/21/22 06:00 08/21/22 05:50 08/21/22 05:40 08/21/22 05:31 08/21/22 05:31 08/21/22 05:30 08/21/22 05:20 08/21/22 05:10 3 08/21/22 05:00 08/21/22 05:00 08/21/22 04:50 08/21/22 04:40 08/21/22 04:39 08/21/22 04:39 08/21/22 04:33 08/21/22 04:33 08/21/22 04:30 08/21/22 04:20 08/21/22 04:11 08/21/22 04:11 08/21/22 04:10 08/21/22 04:08 08/21/22 04:33 Nasal Cannula 3 08/21/22 04:23 Room Air, Nasal Cannula 0 08/21/22 04:00 Room Air 08/21/22 04:05 Room Air Intake & Output 08/19/22 08/20/22 08/21/22 08/22/22 06:59 06:59 06:59 06:59 Weight 212 lb 8.41 oz Laboratory Results Laboratory Results - last 24 hr 08/21/22 08/21/22 08/21/22 04:08 04:08 04:08 WBC 11.17 H RBC 3.12 L Hgb 9.5 L Hct 29.5 L MCV 94.6 MCH 30.4 MCHC 32.2 RDW Std Deviation 56.6 H RDW Coeff of Lakshmi 16.4 H Plt Count 229 MPV 10.8 Immature Gran % (Auto) 0.4 Neut % (Auto) 73.7 Lymph % (Auto) 15.6 [place] % (Auto) 8.0 Eos % (Auto) 1.8 Baso % (Auto) 0.5 Neut # (Auto) 8.23 H Lymph # (Auto) 1.74 [place] # (Auto) 0.89 H Eos # (Auto) 0.20 Baso # (Auto) 0.06 Immature Gran # (Auto) 0.05 H PT 10.9 INR 1.0 APTT 25.5 PTT Ratio 0.9 Sodium 142 Potassium 3.4 L Chloride 110 H Carbon Dioxide 25 Anion Gap 7 BUN 35 H Creatinine 1.68 H Est Cr Clr Drug Dosing 30.1 Est GFR ( Amer) 34.1 Est GFR (Non-Af Amer) 29.4 BUN/Creatinine Ratio 20.8 H Glucose 123 H Calcium 8.7 Magnesium Total Bilirubin 0.3 AST 10 L ALT 7 Alkaline Phosphatase 89 Troponin I High Sens 23.5 H Total Protein 6.3 Albumin 3.3 L Globulin 3.0 Albumin/Globulin Ratio 1.1 SARS-CoV-2, RNA, NAAT 08/21/22 08/21/22 08/21/22 04:08 06:57 09:05 WBC RBC Hgb Hct MCV MCH MCHC RDW Std Deviation RDW Coeff of Lakshmi Plt Count MPV Immature Gran % (Auto) Neut % (Auto) Lymph % (Auto) [place] % (Auto) Eos % (Auto) Baso % (Auto) Neut # (Auto) Lymph # (Auto) [place] # (Auto) Eos # (Auto) Baso # (Auto) Immature Gran # (Auto) PT INR APTT PTT Ratio Sodium Potassium Chloride Carbon Dioxide Anion Gap BUN Creatinine Est Cr Clr Drug Dosing Est GFR ( Amer) Est GFR (Non-Af Amer) BUN/Creatinine Ratio Glucose Calcium Magnesium Total Bilirubin AST ALT Alkaline Phosphatase Troponin I High Sens 98.6 H* D 984.5 H* D Total Protein Albumin Globulin Albumin/Globulin Ratio SARS-CoV-2, RNA, NAAT NEGATIVE 08/21/22 09:05 WBC RBC Hgb Hct MCV MCH MCHC RDW Std Deviation RDW Coeff of Lakshmi Plt Count MPV Immature Gran % (Auto) Neut % (Auto) Lymph % (Auto) [place] % (Auto) Eos % (Auto) Baso % (Auto) Neut # (Auto) Lymph # (Auto) [place] # (Auto) Eos # (Auto) Baso # (Auto) Immature Gran # (Auto) PT INR APTT PTT Ratio Sodium Potassium Chloride Carbon Dioxide Anion Gap BUN Creatinine Est Cr Clr Drug Dosing Est GFR ( Amer) Est GFR (Non-Af Amer) BUN/Creatinine Ratio Glucose Calcium Magnesium 1.9 Total Bilirubin AST ALT Alkaline Phosphatase Troponin I High Sens Total Protein Albumin Globulin Albumin/Globulin Ratio SARS-CoV-2, RNA, NAAT Diagnostic Findings ECGs personally reviewed: ECG 08/21/2022 of 4:04 AM: A. fib RVR 113 bpm. LVH with repolarization abnormality. ECG 08/21/2022 at 9:10 AM: Sinus bradycardia with first-degree AV block. 58 bpm. LVH with repolarization abnormality. Inferior infarct. Anterior infarct. Echo report from 04/19/2022 reviewed as noted above in HPI. Cardiac catheterization report reviewed as noted above in HPI from 04/18/2022. History and physical report reviewed. Labs reviewed. Chest x-ray from 08/21/2022: Image personally reviewed: Left pleural effusion. No obvious infiltrate. Prominent vasculature. Radiology interpretation as pulmonary vascular congestion. Outpatient cardiology note reviewed. Medications Administered Current Inpatient Medications Acetaminophen (Acetaminophen 325 Mg Tab) 650 mg PO Q4H PRN PRN Reason: Pain or Fever Stop: 09/20/22 06:21 Albuterol (Albuterol Hfa 8 Gm Inhaler) 2 puffs INH Q4H PRN PRN Reason: shortness of breath or wheezin Stop: 09/20/22 06:21 Aspirin (Aspirin 81 Mg Ectab) 81 mg PO QAM [facility] Stop: 09/20/22 08:59 Last Admin: 08/21/22 08:31 Dose: 81 mg Atorvastatin Calcium (Atorvastatin 40 Mg Tab) 40 mg PO QPM [facility] Stop: 09/20/22 20:59 Clopidogrel Bisulfate (Clopidogrel Bisulfate 75 Mg Tab) 75 mg PO QAM [facility] Stop: 09/20/22 08:59 Last Admin: 08/21/22 08:31 Dose: 75 mg Furosemide (Furosemide 40 Mg/4 Ml Vial) 40 mg IV QAM [facility] Stop: 09/20/22 06:59 Last Admin: 08/21/22 06:41 Dose: 40 mg Isosorbide Mononitrate (Isosorbide [place] Extended Rel 30 Mg Tabcr) 30 mg PO DAILY [facility] Stop: 09/20/22 08:59 Last Admin: 08/21/22 08:31 Dose: 30 mg Metoprolol Succinate (Metoprolol Succ 25mg Ext Rel Tab) 25 mg PO BID [facility] Stop: 09/20/22 08:59 Last Admin: 08/21/22 08:31 Dose: 25 mg Nitroglycerin (Nitroglycerin Sl 0.4 Mg/Tab Tab) 0.4 mg SL Q5M PRN PRN Reason: chest pain Stop: 09/20/22 06:21 Ondansetron HCl (Ondansetron Inj 2 Mg/Ml 2 Ml Vial) 4 mg IV Q6H PRN PRN Reason: Nausea Stop: 09/20/22 06:21 Potassium Chloride (Potassium Chloride Crtab 20 Meq Tabcr) 20 meq PO BID [facility] Stop: 08/22/22 09:[address] ([address] 62.5mcg/Blister 7 Puffs/Inhaler) 1 puffs INH QAM [facility] Stop: 09/20/22 08:59 Last Admin: 08/21/22 08:30 Dose: 1 puffs PG Care Time/CCT Total # of Minutes Spent Total Time Spent with Patient: Total time spent is greater than 50% in coordination of care (as documented) at patient's floor/unit and/or counseling patient: Coding Level of Care Code 49398 INT INP/OBS CARE 3/75MIN Diagnoses Paroxysmal atrial fibrillation I48.0 Non-STEMI (non-ST elevated myocardial infarction) I21.4 Acute on chronic heart failure with preserved ejection fraction (HFpEF) I50.33 Coronary artery disease I25.10 Cardiomyopathy, hypertrophic I42.2 Substernal chest pain R07.2 Hypertension I10 Chronic kidney disease, stage 3b N18.32 Dyslipidemia E78.5 Tobacco abuse counseling Z71.6
[2022-08-21] MEDS ORDERED: PNEUMOCOCCAL POLYSACCHARIDES 25 MCG/0.5 ML VIAL/SYR IM ONE (14:17)
[2022-08-21] MEDS ORDERED: MAGNESIUM SULFATE / D5W 1 GM/100 ML BAG IV ONE (15:13)
[2022-08-21] MEDS ORDERED: Heparin IV Adult Wt-Based Standard *NO* Bolus Protocol IV STA (15:17)
[2022-08-21] MEDS: AMIODARONE 200 MG TAB PO SCH (15:21)
[2022-08-21] MEDS: HEPARIN SODIUM/DEXTROSE 25,000 UNITS/500 ML BAG IV SCH (15:42)
[2022-08-21] MEDS: ATORVASTATIN 40 MG TAB PO SCH (22:34)
[2022-08-21] MEDS: POTASSIUM CHLORIDE CRTAB 20 MEQ TABCR PO SCH (22:34)
[2022-08-21 23:26] LABS: Partial Thromboplastin Ratio 2.3
--- NOTE | 2022-08-21 23:31 | Communication Note ---
Date of Service: August 21, 2022 Patient was seen and examined however admitted the same day therefore I will not be billing for this encounter. Patient converted to normal sinus rhythm around 9 AM with resolution of chest pain. Discussed with Dr. Bain and initially not suspected to be ACS given conversion resolved her pain and therefore likely just rate related ischemia rather than thrombus/unstable plaque. Main plan would be to keep her in a normal sinus rhythm with an antiarrhythmic agents and she was started on amiodarone 200 mg p.o. twice daily to enable this. However, subsequent high-sensitivity troponin increased to 10,000 therefore cardiology advised to start on intravenous heparin. I would favor restarting her on anticoagulation for her paroxysmal atrial fibrillation as on chart review she has any had x1 GI bleed however per cardiology consultation last admission she has declined restarting this. She remains hypervolemic therefore we will continue Lasix 40 mg IV daily. Aim O2 sats > 94% due to ACS.
[2022-08-21 23:32] LABS: Partial Thromboplastin Time 61.9 Seconds (21.0-31.0)
[2022-08-22 04:58] LABS: Basophils # (auto) 0.05 K/uL (0-0.2); Basophils % (auto) 0.5 %; Eosinophils # (auto) 0.16 K/uL (0-0.50); Eosinophils % (auto) 1.5 %; Hematocrit (blood only) 27.5 % (34.1-44.9); Immature Granulocytes # (auto) 0.04 K/uL (0.00-0.02); Immature Granulocytes % (auto) 0.4 %; Lymphocytes # (auto) 1.47 K/uL (1.2-3.4); Lymphocytes % (auto) 13.7 %; Mean Corpuscular Hemoglobin 30.1 pg (25.0-34.0); Mean Corpuscular Hgb Conc 32.7 g/dL (32.0-36.0); Mean Platelet Volume 10.7 fL (9.4-12.3); Monocytes # (auto) 0.78 K/uL (0.24-0.82); Monocytes % (auto) 7.3 %; Neutrophils # (auto) 8.25 K/uL (1.4-6.5); Neutrophils % (auto) 76.6 %; Platelet Count 209 K/uL (130-400); RDW Coefficient of Variation 16.2 % (11.5-14.5); RDW Standard Deviation 54.7 fL (36.4-46.3); Red Blood Count 2.99 M/uL (3.93-5.22); White Blood Count 10.75 K/ul (4.8-10.8)
[2022-08-22 05:30] LABS: Partial Thromboplastin Ratio 2.7
[2022-08-22 05:35] LABS: BUN Creatinine Ratio 16.5 (10-20); Calcium 8.6 mg/dl (8.5-10.1); Creatinine Clr Calc Pharmacy 22.6 ml/min; Est GFR (African American) 24.1 ml/min; Est GFR (Non-African American) 20.8 ml/min; Magnesium 2.1 mg/dl (1.7-2.4); Potassium 4.2 mmol/L (3.5-5.1)
--- NOTE | 2022-08-22 06:08 | XCELERA ---
[id number] \\[id number]
[2022-08-22 07:15] LABS: Partial Thromboplastin Time 73.2 Seconds (21.0-31.0)
[2022-08-22] MEDS: AMIODARONE 200 MG TAB PO SCH ×2 (09:29→17:10)
[2022-08-22] MEDS: ISOSORBIDE MONO EXTENDED REL 30 MG TABCR PO SCH (09:30)
[2022-08-22] MEDS: ASPIRIN 81 MG ECTAB PO SCH (09:30)
[2022-08-22] MEDS: FUROSEMIDE 40 MG/4 ML VIAL IV SCH ×2 (09:31→20:15)
[2022-08-22] MEDS: UMECLIDINIUM BROMIDE 62.5MCG/BLISTER 7 PUFFS/INHALER INH SCH (09:31)
[2022-08-22] MEDS: CLOPIDOGREL BISULFATE 75 MG TAB PO SCH (09:31)
[2022-08-22] MEDS: POTASSIUM CHLORIDE CRTAB 20 MEQ TABCR PO SCH (10:29)
--- NOTE | 2022-08-22 10:52 | Cardiology Progress Note ---
Date of Service August 22, 2022 Assessment & Plan (1) Non-STEMI (non-ST elevated myocardial infarction): (2) Acute on chronic heart failure with preserved ejection fraction (HFpEF): (3) Paroxysmal atrial fibrillation: (4) Coronary artery disease: (5) Cardiomyopathy, hypertrophic: (6) Substernal chest pain: (7) Hypertension: (8) Chronic kidney disease, stage 3b: (9) Dyslipidemia: (10) Tobacco abuse counseling: Plan ASSESSMENT/PLAN: 1. Paroxysmal atrial fibrillation: Chronic issue. Symptoms appear to correlate with atrial fibrillation as a result when Janna donahue spontaneously converted to sinus rhythm. Given her severe CAD, history of hypertrophic cardiomyopathy, and other comorbidities, she does not appear to tolerate atrial fibrillation and had elevated troponins, suggesting myocardial injury while in atrial fibrillation. Amiodarone initiated and tolerating thus far. Beta-harsha discontinued to allow for adequate heart rate in the setting of amiodarone. If she develops significant bradycardia or pauses, would consider pacemaker placement for tachybradycardia syndrome. Tolerating thus far however. Anticipate reducing amiodarone on discharge to 200 mg daily with close follow-up in her cardiology office. In regards to anticoagulation therapy for stroke risk reduction, she was on Xarelto 15 mg once daily in the past and had heme positive stool and profound anemia requiring blood transfusion. She also declines long-term anticoagulation therapy. Heparin drip used now given presentation; she is agreeable for heparin while hospitalized. Consider watchman device as an outpatient if she is willing to consider. Monitor TSH and transaminase levels while on amiodarone as an outpatient. 2. NSTEMI: Likely due to demand ischemia in the setting of severe CAD and hypertrophic cardiomyopathy in the setting of atrial fibrillation with rapid ventricular response. [place] [id number]. Given that her angina immediately resolved with conversion to sinus rhythm, mechanism of the MN still likely due to with RVR demand ischemia from a with underlying CAD and hypertrophic cardiomyopathy. Because cannot exclude acute coronary syndrome, heparin drip for 48 hours. Did not pursue cardiac catheterization given that wall motion abnormalities on echo correlate with RCA territory, which is known to be severely diseased (occluded RCA with L to R collaterals) for which medical therapy has been recommended. Holding beta-harsha due to bradycardia while initiating amiodarone as above. Continue antiplatelet therapy and high intensity statin therapy. 3: CAD: Severe CAD involving the RCA as per most recent cardiac catheterization with moderate CAD involving the LAD. Plan as above. Continue antiplatelet therapy and statin therapy. Repeat cardiac catheterization not recommended at this time. 4. Chest pain: As above. Chest pain resolved when atrial fibrillation converted to sinus. Likely angina in the setting of severe CAD, A. fib with RVR, and hypertrophic cardiomyopathy with prior LVOT obstruction. 5. Acute on chronic heart failure with preserved EF: Still likely hypervolemic. Increase Lasix to 40 mg IV twice daily. Strict I's and O's. Daily weights. Low-sodium diet. Heart failure program referral. 6. CKD: Seems to be at her baseline. Continue to monitor. 7. Hypertension: Blood pressure remains hypertensive. May improve with diuresis. Will start low-dose amlodipine, which may also offer antianginal benefit. No SANDRA inhibitor or ARB given renal issues. 8. Dyslipidemia: Continue high intensity statin therapy. 9. Tobacco abuse: Smoking cessation. 10. Hypertrophic cardiomyopathy: Plan as above. No LVOT obstruction on 08/21/2022 echo. Beta-harsha held given bradycardia and initiation of amiodarone as above 11. Disposition: Cardiology will continue to follow. Patient care care with Dr. Cox of the primary hospitalist service. On discharge, she should have close follow-up with Dr. Dangelo, her primary freelance patternmaker. Also recommend heart failure program referral. Highly complex medical issues. Admission and Anticipated Discharge Date Admission Date: August 21, 2022 Subjective Patient seen this morning. She asked if she could go home. She is short of breath but states that she is chronically short of breath and believes that she is at her baseline. She has not had any further chest pain. She denies syncope, palpitations, bleeding, or edema. Review of systems: As above. She was alone in her hospital room. Physical Exam Physical Exam: Gen.: No acute distress. Alert. HEENT: Anicteric sclera. Neck: No appreciable JVD, but thick neck. Cardiac: No ventricular heave. Regular in the 50s. Distant S1-S2. No murmurs, rubs, or gallops. Pulmonary: Decreased breath sounds throughout, but otherwise, clear to auscultation bilaterally without wheezes, rales, or rhonchi. Abdomen: Soft, nontender, nondistended, with normoactive bowel sounds. No bruits noted. Extremities: 2+ radial pulses bilaterally. 2+ posterior tibialis pulses bilaterally. Trace bilateral lower extremity edema. No cyanosis. Results & Data ([facility]) Vital Signs (Past 12 Hours) Vital Signs Temp Pulse Resp BP Pulse Ox O2 Del Method O2 Flow Rate 08/22/22 08:00 55 L 08/22/22 06:02 55 L 20 94 08/22/22 06:00 58 L 20 94 08/22/22 05:01 156/78 H 08/22/22 05:01 65 20 89 L 08/22/22 05:00 66 20 88 L 08/21/22 23:50 Nasal Cannula 3 08/22/22 04:01 60 18 90 08/22/22 04:01 162/66 H 08/22/22 04:00 60 18 90 08/22/22 03:01 58 L 16 91 08/22/22 03:01 148/61 H 08/22/22 03:00 58 L 17 89 L 08/22/22 03:00 36.9 C 08/22/22 02:01 158/59 H 08/22/22 02:01 58 L 33 H 90 08/22/22 02:00 59 L 18 91 08/22/22 01:01 53 L 18 92 08/22/22 01:01 136/79 08/22/22 00:04 58 L 18 90 08/22/22 00:04 166/53 H 08/22/22 00:00 59 L 18 90 08/22/22 00:00 56 L 08/21/22 23:01 188/77 H 08/21/22 23:01 57 L 19 91 08/21/22 23:00 54 L 32 H 91 08/21/22 23:00 36.9 C Intake & Output 08/20/22 08/21/22 08/22/22 08/23/22 06:59 06:59 06:59 06:59 Intake Total 1015.7 / 1015.7 Output Total 150 / 150 Balance 865.7 / 865.7 Weight 212 lb 8.41 oz 213 lb 2.992 oz Laboratory Results Laboratory Results - last 24 hr 08/21/22 08/21/22 08/21/22 09:05 14:00 14:12 WBC RBC Hgb Hct MCV MCH MCHC RDW Std Deviation RDW Coeff of Lakshmi Plt Count MPV Immature Gran % (Auto) Neut % (Auto) Lymph % (Auto) Stone % (Auto) Eos % (Auto) Baso % (Auto) Neut # (Auto) Lymph # (Auto) Stone # (Auto) Eos # (Auto) Baso # (Auto) Immature Gran # (Auto) APTT PTT Ratio Sodium Potassium Chloride Carbon Dioxide Anion Gap BUN Creatinine Est Cr Clr Drug Dosing Est GFR ( Amer) Est GFR (Non-Af Amer) BUN/Creatinine Ratio Glucose Calcium Magnesium 1.9 Troponin I High Sens 92686.7 H* D TSH Nasal Screen MRSA (PCR) Negative 08/21/22 08/21/22 08/21/22 14:12 19:51 22:20 WBC RBC Hgb Hct MCV MCH MCHC RDW Std Deviation RDW Coeff of Lakshmi Plt Count MPV Immature Gran % (Auto) Neut % (Auto) Lymph % (Auto) Stone % (Auto) Eos % (Auto) Baso % (Auto) Neut # (Auto) Lymph # (Auto) [place] # (Auto) Eos # (Auto) Baso # (Auto) Immature Gran # (Auto) APTT 61.9 H* PTT Ratio 2.3 Sodium Potassium Chloride Carbon Dioxide Anion Gap BUN Creatinine Est Cr Clr Drug Dosing Est GFR ( Amer) Est GFR (Non-Af Amer) BUN/Creatinine Ratio Glucose Calcium Magnesium Troponin I High Sens 70400.1 H* TSH 2.353 Nasal Screen MRSA (PCR) 08/22/22 08/22/22 08/22/22 01:25 04:41 04:41 WBC 10.75 RBC 2.99 L Hgb 9.0 L Hct 27.5 L MCV 92.0 MCH 30.1 MCHC 32.7 RDW Std Deviation 54.7 H RDW Coeff of Lakshmi 16.2 H Plt Count 209 MPV 10.7 Immature Gran % (Auto) 0.4 Neut % (Auto) 76.6 Lymph % (Auto) 13.7 Stone % (Auto) 7.3 Eos % (Auto) 1.5 Baso % (Auto) 0.5 Neut # (Auto) 8.25 H Lymph # (Auto) 1.47 Stone # (Auto) 0.78 Eos # (Auto) 0.16 Baso # (Auto) 0.05 Immature Gran # (Auto) 0.04 H APTT PTT Ratio Sodium 142 Potassium 4.2 D Chloride 110 H Carbon Dioxide 25 Anion Gap 7 BUN 37 H Creatinine 2.24 H D Est Cr Clr Drug Dosing 22.6 Est GFR ( Amer) 24.1 Est GFR (Non-Af Amer) 20.8 BUN/Creatinine Ratio 16.5 Glucose 95 Calcium 8.6 Magnesium 2.1 Troponin I High Sens 7070.7 H* D TSH Nasal Screen MRSA (PCR) 08/22/22 04:41 WBC RBC Hgb Hct MCV MCH MCHC RDW Std Deviation RDW Coeff of Lakshmi Plt Count MPV Immature Gran % (Auto) Neut % (Auto) Lymph % (Auto) Stone % (Auto) Eos % (Auto) Baso % (Auto) Neut # (Auto) Lymph # (Auto) Stone # (Auto) Eos # (Auto) Baso # (Auto) Immature Gran # (Auto) APTT 73.2 H* PTT Ratio 2.7 Sodium Potassium Chloride Carbon Dioxide Anion Gap BUN Creatinine Est Cr Clr Drug Dosing Est GFR ( Amer) Est GFR (Non-Af Amer) BUN/Creatinine Ratio Glucose Calcium Magnesium Troponin I High Sens TSH Nasal Screen MRSA (PCR) Diagnostic Findings Telemetry personally reviewed: She has remained in sinus rhythm. When she converted in the emergency department on 08/21/2022, there was a 5.5 second conversion pause at 8:53 AM. Chart reviewed. ECG personally reviewed 08/22/2022 at 6:53 AM: Sinus with first-degree AV block 60 bpm. LVH with repolarization abnormality. Inferior infarct. T wave inversion present anterolateral leads. Labs reviewed. Medications Administered Current Inpatient Medications Acetaminophen (Acetaminophen 325 Mg Tab) 650 mg PO Q4H PRN PRN Reason: Pain or Fever Stop: 09/20/22 06:21 Albuterol (Albuterol Hfa 8 Gm Inhaler) 2 puffs INH Q4H PRN PRN Reason: shortness of breath or wheezin Stop: 09/20/22 06:21 Amiodarone HCl (Amiodarone 200 Mg Tab) 200 mg PO BIDM [facility] Stop: 09/20/22 16:59 Last Admin: 08/22/22 09:29 Dose: 200 mg Aspirin (Aspirin 81 Mg Ectab) 81 mg PO QAM [facility] Stop: 09/20/22 08:59 Last Admin: 08/22/22 09:30 Dose: 81 mg Atorvastatin Calcium (Atorvastatin 40 Mg Tab) 40 mg PO QPM [facility] Stop: 09/20/22 20:59 Last Admin: 08/21/22 22:34 Dose: 40 mg Clopidogrel Bisulfate (Clopidogrel Bisulfate 75 Mg Tab) [facility] [place] Stop: 09/20/22 08:59 Last Admin: 08/22/22 09:31 Dose: 75 mg Furosemide (Furosemide 40 Mg/4 Ml Vial) [facility] [place] Stop: 09/20/22 06:59 Last Admin: 08/22/22 09:31 Dose: 40 mg Heparin Sodium/Dextrose (Heparin Sodium/Dextrose) 25,000 units in 500 mls @ 23 mls/hr IV .[id number] [facility]; Protocol Stop: 09/20/22 15:29 Last Titration: 08/22/22 06:58 Dose: 1,150 units/hr, 23 mls/hr Isosorbide Mononitrate (Isosorbide Stone Extended Rel 30 Mg Tabcr) 30 mg PO DAILY [facility] Stop: 09/20/22 08:59 Last Admin: 08/22/22 09:30 Dose: 30 mg Nitroglycerin (Nitroglycerin Sl 0.4 Mg/Tab Tab) 0.4 mg SL Q5M PRN PRN Reason: chest pain Stop: 09/20/22 06:21 Ondansetron HCl (Ondansetron Inj 2 Mg/Ml 2 Ml Vial) 4 mg IV Q6H PRN PRN Reason: Nausea Stop: 09/20/22 06:21 Umeclidinium [place] (Umeclidinium [place] 62.5mcg/Blister 7 Puffs/Inhaler) 1 puffs INH [facility] Stop: 09/20/22 08:59 Last Admin: 08/22/22 09:31 Dose: 1 puffs PG Care Time/CCT Total # of Minutes Spent Total Time Spent with Patient: Total time spent is greater than 50% in coordination of care (as documented) at patient's floor/unit and/or counseling patient: Coding Level of Care Code 51106 SUB INP/OBS CARE 3/50MIN Diagnoses Non-STEMI (non-ST elevated myocardial infarction) I21.4 Acute on chronic heart failure with preserved ejection fraction (HFpEF) I50.33 Paroxysmal atrial fibrillation I48.0 Coronary artery disease I25.10 Cardiomyopathy, hypertrophic I42.2 Substernal chest pain R07.2 Hypertension I10 Chronic kidney disease, stage 3b N18.32 Dyslipidemia E78.5 Tobacco abuse counseling Z71.6
[2022-08-22] MEDS: HEPARIN SODIUM/DEXTROSE 25,000 UNITS/500 ML BAG IV SCH (12:38)
[2022-08-22 13:03] LABS: Partial Thromboplastin Ratio 2.6
[2022-08-22 13:22] LABS: Partial Thromboplastin Time 71.4 Seconds (21.0-31.0)
[2022-08-22] MEDS ORDERED: hydrALAZINE HCL 25 MG TAB PO STA (16:46)
[2022-08-22] MEDS ORDERED: amLODIPine BESYLATE 5 MG TAB PO ONE (18:07)
[2022-08-22] MEDS: hydrALAZINE HCL 25 MG TAB PO SCH (20:15)
[2022-08-22] MEDS: ATORVASTATIN 40 MG TAB PO SCH (20:15)
[2022-08-22 20:37] LABS: Partial Thromboplastin Ratio 2.7
[2022-08-22 20:44] LABS: Partial Thromboplastin Time 74.6 Seconds (21.0-31.0)
--- NOTE | 2022-08-22 20:49 | Hospitalist Progress Note ---
Date of Service August 22, 2022 Assessment & Plan (1) Non-STEMI (non-ST elevated myocardial infarction): Plan: peak HS troponin 10,400. difficulty to say if type 1 or type 2 NC as she has known CAD. previous cardiac cath was 04/2022 with the following - LM -large caliber, calcified, 20% ostial LAD -large caliber, calcified focal mid 60% stenosis at takeoff of large septal. Remainder of vessel without significant disease. D1 without significant disease. Circumflex -medium caliber, luminal irregularities. Large OM2, OM3 without significant disease. RCA -dominant, calcified, medium caliber, 40% proximal disease. Mid segment with SEBASTIÁN II flow prior to subtotal occlusion with questionable thrombus. PDA/PLB fill retrograde via [id number] collaterals. During that 04/2022 cath no stents were deployed. she is chest pain free; much of her chest symptoms resolved when the PAF resolved. remains on heparin drip in the event this was a type 1 NC event. plan 48 hours (can d/c tomorrow AM). cont asa 81mg daily; plavix 75mg daily; lipitor 40mg daily; imdur 30mg daily. she is NOT on beta blockade due to documented significant bradycardia on such. (2) Paroxysmal atrial fibrillation: Plan: resolved, no recurrence since admission. appreciate Dr Bain's consultation & recs. he started amiodarone 200mg BID for rhythm control. TSH is wnl. continue tele monitoring. 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 CHADs-VASCs score is very high. Will d/w patient, but suspect she will not be agreeable to anticoagulation. (3) Acute on chronic heart failure with preserved ejection fraction (HFpEF): Plan: remains decompensated clinically given her pulmonary symptoms and O2 requirement. agree with increase in lasix to 40mg BID. if lasix does not effect an adequate diuresis could consider bumex. (4) Renal artery stenosis: Plan: vascular surgery records were reviewed from [facility]. these document a past h/o bilateral renal artery stenosis. MRA abdomen from 2005 indeed showed the following -- 50 to 70% stenosis of the left renal artery at its origin with a 50 to 60% stenosis in the right. Given her [id number] BPs consider a doppler study of her renal arteries. (5) Chronic kidney disease, stage IV (severe): Plan: baseline CrCl 25-30 BMP in am not SANDRA or ARB candidate for her CHF due to her CKD (6) Cardiomyopathy, hypertrophic: Plan: as seen on prior echos EF >70% (7) Hypertension: Plan: poorly controlled I added hydralazine 25mg TID to her imdur as she is not an SANDRA or ARB candidate later in the day I saw that Dr Bain also added amlodipine 5mg daily May need to drop the hydralazine follow BPs closely (8) Tobacco dependence: Plan: christian counselor to quit (9) Anemia due to chronic kidney disease: Plan: H/H stable at this time h/o Fe def in the past - recheck Fe studies in am (10) Vitamin B12 deficiency: Plan: B12 level in 08/2021 was well within normal limits (11) Vitamin D deficiency: Plan: 25-OH level in 02/2022 was wnl (12) AAA (abdominal aortic aneurysm): Plan: h/o such, >5cm, previously seen by [facility] vascular surgery and the [facility] told she was not a candidate for AAA repair some records suggest her AAA is occluded with distal reconstitution?? (13) Coronary artery disease: Plan: see #1 above (14) Peripheral vascular disease: Plan: see above (15) Dyslipidemia: Plan: LDL was 58 in 05/2022 cont statin agent (16) COPD (chronic obstructive pulmonary disease): Plan: cont home inhalers cont nebs prn Plan seen by PT/OT both suggest she can return home with services appreciate cardiology assistance Admission and Anticipated Discharge Date Admission Date: August 21, 2022 Subjective no runs of a.fib overnight during the visit she was sleeping but did awaken to her name being called I told her she looked visibly dyspneic and she responded by saying she is "always short of breath" mild cough some wheezing no chest pain or pressure per staff she worked with therapy this am and was worn out after such Review of Systems Review of Systems: gen - fatigued cv - orthopnea present pulm - ongoing dyspnea GI - no abd pain, nausea or emesis Physical Exam Physical Exam: gen - looks chronically ill, mild tachypnea, sleepy neck - no obvious JVD mouth - MMM heart - RRR, s1 s2, no murmur lungs - decreased BS bases, mild end-exp wheezes abd - soft NT ND BS+ ext - pulses of feet 1+ b/l, trace edema b/l psych - oriented to person/place (asked to go home from hospital) but sleepy Results & Data Results & Data ([facility]) Vital Signs (Past 12 Hours) Vital Signs Pulse Resp BP Pulse Ox O2 Del Method 08/22/22 17:30 66 17 93 08/22/22 17:26 174/74 H 08/22/22 17:26 66 27 H 89 L 08/22/22 17:14 66 26 H 94 08/22/22 17:14 199/76 H 08/22/22 17:00 65 36 H 94 08/22/22 16:30 73 40 H 95 08/22/22 16:00 68 08/22/22 16:29 212/84 H 08/22/22 16:29 74 29 H 94 08/22/22 16:04 198/94 H 08/22/22 16:04 64 32 H 94 08/22/22 16:00 65 37 H 92 08/22/22 16:00 205/84 H 08/22/22 15:42 69 32 H 94 08/22/22 15:42 187/84 H 08/22/22 15:00 63 33 H 94 08/22/22 15:00 183/71 H 08/22/22 14:00 72 42 H 91 08/22/22 14:00 198/78 H 08/22/22 13:44 167/75 H 08/22/22 13:44 76 20 90 08/22/22 13:00 174/66 H 08/22/22 13:00 72 25 H 08/22/22 12:00 67 37 H 08/22/22 10:01 178/86 H 08/22/22 10:01 76 23 87 L 08/22/22 10:00 73 28 H 88 L 08/22/22 09:00 60 34 H 90 08/22/22 09:00 139/60 08/22/22 11:37 Nasal Cannula Laboratory Results Laboratory Results - last 24 hr 08/21/22 08/21/22 08/22/22 19:51 22:20 01:25 WBC RBC Hgb Hct MCV MCH MCHC RDW Std Deviation RDW Coeff of Lakshmi Plt Count MPV Immature Gran % (Auto) Neut % (Auto) Lymph % (Auto) [place] % (Auto) Eos % (Auto) Baso % (Auto) Neut # (Auto) Lymph # (Auto) [place] # (Auto) Eos # (Auto) Baso # (Auto) Immature Gran # (Auto) APTT 61.9 H* PTT Ratio 2.3 Sodium Potassium Chloride Carbon Dioxide Anion Gap BUN Creatinine Est Cr Clr Drug Dosing Est GFR ( Amer) Est GFR (Non-Af Amer) BUN/Creatinine Ratio Glucose Calcium Magnesium Troponin I High Sens 06765.1 H* 7070.7 H* D 08/22/22 08/22/22 08/22/22 04:41 04:41 04:41 WBC 10.75 RBC 2.99 L Hgb 9.0 L Hct 27.5 L MCV 92.0 MCH 30.1 MCHC 32.7 RDW Std Deviation 54.7 H RDW Coeff of Lakshmi 16.2 H Plt Count 209 MPV 10.7 Immature Gran % (Auto) 0.4 Neut % (Auto) 76.6 Lymph % (Auto) 13.7 [place] % (Auto) 7.3 Eos % (Auto) 1.5 Baso % (Auto) 0.5 Neut # (Auto) 8.25 H Lymph # (Auto) 1.47 [place] # (Auto) 0.78 Eos # (Auto) 0.16 Baso # (Auto) 0.05 Immature Gran # (Auto) 0.04 H APTT 73.2 H* PTT Ratio 2.7 Sodium 142 Potassium 4.2 D Chloride 110 H Carbon Dioxide 25 Anion Gap 7 BUN 37 H Creatinine 2.24 H D Est Cr Clr Drug Dosing 22.6 Est GFR ( Amer) 24.1 Est GFR (Non-Af Amer) 20.8 BUN/Creatinine Ratio 16.5 Glucose 95 Calcium 8.6 Magnesium 2.1 Troponin I High Sens 08/22/22 08/22/22 12:15 19:55 WBC RBC Hgb Hct MCV MCH MCHC RDW Std Deviation RDW Coeff of Lakshmi Plt Count MPV Immature Gran % (Auto) Neut % (Auto) Lymph % (Auto) [place] % (Auto) Eos % (Auto) Baso % (Auto) Neut # (Auto) Lymph # (Auto) [place] # (Auto) Eos # (Auto) Baso # (Auto) Immature Gran # (Auto) APTT 71.4 H* 74.6 H* PTT Ratio 2.6 2.7 Sodium Potassium Chloride Carbon Dioxide Anion Gap BUN Creatinine Est Cr Clr Drug Dosing Est GFR ( Amer) Est GFR (Non-Af Amer) BUN/Creatinine Ratio Glucose Calcium Magnesium Troponin I High Sens PG Care Time/CCT Total # of Minutes Spent Total Time Spent with Patient: Total time spent is greater than 50% in coordination of care (as documented) at patient's floor/unit and/or counseling patient: Coding Level of Care Code 79213 SUB INP/OBS CARE 3/50MIN Diagnoses Non-STEMI (non-ST elevated myocardial infarction) I21.4 Paroxysmal atrial fibrillation I48.0 Acute on chronic heart failure with preserved ejection fraction (HFpEF) I50.33 Renal artery stenosis I70.1 Chronic kidney disease, stage IV (severe) N18.4 Cardiomyopathy, hypertrophic I42.2 Hypertension I10 Tobacco dependence F17.200 Anemia due to chronic kidney disease N18.9; D63.1 Vitamin B12 deficiency E53.8 Vitamin D deficiency E55.9 AAA (abdominal aortic aneurysm) I71.4 Coronary artery disease I25.10 Peripheral vascular disease I73.9 Dyslipidemia E78.5 COPD (chronic obstructive pulmonary disease) J44.9
[2022-08-23 03:39] LABS: Hematocrit (blood only) 26.9 % (34.1-44.9); Hemoglobin 8.8 g/dl (12.0-16.0)
[2022-08-23 04:06] LABS: Partial Thromboplastin Ratio 2.9
[2022-08-23 04:16] LABS: Ferritin 59.6 ng/ml (8-388)
[2022-08-23 04:17] LABS: Partial Thromboplastin Time 78.7 Seconds (21.0-31.0)
[2022-08-23 04:23] LABS: BUN Creatinine Ratio 18.3 (10-20); Calcium 8.3 mg/dl (8.5-10.1); Creatinine Clr Calc Pharmacy 23.2 ml/min; Est GFR (African American) 24.9 ml/min; Est GFR (Non-African American) 21.5 ml/min; Potassium 4.1 mmol/L (3.5-5.1)
--- NOTE | 2022-08-23 05:45 | Electrocardiogram Report ---
Test Reason : Blood Pressure : / mmHG Vent. Rate : 113 BPM Atrial Rate : 113 BPM P-R Int : 184 ms QRS Dur : 086 ms QT Int : 358 ms P-R-T Axes : 000 -46 129 degrees QTc Int : 491 ms Atrial fibrillation with rapid ventricular response Left axis deviation Left ventricular hypertrophy with repolarization abnormality Anterior infarct Prolonged QT Abnormal ECG When compared with ECG of 20-APR-2022 00:05, Criteria for Inferior infarct are no longer Present Confirmed by Kevin Bain ([id number]) on 08/23/2022 5:45:32 AM Referred By: REFERRED SELF Confirmed By:Kevin Bain
--- NOTE | 2022-08-23 05:54 | Electrocardiogram Report ---
Test Reason : Blood Pressure : / mmHG Vent. Rate : 058 BPM Atrial Rate : 058 BPM P-R Int : 240 ms QRS Dur : 082 ms QT Int : 442 ms P-R-T Axes : 031 -45 122 degrees QTc Int : 433 ms Sinus bradycardia with 1st degree A-V block Left axis deviation Left ventricular hypertrophy with repolarization abnormality Inferior infarct , age undetermined Anterior infarct , age undetermined Abnormal ECG When compared with ECG of 21-AUG-2022 04:04, Sinus rhythm has replaced Atrial fibrillation Vent. rate has decreased BY 55 BPM Inferior infarct is now Present ST less depressed in Lateral leads Confirmed by Kevin Bain ([id number]) on 08/23/2022 5:54:40 AM Referred By: REFERRED SELF Confirmed By:Kevin Bain
[2022-08-23] MEDS: ISOSORBIDE MONO EXTENDED REL 30 MG TABCR PO SCH (08:40)
[2022-08-23] MEDS: amLODIPine BESYLATE 5 MG TAB PO SCH (08:40)
[2022-08-23] MEDS: ASPIRIN 81 MG ECTAB PO SCH (08:40)
[2022-08-23] MEDS: CLOPIDOGREL BISULFATE 75 MG TAB PO SCH (08:40)
[2022-08-23] MEDS: AMIODARONE 200 MG TAB PO SCH ×2 (08:40→17:02)
[2022-08-23] MEDS: UMECLIDINIUM BROMIDE 62.5MCG/BLISTER 7 PUFFS/INHALER INH SCH (08:41)
[2022-08-23] MEDS: FUROSEMIDE 40 MG/4 ML VIAL IV SCH ×2 (08:41→20:36)
[2022-08-23] MEDS: hydrALAZINE HCL 25 MG TAB PO SCH ×3 (08:41→20:36)
--- NOTE | 2022-08-23 12:17 | Ultrasound Report ---
US duplex renal artery CLINICAL HISTORY: malignant hypertension, h/o renal artery stenosis COMPARISON STUDY: Renal ultrasound 06/23/2012. Abdomen and pelvis CT 09/28/2021. FINDINGS: The right kidney measures 10.0 cm and the left kidney measures 15.0 cm. The lower pole the right kidney is obscure by overlying bowel gas. There is moderate bilateral cortical renal thinning. Multiple bilateral renal cysts with the largest on the left measuring 5 cm. There is a partially visu alized thrombosed abdominal aortic aneurysm measuring up to 4.8 cm in diameter. This is not well visu alized due to the overlying bowel. The systolic velocity within the mid right renal artery is 86 cm/s . Peak systolic velocity within the distal left renal artery is 56 cm/s. The left mid and proximal re nal artery are not identified. The bilateral renal veins appear patent. IMPRESSION: 1. Suboptimal evaluation due to the patient's body habitus and overlying bowel gas. 2. There is a partially visualized abdominal aortic aneurysm measuring approximately 4.8 cm in diamet er. This appears completely thrombosed. This is likely stable compared to the prior study. 3. No evidence for significant stenosis within the visualized renal arteries. ACT 112: Negative or not required by law. Electronically signed by: Farhad Dhillon M.D. 08/23/2022 12:15 PM
[2022-08-23 12:26] LABS: Partial Thromboplastin Ratio 2.5
[2022-08-23 12:45] LABS: Partial Thromboplastin Time 69.4 Seconds (21.0-31.0)
[2022-08-23] MEDS: HEPARIN SODIUM/DEXTROSE 25,000 UNITS/500 ML BAG IV SCH ×2 (12:48→12:50)
--- NOTE | 2022-08-23 13:05 | Cardiology Progress Note ---
Date of Service August 23, 2022 Assessment & Plan (1) Non-STEMI (non-ST elevated myocardial infarction): (2) Acute on chronic heart failure with preserved ejection fraction (HFpEF): (3) Paroxysmal atrial fibrillation: (4) Coronary artery disease: (5) Cardiomyopathy, hypertrophic: (6) Substernal chest pain: (7) Hypertension: (8) Chronic kidney disease, stage 3b: (9) Dyslipidemia: (10) Tobacco abuse counseling: Plan ASSESSMENT/PLAN: 1. Paroxysmal atrial fibrillation: Presenting symptoms including chest pain resolved once converted to sinus rhythm. Given her severe CAD, history of hypertrophic cardiomyopathy, and other comorbidities, she does not appear to tolerate atrial fibrillation and had elevated troponins, suggesting myocardial injury while in atrial fibrillation. Amiodarone initiated and tolerating thus far. Beta-harsha discontinued to allow for adequate heart rate in the setting of amiodarone. If she develops significant bradycardia or pauses, would consider pacemaker placement for tachybradycardia syndrome. Reduce amiodarone on discharge to 200 mg daily with close follow-up in her cardiology office. In regards to anticoagulation therapy for stroke risk reduction, she was on Xarelto 15 mg once daily in the past and had heme positive stool and profound anemia requiring blood transfusion. She also declines long-term anticoagulation therapy. While on heparin drip, hemoglobin is trending downward. Consider watchman device as an outpatient if she is willing to consider. Monitor TSH and transaminase levels while on amiodarone as an outpatient. 2. NSTEMI: Likely due to demand ischemia in the setting of severe CAD and hypertrophic cardiomyopathy in the setting of atrial fibrillation with rapid ventricular response. [place] [id number]. Given that her angina immediately resolved with conversion to sinus rhythm, mechanism of the MD still likely due to with RVR demand ischemia from a with underlying CAD and hypertrophic cardiomyopathy. Because cannot exclude acute coronary syndrome, heparin drip for 48 hours. Can discontinue heparin now. Did not pursue cardiac catheterization given that wall motion abnormalities on echo correlate with RCA territory, which is known to be severely diseased (occluded RCA with L to R collaterals) for which medical therapy has been recommended. Holding beta-harsha due to bradycardia while initiating amiodarone as above. Continue antiplatelet therapy and high intensity statin therapy. 3: CAD: Severe CAD involving the RCA as per most recent cardiac catheterization with moderate CAD involving the LAD. Plan as above. Continue antiplatelet therapy and statin therapy. Repeat cardiac catheterization not recommended at this time. 4. Chest pain: As above. Chest pain resolved when atrial fibrillation converted to sinus. Likely angina in the setting of severe CAD, A. fib with RVR, and hypertrophic cardiomyopathy with prior LVOT obstruction. 5. Acute on chronic heart failure with preserved EF: Difficult exam. Still requiring significant oxygen supplementation. Continue Lasix 40 mg IV twice daily for now. Strict I's and O's (discussed with nurse). Daily weights. Low-sodium diet. Heart failure program referral. 6. CKD: Seems to be at her baseline. Continue to monitor. 7. Hypertension: Blood pressure remains hypertensive. Now on amlodipine and hydralazine. Can titrate for effect. No SANDRA inhibitor or ARB given renal issues. 8. Dyslipidemia: Continue high intensity statin therapy. 9. Tobacco abuse: Smoking cessation. 10. Hypertrophic cardiomyopathy: Plan as above. No LVOT obstruction on 08/21/2022 echo. Beta-harsha held given bradycardia and initiation of amiodarone as above 11. Hypoxia: Not clear that HF fully responsible for continued supplemental oxygen. Consider COPD/emphysema as possibly contributing as well. Continue to diurese as above. 12. Disposition: Cardiology will continue to follow. Patient care communicated with Dr. Cox of the primary hospitalist service. On discharge, she should have close follow-up with Dr. Dangelo, her primary overlock hemmer. Also recommend heart failure program follow up. Highly complex medical issues. Admission and Anticipated Discharge Date Admission Date: August 21, 2022 Subjective She denies shortness of breath but remains on 5 L of supplemental oxygen via nasal cannula. She denies orthopnea, chest pain, syncope, near syncope, palpitations, edema, or bleeding. She has ambulated to use the restroom and denies shortness of breath. Unfortunately, fluid balance is unavailable. She was alone in her hospital room. Physical Exam Physical Exam: Gen.: No acute distress. Alert. HEENT: Anicteric sclera. Neck: No appreciable JVD, but thick neck. Cardiac: No ventricular heave. Regular. Distant S1-S2. No murmurs, rubs, or gallops. Pulmonary: Decreased breath sounds throughout. Abdomen: Soft, nontender, nondistended, with normoactive bowel sounds. No bruits noted. Extremities: 2+ radial pulses bilaterally. 2+ posterior tibialis pulses bilat erally. Trace bilateral lower extremity edema. No cyanosis. Results & Data ([facility]) Vital Signs (Past 12 Hours) Vital Signs Temp Pulse Resp BP Pulse Ox O2 Del Method O2 Flow Rate 08/23/22 12:00 60 26 H 177/81 H 93 Nasal Cannula 5 08/23/22 11:08 70 41 H 93 08/23/22 11:08 148/68 H 08/23/22 11:07 71 40 H 93 08/23/22 10:01 57 L 29 H 95 08/23/22 10:01 186/69 H 08/23/22 10:00 59 L 29 H 90 08/23/22 09:01 61 25 H 97 08/23/22 09:01 203/83 H 08/23/22 09:00 63 30 H 08/23/22 08:00 Nasal Cannula 5 08/23/22 08:00 47 L 08/23/22 11:17 37 C 20 Nasal Cannula 08/23/22 08:46 53 L 20 94 08/23/22 08:46 206/75 H 08/23/22 08:01 55 L 32 H 96 08/23/22 08:01 194/75 H 08/23/22 08:00 52 L 30 H 93 08/23/22 07:01 197/69 H 08/23/22 07:01 55 L 29 H 94 08/23/22 07:00 55 L 29 H 94 08/23/22 08:48 Nasal Cannula 08/23/22 06:14 71 20 94 08/23/22 06:14 158/90 H 08/23/22 06:08 79 20 08/23/22 05:01 158/66 H 08/23/22 05:01 55 L 20 94 08/23/22 05:00 54 L 20 94 08/23/22 04:00 65 18 08/23/22 04:00 192/74 H 08/23/22 03:00 60 18 89 L 08/23/22 03:00 181/63 H 08/23/22 02:01 66 18 94 08/23/22 02:01 172/68 H 08/23/22 02:00 58 L 18 89 L 08/23/22 01:00 65 18 08/23/22 01:00 180/72 H 08/23/22 03:00 36.7 C FiO2 08/23/22 12:00 08/23/22 11:08 08/23/22 11:08 08/23/22 11:07 08/23/22 10:01 08/23/22 10:01 08/23/22 10:00 08/23/22 09:01 08/23/22 09:01 08/23/22 09:00 08/23/22 08:00 08/23/22 08:00 08/23/22 11:17 5 08/23/22 08:46 08/23/22 08:46 08/23/22 08:01 08/23/22 08:01 08/23/22 08:00 08/23/22 07:01 08/23/22 07:01 08/23/22 07:00 08/23/22 08:48 5 08/23/22 06:14 08/23/22 06:14 08/23/22 06:08 08/23/22 05:01 08/23/22 05:01 08/23/22 05:00 08/23/22 04:00 08/23/22 04:00 08/23/22 03:00 08/23/22 03:00 08/23/22 02:01 08/23/22 02:01 08/23/22 02:00 08/23/22 01:00 08/23/22 01:00 08/23/22 03:00 Laboratory Results Laboratory Results - last 24 hr 08/22/22 08/22/22 08/23/22 12:15 19:55 03:12 Hgb Hct APTT 71.4 H* 74.6 H* 78.7 H* PTT Ratio 2.6 2.7 2.9 Sodium Potassium Chloride Carbon Dioxide Anion Gap BUN Creatinine Est Cr Clr Drug Dosing Est GFR ( Amer) Est GFR (Non-Af Amer) BUN/Creatinine Ratio Glucose Calcium Iron TIBC Unsaturated IBC Transferrin % Sat Ferritin 08/23/22 08/23/22 08/23/22 03:12 03:12 10:18 Hgb 8.8 L Hct 26.9 L APTT 69.4 H* PTT Ratio 2.5 Sodium 142 Potassium 4.1 Chloride 110 H Carbon Dioxide 26 Anion Gap 6 BUN 40 H Creatinine 2.18 H Est Cr Clr Drug Dosing 23.2 Est GFR ( Amer) 24.9 Est GFR (Non-Af Amer) 21.5 BUN/Creatinine Ratio 18.3 Glucose 98 Calcium 8.3 L Iron 28 L TIBC 248 L Unsaturated IBC 220 Transferrin % Sat 11 L Ferritin 59.6 Diagnostic Findings Telemetry personally reviewed: Sinus rhythm and sinus bradycardia. No arrhythmia. ECG personally reviewed 08/23/2022 at 6:51 AM: Sinus rhythm 62 bpm. LVH with repolarization abnormality. Inferior infarct. Chart reviewed. Labs reviewed: Renal function remained stable. Anemic. Renal artery duplex 08/23/2022: Suboptimal evaluation due to patient's body habitus and overlying bowel gas. AAA 4.8 cm. This appears completely thrombosed and likely stable compared to prior study. No evidence for significant stenosis within the visualized renal arteries per radiology. Medications Administered Current Inpatient Medications Acetaminophen (Acetaminophen 325 Mg Tab) 650 mg PO Q4H PRN PRN Reason: Pain or Fever Stop: 09/20/22 06:21 Albuterol (Albuterol Hfa 8 Gm Inhaler) 2 puffs INH Q4H PRN PRN Reason: shortness of breath or wheezin Stop: 09/20/22 06:21 Amiodarone HCl (Amiodarone 200 Mg Tab) 200 mg PO BIDM [facility] Stop: 09/20/22 16:59 Last Admin: 08/23/22 08:40 Dose: 200 mg Amlodipine Besylate (Amlodipine Besylate 5 Mg Tab) 5 mg PO QAM [facility] Stop: 09/22/22 08:59 Last Admin: 08/23/22 08:40 Dose: 5 mg Aspirin (Aspirin 81 Mg Ectab) 81 mg PO QAM [facility] Stop: 09/20/22 08:59 Last Admin: 08/23/22 08:40 Dose: 81 mg Atorvastatin Calcium (Atorvastatin 40 Mg Tab) 40 mg PO QPM [facility] Stop: 09/20/22 20:59 Last Admin: 08/22/22 20:15 Dose: 40 mg Clopidogrel Bisulfate (Clopidogrel Bisulfate 75 Mg Tab) 75 mg PO QAM [facility] Stop: 09/20/22 08:59 Last Admin: 08/23/22 08:40 Dose: 75 mg Furosemide (Furosemide 40 Mg/4 Ml Vial) 40 mg IV BID [facility] Stop: 09/21/22 20:59 Last Admin: 08/23/22 08:41 Dose: 40 mg Hydralazine HCl (Hydralazine Hcl 25 Mg Tab) 25 mg PO TID [facility] Stop: 09/21/22 20:59 Last Admin: 08/23/22 08:41 Dose: 25 mg Heparin Sodium/Dextrose (Heparin Sodium/Dextrose) 25,000 units in 500 mls @ 20 mls/hr IV .Q24H [facility]; Protocol Stop: 09/20/22 15:29 Last Admin: 08/23/22 12:50 Dose: Not Given Isosorbide Mononitrate (Isosorbide [place] Extended Rel 30 Mg Tabcr) 30 mg PO DAILY [facility] Stop: 09/20/22 08:59 Last Admin: 08/23/22 08:40 Dose: 30 mg Nitroglycerin (Nitroglycerin Sl 0.4 Mg/Tab Tab) 0.4 mg SL Q5M PRN PRN Reason: chest pain Stop: 09/20/22 06:21 Ondansetron HCl (Ondansetron Inj 2 Mg/Ml 2 Ml Vial) 4 mg IV Q6H PRN PRN Reason: Nausea Stop: 09/20/22 06:21 Umeclidinium [place] (Umeclidinium [place] 62.5mcg/Blister 7 Puffs/Inhaler) 1 puffs INH QAM [facility] Stop: 09/20/22 08:59 Last Admin: 08/23/22 08:41 Dose: 1 puffs PG Care Time/CCT Total # of Minutes Spent Total Time Spent with Patient: Total time spent is greater than 50% in coordination of care (as documented) at patient's floor/unit and/or counseling patient: Coding Level of Care Code 42185 SUB INP/OBS CARE 3/50MIN Diagnoses Non-STEMI (non-ST elevated myocardial infarction) I21.4 Acute on chronic heart failure with preserved ejection fraction (HFpEF) I50.33 Paroxysmal atrial fibrillation I48.0 Coronary artery disease I25.10 Cardiomyopathy, hypertrophic I42.2 Substernal chest pain R07.2 Hypertension I10 Chronic kidney disease, stage 3b N18.32 Dyslipidemia E78.5 Tobacco abuse counseling Z71.6
[2022-08-23 19:19] LABS: Base Excess VBG 7.1 mEq/L; HCO3 VBG 30 mmol/L; Oxygen Saturation VBG 82.6 %; PCO2 VBG 36 mmHg (38-50); PO2 VBG 48 mmHg; pH VBG 7.53 (7.36-7.41)
--- NOTE | 2022-08-23 19:35 | Hospitalist Progress Note ---
Date of Service August 23, 2022 Assessment & Plan (1) Acute respiratory failure with hypoxia: Plan: patient remains tachypneic, and without O2, her O2 sats drop to <88% by report despite aggressive diuresis has continued with O2 requirement. CXR obtained late today - appears to have developing RLL pneumonia. see below. (2) RLL pneumonia: Plan: patient is only about 2 days into her stay - thus, would not consider this hospital-acquired. treat for community acquired pneumonia - start IV unasyn with IV doxy now. by report no issues with dysphagia thus aspiration not suspected. (3) Acute on chronic heart failure with preserved ejection fraction (HFpEF): Plan: approaching euvolemia? was laying flat in bed comfortably during my visit. cont lasix BID for now. appreciate cardiology assistance. (4) Non-STEMI (non-ST elevated myocardial infarction): Plan: peak HS troponin 10,400. difficulty to say if type 1 or type 2 NM as she has known CAD. previous cardiac cath was 04/2022 with the following - LM -large caliber, calcified, 20% ostial LAD -large caliber, calcified focal mid 60% stenosis at takeoff of large septal. Remainder of vessel without significant disease. D1 without significant disease. Circumflex -medium caliber, luminal irregularities. Large OM2, OM3 without significant disease. RCA -dominant, calcified, medium caliber, 40% proximal disease. Mid segment with SEBASTIÁN II flow prior to subtotal occlusion with questionable thrombus. PDA/PLB fill retrograde via [id number] collaterals. During that 04/2022 cath no stents were deployed. has completed 48 hours of heparin infusion. stop heparin at this time. cont asa 81mg daily; plavix 75mg daily; lipitor 40mg daily; imdur 30mg daily. she is NOT on beta blockade due to documented significant bradycardia on such. no recurrent chest pain. (5) Paroxysmal atrial fibrillation: Plan: resolved, no recurrence since admission. appreciate Dr Bain's consultation & recs. he started amiodarone 200mg BID for rhythm control. TSH is wnl. continue tele monitoring. 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 CHADs-VASCs score is very high. Will d/w patient, but suspect she will not be agreeable to anticoagulation. (6) Renal artery stenosis: Plan: vascular surgery records were reviewed from [facility]. these document a past h/o bilateral renal artery stenosis. MRA abdomen from 2005 indeed showed the following -- 50 to 70% stenosis of the left renal artery at its origin with a 50 to 60% stenosis in the right. Given her [id number] BPs consider a doppler study of her renal arteries was obtained; suboptimal study, no ALEXANDER detected, but may need repeat MRA at some point. (7) Chronic kidney disease, stage IV (severe): Plan: baseline CrCl 25-30 baseline Cr low 2's creatinine stable today BMP in am not SANDRA or ARB candidate for her CHF due to her CKD (8) Cardiomyopathy, hypertrophic: Plan: as seen on prior echos EF >70% (9) Hypertension: Plan: poorly controlled hydralazine 25mg TID to her imdur as she is not an SANDRA or ARB candidate amlodipine 5mg also added by cardiology BPs slowly improving titrate tomorrow if needed (10) Tobacco dependence: Plan: behavioral health counselor to quit (11) Anemia due to chronic kidney disease: Plan: H/H stable at this time Fe studies c/w mild Fe def could consider venofer IV while here - defer for now (12) Vitamin B12 deficiency: Plan: B12 level in 08/2021 was well within normal limits (13) Vitamin D deficiency: Plan: 25-OH level in 02/2022 was wnl (14) AAA (abdominal aortic aneurysm): Plan: h/o such, >5cm, previously seen by [facility] vascular surgery and the [facility] told she was not a candidate for AAA repair some records suggest her AAA is occluded with distal reconstitution?? (15) Coronary artery disease: Plan: see above (16) Peripheral vascular disease: Plan: see above (17) Dyslipidemia: Plan: LDL was 58 in 05/2022 cont statin agent (18) COPD (chronic obstructive pulmonary disease): Plan: cont home inhalers cont nebs prn (19) Anorexia: Plan: acutely 2nd to pneumonia? chronic - etiology? (20) Lethargy: Plan: 2nd to developing pneumonia? VBG w/o hypercarbia ammonia wnl follow carefully Plan seen by PT/OT both suggest she can return home with HH services at time of discharge appreciate cardiology assistance Admission and Anticipated Discharge Date Admission Date: August 21, 2022 Subjective patient slept most of today very little PO intake wakes up and is oriented, but quickly returns to sleep she states that her appetite here is similar to how she eats at home - sometimes only eats 1 meal/day urine output has slowed relative to previous days Review of Systems Review of Systems: gen - tired, fatigued, poor appetite; no fevers/chills cv - no chest pain, no orthopnea pulm - no dyspnea at rest; +cough GI - no pain, no nausea neuro - no headache musculo - no myalgia Physical Exam Physical Exam: gen - very sleepy; woke up but quickly returned to sleep; tachypneic neck - no obvious JVD mouth - MMM heart - RRR, s1 s2, no murmur lungs - decreased BS bases R>L; rales R base; no wheezes; tachypneic abd - soft NT ND BS+ ext - pulses of feet 1+ b/l, no edema b/l psych - oriented to person/place/time (year & month) Results & Data Results & Data ([facility]) Vital Signs (Past 12 Hours) Vital Signs Temp Pulse Resp BP Pulse Ox O2 Del Method O2 Flow Rate 08/23/22 18:00 67 26 H 91 08/23/22 18:00 188/79 H 08/23/22 17:00 66 41 H 89 L 08/23/22 16:01 66 25 H 92 08/23/22 16:01 166/67 H 08/23/22 16:00 70 17 92 08/23/22 15:56 37 C 08/23/22 15:01 65 20 94 Nasal Cannula 4 08/23/22 15:01 183/75 H 08/23/22 15:00 70 26 H 93 08/23/22 14:01 188/96 H 08/23/22 14:01 69 27 H 93 08/23/22 14:00 65 39 H 89 L 08/23/22 13:00 61 28 H 93 08/23/22 13:00 188/70 H 08/23/22 12:00 60 26 H 177/81 H 93 Nasal Cannula 5 08/23/22 11:08 70 41 H 93 08/23/22 11:08 148/68 H 08/23/22 11:07 71 40 H 93 08/23/22 10:01 57 L 29 H 95 08/23/22 10:01 186/69 H 08/23/22 10:00 59 L 29 H 90 08/23/22 09:01 61 25 H 97 08/23/22 09:01 203/83 H 08/23/22 09:00 63 30 H 08/23/22 08:00 Nasal Cannula 5 08/23/22 08:00 47 L 08/23/22 11:17 37 C 20 Nasal Cannula 08/23/22 08:46 53 L 20 94 08/23/22 08:46 206/75 H 08/23/22 08:01 55 L 32 H 96 08/23/22 08:01 194/75 H 08/23/22 08:00 52 L 30 H 93 08/23/22 08:48 Nasal Cannula FiO2 08/23/22 18:00 08/23/22 18:00 08/23/22 17:00 08/23/22 16:01 08/23/22 16:01 08/23/22 16:00 08/23/22 15:56 08/23/22 15:01 08/23/22 15:01 08/23/22 15:00 08/23/22 14:01 08/23/22 14:01 08/23/22 14:00 08/23/22 13:00 08/23/22 13:00 08/23/22 12:00 08/23/22 11:08 08/23/22 11:08 08/23/22 11:07 08/23/22 10:01 08/23/22 10:01 08/23/22 10:00 08/23/22 09:01 08/23/22 09:01 08/23/22 09:00 08/23/22 08:00 08/23/22 08:00 08/23/22 11:17 5 08/23/22 08:46 08/23/22 08:46 08/23/22 08:01 08/23/22 08:01 08/23/22 08:00 08/23/22 08:48 5 Laboratory Results Laboratory Results - last 48 hr 08/23/22 08/23/22 08/23/22 03:12 03:12 03:12 Hgb 8.8 L Hct 26.9 L APTT 78.7 H* PTT Ratio 2.9 VBG pH VBG pCO2 VBG pO2 VBG HCO3 VBG O2 Saturation VBG Base Excess Sodium 142 Potassium 4.1 Chloride 110 H Carbon Dioxide 26 Anion Gap 6 BUN 40 H Creatinine 2.18 H Est Cr Clr Drug Dosing 23.2 Est GFR ( Amer) 24.9 Est GFR (Non-Af Amer) 21.5 BUN/Creatinine Ratio 18.3 Glucose 98 Calcium 8.3 L Iron 28 L TIBC 248 L Unsaturated IBC 220 Transferrin % Sat 11 L Ferritin 59.6 Ammonia Procalcitonin 08/23/22 08/23/22 08/23/22 10:18 19:12 19:12 Hgb Hct APTT 69.4 H* PTT Ratio 2.5 VBG pH VBG pCO2 VBG pO2 VBG HCO3 VBG O2 Saturation VBG Base Excess Sodium Potassium Chloride Carbon Dioxide Anion Gap BUN Creatinine Est Cr Clr Drug Dosing Est GFR ( Amer) Est GFR (Non-Af Amer) BUN/Creatinine Ratio Glucose Calcium Iron TIBC Unsaturated IBC Transferrin % Sat Ferritin Ammonia 21.0 Procalcitonin 0.09 08/23/22 08/23/22 19:12 20:16 Hgb Hct APTT 34.2 H PTT Ratio 1.2 VBG pH 7.53 H VBG pCO2 36 L VBG pO2 48 VBG HCO3 30 VBG O2 Saturation 82.6 VBG Base Excess 7.1 Sodium Potassium Chloride Carbon Dioxide Anion Gap BUN Creatinine Est Cr Clr Drug Dosing Est GFR ( Amer) Est GFR (Non-Af Amer) BUN/Creatinine Ratio Glucose Calcium Iron TIBC Unsaturated IBC Transferrin % Sat Ferritin Ammonia Procalcitonin Diagnostic Findings Renal Artery Duplex 08/23/22 07:44 US duplex renal artery CLINICAL HISTORY: malignant hypertension, h/o renal artery stenosis COMPARISON STUDY: Renal ultrasound 06/23/2012. Abdomen and pelvis CT 09/28/2021. FINDINGS: The right kidney measures 10.0 cm and the left kidney measures 15.0 cm. The lower pole the right kidney is obscure by overlying bowel gas. There is moderate bilateral cortical renal thinning. Multiple bilateral renal cysts with the largest on the left measuring 5 cm. There is a partially visualized thrombosed abdominal aortic aneurysm measuring up to 4.8 cm in diameter. This is not well visualized due to the overlying bowel. The systolic velocity within the mid right renal artery is 86 cm/s. Peak systolic velocity within the distal left renal artery is 56 cm/s. The left mid and proximal renal artery are not identified. The bilateral renal veins appear patent. IMPRESSION: 1. Suboptimal evaluation due to the patient's body habitus and overlying bowel gas. 2. There is a partially visualized abdominal aortic aneurysm measuring approximately 4.8 cm in diameter. This appears completely thrombosed. This is likely stable compared to the prior study. 3. No evidence for significant stenosis within the visualized renal arteries. ACT 112: Negative or not required by law. Electronically signed by: Farhad Dhillon M.D. 08/23/2022 12:15 PM Chest X-Ray 08/23/22 18:36 XR chest 1V portable CLINICAL HISTORY: hypoxia, cough, fatigue; ?pneumonia TECHNIQUE: Single frontal radiograph of the chest was obtained. Comparison: Comparison is made to chest radiograph 08/21/2022 FINDINGS: Exam is limited by underpenetration. Cardiomegaly is noted. There is increased opacity in the right lung favoring the lower lobe. No pneumothorax is seen, pleural effusions cannot be excluded. IMPRESSION: 1. Right lung airspace opacities are favored to represent pneumonia and/or aspiration. 2. Possible small bilateral pleural effusions. 3. Stable cardiomegaly. ACT 112: Negative or not required by law. Electronically signed by: Pavan Samson M.D. 08/23/2022 7:42 PM PG Care Time/CCT Total # of Minutes Spent Total Time Spent with Patient: Total time spent is greater than 50% in coordination of care (as documented) at patient's floor/unit and/or counseling patient: Coding Level of Care Code 48328 SUB INP/OBS CARE 3/50MIN Diagnoses Acute respiratory failure with hypoxia J96.01 RLL pneumonia J18.9 Acute on chronic heart failure with preserved ejection fraction (HFpEF) I50.33 Non-STEMI (non-ST elevated myocardial infarction) I21.4 Paroxysmal atrial fibrillation I48.0 Renal artery stenosis I70.1 Chronic kidney disease, stage IV (severe) N18.4 Cardiomyopathy, hypertrophic I42.2 Hypertension I10 Tobacco dependence F17.200 Anemia due to chronic kidney disease N18.9; D63.1 Vitamin B12 deficiency E53.8 Vitamin D deficiency E55.9 AAA (abdominal aortic aneurysm) I71.4 Coronary artery disease I25.10 Peripheral vascular disease I73.9 Dyslipidemia E78.5 COPD (chronic obstructive pulmonary disease) J44.9 Anorexia R63.0 Lethargy R53.83
--- NOTE | 2022-08-23 19:43 | XRay Report ---
XR chest 1V portable CLINICAL HISTORY: hypoxia, cough, fatigue; ?pneumonia TECHNIQUE: Single frontal radiograph of the chest was obtained. Comparison: Comparison is made to chest radiograph 08/21/2022 FINDINGS: Exam is limited by underpenetration. Cardiomegaly is noted. There is increased opacity in the right l scarlett favoring the lower lobe. No pneumothorax is seen, pleural effusions cannot be excluded. IMPRESSION: 1. Right lung airspace opacities are favored to represent pneumonia and/or aspiration. 2. Possible small bilateral pleural effusions. 3. Stable cardiomegaly. ACT 112: Negative or not required by law. Electronically signed by: Pavan Samson M.D. 08/23/2022 7:42 PM
[2022-08-23 20:33] LABS: Partial Thromboplastin Ratio 1.2; Partial Thromboplastin Time 34.2 Seconds (21.0-31.0)
[2022-08-23] MEDS: ATORVASTATIN 40 MG TAB PO SCH (20:36)
--- NOTE | 2022-08-23 21:08 | Electrocardiogram Report ---
Test Reason : Blood Pressure : / mmHG Vent. Rate : 060 BPM Atrial Rate : 060 BPM P-R Int : 232 ms QRS Dur : 078 ms QT Int : 436 ms P-R-T Axes : 005 -45 125 degrees QTc Int : 436 ms Poor data quality, interpretation may be adversely affected Sinus rhythm with 1st degree A-V block Left axis deviation Left ventricular hypertrophy with repolarization abnormality Inferior infarct (cited on or before 21-AUG-2022) Abnormal ECG When compared with ECG of 21-AUG-2022 09:10, Criteria for Anterior infarct are no longer Present T wave inversion more evident in Anterolateral leads Confirmed by Kevin Bain ([id number]) on 08/23/2022 9:07:50 PM Referred By: REFERRED SELF Confirmed By:Kevin Bain
[2022-08-24] MEDS: DOXYCYCLINE HYCLATE 100 MG in DEXTROSE 5% 100 ML IV SCH ×2 (06:29→17:28)
[2022-08-24 06:46] LABS: Basophils # (auto) 0.03 K/uL (0-0.2); Basophils % (auto) 0.3 %; Eosinophils # (auto) 0.18 K/uL (0-0.50); Eosinophils % (auto) 1.9 %; Hematocrit (blood only) 26.8 % (34.1-44.9); Hemoglobin 8.9 g/dl (12.0-16.0); Immature Granulocytes # (auto) 0.07 K/uL (0.00-0.02); Immature Granulocytes % (auto) 0.7 %; Lymphocytes # (auto) 0.95 K/uL (1.2-3.4); Lymphocytes % (auto) 9.8 %; Mean Corpuscular Hemoglobin 30.4 pg (25.0-34.0); Mean Corpuscular Hgb Conc 33.2 g/dL (32.0-36.0); Mean Corpuscular Volume 91.5 fL (80.0-100.0); Mean Platelet Volume 11.6 fL (9.4-12.3); Monocytes # (auto) 0.79 K/uL (0.24-0.82); Monocytes % (auto) 8.2 %; Neutrophils # (auto) 7.64 K/uL (1.4-6.5); Neutrophils % (auto) 79.1 %; Nucleated RBC # (auto) 0.02 K/uL (0-0); Nucleated RBC % (auto) 0.2 %; Platelet Count 168 K/uL (130-400); RDW Standard Deviation 53.9 fL (36.4-46.3); Red Blood Count 2.93 M/uL (3.93-5.22); White Blood Count 9.66 K/ul (4.8-10.8)
[2022-08-24 08:20] LABS: Calcium 8.5 mg/dl (8.5-10.1); Potassium 3.8 mmol/L (3.5-5.1)
[2022-08-24 08:25] LABS: BUN Creatinine Ratio 18.4 (10-20); Creatinine Clr Calc Pharmacy 23.3 ml/min; Est GFR (African American) 25.7 ml/min; Est GFR (Non-African American) 22.2 ml/min
[2022-08-24] MEDS: hydrALAZINE HCL 25 MG TAB PO SCH ×3 (08:58→20:48)
[2022-08-24] MEDS: AMPICILLIN/SULBACTAM SOD 1,500 MG in 0.9 % SODIUM CHLORIDE 100 ML IV SCH ×2 (08:58→20:47)
[2022-08-24] MEDS: AMIODARONE 200 MG TAB PO SCH ×2 (08:59→17:29)
[2022-08-24] MEDS: amLODIPine BESYLATE 5 MG TAB PO SCH (08:59)
[2022-08-24] MEDS: ASPIRIN 81 MG ECTAB PO SCH (08:59)
[2022-08-24] MEDS: ISOSORBIDE MONO EXTENDED REL 30 MG TABCR PO SCH (08:59)
[2022-08-24] MEDS: CLOPIDOGREL BISULFATE 75 MG TAB PO SCH (08:59)
[2022-08-24] MEDS: UMECLIDINIUM BROMIDE 62.5MCG/BLISTER 7 PUFFS/INHALER INH SCH (09:00)
[2022-08-24] MEDS: FUROSEMIDE 40 MG/4 ML VIAL IV SCH ×2 (09:00→20:48)
--- NOTE | 2022-08-24 10:45 | Electrocardiogram Report ---
Test Reason : Blood Pressure : / mmHG Vent. Rate : 062 BPM Atrial Rate : 062 BPM P-R Int : 208 ms QRS Dur : 078 ms QT Int : 448 ms P-R-T Axes : -18 -39 124 degrees QTc Int : 454 ms Normal sinus rhythm Left axis deviation Left ventricular hypertrophy with repolarization abnormality Inferior infarct (cited on or before 18-APR-2022) Abnormal ECG When compared with ECG of 22-AUG-2022 06:53, T wave inversion less evident in Lateral leads Confirmed by Kevin Bain ([id number]) on 08/24/2022 10:45:25 AM Referred By: REFERRED SELF Confirmed By:Kevin Bain
--- NOTE | 2022-08-24 10:55 | Cardiology Progress Note ---
Date of Service August 24, 2022 Assessment & Plan (1) Non-STEMI (non-ST elevated myocardial infarction): (2) Acute on chronic heart failure with preserved ejection fraction (HFpEF): (3) Paroxysmal atrial fibrillation: (4) Coronary artery disease: (5) Cardiomyopathy, hypertrophic: (6) Substernal chest pain: (7) Hypertension: (8) Chronic kidney disease, stage 3b: (9) Dyslipidemia: (10) Tobacco abuse counseling: Plan ASSESSMENT/PLAN: 1. Paroxysmal atrial fibrillation: Presenting symptoms including chest pain resolved after converting to sinus rhythm on 08/21/22. Given her severe CAD, history of hypertrophic cardiomyopathy, and other comorbidities, she does not appear to tolerate atrial fibrillation and had elevated troponin levels, suggesting myocardial injury while in atrial fibrillation. Amiodarone was initiated and she is tolerating it so far. Beta-harsha discontinued to allow for adequate heart rate in the setting of Amiodarone. If she develops significant bradycardia or pauses, would consider pacemaker placement for tachybradycardia syndrome. Reduce Amiodarone on discharge to 200 mg daily with close follow-up in her cardiology office. In regards to anticoagulation therapy for stroke risk reduction, she was on Xarelto 15 mg once daily in the past and had heme positive stool and profound anemia requiring blood transfusion. She also declines long-term anticoagulation therapy. While on heparin drip, hemoglobin is trending downward. Consider a Watchman device as an outpatient if she is willing to consider. Monitor TSH and transaminase levels while on Amiodarone as an outpatient. 2. NSTEMI: Most likely due to demand ischemia in the setting of severe CAD and hypertrophic cardiomyopathy in the setting of atrial fibrillation with rapid ventricular response. [place] [id number]. Given that her angina immediately resolved with conversion to sinus rhythm, mechanism of the [place] still likely due to A-Fib with RVR and demand ischemia from her underlying CAD and hypertrophic cardiomyopathy. Because cannot exclude acute coronary syndrome, she was on heparin drip for a total of 48 hours. Cardiac Catheterization was not pursued given that the wall motion abnormalities on Echo correlate with RCA territory, which is known to be severely diseased (occluded RCA with L to R collaterals) for which medical therapy has been recommended. Holding beta-harsha due to bradycardia while initiating Amiodarone as above. C ontinue antiplatelet therapy and high intensity statin therapy. 3: CAD: Severe CAD involving the RCA as per most recent Cardiac Catheterization with moderate CAD involving the LAD. Plan as outlined above -- ongoing medical management. Continue antiplatelet therapy and statin therapy. Repeat Cardiac Catheterization is not recommended at this time. 4. Chest pain: Chest pain resolved when atrial fibrillation converted to sinus. Likely angina in the setting of severe CAD, A. fib with RVR, and hypertrophic cardiomyopathy with prior LVOT obstruction. 5. Acute on chronic heart failure with preserved EF: Difficult exam. Still requiring significant oxygen supplementation. Continue Lasix 40 mg IV twice daily for now. Strict I's and O's -- her cumulative I&O's are + 621 mL. Monitor daily weights. Low-sodium diet. Heart failure program referral. 6. CKD: Appears to be at her baseline. Continue to monitor. 7. Hypertension: Blood pressure remains hypertensive. Now on Amlodipine and Hydralazine. Increase Hydralazine to 50 mg t.i.d.. No SANDRA inhibitor or ARB given renal issues. 8. Dyslipidemia: Continue high intensity statin therapy. 9. Tobacco abuse: Strongly encouraged smoking cessation. 10. Hypertrophic Cardiomyopathy: No LVOT obstruction on 08/21/2022 echo. Beta- harsha held given bradycardia and initiation of Amiodarone as above. 11. Hypoxia: Not clear that HF fully responsible for continued supplemental oxygen. Consider COPD/emphysema as possibly contributing as well. Continue to diurese as above. Continue inhalers and nebulizers. 12. Disposition: Cardiology will continue to follow. On discharge, she should have close follow-up with Dr. Dangelo, her primary fnp. Also recommend heart failure program follow up. Admission and Anticipated Discharge Date Admission Date: August 21, 2022 Subjective Mrs. Bailon is a 77 year old female with a history of CAD, Hypertrophic Cardiomyopathy, Paroxysmal Atrial Fibrillation, Hypertension, Dyslipidemia, CKD, Anemia, Chronic Diastolic CHF, AAA, PAD, COPD, and Tobacco Use who presented on 08/21/2022 with A-Fib with RVR and an NSTEMI ([place] 397[address].1 pg/mL) and she still requires supplemental O2. Her cumulative I&O's are +621 mL. Patient is feeling significantly better than when she was initially admitted, and is anxious to go home. However she needs ongoing treatment. Fortunately patient did convert back to a normal sinus rhythm 08/21/2022. She has maintained a sinus rhythm and sinus bradycardia since that time. She is on Amiodarone. Patient's breathing has improved, and she has not had any further chest discomfort or anginal discomfort. Review of Systems Review of Systems: 10 point ROS completed and is negative with the exception of what is mentioned in the HPI. Physical Exam Physical Exam: GENERAL: Patient in no acute distress. HEENT: Head is atraumatic, normocephalic. EOM's intact. Facies symmetric. No perioral cyanosis. NECK: No JVD. JVP is very difficult to assess due to her body habitus. CHEST/LUNGS: Clear to auscultation throughout all lung [place]. No wheezes, rales, or crackles. CVS: S1 and S2 are regular, bradycardic, and distant without obvious murmurs, gallops, or rubs. PMI is nonpalpable. No lifts, heaves, or thrills. No abdominal aortic or renal bruits. ABDOMINAL EXAM: Bowel sounds are present. No masses, organomegaly, or tenderness. EXTREMITIES: No clubbing or cyanosis. No edema. NEUROLOGIC EXAM: Patient is awake, alert, and oriented. Pleasant and cooperative. Answers questions appropriately. Speech is clear. Certified Teacher Assistant: -- NSR to sinus bradycardia. EKG 08/23/22: -- NSR at 62 bpm with left axis deviation, LVH with repolarization abnormality. -- Inferior infarct pattern (cited on or before 04/18/2022). -- Corrected QT interval is 454 msec. -- When compared to 08/22/2022 tracing; T-wave inversion less evident in lateral leads. Results & Data ([facility]) Vital Signs (Past 12 Hours) Vital Signs Temp Pulse Pulse Resp BP Pulse Ox O2 Del Method 08/24/22 10:03 Nasal Cannula 08/24/22 08:00 61 08/24/22 07:00 36.8 C 69 40 H 185/77 H 93 Nasal Cannula 08/24/22 03:22 36.8 C 59 L 20 168/91 H 98 Nasal Cannula 08/24/22 00:00 61 O2 Flow Rate 08/24/22 10:03 5 08/24/22 08:00 08/24/22 07:00 5 08/24/22 03:22 5.0 08/24/22 00:00 Laboratory Results Laboratory Results - last 24 hr 08/23/22 08/23/22 08/23/22 10:18 19:12 19:12 WBC RBC Hgb Hct MCV MCH MCHC RDW Std Deviation RDW Coeff of Lakshmi Plt Count MPV Immature Gran % (Auto) Neut % (Auto) Lymph % (Auto) Pender % (Auto) Eos % (Auto) Baso % (Auto) Neut # (Auto) Lymph # (Auto) Pender # (Auto) Eos # (Auto) Baso # (Auto) Immature Gran # (Auto) Absolute Nucleated RBC Nucleated RBC % (auto) APTT 69.4 H* PTT Ratio 2.5 VBG pH VBG pCO2 VBG pO2 VBG HCO3 VBG O2 Saturation VBG Base Excess Sodium Potassium Chloride Carbon Dioxide Anion Gap BUN Creatinine Est Cr Clr Drug Dosing Est GFR ( Amer) Est GFR (Non-Af Amer) BUN/Creatinine Ratio Glucose Calcium Ammonia 21.0 Procalcitonin 0.09 08/23/22 08/23/22 08/24/22 19:12 20:16 06:27 WBC 9.66 RBC 2.93 L Hgb 8.9 L Hct 26.8 L MCV 91.5 MCH 30.4 MCHC 33.2 RDW Std Deviation 53.9 H RDW Coeff of Lakshmi 16.0 H Plt Count 168 MPV 11.6 Immature Gran % (Auto) 0.7 Neut % (Auto) 79.1 Lymph % (Auto) 9.8 Pender % (Auto) 8.2 Eos % (Auto) 1.9 Baso % (Auto) 0.3 Neut # (Auto) 7.64 H Lymph # (Auto) 0.95 L Pender # (Auto) 0.79 Eos # (Auto) 0.18 Baso # (Auto) 0.03 Immature Gran # (Auto) 0.07 H Absolute Nucleated RBC 0.02 H Nucleated RBC % (auto) 0.2 APTT 34.2 H PTT Ratio 1.2 VBG pH 7.53 H VBG pCO2 36 L VBG pO2 48 VBG HCO3 30 VBG O2 Saturation 82.6 VBG Base Excess 7.1 Sodium Potassium Chloride Carbon Dioxide Anion Gap BUN Creatinine Est Cr Clr Drug Dosing Est GFR ( Amer) Est GFR (Non-Af Amer) BUN/Creatinine Ratio Glucose Calcium Ammonia Procalcitonin 08/24/22 06:27 WBC RBC Hgb Hct MCV MCH MCHC RDW Std Deviation RDW Coeff of Lakshmi Plt Count MPV Immature Gran % (Auto) Neut % (Auto) Lymph % (Auto) Pender % (Auto) Eos % (Auto) Baso % (Auto) Neut # (Auto) Lymph # (Auto) Pender # (Auto) Eos # (Auto) Baso # (Auto) Immature Gran # (Auto) Absolute Nucleated RBC Nucleated RBC % (auto) APTT PTT Ratio VBG pH VBG pCO2 VBG pO2 VBG HCO3 VBG O2 Saturation VBG Base Excess Sodium 142 Potassium 3.8 Chloride 107 Carbon Dioxide 29 Anion Gap 6 BUN 39 H Creatinine 2.12 H Est Cr Clr Drug Dosing 23.3 Est GFR ( Amer) 25.7 Est GFR (Non-Af Amer) 22.2 BUN/Creatinine Ratio 18.4 Glucose 93 Calcium 8.5 Ammonia Procalcitonin Diagnostic Findings CXR 08/23/22: Exam is limited by under-penetration. Cardiomegaly is noted. There is increased opacity in the right lung favoring the lower lobe. No pneumothorax is seen, pleural effusions cannot be excluded. IMPRESSION: 1. Right lung airspace opacities are favored to represent pneumonia and/or aspiration. 2. Possible small bilateral pleural effusions. 3. Stable cardiomegaly. Medications Administered Medications aspirin 81 mg tablet,delayed release (Shahzad Low Dose Aspirin) 81 mg PO QAM 05/11/19 [History Confirmed 08/16/22] furosemide 40 mg tablet 40 mg PO .COMPLEX #90 tabs 07/10/21 [Rx Confirmed 08/16/22] atorvastatin 40 mg tablet 40 mg PO QPM #90 tabs 08/04/21 [Rx Confirmed 08/16/22] albuterol sulfate 90 mcg/actuation aerosol inhaler (ProAir HFA) 2 puff inhalation Q4H PRN shortness of breath or wheezing #18 grams 10/05/21 [Rx Confirmed 08/16/22] metoprolol succinate 50 mg tablet,extended release 24 hr 25 mg PO BID #180 tabs 04/19/22 [Rx Confirmed 08/16/22] nitroglycerin 0.4 mg sublingual tablet 0.4 mg sublingual Q5M PRN chest pain #1 btl 04/19/22 [Rx Confirmed 08/16/22] clopidogrel 75 mg tablet 75 mg PO QAM #30 tabs 06/04/22 [Rx Confirmed 08/16/22] isosorbide mononitrate 30 mg tablet,extended release 24 hr 30 mg PO DAILY #30 tabs 06/04/22 [Rx Confirmed 08/16/22] tiotropium bromide 2.5 mcg/actuation mist for inhalation (Spiriva Respimat) 2 inh inhalation QAM #4 grams 08/15/22 [Rx Confirmed 08/16/22] Home Medications Acetaminophen (Acetaminophen 325 Mg Tab) 650 mg PO Q4H PRN PRN Reason: Pain or Fever Stop: 09/20/22 06:21 Albuterol (Albuterol Hfa 8 Gm Inhaler) 2 puffs INH Q4H PRN PRN Reason: shortness of breath or wheezin Stop: 09/20/22 06:21 Amiodarone HCl (Amiodarone 200 Mg Tab) 200 mg PO BIDM [facility] Stop: 09/20/22 16:59 Last Admin: 08/24/22 08:59 Dose: 200 mg Amlodipine Besylate (Amlodipine Besylate 5 Mg Tab) 5 mg PO QAM [facility] Stop: 09/22/22 08:59 Last Admin: 08/24/22 08:59 Dose: 5 mg Aspirin (Aspirin 81 Mg Ectab) 81 mg PO QAM [facility] Stop: 09/20/22 08:59 Last Admin: 08/24/22 08:59 Dose: 81 mg Atorvastatin Calcium (Atorvastatin 40 Mg Tab) 40 mg PO QPM [facility] Stop: 09/20/22 20:59 Last Admin: 08/23/22 20:36 Dose: 40 mg Clopidogrel Bisulfate (Clopidogrel Bisulfate 75 Mg Tab) 75 mg PO QAM [facility] Stop: 09/20/22 08:59 Last Admin: 08/24/22 08:59 Dose: 75 mg Furosemide (Furosemide 40 Mg/4 Ml Vial) 40 mg IV BID [facility] Stop: 09/21/22 20:59 Last Admin: 08/24/22 09:00 Dose: 40 mg Hydralazine HCl (Hydralazine Hcl 25 Mg Tab) 25 mg PO TID [facility] Stop: 09/21/22 20:59 Last Admin: 08/24/22 08:58 Dose: 25 mg Ampicillin Sodium/Sulbactam Sodium 1,500 mg/ Sodium Chloride 104 mls @ 200 mls/hr IV Q12H [facility]; Protocol Stop: 08/30/22 20:59 Last Infusion: 08/24/22 10:47 Dose: Infused Doxycycline Hyclate 100 mg/ (Dextrose) 110 mls @ 50 mls/hr IV Q12H [facility] Stop: 08/30/22 20:59 Last Infusion: 08/24/22 10:47 Dose: Infused Isosorbide Mononitrate (Isosorbide Pender Extended Rel 30 Mg Tabcr) 30 mg PO DAILY [facility] Stop: 09/20/22 08:59 Last Admin: 08/24/22 08:59 Dose: 30 mg Nitroglycerin (Nitroglycerin Sl 0.4 Mg/Tab Tab) 0.4 mg SL Q5M PRN PRN Reason: chest pain Stop: 09/20/22 06:21 Ondansetron HCl (Ondansetron Inj 2 Mg/Ml 2 Ml Vial) 4 mg IV Q6H PRN PRN Reason: Nausea Stop: 09/20/22 06:21 Umeclidinium Lena (Umeclidinium Lena 62.5mcg/Blister 7 Puffs/Inhaler) 1 puffs INH QAM [facility] Stop: 09/20/22 08:59 Last Admin: 08/24/22 09:00 Dose: 1 puffs PG Care Time/CCT Total # of Minutes Spent Total Time Spent with Patient: Total time spent is greater than 50% in coordination of care (as documented) at patient's floor/unit and/or counseling patient:26 [place] [address] SUB INP/OBS CARE 3/50MIN Patient Type Established History Detailed Exam Detailed Medical Decision Making High Complexity Diagnoses Non-STEMI (non-ST elevated myocardial infarction) I21.4 Acute on chronic heart failure with preserved ejection fraction (HFpEF) I50.33 Paroxysmal atrial fibrillation I48.0 Coronary artery disease I25.10 Cardiomyopathy, hypertrophic I42.2 Substernal chest pain R07.2 Hypertension I10 Chronic kidney disease, stage 3b N18.32 Dyslipidemia E78.5 Tobacco abuse counseling Z71.6 Time Spent (min) 57
[2022-08-24] MEDS ORDERED: predniSONE 20 MG TAB PO STA (13:57)
--- NOTE | 2022-08-24 14:45 | XRay Report ---
LEFT FOOT 3 VIEWS CLINICAL HISTORY: Mid foot pain. FINDINGS: 3 views of the left foot are compared to study dated 08/27/2021. Correlation is made with CT of the foot dated 01/27/2021. The skeletal structures are osteopenic. No fracture is seen. Mild osteo arthritic change is noted at the first metatarsophalangeal joint and at the tarsometatarsal articulat ions. No erosive disease is seen. There are dorsal and plantar heel spurs. Mild soft tissue swelling suggested in the foot. No soft tissue calcifications are identified. IMPRESSION: 1. Mild soft tissue swelling with no acute bony abnormality identified. 2. Osteopenia, mild degenerative change, and heel spurs as above. Electronically signed by: Wang Curiel M.D. 08/24/2022 2:44 PM
[2022-08-24 18:04] LABS: Appearance Urine Clear (Clear); Bacteria Urine Automated Negative (Negative); Bilirubin Urine Negative (Negative); Blood Urine Negative (Negative); Color Urine Yellow; Glucose Urine UA Negative (Negative); Ketones Urine Negative (Negative); Leukocyte Esterase Urine 3+ (Negative); Nitrite Urine Negative (Negative); Protein Urine Trace (Negative); RBC Urine Automated 0-4 /hpf (0-4); Specific Gravity Urine 1.013 (1.000-1.030); Urobilinogen Urine Negative (Negative); WBC Urine Automated >30 /hpf (0-5); pH Urine 6.5 (4.5-7.5)
--- NOTE | 2022-08-24 20:11 | Hospitalist Progress Note ---
Date of Service August 24, 2022 Assessment & Plan (1) Lethargy: Plan: Over the last several days she has had long stretches of sleepiness/borderline lethargy. She wakes up quickly, however, and is oriented x 3 when she wakes. She has reported multiple times to me this week that she is "like this all the time at home." She takes frequent naps, etc. Ammonia level, VBG, TSH -- all wnl. U/a not suggestive of UTI. Strongly consider CT head or MRI brain if this pattern persists. If she ultimately has head imaging and it is found to be normal she could have OHS/JOAQUINA, narcolepsy, or some other form of sleep disorder. Continue to monitor. (2) Acute respiratory failure with hypoxia: Plan: stable 2nd to acute/chronic diastolic CHF and RLL pneumonia (3) RLL pneumonia: Plan: patient is only about 2-3 days into her stay - thus, would not consider this hospital-acquired. treat for community acquired pneumonia - started IV unasyn with IV doxy - day #2 of such. by report no issues with dysphagia thus aspiration not suspected. (4) Left foot pain: Plan: see below (5) Gout: Plan: Left mid-foot. x-rays unremarkable - no fracture, no CPPD changes, etc. Prednisone 20mg x 1 now. re-eval tomorrow. check a uric acid level am. Previous level in 2020 was 11.7. (6) Acute on chronic heart failure with preserved ejection fraction (HFpEF): Plan: creatinine remains stable. volume status improved. cont lasix BID. appreciate cardiology assistance. (7) Non-STEMI (non-ST elevated myocardial infarction): Plan: peak HS troponin 10,400. difficulty to say if type 1 or type 2 PR as she has known CAD. previous cardiac cath was 04/2022 with the following - LM -large caliber, calcified, 20% ostial LAD -large caliber, calcified focal mid 60% stenosis at takeoff of large septal. Remainder of vessel without significant disease. D1 without significant disease. Circumflex -medium caliber, luminal irregularities. Large OM2, OM3 without significant disease. RCA -dominant, calcified, medium caliber, 40% proximal disease. Mid segment with SEBASTIÁN II flow prior to subtotal occlusion with questionable thrombus. PDA/PLB fill retrograde via [id number] collaterals. During that 04/2022 cath no stents were deployed. completed 48 hours of heparin infusion. now off. cont asa 81mg daily; plavix 75mg daily; lipitor 40mg daily; imdur 30mg daily. she is NOT on beta blockade due to documented significant bradycardia on such. no recurrent chest pain. (8) Paroxysmal atrial fibrillation: Plan: resolved, no recurrence since admission. appreciate Dr Bain's consultation & recs. he started amiodarone 200mg BID for rhythm control. TSH is wnl. continue tele monitoring. 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 CHADs-VASCs score is very high. Will d/w patient, but suspect she will not be agreeable to anticoagulation. (9) Renal artery stenosis: Plan: vascular surgery records were reviewed from [facility] [place]. these document a past h/o bilateral renal artery stenosis. MRA abdomen from 2005 indeed showed the following -- 50 to 70% stenosis of the left renal artery at its origin with a 50 to 60% stenosis in the right. Given her [id number] BPs consider a doppler study of her renal arteries was obtained; suboptimal study, no ALEXANDER detected, but may need repeat MRA at some point. 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 (18) Coronary artery disease: Plan: see above (19) Peripheral vascular disease: Plan: see above (20) Dyslipidemia: Plan: LDL was 58 in 05/2022 cont statin agent (21) COPD (chronic obstructive pulmonary disease): Plan: cont home inhalers cont nebs prn no wheezing today (22) Anorexia: Plan: acutely - 2nd to pneumonia? chronic - etiology? Plan seen by PT/OT both suggest she can return home with HH services at time of discharge appreciate cardiology assistance Admission and Anticipated Discharge Date Admission Date: August 21, 2022 Subjective per staff she sat in chair for about 2 hours this am eating her meals during my visit she was on 5 L NC O2 I dropped this down to 2 L and sats remained about 94% on such she was sleepy during the visit - like yesterday - but easily wakes up oriented x 3 she asks about when she can go home she "feels good" today continues with cough denies any change in her cough or any changes in her dyspnea does c/o left foot pain hurts to put weight on it started sometime overnight or this am denies injury or recent fall no right foot pain tele - NSR overnight Review of Systems Review of Systems: gen - no fevers/chills cv - no orthopnea/no chest pain pulm - ongoing cough but she states "it's always like this" neuro - no headache GI - no abd pain, nausea or emesis Physical Exam Physical Exam: gen - very sleepy but again wakes up easily, lying flat in bed comfortably although tachypnea remains neck - I raised the head of bed - no JVD at 45 degrees mouth - MMM heart - RRR, s1 s2, no murmur lungs - decreased BS bases R>L; rales R base; no wheezes; tachypneic abd - soft NT ND BS+ ext - pulses of feet 1+ b/l, no edema b/l psych - oriented to person/place/time musculo - left foot - very tender mid-foot to palpation; mild swelling with mild erythema & warmth; toes wnl; heel wnl; ankle wnl Results & Data Results & Data ([facility]) Vital Signs (Past 12 Hours) Vital Signs Temp Pulse Pulse Resp BP BP Pulse Ox 08/24/22 16:00 66 08/24/22 15:00 36.6 C 68 22 111/67 96 08/24/22 11:00 36.6 C 73 26 H 119/69 92 08/24/22 10:03 O2 Del Method O2 Flow Rate 08/24/22 16:00 08/24/22 15:00 Nasal Cannula 2 08/24/22 11:00 Nasal Cannula 5 08/24/22 10:03 Nasal Cannula 5 Laboratory Results Laboratory Results - last 24 hr 08/23/22 08/23/22 08/24/22 17:23 20:16 06:27 WBC 9.66 RBC 2.93 L Hgb 8.9 L Hct 26.8 L MCV 91.5 MCH 30.4 MCHC 33.2 RDW Std Deviation 53.9 H RDW Coeff of Lakshmi 16.0 H Plt Count 168 MPV 11.6 Immature Gran % (Auto) 0.7 Neut % (Auto) 79.1 Lymph % (Auto) 9.8 [place] % (Auto) 8.2 Eos % (Auto) 1.9 Baso % (Auto) 0.3 Neut # (Auto) 7.64 H Lymph # (Auto) 0.95 L [place] # (Auto) 0.79 Eos # (Auto) 0.18 Baso # (Auto) 0.03 Immature Gran # (Auto) 0.07 H Absolute Nucleated RBC 0.02 H Nucleated RBC % (auto) 0.2 APTT 34.2 H PTT Ratio 1.2 Sodium Potassium Chloride Carbon Dioxide Anion Gap BUN Creatinine Est Cr Clr Drug Dosing Est GFR ( Amer) Est GFR (Non-Af Amer) BUN/Creatinine Ratio Glucose POC Glucose Calcium Urine Color Yellow Urine Appearance Clear Urine pH 6.5 Ur Specific [place] 1.013 Urine Protein Trace H Urine Glucose (UA) Negative Urine Ketones Negative Urine Blood Negative Urine Nitrite Negative Urine Bilirubin Negative Urine Urobilinogen Negative Ur Leukocyte Esterase 3+ H Urine WBC (Auto) >30 H Urine RBC (Auto) 0-4 U Hyaline Cast (Auto) 1-5 U Epithel Cells (Auto) 5-10 H Urine Bacteria (Auto) Negative 08/24/22 08/24/22 06:27 19:42 WBC RBC Hgb Hct MCV MCH MCHC RDW Std Deviation RDW Coeff of Lakshmi Plt Count MPV Immature Gran % (Auto) Neut % (Auto) Lymph % (Auto) [place] % (Auto) Eos % (Auto) Baso % (Auto) Neut # (Auto) Lymph # (Auto) [place] # (Auto) Eos # (Auto) Baso # (Auto) Immature Gran # (Auto) Absolute Nucleated RBC Nucleated RBC % (auto) APTT PTT Ratio Sodium 142 Potassium 3.8 Chloride 107 Carbon Dioxide 29 Anion Gap 6 BUN 39 H Creatinine 2.12 H Est Cr Clr Drug Dosing 23.3 Est GFR ( Amer) 25.7 Est GFR (Non-Af Amer) 22.2 BUN/Creatinine Ratio 18.4 Glucose 93 POC Glucose 190 H Calcium 8.5 Urine Color Urine Appearance Urine pH Ur Specific [place] Urine Protein Urine Glucose (UA) Urine Ketones Urine Blood Urine Nitrite Urine Bilirubin Urine Urobilinogen Ur Leukocyte Esterase Urine WBC (Auto) Urine RBC (Auto) U Hyaline Cast (Auto) U Epithel Cells (Auto) Urine Bacteria (Auto) PG Care Time/CCT Total # of Minutes Spent Total Time Spent with Patient: Total time spent is greater than 50% in coordination of care (as documented) at patient's floor/unit and/or counseling patient: Coding Level of Care Code 21313 SUB INP/OBS CARE 3/50MIN Diagnoses Lethargy R53.83 Acute respiratory failure with hypoxia J96.01 RLL pneumonia J18.9 Left foot pain M79.672 Gout M10.9 Acute on chronic heart failure with preserved ejection fraction (HFpEF) I50.33 Non-STEMI (non-ST elevated myocardial infarction) I21.4 Paroxysmal atrial fibrillation I48.0 Renal artery stenosis I70.1 Chronic kidney disease, stage IV (severe) N18.4 Cardiomyopathy, hypertrophic I42.2 Hypertension I10 Tobacco dependence F17.200 Anemia due to chronic kidney disease N18.9; D63.1 Vitamin B12 deficiency E53.8 Vitamin D deficiency E55.9 AAA (abdominal aortic aneurysm) I71.4 Coronary artery disease I25.10 Peripheral vascular disease I73.9 Dyslipidemia E78.5 COPD (chronic obstructive pulmonary disease) J44.9 Anorexia R63.0
[2022-08-24] MEDS: ATORVASTATIN 40 MG TAB PO SCH (20:49)
[2022-08-25] MEDS: DOXYCYCLINE HYCLATE 100 MG in DEXTROSE 5% 100 ML IV SCH ×2 (05:18→17:19)
[2022-08-25 07:39] LABS: Hemoglobin 8.9 g/dl (12.0-16.0); Mean Corpuscular Hemoglobin 29.9 pg (25.0-34.0); Mean Corpuscular Volume 90.6 fL (80.0-100.0); Mean Platelet Volume 11.9 fL (9.4-12.3); Nucleated RBC # (auto) 0.02 K/uL (0-0); Nucleated RBC % (auto) 0.2 %; Platelet Count 182 K/uL (130-400); RDW Coefficient of Variation 16.1 % (11.5-14.5); RDW Standard Deviation 53.5 fL (36.4-46.3); Red Blood Count 2.98 M/uL (3.93-5.22)
[2022-08-25 07:58] LABS: Estimated Average Glucose 126 mg/dl
[2022-08-25 08:02] LABS: Calcium 8.4 mg/dl (8.5-10.1)
[2022-08-25 08:08] LABS: BUN Creatinine Ratio 19.4 (10-20); Est GFR (African American) 21.4 ml/min; Est GFR (Non-African American) 18.5 ml/min; Uric Acid 11.8 mg/dl (2.6-7.2)
[2022-08-25] MEDS: AMPICILLIN/SULBACTAM SOD 1,500 MG in 0.9 % SODIUM CHLORIDE 100 ML IV SCH ×2 (08:31→20:05)
[2022-08-25] MEDS: ISOSORBIDE MONO EXTENDED REL 30 MG TABCR PO SCH (08:35)
[2022-08-25] MEDS: amLODIPine BESYLATE 5 MG TAB PO SCH (08:35)
[2022-08-25] MEDS: CLOPIDOGREL BISULFATE 75 MG TAB PO SCH (08:35)
[2022-08-25] MEDS: AMIODARONE 200 MG TAB PO SCH ×2 (08:35→17:19)
[2022-08-25] MEDS: ASPIRIN 81 MG ECTAB PO SCH (08:36)
[2022-08-25] MEDS: hydrALAZINE HCL 25 MG TAB PO SCH ×3 (08:36→20:06)
[2022-08-25] MEDS: UMECLIDINIUM BROMIDE 62.5MCG/BLISTER 7 PUFFS/INHALER INH SCH (08:37)
--- NOTE | 2022-08-25 13:25 | Cardiology Progress Note ---
Date of Service August 25, 2022 Assessment & Plan Admission and Anticipated Discharge Date Admission Date: August 21, 2022 Subjective She is feeling better this morning. She denies any shortness of breath talking in sentences. She is only walked from her bed to the bathroom. She denies any lightheadedness or dizziness. She denies any chest pain or chest pressure. Her previous lower extremity edema has resolved. Results & Data ([facility]) Vital Signs (Past 12 Hours) Vital Signs Temp Pulse Pulse Resp BP Pulse Ox O2 Del Method 08/25/22 12:26 36.8 C 70 17 98/45 L 90 Room Air 08/25/22 12:35 102/63 08/25/22 09:55 Room Air 08/25/22 09:00 51 L 08/25/22 08:32 36.7 C 60 20 131/70 93 Room Air 08/25/22 06:25 55 L 24 93 Nasal Cannula 08/25/22 04:06 36.6 C 63 32 H 137/69 91 Nasal Cannula 08/25/22 01:33 60 O2 Flow Rate 08/25/22 12:26 08/25/22 12:35 08/25/22 09:55 08/25/22 09:00 08/25/22 08:32 08/25/22 06:25 1 08/25/22 04:06 1 08/25/22 01:33 Is awake alert and oriented x3 She was not short of breath talking in sentences. HEENT 2+ carotid upstrokes Heart: Regular rate and rhythm no appreciable murmurs Abdomen: Soft nontender nondistended positive bowel sounds Extremities: No clubbing cyanosis or edema Assessment & Plan (1) Non-STEMI (non-ST elevated myocardial infarction): (2) Acute on chronic heart failure with preserved ejection fraction (HFpEF): (3) Paroxysmal atrial fibrillation: (4) Coronary artery disease: (5) Cardiomyopathy, hypertrophic: (6) Substernal chest pain: (7) Hypertension: (8) Chronic kidney disease, stage 3b: (9) Dyslipidemia: (10) Tobacco abuse counseling: Plan ASSESSMENT/PLAN: 1. Paroxysmal atrial fibrillation: Presenting symptoms including chest pain resolved after converting to sinus rhythm on 08/21/22. Given her severe CAD, history of hypertrophic cardiomyopathy, and other comorbidities, she does not appear to tolerate atrial fibrillation and had elevated troponin levels, suggesting myocardial injury while in atrial fibrillation. Amiodarone was initiated and she is tolerating it so far. Beta-harsha discontinued to allow for adequate heart rate in the setting of Amiodarone. Amiodarone 200 mg twice daily upon discharge. This likely will be for a month and then she will be dropped to 200 mg daily thereafter. As an outpatient we will have to watch for bradycardia. 2. NSTEMI: Most likely due to demand ischemia in the setting of severe CAD and hypertrophic cardiomyopathy in the setting of atrial fibrillation with rapid ventricular response[place] [address]. 3: CAD: Severe CAD involving the RCA as per most recent Cardiac Catheterization with moderate CAD involving the LAD. -- ongoing medical management. Continue antiplatelet therapy and statin therapy. Repeat Cardiac Catheterization is not recommended at this time. 4. Chest pain: Chest pain resolved when atrial fibrillation converted to sinus. Likely angina in the setting of severe CAD, A. fib with RVR, and hypertrophic cardiomyopathy with prior LVOT obstruction. 5. Acute on chronic heart failure with preserved EF: She had a bump in her creatinine today. She had a bone. Her diuretics are c urrently on hold. when she is ready for discharge she does need to go back on her home diuretics. She will need close follow-up with the [facility] cardiology office with her heart failure 6. CKD: see above I would try to have her ambulate in the hallway and see how she feels. She is currently on oxygen will need a two-step. From cardiology standpoint she seems stable and when ready from a medical standpoint could be discharged home with close cardiology follow-up.
[2022-08-25] MEDS: ATORVASTATIN 40 MG TAB PO SCH (20:06)
--- NOTE | 2022-08-25 21:50 | Hospitalist Progress Note ---
Date of Service August 25, 2022 Assessment & Plan (1) Lethargy: Plan: likely was metabolic encephalopathy from #3 below resolved (2) Acute respiratory failure with hypoxia: Plan: resolved stable O2 sats in RA 2nd to acute/chronic diastolic CHF and RLL pneumonia would get formal 2-step at discharge (3) RLL pneumonia: Plan: community acquired pneumonia - day #3 of IV unasyn with IV doxy. can likely convert to PO tomorrow. by report no issues with dysphagia thus aspiration not suspected. (4) Left foot pain: Plan: see below (5) Gout: Plan: Left mid-foot. x-rays unremarkable - no fracture, no CPPD changes, etc. Prednisone 20mg x 1 yesterday with nice improvement. Uric acid level >10. clinical picture most c/w gout. cont prednisone course - low-dose - for a few more days. (6) Acute on chronic heart failure with preserved ejection fraction (HFpEF): Plan: creatinine gume today thus we are done diuresing. hold further IV lasix. appreciate cardiology assistance. (7) Non-STEMI (non-ST elevated myocardial infarction): Plan: peak HS troponin 10,400. difficulty to say if type 1 or type 2 PA as she has known CAD. previous cardiac cath was 04/2022 with the following - LM -large caliber, calcified, 20% ostial LAD -large caliber, calcified focal mid 60% stenosis at takeoff of large septal. Remainder of vessel without significant disease. D1 without significant disease. Circumflex -medium caliber, luminal irregularities. Large OM2, OM3 without significant disease. RCA -dominant, calcified, medium caliber, 40% proximal disease. Mid segment with SEBASTIÁN II flow prior to subtotal occlusion with questionable thrombus. PDA/PLB fill retrograde via [id number] collaterals. During that 04/2022 cath no stents were deployed. completed 48 hours of heparin infusion. now off. cont asa 81mg daily; plavix 75mg daily; lipitor 40mg daily; imdur 30mg daily. she is NOT on beta blockade due to documented significant bradycardia on such. no recurrent chest pain. (8) Paroxysmal atrial fibrillation: Plan: resolved, no recurrence since admission. appreciate Dr Bain's consultation & recs. he started amiodarone 200mg BID for rhythm control. TSH is wnl. continue tele monitoring. 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 CHADs-VASCs score is very high. Will d/w patient, but suspect she will not be agreeable to anticoagulation. (9) Renal artery stenosis: Plan: [place] [facility] [place] these document a past h/o bilateral renal artery stenosis. MRA abdomen from 2005 indeed showed the following -- 50 to 70% stenosis of the left renal artery at its origin with a 50 to 60% stenosis in the right. Given her [id number] BPs consider a doppler study of her renal arteries was obtained; suboptimal study, no ALEXANDER detected, but may need repeat MRA at some point. 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? (18) Coronary artery disease: Plan: see above (19) Peripheral vascular disease: Plan: see above (20) Dyslipidemia: Plan: LDL was 58 in 05/2022 cont statin agent (21) COPD (chronic obstructive pulmonary disease): Plan: cont home inhalers cont nebs prn no flare at this time (22) Anorexia: Plan: improved acutely was likely due to her pneumonia Plan seen by PT/OT both suggest she can return home with HH services at time of discharge as long as she is able to do steps (has flight of stairs to be able to get into her home) will ask PT to see her again tomorrow nephew updated at bedside appreciate cardiology assistance possibly home tomorrow if she passes PT eval Admission and Anticipated Discharge Date Admission Date: August 21, 2022 Subjective patient wants to go home she has been more awake today than previous days appetite improved today L foot pain improved; able to weight bear now has not been out of room to on her own accord to check her walking cough/breathing much improved no dyspnea at rest continues with dyspnea with exertion interestingly she does NOT remember working with physical therapy yesterday (she was very sleepy throughout the day yesterday) tele overnight - NSR Review of Systems Review of Systems: gen - no fevers, more awake/alert today cv - no chest pain; no orthopnea; no edema pulm - no sputum GI - no abd pain/nausea/emesis Physical Exam Physical Exam: gen - looks much better today; more awake, alert; lying co mfortably in bed flat mouth - MMM heart - RRR, s1 s2, no murmur lungs - R basilar rales extending 1/[address] up back; mildly decreased BS R base, relatively clear on left abd - soft NT ND BS+ ext - pulses of feet 1+ b/l, no edema b/l psych - oriented to person/place/time musculo - left foot - mid-foot pain/swelling/tenderness ALL IMPROVED; no pain with palpation today Results & Data Results & Data ([facility]) Vital Signs (Past 12 Hours) Vital Signs Temp Pulse Pulse Pulse Resp BP Pulse Ox 08/25/22 19:42 36.8 C 67 24 133/78 91 08/25/22 17:00 66 08/25/22 15:55 37.0 C 111 H 20 141/56 H 91 08/25/22 12:26 36.8 C 70 17 98/45 L 90 08/25/22 12:35 102/63 08/25/22 09:55 O2 Del Method 08/25/22 19:42 Room Air 08/25/22 17:00 08/25/22 15:55 Room Air 08/25/22 12:26 Room Air 08/25/22 12:35 08/25/22 09:55 Room Air Laboratory Results Laboratory Results - last 24 hr 08/25/22 08/25/22 08/25/22 06:46 06:46 06:46 WBC 10.90 H RBC 2.98 L Hgb 8.9 L Hct 27.0 L MCV 90.6 MCH 29.9 MCHC 33.0 RDW Std Deviation 53.5 H RDW Coeff of Lakshmi 16.1 H Plt Count 182 MPV 11.9 Absolute Nucleated RBC 0.02 H Nucleated RBC % (auto) 0.2 Sodium 140 Potassium 4.0 Chloride 105 Carbon Dioxide 27 Anion Gap 8 BUN 48 H Creatinine 2.47 H D Est Cr Clr Drug Dosing 20.0 Est GFR ( Amer) 21.4 Est GFR (Non-Af Amer) 18.5 BUN/Creatinine Ratio 19.4 Glucose 124 H Estimat Average Glucose 126 Hemoglobin A1c 6.0 H Uric Acid 11.8 H Calcium 8.4 L PG Care Time/CCT Total # of Minutes Spent Total Time Spent with Patient: Total time spent is greater than 50% in coordination of care (as documented) at patient's floor/unit and/or counseling patient: Coding Level of Care Code 72330 SUB INP/OBS CARE 2/35MIN Diagnoses Lethargy R53.83 Acute respiratory failure with hypoxia J96.01 RLL pneumonia J18.9 Left foot pain M79.672 Gout M10.9 Acute on chronic heart failure with preserved ejection fraction (HFpEF) I50.33 Non-STEMI (non-ST elevated myocardial infarction) I21.4 Paroxysmal atrial fibrillation I48.0 Renal artery stenosis I70.1 Chronic kidney disease, stage IV (severe) N18.4 Cardiomyopathy, hypertrophic I42.2 Hypertension I10 Tobacco dependence F17.200 Anemia due to chronic kidney disease N18.9; D63.1 Vitamin B12 deficiency E53.8 Vitamin D deficiency E55.9 AAA (abdominal aortic aneurysm) I71.4 Coronary artery disease I25.10 Peripheral vascular disease I73.9 Dyslipidemia E78.5 COPD (chronic obstructive pulmonary disease) J44.9 Anorexia R63.0
[2022-08-26] MEDS: DOXYCYCLINE HYCLATE 100 MG in DEXTROSE 5% 100 ML IV SCH (06:16)
[2022-08-26 07:12] LABS: Calcium 8.3 mg/dl (8.5-10.1); Potassium 3.6 mmol/L (3.5-5.1)
[2022-08-26 07:18] LABS: BUN Creatinine Ratio 23.2 (10-20); Creatinine Clr Calc Pharmacy 22.2 ml/min; Est GFR (African American) 24.1 ml/min; Est GFR (Non-African American) 20.8 ml/min
[2022-08-26] MEDS: UMECLIDINIUM BROMIDE 62.5MCG/BLISTER 7 PUFFS/INHALER INH SCH (08:13)
[2022-08-26] MEDS: AMPICILLIN/SULBACTAM SOD 1,500 MG in 0.9 % SODIUM CHLORIDE 100 ML IV SCH (08:13)
[2022-08-26] MEDS: amLODIPine BESYLATE 5 MG TAB PO SCH (08:13)
[2022-08-26] MEDS: ISOSORBIDE MONO EXTENDED REL 30 MG TABCR PO SCH (08:14)
[2022-08-26] MEDS: ASPIRIN 81 MG ECTAB PO SCH (08:14)
[2022-08-26] MEDS: hydrALAZINE HCL 25 MG TAB PO SCH ×2 (08:14→13:19)
[2022-08-26] MEDS: AMIODARONE 200 MG TAB PO SCH (08:15)
[2022-08-26] MEDS: CLOPIDOGREL BISULFATE 75 MG TAB PO SCH (08:15)
[2022-08-26] MEDS ORDERED: predniSONE 20 MG TAB PO SCH (09:00)
[2022-08-26] MEDS ORDERED: guaiFENesin 600 MG TABCR PO SCH (12:55)
--- NOTE | 2022-08-26 14:35 | Discharge Summary ---
Date of Service date of admission - August 21, 2022 date of discharge - August 26, 2022 Admission HPI Per Admitting Provider The patient is a 77-year-old female with a past medical history including CAD, NSTEMI, paroxysmal atrial fibrillation, hypertrophic cardiomyopathy, hypertension, anemia due to chronic disease, CKD stage IV, COPD, tobacco abuse, hypertension, peripheral vascular disease, AAA, B12 deficiency and vitamin D deficiency. She presents to the emergency department with complaint of left- sided parasternal chest pain that began at rest this evening. She denies any recent signs of infection. She reports taking her medications as directed. Principal Diagnosis 1. acute/chronic HFpEF 2. RLL pneumonia 3. acute metabolic encephalopathy - 2nd to #2 4. NSTEMI 5. rapid paroxysmal a.fib - resolved, now in NSR Discharge Exam gen - looks much better in comparison to prior visits; more awake, alert; lying comfortably in bed flat mouth - MMM heart - RRR, s1 s2, no murmur lungs - R basilar rales extending 1/[address] up back - improved; mildly decreased BS R base, relatively clear on left; no wheezes abd - soft NT ND BS+ ext - pulses of feet 1+ b/l, no edema b/l psych - oriented to person/place/time musculo - left foot - mid-foot pain/swelling/tenderness ALL IMPROVED; no pain with palpation; pt reports being able to weight bear on L foot Discharge Data Allergies Allergy/AdvReac Type Severity Reaction Status Date / Time benzonatate Allergy Mild Dizziness Verified 08/16/22 10:31 Cephalosporins Allergy Mild KEFLEX=RASH Verified 08/16/22 10:31 diltiazem Allergy Mild RASH Verified 08/16/22 10:31 Iodinated Contrast Media Allergy Mild CT Verified 08/16/22 10:31 Contrast = kidney infection Consultations [facility] Cardiology [facility] CHF Program Referral PT, OT Procedures Performed echocardiogram - * EF >70% * hypokinesis of the inferolateral wall with severe hypokinesis of the basal inferior wall * severe asymmetric hypertrophy of the anteroseptum * mild-moderate mitral regurgitation * normal PA pressure * compared with 04/2022 echo - RCA wall motion abnormality is now present Ordered Studies Chest X-Ray 08/21/22 04:05 XR chest 1V portable HISTORY: 77 years-old Female Chest pain, nonspecific acute chest pain COMPARISON: Chest CT August 15, 2022, chest radiograph 04/20/2022 TECHNIQUE: AP view of the chest FINDINGS: Cardiac silhouette is enlarged. Atherosclerosis of the aorta. Unchanged mild left hemidiaphragmatic elevation with subsegmental left basilar atelectasis christina reanna scarring. Mild pulmonary vascular congestion. No pneumothorax, large pleural effusion or overt pulmonary edema. Degenerative changes of the shoulders and spine. IMPRESSION: Cardiomegaly with pulmonary vascular congestion. ACT 112: Negative or not required by law. The above report was generated using voice recognition software. It may contain grammatical, syntax or spelling errors. Electronically signed by: Javier Childs M.D. 08/21/2022 7:03 AM Renal Artery Duplex 08/23/22 07:44 US duplex renal artery CLINICAL HISTORY: malignant hypertension, h/o renal artery stenosis COMPARISON STUDY: Renal ultrasound 06/23/2012. Abdomen and pelvis CT 09/28/2021. FINDINGS: The right kidney measures 10.0 cm and the left kidney measures 15.0 cm. The lower pole the right kidney is obscure by overlying bowel gas. There is moderate bilateral cortical renal thinning. Multiple bilateral renal cysts with the largest on the left measuring 5 cm. There is a partially visualized thrombosed abdominal aortic aneurysm measuring up to 4.8 cm in diameter. This is not well visualized due to the overlying bowel. The systolic velocity within the mid right renal artery is 86 cm/s. Peak systolic velocity within the distal left renal artery is 56 cm/s. The left mid and proximal renal artery are not identified. The bilateral renal veins appear patent. IMPRESSION: 1. Suboptimal evaluation due to the patient's body habitus and overlying bowel gas. 2. There is a partially visualized abdominal aortic aneurysm measuring approximately 4.8 cm in diameter. This appears completely thrombosed. This is likely stable compared to the prior study. 3. No evidence for significant stenosis within the visualized renal arteries. ACT 112: Negative or not required by law. Electronically signed by: Farhad Dhillon M.D. 08/23/2022 12:15 PM Chest X-Ray 08/23/22 18:36 XR chest 1V portable CLINICAL HISTORY: hypoxia, cough, fatigue; ?pneumonia TECHNIQUE: Single frontal radiograph of the chest was obtained. Comparison: Comparison is made to chest radiograph 08/21/2022 FINDINGS: Exam is limited by underpenetration. Cardiomegaly is noted. There is increased opacity in the right lung favoring the lower lobe. No pneumothorax is seen, pleural effusions cannot be excluded. IMPRESSION: 1. Right lung airspace opacities are favored to represent pneumonia and/or aspiration. 2. Possible small bilateral pleural effusions. 3. Stable cardiomegaly. ACT 112: Negative or not required by law. Electronically signed by: Pavan Samson M.D. 08/23/2022 7:42 PM Foot X-Ray 08/24/22 13:57 LEFT FOOT 3 VIEWS CLINICAL HISTORY: Mid foot pain. FINDINGS: 3 views of the left foot are compared to study dated 08/27/2021. Correlation is made with CT of the foot dated 01/27/2021. The skeletal structures are osteopenic. No fracture is seen. Mild osteoarthritic change is noted at the first metatarsophalangeal joint and at the tarsometatarsal articulations. No erosive disease is seen. There are dorsal and plantar heel spurs. Mild soft tissue swelling suggested in the foot. No soft tissue calcifications are identified. IMPRESSION: 1. Mild soft tissue swelling with no acute bony abnormality identified. 2. Osteopenia, mild degenerative change, and heel spurs as above. Electronically signed by: Wang Curiel M.D. 08/24/2022 2:44 PM Hospital Course (1) Paroxysmal atrial fibrillation: Patient presented with rapid a.fib. This resolved after several hours and she had no recurrence since admission. Her chest symptoms resolved when her rapid a.fib resolved. She was seen in consult by Dr Patrick Bain, [facility] Cardiology, and he advised amiodarone 200mg BID for rhythm control. TSH was wnl. 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 This is despite a high CHADs-VASCs score. Could re-visit the topic of anticoagulation as an outpatient. At her outpatient f/u visit it can be decided when to lower the amiodarone dose. (2) Acute on chronic heart failure with preserved ejection fraction (HFpEF): In the midst of rapid a.fib and her NSTEMI she developed acute/chronic HFpEF. She was diuresed with twice daily lasix. At discharge her oral lasix dosing was increased from 40mg daily to 60mg daily. She will need to check daily weights, follow fluid and salt restriction, and f/u with the [facility] CHF clinic or her primary radio message router, Dr Dangelo, shortly after discharge. (3) Non-STEMI (non-ST elevated myocardial infarction): peak HS troponin 10,400. difficulty to say if type 1 or type 2 IL. previous cardiac cath was 04/2022 with the following - LM -large caliber, calcified, 20% ostial LAD -large caliber, calcified focal mid 60% stenosis at takeoff of large septal. Remainder of vessel without significant disease. D1 without significant disease. Circumflex -medium caliber, luminal irregularities. Large OM2, OM3 without significant disease. RCA -dominant, calcified, medium caliber, 40% proximal disease. Mid segment with SEBASTIÁN II flow prior to subtotal occlusion with questionable thrombus. PDA/PLB fill retrograde via [id number] collaterals. During that 04/2022 cath no stents were deployed. completed 48 hours of heparin infusion. cont asa 81mg daily; plavix 75mg daily; lipitor 40mg daily; imdur 30mg daily HRs will need to be watched carefully as amiodarone is initiated in the setting of metoprolol use. She may need a reduced dose of metoprolol or perhaps none at all. (4) Acute respiratory failure with hypoxia: 2nd to acute/chronic diastolic CHF and RLL pneumonia Peak O2 requirement was 5 liters of NC O2 formal 2-step ambulatory oxygen test showed she did NOT need home O2 at discharge (5) RLL pneumonia: Treated for community acquired pneumonia with IV unasyn + doxycycline x 3 days each. Then converted to oral augmentin + doxycycline for 4 additional days at discharge. By report she had no issues with dysphagia thus aspiration not suspected. (6) Lethargy: likely was metabolic encephalopathy from pneumonia. as her pneumonia resolved her mentation improved & lethargy resolved. (7) Left foot pain: 2nd gout as below. (8) Gout: Left mid-foot. x-rays unremarkable - no fracture, no CPPD changes, etc. Prednisone was given with rapid improvement. Uric acid level >10. clinical picture most c/w mid-foot gout. She will complete a short course of low-dose prednisone after discharge. (9) Renal artery stenosis: vascular surgery records were reviewed from [facility]. these document a past h/o bilateral renal artery stenosis. MRA abdomen from 2005 indeed showed the following -- 50 to 70% stenosis of the left renal artery at its origin with a 50 to 60% stenosis in the right. Given her [id number] BPs a doppler study of her renal arteries was obtained; unfortunately this was a suboptimal study and no ALEXANDER was detected. I would recommend a repeat MRA at some point given the # of anti-hypertensive medications she requires. (10) Chronic kidney disease, stage IV (severe): baseline CrCl 25-30 baseline Cr low 2's not SANDRA or ARB candidate for her CHF due to her CKD discharge creatinine was 2.2 (11) Cardiomyopathy, hypertrophic: as seen on prior echos and this admission's echo EF >70% (12) Hypertension: poorly controlled early in her stay IMPROVED with addition of hydralazine + amlodipine anti-hypertensive regimen at discharge: * hydralazine 25mg BID * amlodipine 5mg daily * lasix 60mg daily * imdur 30mg daily * metoprolol succinate 25mg BID again she likely needs an MRA of the renal arteries in the near-future to check on status of her renal artery stenosis (13) Tobacco dependence: counseled to quit (14) Anemia due to chronic kidney disease: Hemoglobin ranged 8.8 to 9.5 while here Fe studies c/w mild Fe def (ferritin 59, transferrin sat 11%) defer to outpatient providers administering IV venofer or similar (15) Vitamin B12 deficiency: B12 level in 08/2021 was well within normal limits (16) Vitamin D deficiency: 25-OH level in 02/2022 was wnl (17) AAA (abdominal aortic aneurysm): h/o such, >5cm, previously seen by [facility] vascular surgery and the [facility] told she was not a candidate for AAA repair some records suggest her AAA is occluded with distal reconstitution (18) Coronary artery disease: see discussion above (19) Peripheral vascular disease: see above (20) Dyslipidemia: LDL was 58 in 05/2022 cont statin agent (21) COPD (chronic obstructive pulmonary disease): cont home inhalers cont nebs prn no flare at this time (22) Anorexia: improved acutely was likely due to her pneumonia Plan passed PT/OT evals but both advised home health services Total Time Total Time Spent Total Time Spent (In Minutes): 45 Discharge Plan Discharge Items Patient Disposition: Home - Home Health Services Reason For Visit: CHEST PAIN Discharge Diagnosis: 1. chest pain - due to rapid atrial fibrillation; cannot rule out a mild heart attack 2. rapid atrial fibrillation - resolved; normal heart rhythm has returned 3. right-sided pneumonia - improved 4. severe high blood pressure 5. congestive heart failure - improved; fluid build-up in lungs has resolved 6. coronary artery disease 7. gout of left foot 8. prediabetes; hemoglobin a1c 6% Activity: As commented below Activity Comment: gradually increase your activities over the next 7 days Driving/Machine Use: Resume 3 days after discharge Non-emergency contact: Primary Care Provider and Aquatic Life Laborer Call non-emergency contact if: you have any medication questions, your symptoms worsen, your pain is not controlled and your pain is worsening Follow-up/Referrals: Huyen Staton PA-C [Physician Ballistician] - 09/03/22 2:00 pm (Congestive Heart Failure Program Appointment Information Early follow up is essential to managing your heart failure. An appointment has been scheduled for you with the [facility] Heart Failure Program within 7 days of discharge. Anticipate this visit to be 30-60 minutes long. Please expect a administration dean phone call from one of our nurses approximately 48 hours from discharge. They will also be placing an order for lab work to be completed 1-2 days prior to your heart failure follow up appointment. Please be sure to have this done so we can go over the results when you come in. Office Location The cardiology office building is located in front of the hospital at [address]. Bring the following with you to your follow-up doctor appointments: Please bring your daily weight log any discharge paperwork all of your medication bottles with you to this visit. ) Shravan Chicas, [Primary Care Provider] - (within 5 days ) Addtl Attending Provider Instructions: Mrs Bailon, You were hospitalized for chest pain. At time of admission you had gone back into atrial fibrillation. Fortunately this resolved after a few hours. Your pain quickly improved when the atrial fibrillation resolved. Your blood work for the heart was elevated and, in the midst of the rapid atrial fibrillation, you may have had a mild heart attack. During your stay you also had fluid build-up in the lungs due to congestive heart failure. This improved with diuretics/water pills. You had a gout attack in your left foot that improved with prednisone. Your uric acid level - the substance that causes gout - is very elevated. Finally, your chest x-rays showed a right-sided pneumonia. This was treated with IV antibiotics. All of your breathing symptoms got better while here. Recommendations - 1. For atrial fibrillation - * take amiodarone 200mg twice daily, first dose TONIGHT 2. For pneumonia - * doxycycline 100mg twice daily x 4 days, first dose TONIGHT; this medication can sometimes cause heartburn * amoxicillin-clavulanate 500mg twice daily x 4 days, first dose TONIGHT; this medication can cause diarrhea * have a repeat chest x-ray in about 4-6 weeks to ensure all the pneumonia has resolved 3. For gout attack - * prednisone 10mg once daily with food for 5 days, first dose TOMORROW 08/27/22 4. For high blood pressure - the following are new medications as recommended by cardiology - * amlodipine 5mg once daily, first dose TOMORROW 08/27/22; this medication can sometimes cause constipation * hydralazine 25mg twice daily, first dose TONIGHT 5. For congestive heart failure - * INCREASE your furosemide to 60mg once daily each morning, first dose TOMORROW 08/27/22 * WEIGH yourself each morning and call your heart doctors if you gain more than 2-3 pounds in 1-2 days; this is usually a sign of gaining water weight from your congestive heart failure 6. Please talk to your family doctor about ways to help you quit smoking. 7. It appears you have a condition called "prediabetes" (see handout). Your risk of developing full-blown diabetes is high in the next couple of years. You don't need medication for this, but please talk to your family doctor about ways to prevent it progressing. Your hemoglobin a1c was 6% (see handout on "A1C"). Follow-up - see separate section Return to [facility] if - * you have recurrent chest pain * you have worsening shortness of breath * you have to take nitroglycerin tablets under the tongue * you develop recurrent fevers over 100 degrees * you have rapid heart beating or palpitations * any other concerns It was our pleasure caring for you at [facility], Dr Cox Pending Studies at Discharge: No Stand-Alone Forms: [facility], Smoking Cessation Medications and DC Order Prescriptions: New amiodarone 200 mg Tablet 200 mg PO BIDM Qty: 60 1RF hydralazine 25 mg Tablet 25 mg PO BID Qty: 60 1RF amlodipine [Norvasc] 5 mg Tablet 5 mg PO QAM Qty: 30 1RF Continued isosorbide mononitrate 30 mg tablet extended release 24 hr 30 mg PO DAILY Qty: 30 11RF clopidogrel 75 mg tablet 75 mg PO QAM Qty: 30 11RF Spiriva Respimat 2.5 mcg/actuation mist 2 inh inhalation QAM Qty: 4 2RF atorvastatin 40 mg tablet 40 mg PO QPM Qty: 90 3RF albuterol sulfate [ProAir HFA] 90 mcg/actuation HFA aerosol inhaler 2 puff INH Q4H PRN (Reason: shortness of breath or wheezing) Qty: 18 5RF aspirin [Shahzad Low Dose Aspirin] 81 mg Tablet,Delayed Release (Dr/Ec) 81 mg PO QAM nitroglycerin 0.4 mg tablet, sublingual 0.4 mg sublingual Q5M PRN (Reason: chest pain) Qty: 1 0RF Rx Instructions: max 3 tabs in 15 minutes metoprolol succinate 50 mg tablet extended release 24 hr 25 mg PO BID Qty: 180 3RF Changed furosemide 40 mg tablet 60 mg PO QAM Qty: 90 3RF Rx Instructions: Weigh yourself every morning after using the toilet. Call the cardiology office if you gain more than 2-3 pounds over 1-2 days. No Action allopurinol 100 mg tablet 100 mg PO DAILY Qty: 90 3RF Discharge Orders: Discharge Order (Routine); Ordered 08/26/22 Ordered By: Cam Briones/Other Patient Handouts: A1C, Prediabetes, 5 Steps for Eating Healthier, What Is Gout?, ED Gout Diet Admission Data Admit Date/Time: 08/21/22 05:50 Attending Provider: Cam Cox Admit Provider: Phi Wetzel Primary Care Provider: Shravan Chicas Other Providers: [facility],Home Healthcare ; Kevin Bain Other Interventions: Discharge Summary Assessment (RN) Last Done: 08/26/22 14:13 Coding Level of Care Code HOSP INP/OBS DISCH >30 MIN Diagnoses Paroxysmal atrial fibrillation I48.0 Acute on chronic heart failure with preserved ejection fraction (HFpEF) I50.33 Non-STEMI (non-ST elevated myocardial infarction) I21.4 Acute respiratory failure with hypoxia J96.01 RLL pneumonia J18.9 Lethargy R53.83 Left foot pain M79.672 Gout M10.9 Renal artery stenosis I70.1 Chronic kidney disease, stage IV (severe) N18.4 Cardiomyopathy, hypertrophic I42.2 Hypertension I10 Tobacco dependence F17.200 Anemia due to chronic kidney disease N18.9; D63.1 Vitamin B12 deficiency E53.8 Vitamin D deficiency E55.9 AAA (abdominal aortic aneurysm) I71.4 Coronary artery disease I25.10 Peripheral vascular disease I73.9 Dyslipidemia E78.5 COPD (chronic obstructive pulmonary disease) J44.9 Anorexia R63.0 Home Health Attestation I certify that this patient is under my care and that I, or a physicians corporate administrative assistant working with me, had a face to-face encounter that meets the home health iwca-as-uric encounter requirements with this patient. The encounter with the patient was in whole, or in part, for the following medical condition, which is the primary reason for home health care (list medical condition): I certify that, based on my findings, the following services are medically necessary home health services: My clinical findings support the need for the above services because: Daily Weights Home Safety Assessment Medication Compliance and Monitoring Effective of New Medications OT Assess ADL Status and Restore Function w ADLs Skilled Nsg Assess Pt Illness, Disease and Sx Monitoring S/S to Report to Provider Teach on Disease Management and Interventions Vital Signs Further, I certify that my clinical findings support that this patient is homebound (i.e. absences from home require considerable and taxing effort and are for medical reasons or sikh services or infrequently or of short duration when for other reasons) because: Certification for Home Health Services: Based on the above findings, I certify that this patient is confined to the home and needs intermittent chcf care, physical therapy and/or speech therapy or continues to need occupational therapy. The patient is under my care, and I have initiated the establishment of the plan of care. This patient will be followed by a physician who will periodically review the plan of care.
== END 2022-08-26 14:54 | disposition home or self-care (01) | DRG 280 ==
LOC: ED 04:00 → EDINP 05:50 → SUATTDRO 05:50 → EDINP 06:23 → 1E 14:01 → 2S 08-24 18:39
DX: I71.40 Abdominal aortic aneurysm, without rupture, unspecified; E53.8 Deficiency of other specified B group vitamins; Z79.82 Long term (current) use of aspirin; Z88.1 Allergy status to other antibiotic agents; I73.9 Peripheral vascular disease, unspecified; J18.9 Pneumonia, unspecified organism; I48.0 Paroxysmal atrial fibrillation; I25.10 Atherosclerotic heart disease of native coronary artery without angina pectoris; I50.33 Acute on chronic diastolic (congestive) heart failure; E78.5 Hyperlipidemia, unspecified; M10.9 Gout, unspecified; I70.1 Atherosclerosis of renal artery; N18.4 Chronic kidney disease, stage 4 (severe); Z88.8 Allergy status to other drugs, medicaments and biological substances; J44.9 Chronic obstructive pulmonary disease, unspecified; Z79.899 Other long term (current) drug therapy; G93.41 Metabolic encephalopathy; J96.01 Acute respiratory failure with hypoxia; I21.A1 Myocardial infarction type 2; I42.2 Other hypertrophic cardiomyopathy; F17.210 Nicotine dependence, cigarettes, uncomplicated; R63.0 Anorexia; D63.1 Anemia in chronic kidney disease; E55.9 Vitamin D deficiency, unspecified; I21.4 Non-ST elevation (NSTEMI) myocardial infarction; I13.0 Hypertensive heart and chronic kidney disease with heart failure and stage 1 through stage 4 chronic kidney disease, or unspecified chronic kidney disease; Z91.048 Other nonmedicinal substance allergy status; I44.0 Atrioventricular block, first degree

== ENCOUNTER 2022-10-23 13:32 | Observation (INO) ==
--- NOTE | 2022-10-23 14:10 | Emergency Department Note ---
History of Present Illness General Chief complaint: Hip Pain Stated complaint: R HIP PAIN/KNEE,SOB Time Seen by Provider: 10/23/22 13:52 History of Present Illness Maximum Pain Intensity: 10 This is a 77-year-old female that presents to the emergency department via private vehicle with complaints of "right knee/hip pain, shortness of breath". The patient notes that she has had shortness of breath that has been progressively worsening over the past few months. She notes pain to the right hip and right knee over the past 2 weeks. She denies any known trauma or injury. No fevers or chills. No chest pain. No abdominal pain. No lower extremity weakness, bowel or bladder incontinence, numbness or tingling in genital region. She notes that the pain to the right lateral hip and right knee is worse with weightbearing and improves minimally with rest. She does note some bilateral edema to the feet but that is not necessarily new. She did not take her Lasix this morning. She does take aspirin daily. Current pain 05/14. Home Medications Medication Instructions Recorded Confirmed Type aspirin 81 mg tablet,delayed 81 mg PO QAM 05/11/19 10/23/22 History release (Shahzad Low Dose Aspirin) atorvastatin 40 mg tablet 40 mg PO QPM #90 tabs 08/04/21 10/23/22 Rx albuterol sulfate 90 mcg/actuation 2 puff inhalation Q4H PRN 10/05/21 10/23/22 Rx aerosol inhaler (ProAir HFA) shortness of breath or wheezing #18 grams metoprolol succinate 50 mg 25 mg PO BID #180 tabs 04/19/22 10/23/22 Rx tablet,extended release 24 hr nitroglycerin 0.4 mg sublingual 0.4 mg sublingual Q5M PRN chest 04/19/22 10/23/22 Rx tablet pain #1 btl clopidogrel 75 mg tablet 75 mg PO QAM #30 tabs 06/04/22 10/23/22 Rx isosorbide mononitrate 30 mg 30 mg PO DAILY #30 tabs 06/04/22 10/23/22 Rx tablet,extended release 24 hr tiotropium bromide 2.5 2 inh inhalation QAM #4 grams 08/15/22 10/23/22 Rx mcg/actuation mist for inhalation (Spiriva Respimat) amiodarone 200 mg tablet 200 mg PO BIDM #60 tabs 08/26/22 10/23/22 Rx amlodipine 5 mg tablet (Norvasc) 5 mg PO QAM #30 tabs 08/26/22 10/23/22 Rx furosemide 40 mg tablet 60 mg PO QAM #90 tabs 08/26/22 10/23/22 Rx hydralazine 25 mg tablet 25 mg PO BID #60 tabs 08/26/22 10/23/22 Rx allopurinol 100 mg tablet 100 mg PO DAILY #90 tabs 08/29/22 10/23/22 Rx levothyroxine 25 mcg tablet 25 mcg PO DAILY #30 tabs 10/16/22 10/23/22 Rx Allergies Allergy/AdvReac Type Severity Reaction Status Date / Time benzonatate Allergy Mild Dizziness Verified 10/23/22 16:43 Cephalosporins Allergy Mild KEFLEX=RASH Verified 10/23/22 16:43 diltiazem Allergy Mild RASH Verified 10/23/22 16:43 Iodinated Contrast Media Allergy Mild CT Verified 10/23/22 16:43 Contrast = kidney infection Past Med/Surg History Medical History AAA (abdominal aortic aneurysm) Followed at [facility] Abnormal CT scan, chest Abnormal diffusion capacity determined by pulmonary function test Acute on chronic heart failure with preserved ejection fraction (HFpEF) Acute respiratory failure with hypoxia Anemia Anemia due to chronic kidney disease Asthma Atherosclerosis of both carotid arteries Atrial fibrillation Cardiomyopathy, hypertrophic Carpal tunnel syndrome Chronic diastolic congestive heart failure Chronic kidney disease, stage IV (severe) Chronic osteoarthritis COPD (chronic obstructive pulmonary disease) Coronary artery disease Current smoker Diffusion capacity of lung (dl), decreased Dyslipidemia First degree AV block Gout History of uterine cancer 2008--sx only Hypertension Hypertension Hypotension Hypothyroidism Nocturnal hypoxia Non-STEMI (non-ST elevated myocardial infarction) Obstructive sleep apnea of adult no device Paroxysmal atrial fibrillation Pericardial effusion Peripheral vascular disease Renal artery stenosis RLL pneumonia Secondary hyperparathyroidism Short of breath on exertion Shortness of breath Spinal stenosis Tobacco abuse counseling Tobacco dependence Tubular adenoma of colon (~04/2014) Vitamin B12 deficiency Vitamin D deficiency Surgical History History of bilateral cataract extraction History of cardiac cath [address] Dangelo--no stent History of colonoscopy (~04/2014) History of tonsillectomy and adenoidectomy History of tooth extraction all teeth removed History of total hysterectomy with bilateral salpingo-oophorectomy (BSO) Hx of cardiac cath Family History Unknown Hypertension Mother Stroke syndrome Sister Uterine cancer Diabetes Myocardial infarction Ovarian cancer Other No family history of adverse response to anesthesia Denies family history of Prostate cancer Breast cancer Lung cancer Colorectal cancer Social History Smoking Status: Current every day smoker Tobacco Type: Cigarettes Age Started Using Tobacco: 19; packs per day: 0.5; Cigarettes Per Day: 20; Second Hand Exposure: No; Hx Alcohol Use: No Hx Substance Use: No Preferred Language: Welsh Communication Ability: Effective Visual Impairment: No Limitations Hearing Ability: Normal Assistant Professor Of Chemistry Required: No Beliefs That Will Affect Care: None marital status: / Current Living Situation: Alone current occupational status: retired current occupation: Retired How many Children do You have: 0 Feels Safe at Home: Yes Childhood Exposure to Second-Hand Smoke: Yes caffeine: Yes Dental Care, Regularly: No Physical Activity Frequency: Does not Exercise Seatbelt Use: never Sunscreen Use: No Assistive Devices: Denture - Upper and Denture - Lower Review of Systems A total of 10 systems reviewed and were otherwise negative Physical Exam Vital Signs Vital Signs - 24 hr 10/23/22 13:42 10/23/22 15:21 10/23/22 16:30 Temperature 36.4 C L Temperature Source Temporal Artery Scan Pulse Rate 57 L Pulse Rate from SpO2 Sensor Pulse Rhythm Regular Respiratory Rate 18 Respiratory Effort / Characteristics Non-Labored Spontaneous Respiratory Depth Normal Blood Pressure 162/80 H Blood Pressure Mean 107 Pulse Oximetry 90 88 L 87 L Oxygen Delivery Method Room Air Room Air Room Air Nasal Cannula Oxygen Flow Rate 0 Sepsis Recent Fever Within 48 Hours No Sepsis New/Unexplained Change in Mental Status No Sepsis Action Taken by Nursing No Action Required Oxygen Flow Rate - Titration 2 Pulse Oximetry Post Tiitration 92 10/23/22 14:34 10/23/22 14:40 10/23/22 14:50 Temperature Temperature Source Pulse Rate 60 50 L 50 L Pulse Rate from SpO2 Sensor 52 L 50 L 50 L Pulse Rhythm Respiratory Rate 22 24 19 Respiratory Effort / Characteristics Respiratory Depth Blood Pressure Blood Pressure Mean Pulse Oximetry 92 91 90 Oxygen Delivery Method Oxygen Flow Rate Sepsis Recent Fever Within 48 Hours Sepsis New/Unexplained Change in Mental Status Sepsis Action Taken by Nursing Oxygen Flow Rate - Titration Pulse Oximetry Post Tiitration 10/23/22 14:57 10/23/22 14:57 10/23/22 15:00 Temperature Temperature Source Pulse Rate 55 L 52 L Pulse Rate from SpO2 Sensor 50 L 52 L Pulse Rhythm Respiratory Rate 20 24 Respiratory Effort / Characteristics Respiratory Depth Blood Pressure 168/64 H Blood Pressure Mean 98 Pulse Oximetry 91 92 Oxygen Delivery Method Oxygen Flow Rate Sepsis Recent Fever Within 48 Hours Sepsis New/Unexplained Change in Mental Status Sepsis Action Taken by Nursing Oxygen Flow Rate - Titration Pulse Oximetry Post Tiitration 10/23/22 15:10 10/23/22 15:20 10/23/22 16:23 Temperature Temperature Source Pulse Rate 50 L 49 L Pulse Rate from SpO2 Sensor 49 L 49 L 52 L Pulse Rhythm Respiratory Rate 30 H 26 H Respiratory Effort / Characteristics Respiratory Depth Blood Pressure Blood Pressure Mean Pulse Oximetry 90 88 L 90 Oxygen Delivery Method Oxygen Flow Rate Sepsis Recent Fever Within 48 Hours Sepsis New/Unexplained Change in Mental Status Sepsis Action Taken by Nursing Oxygen Flow Rate - Titration Pulse Oximetry Post Tiitration 10/23/22 16:30 10/23/22 16:31 10/23/22 16:31 Temperature Temperature Source Pulse Rate 105 H 52 L Pulse Rate from SpO2 Sensor 53 L 51 L Pulse Rhythm Respiratory Rate 30 H 24 Respiratory Effort / Characteristics Respiratory Depth Blood Pressure 151/52 H Blood Pressure Mean 85 Pulse Oximetry 91 75 L Oxygen Delivery Method Oxygen Flow Rate Sepsis Recent Fever Within 48 Hours Sepsis New/Unexplained Change in Mental Status Sepsis Action Taken by Nursing Oxygen Flow Rate - Titration Pulse Oximetry Post Tiitration 10/23/22 16:40 10/23/22 16:50 10/23/22 17:00 Temperature Temperature Source Pulse Rate 51 L 59 L Pulse Rate from SpO2 Sensor 51 L 51 L Pulse Rhythm Respiratory Rate 27 H 31 H Respiratory Effort / Characteristics Respiratory Depth Blood Pressure 164/61 H Blood Pressure Mean 95 Pulse Oximetry 91 93 Oxygen Delivery Method Oxygen Flow Rate Sepsis Recent Fever Within 48 Hours Sepsis New/Unexplained Change in Mental Status Sepsis Action Taken by Nursing Oxygen Flow Rate - Titration Pulse Oximetry Post Tiitration 10/23/22 17:00 Temperature Temperature Source Pulse Rate 63 Pulse Rate from SpO2 Sensor 51 L Pulse Rhythm Respiratory Rate 22 Respiratory Effort / Characteristics Respiratory Depth Blood Pressure Blood Pressure Mean Pulse Oximetry 91 Oxygen Delivery Method Nasal Cannula Oxygen Flow Rate 2 Sepsis Recent Fever Within 48 Hours Sepsis New/Unexplained Change in Mental Status Sepsis Action Taken by Nursing Oxygen Flow Rate - Titration Pulse Oximetry Post Tiitration VITAL SIGNS - Vital signs and triage nursing notes were reviewed. Stable and afebrile. GENERAL -77-year-old female appearing her stated age who is in no acute distress . Communicates well with provider and answers questions appropriately. SKIN - Without rashes. No meningeal or petechial rash. HEAD - NC/AT. EYES - PERRL with EOMI bilaterally. Sclera anicteric. EARS - No deformities of external structures noted on gross examination bilaterally. NOSE - Midline and without cyanosis. No epistaxis or purulent drainage noted. Septum midline without deviation or septal hematoma noted. MOUTH/OROPHARYNX - Without perioral cyanosis. NECK - No nuchal rigidity. LUNGS -clear to auscultation CARDIAC - RRR ABDOMEN - Abdominal contour normal without pulsations or visible masses. BS normoactive all four quadrants. No tenderness, palpable masses, hepatosplenomegaly, or ascites noted. EXTREMITIES - No clubbing or peripheral cyanosis. There is bilateral lower extremity edema noted. +5/5 strength noted in UE/LE bilaterally. Point tenderness overlying the right lateral hip joint as well as the right anterior knee without evidence of integument change. Patient well-perfused in the lower extremities without deficit. NEUROLOGIC - Cranial nerves II through XII grossly intact. PSYCH - A&Ox3 and cooperates fully with examiner. Pt is very pleasant and interacts well with examiner. Course Administered Medications Albuterol (Albut/Ipratrop 3mg/0.5mg Neb 3 Ml Vial) 3 ml NEB QIDR [facility]; Protocol Stop: 11/22/22 18:59 Last Admin: 10/24/22 06:56 Dose: 3 ml Documented By: Admin: 10/23/22 19:48 Dose: 3 ml Documented By: MAURICIO Amiodarone HCl (Amiodarone 200 Mg Tab) 200 mg PO [facility] Stop: 11/23/22 08:59 Last Admin: 10/24/22 08:32 Dose: 200 mg Documented By: DIANNE Amlodipine Besylate ([facility]odipine Besylate 5 Mg Tab) [facility] Stop: 11/23/22 08:59 Last Admin: 10/24/22 08:32 Dose: 5 mg Documented By: DIANNE Aspirin (Aspirin 81 Mg Ectab) 81 mg PO QAM [facility] Stop: 11/23/22 08:59 Last Admin: 10/24/22 08:32 Dose: 81 mg Documented By: DIANNE Atorvastatin Calcium (Atorvastatin 40 Mg Tab) 40 mg PO QPM YECENIA Stop: 11/22/22 20:59 Last Admin: 10/23/22 20:06 Dose: 40 mg Documented By: PK Ciprofloxacin (Ciprofloxacin 500 Mg Tab) 500 mg PO DAILY [facility] Stop: 10/28/22 09:01 Last Admin: 10/24/22 10:18 Dose: 500 mg Documented By: DIANNE Clopidogrel Bisulfate (Clopidogrel Bisulfate 75 Mg Tab) [facility] Stop: 11/23/22 08:59 Last Admin: 10/24/22 08:31 Dose: 75 mg Documented By: DIANNE Enoxaparin Sodium (Enoxaparin Inj 30 Mg/0.3 Ml Syr) 30 mg SQ [facility] Stop: 11/23/22 08:59 Last Admin: 10/24/22 08:31 Dose: 30 mg Documented By: DIANNE Hydralazine HCl (Hydralazine Hcl 25 Mg Tab) 25 mg PO BID [facility] Stop: 11/22/22 20:59 Last Admin: 10/24/22 08:32 Dose: 25 mg Documented By: Admin: 10/23/22 20:06 Dose: 25 mg Documented By: PK Isosorbide Mononitrate (Isosorbide Garrett Extended Rel 30 Mg Tabcr) 30 mg PO DAILY [facility] Stop: 11/23/22 08:59 Last Admin: 10/24/22 08:32 Dose: 30 mg Documented By: DIANNE Levothyroxine Sodium (Levothyroxine Sodium 25 Mcg Tablet) 25 mcg PO DAILYBB [facility] Stop: 11/23/22 06:29 Last Admin: 10/24/22 06:03 Dose: 25 mcg Documented By: PK Metoprolol Succinate (Metoprolol Succ 25mg Ext Rel Tab) 25 mg PO BID [facility] Stop: 11/22/22 20:59 Last Admin: 10/24/22 08:32 Dose: Not Given Documented By: Admin: 10/23/22 20:06 Dose: Not Given Documented By: PK Umeclidinium [place] (Umeclidinium [place] 62.5mcg/Blister 7 Puffs/Inhaler) 1 puffs INH QAM YECENIA Stop: 11/23/22 08:59 Last Admin: 10/24/22 08:31 Dose: 1 puffs Documented By: DIANNE Discontinued Medications Furosemide (Furosemide 40 Mg/4 Ml Vial) 40 mg IV NOW STA Stop: 10/23/22 16:34 Last Admin: 10/23/22 17:11 Dose: 40 mg Documented By: NMS Furosemide (Furosemide 40 Mg/4 Ml Vial) 40 mg IV ONE ONE Stop: 10/24/22 08:09 Last Admin: 10/24/22 08:34 Dose: 40 mg Documented By: DIANNE Potassium Chloride (Potassium Chloride Crtab 20 Meq Tabcr) 40 meq PO NOW STA Stop: 10/24/22 08:09 Last Admin: 10/24/22 08:34 Dose: 40 meq Documented By: DIANNE Medical Decision Making Laboratory Data 10/24/22 03:03 10/24/22 03:03 Lab Results 10/23/22 10/23/22 10/23/22 Range/Units 14:44 14:44 14:44 WBC 10.44 (4.8-10.8) K/ul RBC 2.90 L (4.20-5.40) M/uL Hgb 8.7 L (12.0-16.0) g/dl Hct 28.1 L (37.0-47.0) % MCV 96.9 (80.0-100.0) fL MCH 30.0 (25.0-34.0) pg MCHC 31.0 L (32.0-36.0) g/dL RDW Std Deviation 62.7 H (36.4-46.3) fL RDW Coeff of Lakshmi 17.9 H (11.5-14.5) % Plt Count 215 (130-400) K/uL MPV 11.2 (9.4-12.4) fL Immature Gran % (Auto) 1.0 % Neut % (Auto) 75.8 % Lymph % (Auto) 13.8 % Garrett % (Auto) 6.3 % Eos % (Auto) 2.4 % Baso % (Auto) 0.7 % Neut # (Auto) 7.92 H (1.40-6.50) K/uL Lymph # (Auto) 1.44 (1.2-3.4) K/uL Garrett # (Auto) 0.66 H (0.11-0.59) K/uL Eos # (Auto) 0.25 (0-0.50) K/uL Baso # (Auto) 0.07 (0-0.2) K/uL Immature Gran # (Auto) 0.10 (0.01-0.20) K/uL PT 11.1 (9.0-12.0) Seconds INR 1.0 (0.9-1.1) APTT 24.6 (21.0-31.0) Seconds PTT Ratio 0.9 Sodium 145 (136-145) mmol/L Potassium 3.7 (3.5-5.1) mmol/L Chloride 109 H (98-107) mmol/L Carbon Dioxide 30 (21-32) mmol/L Anion Gap 6 (3-11) BUN 31 H (6-23) mg/dl Creatinine 2.73 H (0.6-1.2) mg/dl Est Cr Clr Drug Dosing 18.7 ml/min Est GFR ( Amer) 19.0 ml/min Est GFR (Non-Af Amer) 16.4 ml/min BUN/Creatinine Ratio 11.4 (10-20) Glucose 85 (70-99(Fasting)) mg/dl Calcium 8.7 (8.5-10.1) mg/dl Magnesium 2.1 (1.7-2.4) mg/dl Total Bilirubin 0.6 (0.2-1.0) mg/dl AST 11 L (13-39) U/L ALT 8 (7-52) U/L Alkaline Phosphatase 62 (34-104) U/L Troponin I High Sens 32.0 H (0-14) pg/ml B-Natriuretic Peptide (0-100) pg/ml Total Protein 6.1 (6.0-8.3) gm/dl Albumin 3.4 (3.4-5.0) gm/dl Globulin 2.7 (2.5-4.0) gm/dl Albumin/Globulin Ratio 1.3 (0.9-2) TSH (0.300-4.500) uIu/ml SARS-CoV-2, RNA, NAAT (NEGATIVE) 10/23/22 10/23/22 10/23/22 Range/Units 14:44 14:44 16:35 WBC (4.8-10.8) K/ul RBC (4.20-5.40) M/uL Hgb (12.0-16.0) g/dl Hct (37.0-47.0) % MCV (80.0-100.0) fL MCH (25.0-34.0) pg MCHC (32.0-36.0) g/dL RDW Std Deviation (36.4-46.3) fL RDW Coeff of Lakshmi (11.5-14.5) % Plt Count (130-400) K/uL MPV (9.4-12.4) fL Immature Gran % (Auto) % Neut % (Auto) % Lymph % (Auto) % Garrett % (Auto) % Eos % (Auto) % Baso % (Auto) % Neut # (Auto) (1.40-6.50) K/uL Lymph # (Auto) (1.2-3.4) K/uL Garrett # (Auto) (0.11-0.59) K/uL Eos # (Auto) (0-0.50) K/uL Baso # (Auto) (0-0.2) K/uL Immature Gran # (Auto) (0.01-0.20) K/uL PT (9.0-12.0) Seconds INR (0.9-1.1) APTT (21.0-31.0) Seconds PTT Ratio Sodium (136-145) mmol/L Potassium (3.5-5.1) mmol/L Chloride (98-107) mmol/L Carbon Dioxide (21-32) mmol/L Anion Gap (3-11) BUN (6-23) mg/dl Creatinine (0.6-1.2) mg/dl Est Cr Clr Drug Dosing ml/min Est GFR ( Amer) ml/min Est GFR (Non-Af Amer) ml/min BUN/Creatinine Ratio (10-20) Glucose (70-99(Fasting)) mg/dl Calcium (8.5-10.1) mg/dl Magnesium (1.7-2.4) mg/dl Total Bilirubin (0.2-1.0) mg/dl AST (13-39) U/L ALT (7-52) U/L Alkaline Phosphatase (34-104) U/L Troponin I High Sens (0-14) pg/ml B-Natriuretic Peptide 1047 H (0-100) pg/ml Total Protein (6.0-8.3) gm/dl Albumin (3.4-5.0) gm/dl Globulin (2.5-4.0) gm/dl Albumin/Globulin Ratio (0.9-2) TSH 4.171 (0.300-4.500) uIu/ml SARS-CoV-2, RNA, NAAT NEGATIVE (NEGATIVE) Imaging Data Radiologist's Impression: SINGLE VIEW CHEST CLINICAL HISTORY: Dyspnea. FINDINGS: 2 AP, portable, upright chest radiographs are compared to study dated 08/23/2022 and correlated with chest CT dated 08/15/2022. The examination is degraded by portable technique and apical lordotic positioning. The heart is enlarged noting atherosclerotic calcification of the thoracic ureter. There is pulmonary vascular congestion. Bilateral opacities likely representing interstitial edema. Trace pleural effusions are noted with dependent consolidation. Emphysema and chronic interstitial thickening is similar to previous. No pneumothorax is seen. The skeletal structures are osteopenic. The bony thorax is grossly intact. IMPRESSION: 1. Cardiomegaly and emphysema with evidence of congestive failure. 2. Bilateral airspace opacities likely represent pulmonary edema. Correlate clinically for evidence of a superimposed infectious/inflammatory pneumonitis. 3. Small pleural effusions with dependent consolidation. ACT 112: Negative or not required by law. Electronically signed by: Wang Curiel M.D. 10/23/2022 4:07 PM ULTRASOUND RIGHT LOWER EXTREMITY VENOUS CLINICAL HISTORY: Right leg pain. COMPARISON STUDY: Right lower extremity venous ultrasound dated 02/16/2021 TECHNIQUE: Real-time, grayscale, and color Doppler sonography of the deep veins of the right lower extremity was performed from the inguinal crease to the calf. Compression and augmentation were utilized. FINDINGS: There is trace chronic appearing deep venous thrombosis in the right common femoral vein. There is no sonographic evidence of acute deep venous thrombosis identified in the right lower extremity. The common femoral, superficial femoral, and popliteal veins are patent and normally compressible. The greater saphenous vein and the profunda femoris vein at the junction with the common femoral vein are clear. The visualized calf veins are patent. Soft tissue edema is noted in the calf. IMPRESSION: 1. There is no sonographic evidence of acute deep venous thrombosis identified in the right lower extremity. 2. Trace chronic appearing thrombus is seen within the right common femoral vein. ACT 112: Negative or not required by law. Electronically signed by: Wang Curiel M.D. 10/23/2022 4:14 PM XR pelvis 1-2V routine CLINICAL HISTORY: R lateral hip pain TECHNIQUE: A single frontal view of the pelvis was obtained. Comparison: Comparison is made to right femur radiograph 08/27/2021 FINDINGS: Surgical clips are seen. Degenerative changes are seen in the hip joints and lumbar spine. No soft tissue abnormality is seen. Vascular calcifications are noted. IMPRESSION: No right hip fracture is seen. No fracture of the pelvis is seen. ACT 112: Negative or not required by law. Electronically signed by: Pavan Samson M.D. 10/23/2022 4:00 PM XR knee RT 1 or 2V routine HISTORY: 77 years-old Female R knee pain acute pain of the right knee COMPARISON: Right femur radiographs of same day TECHNIQUE: 2 views of the right knee FINDINGS: Mild patellofemoral with mild to moderate medial and lateral compartment osteoarthritis. Demineralized appearance of the bones. No acute fracture, dislocation or large joint effusion. Arterial calcifications. IMPRESSION: No acute fracture or dislocation. ACT 112: Negative or not required by law. The above report was generated using voice recognition software. It may contain grammatical, syntax or spelling errors. Electronically signed by: Javier Childs M.D. 10/23/2022 3:57 PM RIGHT FEMUR 3 VIEWS CLINICAL HISTORY: Atraumatic right leg pain. FINDINGS: AP, frog-leg, and crosstable lateral views of the right femur are compared to study dated 08/27/2021. The skeletal structures are osteopenic. There is no radiographic evidence of right femoral fracture. The visualized right h emipelvis appears intact. Mild arthritic change and joint space narrowing is seen in the right hip. There is mild degenerative sclerosis of the right sacroiliac joint. The right knee joint is grossly maintained. Surgical clips project over the pelvis. The soft tissues of the right thigh are normal as imaged. Atherosclerotic calcification is noted in the femoral and popliteal arteries. IMPRESSION: There is no radiographic evidence of right femoral fracture. Electronically signed by: Wang Curiel M.D. 10/23/2022 4:13 PM MDM Narrative Patient was seen and evaluated as above in room D02. Review was performed of triage nursing notes and vital signs. I did review pertinent previous visits and patient history. After obtaining a thorough history and physical examination the above work up was performed. Patient presents to us today for evaluation of right lateral hip and right knee pain x2 weeks and also progressively worsening dyspnea of the past few months. Not long after arrival I was notified that the patient became hypoxic around 88 on room air with good waveform. Oxygen was then started. Patient denies using oxygen at home. Options of care were discussed with the patient. IV access was established. Labs were drawn. EKG was obtained. This revealed sinus bradycardia at a rate of 54 bpm. QTc 449. QRS 106. T wave inversion lead I, aVL. There is no ST elevation. Labs reveal stable appearing anemia and no leukocytosis. No emergent metabolic disturbance. Creatinine similar to previous. Troponin improved compared to previous and around 30. BNP elevated at 1047 but may be also secondary to underlying renal issues. COVID testing negative. Chest x-ray does reveal evidence of pulmonary edema. Patient does appear fluid overloaded. She missed her dose of Lasix this morning. IV Lasix was ordered. She does not have any infectious symptoms clinically. X-rays of the pelvis/right knee/right femur are without evidence of fracture. There is no acute DVT. Trace chronic appearing thrombus is seen in the right common femoral vein. At this time with the patient having some hypoxia in the setting of symptomatic dyspnea I do believe that further evaluation and management in the inpatient setting is warranted. CTA of the chest to rule out PE was not obtained noting the patient's current kidney function. At this time low suspicion for PE however clinical course certainly will be trended. Case discussed with the hospitalist service. Please refer to further documentation regarding her stay. An order was placed for continuous cardiac monitoring and revealed sinus bradycardia at a rate of 59 bpm. GCS: 15 In the evaluation and treatment of this patient the following differential diagnoses were entertained: Pneumonia, fluid overload, CHF, DC, PE, pericarditis, right lower extremity DVT, fracture, dislocation, contusion, among others. Impression & Plan Shortness of breath, Right knee pain, Right hip pain Discharge Plan Visit Data Chief Complaint: Hip Pain Stated Complaint: R HIP PAIN/KNEE,SOB ED Provider: Tim Baumann ED Midlevel Provider: Brando Degroot Discharge Problem: Shortness of breath, Right knee pain, Right hip pain Patient Disposition: Admitted As Inpatient Condition: Good Discharge Instructions Interventions: ED Discharge Assessment Last Done: 10/23/22 18:15
[2022-10-23 15:21] LABS: Albumin Globulin Ratio 1.3 (0.9-2); Albumin Level 3.4 gm/dl (3.4-5.0); BUN Creatinine Ratio 11.4 (10-20); Bilirubin,Total 0.6 mg/dl (0.2-1.0); Calcium 8.7 mg/dl (8.5-10.1); Creatinine Clr Calc Pharmacy 18.7 ml/min; Est GFR (Non-African American) 16.4 ml/min; Globulin 2.7 gm/dl (2.5-4.0); Magnesium 2.1 mg/dl (1.7-2.4); Potassium 3.7 mmol/L (3.5-5.1); Total Protein 6.1 gm/dl (6.0-8.3)
[2022-10-23 15:24] LABS: Basophils # (auto) 0.07 K/uL (0-0.2); Basophils % (auto) 0.7 %; Eosinophils # (auto) 0.25 K/uL (0-0.50); Eosinophils % (auto) 2.4 %; Hematocrit (blood only) 28.1 % (37.0-47.0); Hemoglobin 8.7 g/dl (12.0-16.0); Lymphocytes # (auto) 1.44 K/uL (1.2-3.4); Lymphocytes % (auto) 13.8 %; Mean Corpuscular Volume 96.9 fL (80.0-100.0); Mean Platelet Volume 11.2 fL (9.4-12.4); Monocytes # (auto) 0.66 K/uL (0.11-0.59); Monocytes % (auto) 6.3 %; Neutrophils # (auto) 7.92 K/uL (1.40-6.50); Neutrophils % (auto) 75.8 %; Platelet Count 215 K/uL (130-400); RDW Coefficient of Variation 17.9 % (11.5-14.5); RDW Standard Deviation 62.7 fL (36.4-46.3); White Blood Count 10.44 K/ul (4.8-10.8)
[2022-10-23 15:32] LABS: Partial Thromboplastin Ratio 0.9; Partial Thromboplastin Time 24.6 Seconds (21.0-31.0); Prothrombin Time 11.1 Seconds (9.0-12.0)
--- NOTE | 2022-10-23 16:17 | Ultrasound Report ---
ULTRASOUND RIGHT LOWER EXTREMITY VENOUS CLINICAL HISTORY: Right leg pain. COMPARISON STUDY: Right lower extremity venous ultrasound dated 02/16/2021 TECHNIQUE: Real-time, grayscale, and color Doppler sonography of the deep veins of the right lower ex tremity was performed from the inguinal crease to the calf. Compression and augmentation were utilize d. FINDINGS: There is trace chronic appearing deep venous thrombosis in the right common femoral vein. T here is no sonographic evidence of acute deep venous thrombosis identified in the right lower extremi ty. The common femoral, superficial femoral, and popliteal veins are patent and normally compressible . The greater saphenous vein and the profunda femoris vein at the junction with the common femoral ve in are clear. The visualized calf veins are patent. Soft tissue edema is noted in the calf. IMPRESSION: 1. There is no sonographic evidence of acute deep venous thrombosis identified in the right lower ext remity. 2. Trace chronic appearing thrombus is seen within the right common femoral vein. ACT 112: Negative or not required by law. Electronically signed by: Wang Curiel M.D. 10/23/2022 4:14 PM
[2022-10-23] MEDS ORDERED: FUROSEMIDE 40 MG/4 ML VIAL IV STA (16:33)
--- NOTE | 2022-10-23 16:53 | XRay Report ---
RIGHT FEMUR 3 VIEWS CLINICAL HISTORY: Atraumatic right leg pain. FINDINGS: AP, frog-leg, and crosstable lateral views of the right femur are compared to study dated . The skeletal structures are osteopenic. There is no radiographic evidence of right femoral fracture. The visualized right hemipelvis appears intact. Mild arthritic change and joint space narro wing is seen in the right hip. There is mild degenerative sclerosis of the right sacroiliac joint. Th e right knee joint is grossly maintained. Surgical clips project over the pelvis. The soft tissues of the right thigh are normal as imaged. Atherosclerotic calcification is noted in the femoral and popl iteal arteries. IMPRESSION: There is no radiographic evidence of right femoral fracture. Electronically signed by: Wang Curiel M.D. 10/23/2022 4:13 PM
--- NOTE | 2022-10-23 16:53 | XRay Report ---
SINGLE VIEW CHEST CLINICAL HISTORY: Dyspnea. FINDINGS: 2 AP, portable, upright chest radiographs are compared to study dated 08/23/2022 and correla josephine with chest CT dated 08/15/2022. The examination is degraded by portable technique and apical lordo tic positioning. The heart is enlarged noting atherosclerotic calcification of the thoracic ureter. T here is pulmonary vascular congestion. Bilateral opacities likely representing interstitial edema. Tr kiesha pleural effusions are noted with dependent consolidation. Emphysema and chronic interstitial thic kening is similar to previous. No pneumothorax is seen. The skeletal structures are osteopenic. The b eron thorax is grossly intact. IMPRESSION: 1. Cardiomegaly and emphysema with evidence of congestive failure. 2. Bilateral airspace opacities likely represent pulmonary edema. Correlate clinically for evidence o f a superimposed infectious/inflammatory pneumonitis. 3. Small pleural effusions with dependent consolidation. ACT 112: Negative or not required by law. Electronically signed by: Wang Curiel M.D. 10/23/2022 4:07 PM
--- NOTE | 2022-10-23 16:53 | XRay Report ---
XR pelvis 1-2V routine CLINICAL HISTORY: R lateral hip pain TECHNIQUE: A single frontal view of the pelvis was obtained. Comparison: Comparison is made to right femur radiograph 08/27/2021 FINDINGS: Surgical clips are seen. Degenerative changes are seen in the hip joints and lumbar spine. No soft ti ssue abnormality is seen. Vascular calcifications are noted. IMPRESSION: No right hip fracture is seen. No fracture of the pelvis is seen. ACT 112: Negative or not required by law. Electronically signed by: Pavan Samson M.D. 10/23/2022 4:00 PM
--- NOTE | 2022-10-23 16:53 | XRay Report ---
XR knee RT 1 or 2V routine HISTORY: 77 years-old Female R knee pain acute pain of the right knee COMPARISON: Right femur radiographs of same day TECHNIQUE: 2 views of the right knee FINDINGS: Mild patellofemoral with mild to moderate medial and lateral compartment osteoarthritis. Demineralize d appearance of the bones. No acute fracture, dislocation or large joint effusion. Arterial calcifica tions. IMPRESSION: No acute fracture or dislocation. ACT 112: Negative or not required by law. The above report was generated using voice recognition software. It may contain grammatical, syntax o r spelling errors. Electronically signed by: Javier Childs M.D. 10/23/2022 3:57 PM
--- NOTE | 2022-10-23 17:54 | History & Physical Report ---
Date of Service October 23, 2022 Assessment & Plan (1) (HFpEF) heart failure with preserved ejection fraction: Plan: - Admit to telemetry - Heart healthy diet with 1800 ml fluid restriction - I/O q shift and daily standing weights - No need for repeat echo, last one performed Aug 2022 with EF >70%, no elevated RVSP - Given a dose of IV Lasix 40mg x1 in ED, monitor response, anticipate will need another 40mg either tonight or tomorrow AM - Resume Imdur, Hydralazine, statin - Duonebs QIDR and q2 prn - Supplemental oxygen as needed with goal sat of 88-92% given underlying COPD - Will consider initiation of BiPAP if she continues to be tachypneic - Mildly elevated troponin of 32 in setting of a/c HFpEF - suspect myocardial demand ischemia, trend (2) MATT (acute kidney injury): Plan: - Mild MATT on stage IV CKD - Reviewed BMP - Baseline creatinine appears between 2.2-2.4 - Likely a degree of cardiorenal syndrome - Repeat BMP in AM following diuretics (3) Right hip pain: Plan: - APAP PRN - No acute fractures seen on radiographs - Could consider PT/OT eval or if able to ambulate, could refer to therapy as outpatient (4) Atrial fibrillation: Plan: - Currently in sinus - Recently reduced Amiodarone dose to 200mg daily from BID - High CHADSVASC score but is not presently on AC due to h/o GI bleeding and pseudoaneurysm of right ulnar artery following heart cath in Apr 2022 - Resuming AC has been d/w patient but she has refused in the past (5) Hypothyroidism: Plan: - TSH today WNL - Resume Synthroid at current dose (6) COPD (chronic obstructive pulmonary disease): Plan: - Chronic/stable - Continues to smoke, counseled on importance of cessation - Offered nicotine patch which she declined - Resume Spiriva - Nebs as above and O2 with goal sat 88-92% Plan Lovenox will be implemented for DVT ppx. AM labs have been ordered. Wean O2 as able Plan d/w Dr. Mckee who will also see and evaluate this patient. Additional orders will be implemented as warranted. History of Present Illness Chief Complaint: hip pain Primary Care Provider: DO Judi Hopson Adamaris is a 77 yo F with a pmhx of COPD, afib, diastolic CHF, and CKD who presented to the ER today with the primary complaint of hip pain and also some shortness of breath. Patient reports that she did not take her Lasix dose this morning. She is unsure as to what her Lasix dose is and is unable to tell me why she didn't take her dose. She states "maybe I ran out of it or something." She lives alone and does not have anyone that assists her. She states that her legs are always swollen and do not seem any more swollen than usual. She was just seen recently by her workers compensation claims adjuster, Dr. Dangelo, on 10/04, for routine follow up. She was noted to be euvolemic at that time without signs of heart failure and her Amiodarone dose was reduced from 200mg BID to once a day. According to her cardiology note, she is to be taking Lasix 60mg daily. Patient endorses worsening dyspnea and orthopnea. She denies cough, fever, chills, congestion, or chest pain. Her work up in the ER this afternoon demonstrated a BNP >1000 with a creatinine of 2.73 and a mildly elevated high sensitivity troponin of 32. EKG is without acute changes. CXR appears consistent with pulmonary vascular congestion c/w CHF. She was given a dose of IV Lasix 40mg x1 in the ER and referred for admission for further care. Allergies Allergy/AdvReac Type Severity Reaction Status Date / Time benzonatate Allergy Mild Dizziness Verified 10/23/22 16:43 Cephalosporins Allergy Mild KEFLEX=RASH Verified 10/23/22 16:43 diltiazem Allergy Mild RASH Verified 10/23/22 16:43 Iodinated Contrast Media Allergy Mild CT Verified 10/23/22 16:43 Contrast = kidney infection Home Medications Medication Instructions Recorded Confirmed Type aspirin 81 mg tablet,delayed 81 mg PO QAM 05/11/19 10/23/22 History release (Shahzad Low Dose Aspirin) atorvastatin 40 mg tablet 40 mg PO QPM #90 tabs 08/04/21 10/23/22 Rx albuterol sulfate 90 mcg/actuation 2 puff inhalation Q4H PRN 10/05/21 10/23/22 Rx aerosol inhaler (ProAir HFA) shortness of breath or wheezing #18 grams metoprolol succinate 50 mg 25 mg PO BID #180 tabs 04/19/22 10/23/22 Rx tablet,extended release 24 hr nitroglycerin 0.4 mg sublingual 0.4 mg sublingual Q5M PRN chest 04/19/22 10/23/22 Rx tablet pain #1 btl clopidogrel 75 mg tablet 75 mg PO QAM #30 tabs 06/04/22 10/23/22 Rx isosorbide mononitrate 30 mg 30 mg PO DAILY #30 tabs 06/04/22 10/23/22 Rx tablet,extended release 24 hr tiotropium bromide 2.5 2 inh inhalation QAM #4 grams 08/15/22 10/23/22 Rx mcg/actuation mist for inhalation (Spiriva Respimat) amiodarone 200 mg tablet 200 mg PO BIDM #60 tabs 08/26/22 10/23/22 Rx amlodipine 5 mg tablet (Norvasc) 5 mg PO QAM #30 tabs 08/26/22 10/23/22 Rx furosemide 40 mg tablet 60 mg PO QAM #90 tabs 08/26/22 10/23/22 Rx hydralazine 25 mg tablet 25 mg PO BID #60 tabs 08/26/22 10/23/22 Rx allopurinol 100 mg tablet 100 mg PO DAILY #90 tabs 08/29/22 10/23/22 Rx levothyroxine 25 mcg tablet 25 mcg PO DAILY #30 tabs 10/16/22 10/23/22 Rx Past Med/Surg History Medical History (Updated 10/23/22 @ 17:44 by Bea Gabriel PA-C) AAA (abdominal aortic aneurysm) Followed at [facility] Abnormal CT scan, chest Abnormal diffusion capacity determined by pulmonary function test Acute on chronic heart failure with preserved ejection fraction (HFpEF) Acute respiratory failure with hypoxia Anemia Anemia due to chronic kidney disease Asthma Atherosclerosis of both carotid arteries Atrial fibrillation Cardiomyopathy, hypertrophic Carpal tunnel syndrome Chronic diastolic congestive heart failure Chronic kidney disease, stage IV (severe) Chronic osteoarthritis COPD (chronic obstructive pulmonary disease) Coronary artery disease Current smoker Diffusion capacity of lung (dl), decreased Dyslipidemia First degree AV block Gout History of uterine cancer 2008--sx only Hypertension Hypertension Hypotension Hypothyroidism Nocturnal hypoxia Non-STEMI (non-ST elevated myocardial infarction) Obstructive sleep apnea of adult no device Paroxysmal atrial fibrillation Pericardial effusion Peripheral vascular disease Renal artery stenosis RLL pneumonia Secondary hyperparathyroidism Short of breath on exertion Shortness of breath Spinal stenosis Tobacco abuse counseling Tobacco dependence Tubular adenoma of colon (~04/2014) Vitamin B12 deficiency Vitamin D deficiency Surgical History History of bilateral cataract extraction History of cardiac cath [address] Dangelo--no stent History of colonoscopy (~04/2014) History of tonsillectomy and adenoidectomy History of tooth extraction all teeth removed History of total hysterectomy with bilateral salpingo-oophorectomy (BSO) Hx of cardiac cath Family History Unknown Hypertension Mother Stroke syndrome Sister Uterine cancer Diabetes Myocardial infarction Ovarian cancer Other No family history of adverse response to anesthesia Denies family history of Prostate cancer Breast cancer Lung cancer Colorectal cancer Social History Smoking Status: Current every day smoker Tobacco Type: Cigarettes Age Started Using Tobacco: 19; packs per day: 0.5; Cigarettes Per Day: 12; Second Hand Exposure: No; Hx Alcohol Use: No Hx Substance Use: No Preferred Language: Yakut Communication Ability: Effective Visual Impairment: No Limitations Hearing Ability: Normal Food Service Director Required: No Beliefs That Will Affect Care: None marital status: / Current Living Situation: Alone current occupational status: retired current occupation: Retired How many Children do You have: 0 Feels Safe at Home: Yes Childhood Exposure to Second-Hand Smoke: Yes caffeine: Yes Dental Care, Regularly: No Physical Activity Frequency: Does not Exercise Seatbelt Use: never Sunscreen Use: No Assistive Devices: None Physical Exam Physical Exam: GENERAL: 77 yo obese WF who is AAO x3. NAD. LUNGS: Mildly tachypneic after returning from bathroom. No accessory muscle use. bibasilar crackles. No rhonchi or wheezing. CARDIOVASCULAR: Regular rate and rhythm. EXTREMITIES: 2+ pitting edema bilaterally Results & Data Results & Data Vital Signs (Past 12 Hours) Vital Signs Temp Pulse Resp BP Pulse Ox O2 Del Method O2 Flow Rate 10/23/22 16:50 59 L 31 H 93 10/23/22 16:40 51 L 27 H 91 10/23/22 16:31 151/52 H 10/23/22 16:31 52 L 24 75 L 10/23/22 16:30 105 H 30 H 91 10/23/22 16:23 90 10/23/22 15:20 49 L 26 H 88 L 10/23/22 15:10 50 L 30 H 90 10/23/22 15:00 52 L 24 92 10/23/22 14:57 168/64 H 10/23/22 14:57 55 L 20 91 10/23/22 14:50 50 L 19 90 10/23/22 14:40 50 L 24 91 10/23/22 14:34 60 22 92 10/23/22 16:30 87 L Room Air, Nasal Cannula 0 10/23/22 15:21 88 L Room Air 10/23/22 13:42 36.4 C L 57 L 18 162/80 H 90 Room Air Laboratory Results 10/23/22 14:44 10/23/22 14:44 Diagnostic Findings Chest X-Ray 10/23/22 14:10 SINGLE VIEW CHEST CLINICAL HISTORY: Dyspnea. FINDINGS: 2 AP, portable, upright chest radiographs are compared to study dated 08/23/2022 and correlated with chest CT dated 08/15/2022. The examination is degraded by portable technique and apical lordotic positioning. The heart is enlarged noting atherosclerotic calcification of the thoracic ureter. There is pulmonary vascular congestion. Bilateral opacities likely representing interstitial edema. Trace pleural effusions are noted with dependent consolidation. Emphysema and chronic interstitial thickening is similar to previous. No pneumothorax is seen. The skeletal structures are osteopenic. The bony thorax is grossly intact. IMPRESSION: 1. Cardiomegaly and emphysema with evidence of congestive failure. 2. Bilateral airspace opacities likely represent pulmonary edema. Correlate clinically for evidence of a superimposed infectious/inflammatory pneumonitis. 3. Small pleural effusions with dependent consolidation. ACT 112: Negative or not required by law. Electronically signed by: Wang Curiel M.D. 10/23/2022 4:07 PM Femur X-Ray 10/23/22 14:10 RIGHT FEMUR 3 VIEWS CLINICAL HISTORY: Atraumatic right leg pain. FINDINGS: AP, frog-leg, and crosstable lateral views of the right femur are compared to study dated 08/27/2021. The skeletal structures are osteopenic. There is no radiographic evidence of right femoral fracture. The visualized right hemipelvis appears intact. Mild arthritic change and joint space narrowing is seen in the right hip. There is mild degenerative sclerosis of the right sacroiliac joint. The right knee joint is grossly maintained. Surgical clips project over the pelvis. The soft tissues of the right thigh are normal as imaged. Atherosclerotic calcification is noted in the femoral and popliteal arteries. IMPRESSION: There is no radiographic evidence of right femoral fracture. Electronically signed by: Wang Curiel M.D. 10/23/2022 4:13 PM Knee X-Ray 10/23/22 14:10 XR knee RT 1 or 2V routine HISTORY: 77 years-old Female R knee pain acute pain of the right knee COMPARISON: Right femur radiographs of same day TECHNIQUE: 2 views of the right knee FINDINGS: Mild patellofemoral with mild to moderate medial and lateral compartment osteoarthritis. Demineralized appearance of the bones. No acute fracture, dislocation or large joint effusion. Arterial calcifications. IMPRESSION: No acute fracture or dislocation. ACT 112: Negative or not required by law. The above report was generated using voice recognition software. It may contain grammatical, syntax or spelling errors. Electronically signed by: Javier Childs M.D. 10/23/2022 3:57 PM Pelvis X-Ray 10/23/22 14:10 XR pelvis 1-2V routine CLINICAL HISTORY: R lateral hip pain TECHNIQUE: A single frontal view of the pelvis was obtained. Comparison: Comparison is made to right femur radiograph 08/27/2021 FINDINGS: Surgical clips are seen. Degenerative changes are seen in the hip joints and lumbar spine. No soft tissue abnormality is seen. Vascular calcifications are noted. IMPRESSION: No right hip fracture is seen. No fracture of the pelvis is seen. ACT 112: Negative or not required by law. Electronically signed by: Pavan Samson M.D. 10/23/2022 4:00 PM Venous Doppler Study 10/23/22 14:10 ULTRASOUND RIGHT LOWER EXTREMITY VENOUS CLINICAL HISTORY: Right leg pain. COMPARISON STUDY: Right lower extremity venous ultrasound dated 02/16/2021 TECHNIQUE: Real-time, grayscale, and color Doppler sonography of the deep veins of the right lower extremity was performed from the inguinal crease to the calf. Compression and augmentation were utilized. FINDINGS: There is trace chronic appearing deep venous thrombosis in the right common femoral vein. There is no sonographic evidence of acute deep venous thrombosis identified in the right lower extremity. The common femoral, superficial femoral, and popliteal veins are patent and normally compressible. The greater saphenous vein and the profunda femoris vein at the junction with the common femoral vein are clear. The visualized calf veins are patent. Soft tissue edema is noted in the calf. IMPRESSION: 1. There is no sonographic evidence of acute deep venous thrombosis identified in the right lower extremity. 2. Trace chronic appearing thrombus is seen within the right common femoral vein. ACT 112: Negative or not required by law. Electronically signed by: Wang Curiel M.D. 10/23/2022 4:14 PM Code Status & VTE Plan Code Status DNR/DNI upon d/w at bedside with patient Supervising Physician Co-Signing Physician Notes Patient was seen and examined independently I discussed the case with Bea Gabriel PAC I reviewed pertinent past medical social family history and also the plan of care and agree with the plan of care. Patient has a history of possible medical noncompliance presents with shortness of breath is almost back to her normal baseline at the current state. Cannot recall doses or even what her medications are. Typically follows Dr. Barron for heart failure preserved ejection fraction and has baseline COPD. Most recently she had a NSTEMI today her troponin is elevated as well as her BNP chest x-ray shows signs of COPD but also cardiomegaly and possible mild congestive change she also has acute kidney injury on history chronic kidney disease stage III Her exam is fairly nonfocal she has poor air movement and minor basilar crackles she has JVD to 2 cm but difficult to tell in the past she has not had any pulmonary hypertension so this may be true the her heart failure preserved ejection fraction. She has 2+ lower extremity edema but no signs of venous dermatitis Plan will be to reinstitute her home medication regimens escalate her diuresis with active diuresis follow electrolytes for disturbances. The patient states she will understand hospital for 1 day. Any exceptions will be noted below PG Care Time/CCT Total # of Minutes Spent Total Time Spent with Patient: Total time spent is greater than 50% in coordination of care (as documented) at patient's floor/unit and/or counseling patient: Coding Level of Care Code 58709 INT INP/OBS CARE MIN Diagnoses (HFpEF) heart failure with preserved ejection fraction I50.30 MATT (acute kidney injury) N17.9 Right hip pain M25.551 Atrial fibrillation I48.91 Hypothyroidism E03.9 COPD (chronic obstructive pulmonary disease) J44.9
[2022-10-23 18:20] LABS: Appearance Urine Cloudy (Clear); Bacteria Urine Automated 4+ (Negative); Bilirubin Urine Negative (Negative); Blood Urine Negative (Negative); Color Urine Yellow; Epithelial Cell Urine Auto >30 /lpf (0-5); Glucose Urine UA Negative (Negative); Ketones Urine Negative (Negative); Leukocyte Esterase Urine 1+ (Negative); Nitrite Urine Positive (Negative); Protein Urine 1+ (Negative); RBC Urine Automated 0-4 /hpf (0-4); Specific Gravity Urine 1.016 (1.000-1.030); Urobilinogen Urine Negative (Negative); WBC Urine Automated >30 /hpf (0-5); pH Urine 5.5 (4.5-7.5)
[2022-10-23] MEDS ORDERED: ACETAMINOPHEN 325 MG TAB PO PRN (18:47)
[2022-10-23] MEDS ORDERED: POLYETHYLENE (MIRALAX) 17 GM PACK PO PRN (18:47)
[2022-10-23] MEDS ORDERED: MAGNESIUM HYDROXIDE SUSP 30 ML UDC PO PRN (18:47)
[2022-10-23] MEDS ORDERED: ONDANSETRON INJ 2 MG/ML 2 ML VIAL IV PRN (18:47)
[2022-10-23] MEDS: ALBUT/IPRATROP 3MG/0.5MG NEB 3 ML VIAL NEB SCH (19:48)
[2022-10-23] MEDS: METOPROLOL SUCC 25MG EXT REL TAB PO SCH (20:06)
[2022-10-23] MEDS: hydrALAZINE HCL 25 MG TAB PO SCH (20:06)
[2022-10-23] MEDS ORDERED: ATORVASTATIN 40 MG TAB PO SCH (21:00)
[2022-10-24 03:24] LABS: Basophils # (auto) 0.06 K/uL (0-0.2); Basophils % (auto) 0.7 %; Eosinophils # (auto) 0.18 K/uL (0-0.50); Hematocrit (blood only) 25.3 % (37.0-47.0); Hemoglobin 7.9 g/dl (12.0-16.0); Immature Granulocytes # (auto) 0.06 K/uL (0.01-0.20); Immature Granulocytes % (auto) 0.7 %; Lymphocytes # (auto) 1.71 K/uL (1.2-3.4); Lymphocytes % (auto) 18.8 %; Mean Corpuscular Hemoglobin 30.4 pg (25.0-34.0); Mean Corpuscular Hgb Conc 31.2 g/dL (32.0-36.0); Mean Corpuscular Volume 97.3 fL (80.0-100.0); Mean Platelet Volume 10.8 fL (9.4-12.4); Monocytes # (auto) 0.68 K/uL (0.11-0.59); Monocytes % (auto) 7.5 %; Neutrophils % (auto) 70.3 %; Platelet Count 179 K/uL (130-400); White Blood Count 9.09 K/ul (4.8-10.8)
[2022-10-24 03:46] LABS: Ovalocytes 1+; Polychromasia 1+
[2022-10-24 04:05] LABS: BUN Creatinine Ratio 10.9 (10-20); Calcium 8.4 mg/dl (8.5-10.1); Est GFR (African American) 18.7 ml/min; Est GFR (Non-African American) 16.1 ml/min; Potassium 3.3 mmol/L (3.5-5.1)
[2022-10-24] MEDS ORDERED: LEVOTHYROXINE SODIUM 25 MCG TABLET PO SCH (06:30)
[2022-10-24] MEDS: ALBUT/IPRATROP 3MG/0.5MG NEB 3 ML VIAL NEB SCH ×2 (06:56→11:51)
[2022-10-24] MEDS ORDERED: FUROSEMIDE 40 MG/4 ML VIAL IV ONE (08:08)
[2022-10-24] MEDS ORDERED: POTASSIUM CHLORIDE CRTAB 20 MEQ TABCR PO STA (08:08)
[2022-10-24] MEDS: METOPROLOL SUCC 25MG EXT REL TAB PO SCH (08:32)
[2022-10-24] MEDS: hydrALAZINE HCL 25 MG TAB PO SCH (08:32)
[2022-10-24] MEDS ORDERED: CIPROFLOXACIN 250 MG TAB PO SCH (08:45)
[2022-10-24] MEDS ORDERED: ENOXAPARIN INJ 30 MG/0.3 ML SYR SQ SCH (09:00)
[2022-10-24] MEDS ORDERED: ASPIRIN 81 MG ECTAB PO SCH (09:00)
[2022-10-24] MEDS ORDERED: CIPROFLOXACIN 500 MG TAB PO SCH (09:00)
[2022-10-24] MEDS ORDERED: UMECLIDINIUM BROMIDE 62.5MCG/BLISTER 7 PUFFS/INHALER INH SCH (09:00)
[2022-10-24] MEDS ORDERED: ISOSORBIDE MONO EXTENDED REL 30 MG TABCR PO SCH (09:00)
[2022-10-24] MEDS ORDERED: amLODIPine BESYLATE 5 MG TAB PO SCH (09:00)
[2022-10-24] MEDS ORDERED: CLOPIDOGREL BISULFATE 75 MG TAB PO SCH (09:00)
[2022-10-24] MEDS ORDERED: AMIODARONE 200 MG TAB PO SCH (09:00)
--- NOTE | 2022-10-24 10:59 | Discharge Summary ---
Date of Service October 24, 2022 Admission HPI Per Admitting Provider Judi Bailon is a 77 yo F with a pmhx of COPD, afib, diastolic CHF, and CKD who presented to the ER today with the primary complaint of hip pain and also some shortness of breath. Patient reports that she did not take her Lasix dose this morning. She is unsure as to what her Lasix dose is and is unable to tell me why she didn't take her dose. She states "maybe I ran out of it or something." She lives alone and does not have anyone that assists her. She states that her legs are always swollen and do not seem any more swollen than usual. She was just seen recently by her school physical therapist, Dr. Dangelo, on 10/04, for routine follow up. She was noted to be euvolemic at that time without signs of heart failure and her Amiodarone dose was reduced from 200mg BID to once a day. According to her cardiology note, she is to be taking Lasix 60mg daily. Patient endorses worsening dyspnea and orthopnea. She denies cough, fever, chills, congestion, or chest pain. Her work up in the ER this afternoon demonstrated a BNP >1000 with a creatinine of 2.73 and a mildly elevated high sensitivity troponin of 32. EKG is without acute changes. CXR appears consistent with pulmonary vascular congestion c/w CHF. She was given a dose of IV Lasix 40mg x1 in the ER and referred for admission for further care. Principal Diagnosis 1. Acute on chronic HFpEF 2. Hypokalemia 3. UTI 4. Medical noncompliance Discharge Exam GENERAL: 77 yo obese WF who is AAO x3. NAD. LUNGS: Improved air exchange. Nonlabored. No wheezes/rales/rhonchi. CARDIOVASCULAR: Regular rate and rhythm. EXTREMITIES: 2+ pitting edema bilaterally Discharge Data Allergies Allergy/AdvReac Type Severity Reaction Status Date / Time benzonatate Allergy Mild Dizziness Verified 10/23/22 16:43 Cephalosporins Allergy Mild KEFLEX=RASH Verified 10/23/22 16:43 diltiazem Allergy Mild RASH Verified 10/23/22 16:43 Iodinated Contrast Media Allergy Mild CT Verified 10/23/22 16:43 Contrast = kidney infection Consultations 10/23/22 16:32 ED Decision to Admit Stat Ordered Studies Chest X-Ray 10/23/22 14:10 SINGLE VIEW CHEST CLINICAL HISTORY: Dyspnea. FINDINGS: 2 AP, portable, upright chest radiographs are compared to study dated 08/23/2022 and correlated with chest CT dated 08/15/2022. The examination is degraded by portable technique and apical lordotic positioning. The heart is enlarged noting atherosclerotic calcification of the thoracic ureter. There is pulmonary vascular congestion. Bilateral opacities likely representing interstitial edema. Trace pleural effusions are noted with dependent consolidation. Emphysema and chronic interstitial thickening is similar to previous. No pneumothorax is seen. The skeletal structures are osteopenic. The bony thorax is grossly intact. IMPRESSION: 1. Cardiomegaly and emphysema with evidence of congestive failure. 2. Bilateral airspace opacities likely represent pulmonary edema. Correlate clinically for evidence of a superimposed infectious/inflammatory pneumonitis. 3. Small pleural effusions with dependent consolidation. ACT 112: Negative or not required by law. Electronically signed by: Wang Curiel M.D. 10/23/2022 4:07 PM Femur X-Ray 10/23/22 14:10 RIGHT FEMUR 3 VIEWS CLINICAL HISTORY: Atraumatic right leg pain. FINDINGS: AP, frog-leg, and crosstable lateral views of the right femur are compared to study dated 08/27/2021. The skeletal structures are osteopenic. There is no radiographic evidence of right femoral fracture. The visualized right hemipelvis appears intact. Mild arthritic change and joint space narrowing is seen in the right hip. There is mild degenerative sclerosis of the right sacroiliac joint. The right knee joint is grossly maintained. Surgical clips project over the pelvis. The soft tissues of the right thigh are normal as imaged. Atherosclerotic calcification is noted in the femoral and popliteal arteries. IMPRESSION: There is no radiographic evidence of right femoral fracture. Electronically signed by: Wang Curiel M.D. 10/23/2022 4:13 PM Knee X-Ray 10/23/22 14:10 XR knee RT 1 or 2V routine HISTORY: 77 years-old Female R knee pain acute pain of the right knee COMPARISON: Right femur radiographs of same day TECHNIQUE: 2 views of the right knee FINDINGS: Mild patellofemoral with mild to moderate medial and lateral compartment osteoarthritis. Demineralized appearance of the bones. No acute fracture, dislocation or large joint effusion. Arterial calcifications. IMPRESSION: No acute fracture or dislocation. ACT 112: Negative or not required by law. The above report was generated using voice recognition software. It may contain grammatical, syntax or spelling errors. Electronically signed by: Javier Childs M.D. 10/23/2022 3:57 PM Pelvis X-Ray 10/23/22 14:10 XR pelvis 1-2V routine CLINICAL HISTORY: R lateral hip pain TECHNIQUE: A single frontal view of the pelvis was obtained. Comparison: Comparison is made to right femur radiograph 08/27/2021 FINDINGS: Surgical clips are seen. Degenerative changes are seen in the hip joints and lumbar spine. No soft tissue abnormality is seen. Vascular calcifications are noted. IMPRESSION: No right hip fracture is seen. No fracture of the pelvis is seen. ACT 112: Negative or not required by law. Electronically signed by: Pavan Samson M.D. 10/23/2022 4:00 PM Venous Doppler Study 10/23/22 14:10 ULTRASOUND RIGHT LOWER EXTREMITY VENOUS CLINICAL HISTORY: Right leg pain. COMPARISON STUDY: Right lower extremity venous ultrasound dated 02/16/2021 TECHNIQUE: Real-time, grayscale, and color Doppler sonography of the deep veins of the right lower extremity was performed from the inguinal crease to the calf. Compression and augmentation were utilized. FINDINGS: There is trace chronic appearing deep venous thrombosis in the right common femoral vein. There is no sonographic evidence of acute deep venous thrombosis identified in the right lower extremity. The common femoral, superficial femoral, and popliteal veins are patent and normally compressible. The greater saphenous vein and the profunda femoris vein at the junction with the common femoral vein are clear. The visualized calf veins are patent. Soft tissue edema is noted in the calf. IMPRESSION: 1. There is no sonographic evidence of acute deep venous thrombosis identified in the right lower extremity. 2. Trace chronic appearing thrombus is seen within the right common femoral vein. ACT 112: Negative or not required by law. Electronically signed by: Wang Curiel M.D. 10/23/2022 4:14 PM Hospital Course (1) (HFpEF) heart failure with preserved ejection fraction: - Admitted to telemetry - Heart healthy diet with 1800 ml fluid restriction - I/O q shift and daily standing weights-although this was not accurately recorded - No need for repeat echo, last one performed Aug 2022 with EF >70%, no elevated RVSP - Given a dose of IV Lasix 40mg x1 in ED and a repeat dose of 40mg this morning 10/24 - Resumed Imdur, Hydralazine, statin - Duonebs QIDR and q2 prn - Supplemental oxygen provided as needed with goal sat of 88-92% given underlying COPD - Mildly elevated troponin of 32 in setting of a/c HFpEF - suspect myocardial demand ischemia, trended, remained unchanged - Refer to CHF program, sent a new rx for her Lasix to her pharmacy on file along with Potassium - Had two step pulse ox study with RT this AM and did not desaturate below 91% on room air w/ activity (2) MATT (acute kidney injury): - Mild MATT on stage IV CKD - Reviewed BMP - Baseline creatinine appears between 2.2-2.4 - Likely a degree of cardiorenal syndrome - Repeat BMP reviewed this AM, essentially unchanged from 2.76 to 2.73 this AM (3) UTI (urinary tract infection): - Grossly abnormal UA, prelim urine cx GNB - Allergy to cephalosporins - Dc on Cipro 500mg (adjusted for renal function) daily x 5 days (4) Right hip pain: - APAP PRN - No acute fractures seen on radiographs - Ambulating independently in room - Home health referral for home pt/ot and med management (5) Atrial fibrillation: - Currently in sinus - Recently reduced Amiodarone dose to 200mg daily from BID - High CHADSVASC score but is not presently on AC due to h/o GI bleeding and 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 Will arrange for home health referral for pt/ot and medical management. Also arrange for referral to CHF program. She is very blatantly noncompliant, continues to smoke and not taking medications as she is prescribed. Ultimately did explain that her failure to take medications could ultimately result in , she verbalized understanding. She has been instructed to follow up with her PCP within 1 week of discharge or sooner. Nurse navigator to arrange pcp follow up prior to dc. Above plan of care has been d/w Dr. Mckee who has also seen and evaluated this patient and agrees with aforementioned. Total Time Total Time Spent Total Time Spent (In Minutes): >30 minutes Discharge Plan Discharge Items Patient Disposition: Home - Home Health Services Reason For Visit: A/C CHF Discharge Diagnosis: fluid overload due to not taking Lasix urinary tract infection Condition on Discharge: Good Activity: Resume your previous activity Non-emergency contact: Primary Care Provider and Asthma Educator Call non-emergency contact if: you have any medication questions and your symptoms worsen Follow-up/Referrals: Shravan Chicas, [Primary Care Provider] - 11/01/22 11:30 am Diet: Heart Healthy Fluids: 1800ml (7 cups) Addtl Attending Provider Instructions: You were hospitalized due to not taking your Lasix which caused too much fluid to accumulate in your lungs. This caused you to be short of breath. You were medicated with a dose of Lasix through your IV. You were also found to have a urinary tract infection. You are being prescribed antibiotics for this: Cipro 500mg, one tablet by mouth daily x 4 days. Your next dose is due on 10/25/22. Please complete the course. You have been sent a new prescription for Lasix to your pharmacy. Please take this medication every morning. You are also being prescribed Potassium to take with your Lasix. Please make sure that you weigh yourself EVERY MORNING after you get up and pee. If you gain 2 or more lbs, call your school physical therapist, Dr. Dangelo. You will need to follow up with your family doctor within 1 week of discharge or sooner if needed. We are arranging home health to see you in your home. They can evaluate needs for home physical and occupational therapy as well as nursing services to help with managing your medications and medical problems. If you have any questions or concerns after you leave the hospital, call the nonemergency number listed on your discharge paperwork. In the event of a medical emergency, call 911. Pending Studies at Discharge: No Stand-Alone Forms: [employer], Smoking Cessation Medications and DC Order Prescriptions: New ciprofloxacin HCl 500 mg Tablet 500 mg PO DAILY Qty: 4 0RF furosemide [Lasix] 40 mg tablet 60 mg PO DAILY Qty: 45 0RF potassium chloride 20 mEq tablet extended release 20 meq PO DAILY Qty: 30 0RF Continued isosorbide mononitrate 30 mg tablet extended release 24 hr 30 mg PO DAILY Qty: 30 11RF clopidogrel 75 mg tablet 75 mg PO QAM Qty: 30 11RF levothyroxine 25 mcg tablet 25 mcg PO DAILY Qty: 30 2RF Spiriva Respimat 2.5 mcg/actuation mist 2 inh inhalation QAM Qty: 4 2RF atorvastatin 40 mg tablet 40 mg PO QPM Qty: 90 3RF albuterol sulfate [ProAir HFA] 90 mcg/actuation HFA aerosol inhaler 2 puff INH Q4H PRN (Reason: shortness of breath or wheezing) Qty: 18 5RF allopurinol 100 mg tablet 100 mg PO DAILY Qty: 90 3RF aspirin [Shahzad Low Dose Aspirin] 81 mg Tablet,Delayed Release (Dr/Ec) 81 mg PO QAM nitroglycerin 0.4 mg tablet, sublingual 0.4 mg sublingual Q5M PRN (Reason: chest pain) Qty: 1 0RF Rx Instructions: max 3 tabs in 15 minutes metoprolol succinate 50 mg tablet extended release 24 hr 25 mg PO BID Qty: 180 3RF hydralazine 25 mg Tablet 25 mg PO BID Qty: 60 1RF amlodipine [Norvasc] 5 mg Tablet 5 mg PO QAM Qty: 30 1RF Changed amiodarone 200 mg Tablet 200 mg PO DAILY Qty: 60 1RF Discontinued furosemide 40 mg tablet 60 mg PO QAM Qty: 90 3RF Rx Instructions: Weigh yourself every morning after using the toilet. Call the cardiology office if you gain more than 2-3 pounds over 1-2 days. Discharge Orders: Discharge Order- CHF (Routine); Ordered 10/24/22 Ordered By: Bea Gabriel Admission Data Admit Date/Time: 10/23/22 17:09 Attending Provider: Lenin Mckee Admit Provider: Lenin Mckee Primary Care Provider: Shravan Chicas Other Providers: Lenin Mckee ; Huyen Staton Coding Level of Care Code 12861 INP/OBS DISCH >30 MIN Diagnoses (HFpEF) heart failure with preserved ejection fraction I50.30 MATT (acute kidney injury) N17.9 UTI (urinary tract infection) N39.0 Right hip pain M25.551 Atrial fibrillation I48.91 Hypothyroidism E03.9 COPD (chronic obstructive pulmonary disease) J44.9 Home Health Attestation I certify that this patient is under my care and that I, or a physicians research program assistant working with me, had a face to-face encounter that meets the home health [id number] encounter requirements with this patient. The encounter with the patient was in whole, or in part, for the following medical condition, which is the primary reason for home health care (list medical condition): I certify that, based on my findings, the following services are medically necessary home health services: My clinical findings support the need for the above services because: Further, I certify that my clinical findings support that this patient is homebound (i.e. absences from home require considerable and taxing effort and are for medical reasons or anglican services or infrequently or of short duration when for other reasons) because: Certification for Home Health Services: Based on the above findings, I certify that this patient is confined to the home and needs intermittent long term care, physical therapy and/or speech therapy or continues to need occupational therapy. The patient is under my care, and I have initiated the establishment of the plan of care. This patient will be followed by a physician who will periodically review the plan of care.
--- NOTE | 2022-10-24 11:56 | Electrocardiogram Report ---
Test Reason : Blood Pressure : / mmHG Vent. Rate : 054 BPM Atrial Rate : 054 BPM P-R Int : 260 ms QRS Dur : 106 ms QT Int : 474 ms P-R-T Axes : 050 -27 132 degrees QTc Int : 449 ms Poor data quality, interpretation may be adversely affected Sinus bradycardia with 1st degree A-V block Left ventricular hypertrophy with repolarization abnormality Inferior infarct (cited on or before 18-APR-2022) Abnormal ECG Confirmed by Jesse Sewell ([id number]) on 10/24/2022 11:55:33 AM Referred By: REFERRED SELF Confirmed By:Nhgia Sewell
--- NOTE | 2022-10-24 12:09 | Electrocardiogram Report ---
Test Reason : Blood Pressure : / mmHG Vent. Rate : 057 BPM Atrial Rate : 326 BPM P-R Int : 000 ms QRS Dur : 090 ms QT Int : 500 ms P-R-T Axes : 000 -40 112 degrees QTc Int : 486 ms Sinus rhythm with 1st degree AV block Left axis deviation Left ventricular hypertrophy with repolarization abnormality Inferior infarct (cited on or before 18-APR-2022) Abnormal ECG Confirmed by Jesse Sewell ([id number]) on 10/24/2022 12:09:37 PM Referred By: REFERRED SELF Confirmed By:Nghia Sewell
== END 2022-10-24 13:22 | disposition home health service (06) ==
LOC: ED 13:32 → INTOOBSV 17:09 → 4W 17:09

== ENCOUNTER 2023-05-11 01:32 | Inpatient (IN) ==
--- NOTE | 2023-05-11 01:57 | Emergency Department Note ---
Impression & Plan Anemia, Hypoxia, Fall, Infestation by bed bug [facility] Provider Note NAME: WYATT SANTOS AGE: 77 SEX: F ARRIVES VIA: Ambulance INFORMANT: Patient ED PROVIDER(S): Silvia Medina DO CHIEF COMPLAINT: Fall PLAN: [facility]: [facility] Condition: Guarded MEDICAL DECISION MAKING: This is a 77-year-old female patient who suffered a fall around 4 PM this afternoon while walking with her walker. She landed on her right hip and knee. She could not get up from the ground and contacted some boys to help her get up. They placed her on a couch and she was unable to move from the couch and had persistent right hip and knee pain. She called EMS and they transported her here. Upon arrival in the emergency department, it was noted that she was covered in bedbugs and she was decontaminated immediately. Of note, the patient was just seen here 2 days ago for a COPD exacerbation and signed herself out AMA. In reviewing her previous records over the past couple of months this has been a trend for her where she comes to the emergency department and refuses to stay. The patient tells me that she has had increased falls because she has difficulty walking due to dizziness and quite frequently falls down. Today, the patient fell landing on her right side. X-ray of her right hip and right knee showed no acute fractures. With regards to the bedbugs, she explains that her apartment became infested approximately 1 month ago and that her nephew has been trying to help her get rid of them. Laboratory studies are essentially at her baseline. She is significantly anemic with a hemoglobin of 7.9. There is no leukocytosis. The patient has significant end-stage renal disease with a BUN of 55 and creatinine of 3.76. The patient is somewhat more fluid overloaded with a BNP of 1439. Although her chest x-ray shows no evidence of heart failure. Troponin was 40. The patient did lay on the floor for some period of time today until boys helped her up onto the couch but her total CK was only 407. I discussed [facility] case at length [facility] and they will evaluate the patient for further inpatient care as she is willing for admission today. Triage Nursing notes reviewed and agree with them. Emergency department record from 2 days ago was reviewed as the patient signed out AMA. Vital Signs: reviewed and remarkable for bradycardia Differential diagnosis: Hip fracture, knee fracture, pelvis fracture, CHF, COPD exacerbation, anemia Diagnostics independently interpreted by me: ECG: Sinus bradycardia at a rate of 53 with first-degree AV block and T wave inversion in leads I and aVL. Cardiac Monitoring: Sinus bradycardia at a rate of 54. Laboratory studies: See below Imaging studies: As per my independent interpretation Portable chest x-ray: Cardiomegaly with no obvious signs of fluid overload. There are chronic changes consistent with her COPD. Right knee x-ray: No obvious fracture or fluid in the joint. There is moderate edema Right hip and pelvis: No fractures identified; moderate degenerative changes Consultation(s): control system manager Domenica Garvey Hospitalist HPI: 77/F arrives for evaluation of fall. Patient suffered a fall while walking with her walker around 4 PM. She laid on the floor for a period of time until someone could help her up to the couch around 6 PM. She then was unable to get off the couch and called EMS tonight because of pain in her right hip and right knee. PAST MEDICAL HISTORY:See Below PAST SURGICAL HISTORY:See Below FAMILY HISTORY:See Below SOCIAL HISTORY:See Below HOME MEDICATIONS:See Below ALLERGIES:See Below VITALS:See Below PHYSICAL EXAMINATION: HEENT: Head - normocephalic and atraumatic. Pupils are equal, round, and reactive to light. Extraocular eye muscles are intact and sclera are anicteric. Nose - moist nasal mucosa without evidence of trauma or discharge. Mouth - moist buccal mucosa with no trauma to the teeth or signs of malocclusion. Neck: The neck is supple and there is no pain to palpation over the posterior cervical spine and no obvious step-offs or deformities. There is no JVD or tracheal deviation. Chest: There are no signs of deformities, contusions or abrasions to the chest wall. There is no obvious crepitus or paradoxical chest rise. Heart: Regular rhythm with a bradycardic rate. There is a normal S1 and S2 with no murmurs, clicks, or gallops appreciated. Lungs: Clear to auscultation bilaterally with no wheezes, rales, or rhonchi. Abdomen: Soft, completely nontender, nondistended, with good bowel sounds. There is no sign of trauma such as contusions, abrasions or penetrations. There are no palpable pulsatile masses or hepatosplenomegaly. There is no guarding, rigidity, or rebound noted. Pelvis: Stable to rock and compression. Extremities: Patient has moderate pain to palpation over the right knee, distal right femur, and right hip. There is edema around the right knee. Neuro: The patient is awake and alert and easily able to follow commands. Muscle strength is 5 out of 5 in all 4 extremities. Otherwise, neuro exam is unremarkable. Back: The entire thoracic, lumbar, and sacral spine were palpated. There are no obvious step-offs or deformities noted. There are no obvious signs of trauma such as contusions abrasions penetrations noted to the back. Skin: The patient has diffuse bruises about her body, specifically on her extremities. There are also multiple areas of bedbug bites. ED COURSE: Times/Reassessments: 140: Patient was evaluated in room A-2 after she was decontaminated for bedbugs. She had an IV lock initiated laboratory studies were drawn as above. A twelve- lead EKG was obtained. An order was placed for continuous cardiac monitoring. The patient was in a sinus bradycardia at a rate of 53. X-rays of her chest, right knee and right hip were obtained. She was typed and screened for blood. I had a lengthy conversation with her and she was agreeable for admission to the hospital. I discussed the case with the control system manager. There was concern about the patient's apartment being infested with bedbugs and needing to contact the office of aging. I discussed the case with the [facility] Hospitalist and they will evaluate for further inpatient care. Silvia Medina DO Past Med/Surg History Medical History (Updated 05/11/23 @ 15:07 by Silvia Medina DO) AAA (abdominal aortic aneurysm) - Followed with [facility] [place] and [facility] years ago- does not follow with specialist at this time per patient - 5.1 x 5.0 cm is unchanged per 09/2021 abdomen/pelvis CT - Per 08/2022 renal artery duplex- abdominal aortic aneurysm measuring approximately 4.8 cm in diameter. This appears completely thrombosed. This is likely stable compared to the prior study. MATT (acute kidney injury) Anemia due to chronic kidney disease Asthma rare res inh use per pt Atherosclerosis of both carotid arteries Approximately 50% stenosis to bilateral ICAs per 2014 carotid doppler Atrial fibrillation no pacer > follows with Dr. Dangelo no anticoagulation (on Xarelto in the past but d/c'ed in 2020 due to severe anemia) Cardiomyopathy, hypertrophic No LVOT obstruction per 08/2022 ECHO Chronic diastolic congestive heart failure Chronic kidney disease, stage IV (severe) follows with Dr. Millan Complex renal cyst COPD (chronic obstructive pulmonary disease) rare res inh use Coronary artery disease Known RCA territory severely diseased- (occluded RCA with L to R collaterals) follows Dr. Dangelo Dyslipidemia First degree AV block Gout History of uterine cancer 2008-- s/p hysterectomy - no chemo or XRT Hypertension Hypothyroidism Nocturnal hypoxia No oxygen at night per patient Non-STEMI (non-ST elevated myocardial infarction) 08/2022- due to demand ischemia in the setting of severe CAD and HOCM in the setting of a fib with RVR 04/2022 > cath > no stents per pt report Obstructive sleep apnea of adult no device Peripheral vascular disease Poor historian Renal artery stenosis Secondary hyperparathyroidism Spinal stenosis Tubular adenoma of colon (~04/2014) Surgical History History of bilateral cataract extraction History of cardiac cath 04/2022 [facility] > no stents [address] Dangelo--no stent History of colonoscopy (~04/2014) History of tonsillectomy and adenoidectomy History of tooth extraction all teeth removed History of total hysterectomy with bilateral salpingo-oophorectomy (BSO) Hx of cardiac cath Status post insertion of dialysis catheter Family History Unknown Hypertension Mother Stroke syndrome Sister Uterine cancer Diabetes Myocardial infarction Ovarian cancer Other No family history of adverse response to anesthesia Denies family history of Prostate cancer Breast cancer Lung cancer Colorectal cancer Social History Smoking Status: Current every day smoker Tobacco Type: Cigarettes Age Started Using Tobacco: 19; packs per day: 0.5; Cigarettes Per Day: 1 ppd; Second Hand Exposure: No; Do You Dip or Chew Tobacco: No; Tobacco Cessation Education Requested by Patient: No Hx Alcohol Use: No Hx Substance Use: No Preferred Language: Finnish Communication Ability: Effective Visual Impairment: No Limitations Hearing Ability: Normal Pharmacy Technician Program Director Required: No Beliefs That Will Affect Care: None marital status: / Current Living Situation: Alone current occupational status: retired current occupation: Retired How many Children do You have: 0 Other Information That Helps Us Care for You: No Feels Safe at Home: Yes Safety Concerns: Feels Safe At This Time Childhood Exposure to Second-Hand Smoke: Yes Diet: low salt caffeine: Yes Dental Care, Regularly: No Physical Activity Frequency: Does not Exercise Seatbelt Use: always Sunscreen Use: No Assistive Devices: Denture - Upper, Denture - Lower and Walker Allergies Allergies Allergy/AdvReac Type Severity Reaction Status Date / Time benzonatate Allergy Mild Dizziness Verified 05/10/23 13:16 Cephalosporins Allergy Mild KEFLEX=RASH Verified 05/10/23 13:16 diltiazem Allergy Mild RASH Verified 05/10/23 13:16 Iodinated Contrast Media Allergy Mild CT Verified 05/10/23 13:16 Contrast = kidney infection Home Meds Home Medications Medication Instructions Recorded Confirmed aspirin 81 mg tablet,delayed 81 mg PO QAM 05/11/19 05/11/23 release (Shahzad Low Dose Aspirin) allopurinol 100 mg tablet 100 mg PO QAM 02/21/23 05/11/23 isosorbide mononitrate 30 mg 30 mg PO QAM 02/21/23 05/11/23 tablet,extended release 24 hr calcitriol 0.25 mcg capsule 0.25 mcg PO [id number] 04/11/23 05/11/23 Previous Rx's Medication Instructions Recorded atorvastatin 40 mg tablet 40 mg PO QPM #90 tabs 08/04/21 albuterol sulfate 90 mcg/actuation 2 puff inhalation Q4H PRN 10/05/21 aerosol inhaler (ProAir HFA) shortness of breath or wheezing #18 grams nitroglycerin 0.4 mg sublingual 0.4 mg sublingual Q5M PRN chest 04/19/22 tablet pain #1 btl hydralazine 25 mg tablet 25 mg PO BID #60 tabs 08/26/22 metoprolol succinate 50 mg 25 mg PO BID #180 tabs 01/10/23 tablet,extended release 24 hr amlodipine 5 mg tablet (Norvasc) 5 mg PO QAM #30 tabs 02/11/23 amiodarone 200 mg tablet 200 mg PO QAM #90 tabs 02/22/23 lisinopril 5 mg tablet 5 mg PO DAILY #90 tabs 04/12/23 levothyroxine 25 mcg tablet 25 mcg PO DAILY #30 tabs 04/17/23 prednisone 20 mg tablet 20 mg PO BID 5 days #10 tabs 05/08/23 furosemide 40 mg tablet (Lasix) See Rx Instructions PO BID #90 tabs 05/10/23 Results & Data (ED) Vital Signs Vital Signs - 24 hr 05/11/23 02:00 05/11/23 02:00 05/11/23 02:09 Temperature 36.9 C Temperature Source Oral Pulse Rate 51 L 56 L 46 L Pulse Rate from SpO2 Sensor 56 L Pulse Rhythm Regular Pulse Strength Normal Respiratory Rate 20 23 Respiratory Effort / Characteristics Non-Labored Spontaneous Respiratory Depth Normal Respiratory Pattern Regular Blood Pressure 173/74 H 173/74 H Blood Pressure Mean 107 107 Blood Pressure Position Lying Pulse Oximetry 92 94 Oxygen Delivery Method Room Air Room Air Oxygen Flow Rate Sepsis Recent Fever Within 48 Hours No Sepsis New/Unexplained Change in Mental Status N/A Sepsis Action Taken by Nursing No Action Required 05/11/23 02:31 05/11/23 03:30 05/11/23 04:00 Temperature Temperature Source Pulse Rate 53 L 52 L 46 L Pulse Rate from SpO2 Sensor 51 L Pulse Rhythm Pulse Strength Respiratory Rate 15 18 16 Respiratory Effort / Characteristics Respiratory Depth Respiratory Pattern Blood Pressure 154/51 H 160/70 H 149/67 H Blood Pressure Mean 85 100 94 Blood Pressure Position Pulse Oximetry 98 99 100 Oxygen Delivery Method Nasal Cannula Oxygen Flow Rate 2 Sepsis Recent Fever Within 48 Hours Sepsis New/Unexplained Change in Mental Status Sepsis Action Taken by Nursing 05/11/23 04:30 05/11/23 05:01 05/11/23 02:30 Temperature Temperature Source Pulse Rate 48 L 48 L Pulse Rate from SpO2 Sensor Pulse Rhythm Pulse Strength Respiratory Rate 14 18 Respiratory Effort / Characteristics Respiratory Depth Respiratory Pattern Blood Pressure 156/66 H 159/59 H Blood Pressure Mean 96 92 Blood Pressure Position Pulse Oximetry 100 99 87 L Oxygen Delivery Method Room Air Oxygen Flow Rate Sepsis Recent Fever Within 48 Hours Sepsis New/Unexplained Change in Mental Status Sepsis Action Taken by Nursing Laboratory Data 05/11/23 03:02 05/11/23 03:02 Lab Results 05/11/23 05/11/23 05/11/23 Range/Units 02:50 03:02 03:02 WBC 10.36 (4.8-10.8) K/ul RBC 2.48 L (4.20-5.40) M/uL Hgb 7.9 L (12.0-16.0) g/dl Hct 24.4 L (37.0-47.0) % MCV 98.4 (80.0-100.0) fL MCH 31.9 (25.0-34.0) pg MCHC 32.4 (32.0-36.0) g/dL RDW Std Deviation 56.5 H (36.4-46.3) fL RDW Coeff of Lakshmi 15.8 H (11.5-14.5) % Plt Count 213 (130-400) K/uL MPV 11.3 (9.4-12.4) fL Immature Gran % (Auto) 1.0 % Neut % (Auto) 79.4 % Lymph % (Auto) 11.3 % Wetzel % (Auto) 7.6 % Eos % (Auto) 0.4 % Baso % (Auto) 0.3 % Neut # (Auto) 8.23 H (1.40-6.50) K/uL Lymph # (Auto) 1.17 L (1.20-3.40) K/uL Wetzel # (Auto) 0.79 H (0.11-0.59) K/uL Eos # (Auto) 0.04 (0.00-0.50) K/uL Baso # (Auto) 0.03 (0.00-0.20) K/uL Immature Gran # (Auto) 0.10 (0.01-0.20) K/uL Absolute Nucleated RBC 0.02 (0.00-0.12) K/uL Nucleated RBC % (auto) 0.2 % RBC Morphology Unremarkable Sodium (136-145) mmol/L Potassium (3.5-5.1) mmol/L Chloride (98-107) mmol/L Carbon Dioxide (21-32) mmol/L Anion Gap (3-11) BUN (6-23) mg/dl Creatinine (0.6-1.2) mg/dl Est Cr Clr Drug Dosing ml/min Est GFR ( Amer) ml/min Est GFR (Non-Af Amer) ml/min BUN/Creatinine Ratio (10-20) Glucose (70-99(Fasting)) mg/dl Calcium (8.6-10.3) mg/dl Total Bilirubin (0.2-1.0) mg/dl AST (13-39) U/L ALT (7-52) U/L Alkaline Phosphatase (34-104) U/L Total Creatine Kinase (26-192) U/L Troponin I High Sens (0-14) pg/ml B-Natriuretic Peptide (0-100) pg/ml Total Protein (6.0-8.3) gm/dl Albumin (3.4-5.0) gm/dl Globulin (2.5-4.0) gm/dl Albumin/Globulin Ratio (0.9-2) TSH (0.300-4.500) uIu/ml Free T4 (0.61-1.60) ng/dl Urine Color Yellow Urine Appearance Clear (Clear) Urine pH 5.0 (4.5-7.5) Ur Specific [place] 1.010 (1.000-1.030) Urine Protein Negative (Negative) Urine Glucose (UA) Negative (Negative) Urine Ketones Negative (Negative) Urine Blood Negative (Negative) Urine Nitrite Negative (Negative) Urine Bilirubin Negative (Negative) Urine Urobilinogen Negative (Negative) Ur Leukocyte Esterase 1+ H (Negative) Urine WBC (Auto) 10-30 H (0-5) /hpf Urine RBC (Auto) 0-4 (0-4) /hpf U Hyaline Cast (Auto) 1-5 (0-5) /lpf U Epithel Cells (Auto) >30 H (0-5) /lpf Urine Bacteria (Auto) Negative (Negative) Blood Type O Positive Antibody Screen NEGATIVE 05/11/23 05/11/23 Range/Units 03:02 03:02 WBC (4.8-10.8) K/ul RBC (4.20-5.40) M/uL Hgb (12.0-16.0) g/dl Hct (37.0-47.0) % MCV (80.0-100.0) fL MCH (25.0-34.0) pg MCHC (32.0-36.0) g/dL RDW Std Deviation (36.4-46.3) fL RDW Coeff of Lakshmi (11.5-14.5) % Plt Count (130-400) K/uL MPV (9.4-12.4) fL Immature Gran % (Auto) % Neut % (Auto) % Lymph % (Auto) % Wetzel % (Auto) % Eos % (Auto) % Baso % (Auto) % Neut # (Auto) (1.40-6.50) K/uL Lymph # (Auto) (1.20-3.40) K/uL Wetzel # (Auto) (0.11-0.59) K/uL Eos # (Auto) (0.00-0.50) K/uL Baso # (Auto) (0.00-0.20) K/uL Immature Gran # (Auto) (0.01-0.20) K/uL Absolute Nucleated RBC (0.00-0.12) K/uL Nucleated RBC % (auto) % RBC Morphology Sodium 138 (136-145) mmol/L Potassium 4.1 (3.5-5.1) mmol/L Chloride 106 (98-107) mmol/L Carbon Dioxide 23 (21-32) mmol/L Anion Gap 9 (3-11) BUN 55 H (6-23) mg/dl Creatinine 3.76 H (0.6-1.2) mg/dl Est Cr Clr Drug Dosing 12.9 ml/min Est GFR ( Amer) 12.9 ml/min Est GFR (Non-Af Amer) 11.1 ml/min BUN/Creatinine Ratio 14.6 (10-20) Glucose 87 (70-99(Fasting)) mg/dl Calcium 8.4 L (8.6-10.3) mg/dl Total Bilirubin 0.6 (0.2-1.0) mg/dl AST 23 (13-39) U/L ALT 12 (7-52) U/L Alkaline Phosphatase 65 (34-104) U/L Total Creatine Kinase 407 H (26-192) U/L Troponin I High Sens 40.6 H (0-14) pg/ml B-Natriuretic Peptide 1439 H (0-100) pg/ml Total Protein 6.2 (6.0-8.3) gm/dl Albumin 3.2 L (3.4-5.0) gm/dl Globulin 3.0 (2.5-4.0) gm/dl Albumin/Globulin Ratio 1.1 (0.9-2) TSH 9.621 H (0.300-4.500) uIu/ml Free T4 1.07 (0.61-1.60) ng/dl Urine Color Urine Appearance (Clear) Urine pH (4.5-7.5) Ur Specific [place] (1.000-1.030) Urine Protein (Negative) Urine Glucose (UA) (Negative) Urine Ketones (Negative) Urine Blood (Negative) Urine Nitrite (Negative) Urine Bilirubin (Negative) Urine Urobilinogen (Negative) Ur Leukocyte Esterase (Negative) Urine WBC (Auto) (0-5) /hpf Urine RBC (Auto) (0-4) /hpf U Hyaline Cast (Auto) (0-5) /lpf U Epithel Cells (Auto) (0-5) /lpf Urine Bacteria (Auto) (Negative) Blood Type Antibody Screen Administered Medications Allopurinol (Allopurinol 100 Mg Tab) 100 mg PO [facility] Stop: 06/10/23 08:59 Last Admin: 05/11/23 10:10 Dose: 100 mg Documented By: LEODAN Amiodarone HCl (Amiodarone 200 Mg Tab) 200 mg PO [facility] Stop: 06/10/23 08:59 Last Admin: 05/11/23 10:13 Dose: 200 mg Documented By: LEODAN Amlodipine Besylate (Amlodipine Besylate 5 Mg Tab) [facility] [place] [place] Stop: 06/10/23 08:59 Last Admin: 05/11/23 10:12 Dose: 5 mg Documented By: LEODAN Aspirin (Aspirin 81 Mg Ectab) 81 mg PO [facility] Stop: 06/10/23 08:59 Last Admin: 05/11/23 10:12 Dose: 81 mg Documented By: LEODAN Ferrous Sulfate (Ferrous Sulfate 325 Mg Tab) [facility] [place] [place] Stop: 06/10/23 11:19 Last Admin: 05/11/23 13:51 Dose: 325 mg Documented By: ENRIQUE Furosemide (Furosemide 40 Mg Tab) 80 mg PO [facility] Stop: 06/10/23 08:59 Last Admin: 05/11/23 10:14 Dose: 80 mg Documented By: LEODAN Heparin Sodium (Porcine) (Heparin Sod 5,000 Unit/0.5 Ml Vial) 5,000 units SQ Q12 [facility] Stop: 06/10/23 08:59 Last Admin: 05/11/23 10:17 Dose: 5,000 units Documented By: LEODAN Hydralazine HCl (Hydralazine Hcl 25 Mg Tab) 25 mg PO BID [facility] Stop: 06/10/23 08:59 Last Admin: 05/11/23 10:12 Dose: 25 mg Documented By: LEODAN Isosorbide Mononitrate (Isosorbide [place]zel Extended Rel 30 Mg Tabcr) 30 mg PO QAM [facility] Stop: 06/10/23 08:59 Last Admin: 05/11/23 10:10 Dose: 30 mg Documented By: NRAlex Metoprolol Succinate (Metoprolol Succ 25mg Ext Rel Tab) 25 mg PO BID [facility] Stop: 06/10/23 08:59 Last Admin: 05/11/23 10:13 Dose: 25 mg Documented By: LEODAN Discontinued Medications Lisinopril (Lisinopril 5 Mg Tab) 5 mg PO DAILY [facility] Stop: 06/10/23 08:59 Last Admin: 05/11/23 10:11 Dose: 5 mg Documented By: LEODAN Imaging Data Radiologist's Impression: Chest X-Ray 05/11/23 02:43 SINGLE VIEW CHEST CLINICAL HISTORY: Generalized weakness. FINDINGS: An AP, portable, upright chest radiograph is compared to study dated 05/08/2023. Correlation is made with chest CT dated 03/22/2023. The examination is degraded by portable technique and apical lordotic positioning. The heart is enlarged noting atherosclerotic calcification of the thoracic aorta. The pulmonary vasculature is noncongested. Chronic interstitial thickening is si milar to previous. There is bibasilar scarring/atelectasis. No airspace consolidation or large pleural effusion is identified. No pneumothorax is seen. The skeletal structures are osteopenic. The bony thorax is grossly intact. IMPRESSION: Cardiomegaly with no acute cardiopulmonary abnormality identified. ACT 112: Negative or not required by law. Electronically signed by: Wang Curiel M.D. 05/11/2023 7:59 AM Hip/Pelvis X-Ray 05/11/23 02:44 SINGLE VIEW PELVIS; 2 VIEWS RIGHT HIP CLINICAL HISTORY: Fall. Right hip pain. FINDINGS: An AP view of the pelvis with AP and frog-leg views of the right hip are compared to study dated 12/03/2022. The skeletal structures are osteopenic. There is no radiographic evidence of acute fracture involving the hips or pelvis. [id number] osteoarthritic change and joint space narrowing is seen in the hips. Enthesophytes arise within the anterior superior iliac spines. Lumbosacral spondylosis is partially imaged. There is degenerative sclerosis of the sacroiliac joints. Numerous surgical clips project over the pelvis. The overlying soft tissues are within normal limits. IMPRESSION: No acute bony abnormality is identified. Electronically signed by: Wang Curiel M.D. 05/11/2023 7:55 AM Knee X-Ray 05/11/23 02:44 RIGHT KNEE 2 VIEWS CLINICAL HISTORY: Fall with right knee pain. FINDINGS: AP and crosstable lateral views of the right knee are compared to study dated 12/03/2022. The skeletal structures are osteopenic. No fracture is seen. There is mild to moderate tricompartmental degenerative joint space ashley rowing. There are small marginal osteophytes. There is no significant joint effusion. Mild soft tissue swelling is seen around the knee. Atherosclerotic calcification is noted in the popliteal artery. IMPRESSION: Soft tissue swelling with no fracture identified. Electronically signed by: Wang Curiel M.D. 05/11/2023 7:35 AM Discharge Plan Visit Data Chief Complaint: Fall Stated Complaint: Fall, R Leg Pain, Unable to ambulate ED Provider: Silvia Medina Discharge Problem: Anemia, Hypoxia, Fall, Infestation by bed bug Patient Disposition: Admitted As Inpatient Discharge Instructions Interventions: ED Discharge Assessment Last Done: 05/11/23 08:36
[2023-05-11 03:24] LABS: Appearance Urine Clear (Clear); Bacteria Urine Automated Negative (Negative); Bilirubin Urine Negative (Negative); Blood Urine Negative (Negative); Color Urine Yellow; Epithelial Cell Urine Auto >30 /lpf (0-5); Glucose Urine UA Negative (Negative); Ketones Urine Negative (Negative); Leukocyte Esterase Urine 1+ (Negative); Nitrite Urine Negative (Negative); Protein Urine Negative (Negative); RBC Urine Automated 0-4 /hpf (0-4); Urobilinogen Urine Negative (Negative)
[2023-05-11 03:28] LABS: Basophils # (auto) 0.03 K/uL (0.00-0.20); Basophils % (auto) 0.3 %; Eosinophils # (auto) 0.04 K/uL (0.00-0.50); Eosinophils % (auto) 0.4 %; Hematocrit (blood only) 24.4 % (37.0-47.0); Hemoglobin 7.9 g/dl (12.0-16.0); Lymphocytes # (auto) 1.17 K/uL (1.20-3.40); Lymphocytes % (auto) 11.3 %; Mean Corpuscular Hemoglobin 31.9 pg (25.0-34.0); Mean Corpuscular Hgb Conc 32.4 g/dL (32.0-36.0); Mean Corpuscular Volume 98.4 fL (80.0-100.0); Mean Platelet Volume 11.3 fL (9.4-12.4); Monocytes # (auto) 0.79 K/uL (0.11-0.59); Monocytes % (auto) 7.6 %; Neutrophils # (auto) 8.23 K/uL (1.40-6.50); Neutrophils % (auto) 79.4 %; Nucleated RBC # (auto) 0.02 K/uL (0.00-0.12); Nucleated RBC % (auto) 0.2 %; Platelet Count 213 K/uL (130-400); RDW Coefficient of Variation 15.8 % (11.5-14.5); RDW Standard Deviation 56.5 fL (36.4-46.3); Red Blood Count 2.48 M/uL (4.20-5.40); White Blood Count 10.36 K/ul (4.8-10.8)
[2023-05-11 03:44] LABS: Albumin Globulin Ratio 1.1 (0.9-2); Albumin Level 3.2 gm/dl (3.4-5.0); BUN Creatinine Ratio 14.6 (10-20); Bilirubin,Total 0.6 mg/dl (0.2-1.0); Calcium 8.4 mg/dl (8.6-10.3); Creatinine Clr Calc Pharmacy 12.9 ml/min; Est GFR (African American) 12.9 ml/min; Est GFR (Non-African American) 11.1 ml/min; Potassium 4.1 mmol/L (3.5-5.1); Total Protein 6.2 gm/dl (6.0-8.3)
[2023-05-11 03:46] LABS: RBC Morphology Unremarkable
[2023-05-11 03:51] LABS: Troponin I High Sensitivity 40.6 pg/ml (0-14)
[2023-05-11 04:00] LABS: Thyroid Stimulating Hormone 9.621 uIu/ml (0.300-4.500)
[2023-05-11 04:35] LABS: T4 Free Thyroxine 1.07 ng/dl (0.61-1.60)
--- NOTE | 2023-05-11 05:03 | History & Physical Report ---
Date of Service May 11, 2023 Assessment & Plan (1) Fall: Plan: 77 yo female with PMHx anemia, CAD, HFpEF, HTN, HLD, complex renal cyst, CKD, COPD, and afib presents with a fall. #Fall #Ambulatory weakness -presented with fall while ambulating with cane 2/2 weakness. Was on the ground for 4 hours prior to EMS arrival. WBC wnl. Electrolytes wnl. UA with +LEs however no bacteria, pt asymptomatic. Urine cx pending. CK 400. CXR per my read unremarkable. Suspect fall due to deconditioning and ?anemia. Without obvious signs for infection. -PT/OT #Anemia, acute on chronic -Hgb 7.9 on admission, b/l ~9.. Multifactorial due to CKD, anemia of chronic disease, iron deficiency. No active signs of bleeding. -previous nephro note states pt to be on ferrous sulfate however not on medication list. Iron studies pending. May benefit from venofer. #Bedbugs -found on patient upon EMS arrival. Extensive decontamination performed on scene and in ED. Pt denies itchiness or rashes. -contact precautions ordered #HFpEF -follows with cardiology. Last echo (08/22/22) with EF >70%, hypokinesis of inferolateral wall with severe hypokineses to akineses of basal inferior wall. Cardiac cath 04/18/2022, medical therapy was recommended. -BNP 1400, b/l ~800. Appears euvolemic on exam. -repeat echo ordered -cont. lasix, metoprolol, lisinopril, nitrate; note lasix dose was recently increased at heart clinic. Medication compliancy unclear. #Elevated troponin -trop 40 on admission. EKG without ischemia. Suspect due to demand. Trend trops. #MATT on CKD, stage 5 -Cr 3.7 on admission, b/l ~3.0. Monitor. -cont. allopurinol #COPD -current smoker -albuterol prn -previously seen by pulmonology. Spiriva recommended. Medication not on list, unclear if patient is taking this. -she was prescribed prednisone burst in ED 2 days ago for possible exacerbation, however, pt denies taking this since discharge. No wheezing on exam. #Afib -cont. metoprolol, amiodarone -not on anticoagulation #HTN -cont. amlodipine, hydralazine, lisinopril, metoprolol #HLD -cont. statin #CAD -cont. ASA, statin, metoprolol, nitrate #Hypothyroidism -cont. Synthroid #Proteinaceous kidney cyst -follows with nephro. Repeat CT in 6 months. #Tobacco use -smoking cessation discussed DVT ppx: heparin SQ FEN/GI: HH, low Na, dialysis renal Code Status: full Dispo: med tele (2) Anemia: (3) MATT (acute kidney injury): (4) Complex renal cyst: (5) Right knee pain: (6) Right hip pain: (7) (HFpEF) heart failure with preserved ejection fraction: (8) Chronic kidney disease, stage IV (severe): (9) COPD (chronic obstructive pulmonary disease): (10) Hypothyroidism: (11) Atrial fibrillation: (12) Current smoker: (13) Hypertension: (14) Dyslipidemia: (15) Coronary artery disease: History of Present Illness Chief Complaint: fall Primary Care Provider: Shravan Chicas, 77 yo female with PMHx anemia, CAD, HFpEF, HTN, HLD, complex renal cyst, CKD, COPD, and afib presents with a fall. Yesterday evening patient fell while using her walker onto her right knee and was unable to get up. She was on the ground for about 4 hours prior to EMS arrival. She states she just felt weak in the legs which caused her to fall. When EMS arrived on scene, reportedly she was covered in bedbugs and subsequently decontaminated. Other than generalized weakness she denies headache, chest pain, shortness of breath, abdominal pain, nausea, vomiting, diarrhea, dysuria, fever. Patient states she is compliant with her home meds. She was seen in the ED couple days ago for wheezing was recommended for inpatient hospitalization however patient left AMA. She was prescribed a prednisone burst on discharge however she states she never received this medication as her meds are typically delivered to her house. Allergies Allergy/AdvReac Type Severity Reaction Status Date / Time benzonatate Allergy Mild Dizziness Verified 05/10/23 13:16 Cephalosporins Allergy Mild KEFLEX=RASH Verified 05/10/23 13:16 diltiazem Allergy Mild RASH Verified 05/10/23 13:16 Iodinated Contrast Media Allergy Mild CT Verified 05/10/23 13:16 Contrast = kidney infection Home Medications Medication Instructions Recorded Confirmed Type aspirin 81 mg tablet,delayed 81 mg PO QAM 05/11/19 05/11/23 History release (Shahzad Low Dose Aspirin) atorvastatin 40 mg tablet 40 mg PO QPM #90 tabs 08/04/21 05/11/23 Rx albuterol sulfate 90 mcg/actuation 2 puff inhalation Q4H PRN 10/05/21 05/11/23 Rx aerosol inhaler (ProAir HFA) shortness of breath or wheezing #18 grams nitroglycerin 0.4 mg sublingual 0.4 mg sublingual Q5M PRN chest 04/19/22 05/11/23 Rx tablet pain #1 btl hydralazine 25 mg tablet 25 mg PO BID #60 tabs 08/26/22 05/11/23 Rx metoprolol succinate 50 mg 25 mg PO BID #180 tabs 01/10/23 05/11/23 Rx tablet,extended release 24 hr amlodipine 5 mg tablet (Norvasc) 5 mg PO QAM #30 tabs 02/11/23 05/11/23 Rx allopurinol 100 mg tablet 100 mg PO QAM 02/21/23 05/11/23 History isosorbide mononitrate 30 mg 30 mg PO QAM 02/21/23 05/11/23 History tablet,extended release 24 hr amiodarone 200 mg tablet 200 mg PO QAM #90 tabs 02/22/23 05/11/23 Rx calcitriol 0.25 mcg capsule 0.25 mcg PO 3XWK 04/11/23 05/11/23 History lisinopril 5 mg tablet 5 mg PO DAILY #90 tabs 04/12/23 05/11/23 Rx levothyroxine 25 mcg tablet 25 mcg PO DAILY #30 tabs 04/17/23 05/11/23 Rx prednisone 20 mg tablet 20 mg PO BID 5 days #10 tabs 05/08/23 05/11/23 Rx furosemide 40 mg tablet (Lasix) See Rx Instructions PO BID #90 tabs 05/10/23 05/11/23 Rx Past Med/Surg History Medical History (Updated 05/11/23 @ 15:07 by Silvia Medina DO) AAA (abdominal aortic aneurysm) - [place] [facility] [place] [facility]- does not follow with specialist at this time per patient - 5.1 x 5.0 cm is unchanged per 09/2021 abdomen/pelvis CT - Per 08/2022 renal artery duplex- abdominal aortic aneurysm measuring approxi mately 4.8 cm in diameter. This appears completely thrombosed. This is likely stable compared to the prior study. MATT (acute kidney injury) Anemia due to chronic kidney disease Asthma rare res inh use per pt Atherosclerosis of both carotid arteries Approximately 50% stenosis to bilateral ICAs per 2014 carotid doppler Atrial fibrillation no pacer > follows with Dr. Dangelo no anticoagulation (on Xarelto in the past but d/c'ed in 2020 due to severe anemia) Cardiomyopathy, hypertrophic No LVOT obstruction per 08/2022 ECHO Chronic diastolic congestive heart failure Chronic kidney disease, stage IV (severe) follows with Dr. Millan Complex renal cyst COPD (chronic obstructive pulmonary disease) rare res inh use Coronary artery disease Known RCA territory severely diseased- (occluded RCA with L to R collaterals) follows Dr. Dangelo Dyslipidemia First degree AV block Gout History of uterine cancer 2008-- s/p hysterectomy - no chemo or XRT Hypertension Hypothyroidism Nocturnal hypoxia No oxygen at night per patient Non-STEMI (non-ST elevated myocardial infarction) 08/2022- due to demand ischemia in the setting of severe CAD and HOCM in the setting of a fib with RVR 04/2022 > cath > no stents per pt report Obstructive sleep apnea of adult no device Peripheral vascular disease Poor historian Renal artery stenosis Secondary hyperparathyroidism Spinal stenosis Tubular adenoma of colon (~04/2014) Surgical History History of bilateral cataract extraction History of cardiac cath 04/2022 [facility] > no stents [address] Dangelo--no stent History of colonoscopy (~04/2014) History of tonsillectomy and adenoidectomy History of tooth extraction all teeth removed History of total hysterectomy with bilateral salpingo-oophorectomy (BSO) Hx of cardiac cath Status post insertion of dialysis catheter Family History Unknown Hypertension Mother Stroke syndrome Sister Uterine cancer Diabetes Myocardial infarction Ovarian cancer Other No family history of adverse response to anesthesia Denies family history of Prostate cancer Breast cancer Lung cancer Colorectal cancer Social History Smoking Status: Current every day smoker Tobacco Type: Cigarettes Age Started Using Tobacco: 19; packs per day: 0.5; Cigarettes Per Day: 1 ppd; Second Hand Exposure: No; Do You Dip or Chew Tobacco: No; Tobacco Cessation Education Requested by Patient: No Hx Alcohol Use: No Hx Substance Use: No Preferred Language: Khmer Communication Ability: Effective Visual Impairment: No Limitations Hearing Ability: Normal Squeezer Operator Required: No Beliefs That Will Affect Care: None marital status: / Current Living Situation: Alone current occupational status: retired current occupation: Retired How many Children do You have: 0 Other Information That Helps Us Care for You: No Feels Safe at Home: Yes Safety Concerns: Feels Safe At This Time Childhood Exposure to Second-Hand Smoke: Yes Diet: low salt caffeine: Yes Dental Care, Regularly: No Physical Activity Frequency: Does not Exercise Seatbelt Use: always Sunscreen Use: No Assistive Devices: Walker Review of Systems Review of Systems: All systems reviewed & are unremarkable except as noted in HPI & below Physical Exam Physical Exam: Constitutional: in no acute distress, pleasant and normal affect, intact memory. AOx3. Vitals as above. HEENT: No scleral injection or discharge.Dry mucous membranes. Neck: Supple without lymphadenopathy or thyromegaly. Trachea midline. Lungs: Clear to auscultation bilaterally with good effort. No wheezes/ rales/rhonchi. Cardiac: Bradycardic.Regular rhythm. 2+ lower extremity edema. 1+ distal peripheral pulses. Abdomen: Bowel sounds present. Soft, nontender, and nondistended.No guarding. No hepatosplenomegaly. MSK: No cyanosis or clubbing. Skin: No rashes, warm, dry. Neurologic: no focal deficits Results & Data Results & Data Vital Signs (Past 12 Hours) Vital Signs Temp Pulse Resp BP Pulse Ox O2 Del Method O2 Flow Rate 05/11/23 04:30 48 L 14 156/66 H 100 05/11/23 04:00 46 L 16 149/67 H 100 05/11/23 03:30 52 L 18 160/70 H 99 05/11/23 02:31 53 L 15 154/51 H 98 Nasal Cannula 2 05/11/23 02:09 46 L 05/11/23 02:00 56 L 23 173/74 H 94 Room Air 05/11/23 02:00 36.9 C 51 L 20 173/74 H 92 Room Air Laboratory Results Laboratory Results WBC 10.36 K/ul (4.8-10.8) 05/11/23 03:02 RBC 2.48 M/uL (4.20-5.40) L 05/11/23 03:02 Hgb 7.9 g/dl (12.0-16.0) L 05/11/23 03:02 Hct 24.4 % (37.0-47.0) L 05/11/23 03:02 MCV 98.4 fL (80.0-100.0) 05/11/23 03:02 MCH 31.9 pg (25.0-34.0) 05/11/23 03:02 MCHC 32.4 g/dL (32.0-36.0) 05/11/23 03:02 RDW Std Deviation 56.5 fL (36.4-46.3) H 05/11/23 03:02 RDW Coeff of Lakshmi 15.8 % (11.5-14.5) H 05/11/23 03:02 Plt Count 213 K/uL (130-400) 05/11/23 03:02 MPV 11.3 fL (9.4-12.4) 05/11/23 03:02 Immature Gran % (Auto) 1.0 % 05/11/23 03:02 Neut % (Auto) 79.4 % 05/11/23 03:02 Lymph % (Auto) 11.3 % 05/11/23 03:02 Holmes % (Auto) 7.6 % 05/11/23 03:02 Eos % (Auto) 0.4 % 05/11/23 03:02 Baso % (Auto) 0.3 % 05/11/23 03:02 Neut # (Auto) 8.23 K/uL (1.40-6.50) H 05/11/23 03:02 Lymph # (Auto) 1.17 K/uL (1.20-3.40) L 05/11/23 03:02 Holmes # (Auto) 0.79 K/uL (0.11-0.59) H 05/11/23 03:02 Eos # (Auto) 0.04 K/uL (0.00-0.50) 05/11/23 03:02 Baso # (Auto) 0.03 K/uL (0.00-0.20) 05/11/23 03:02 Immature Gran # (Auto) 0.10 K/uL (0.01-0.20) 05/11/23 03:02 Absolute Nucleated RBC 0.02 K/uL (0.00-0.12) 05/11/23 03:02 Nucleated RBC % (auto) 0.2 % 05/11/23 03:02 RBC Morphology Unremarkable 05/11/23 03:02 Sodium 138 mmol/L (136-145) 05/11/23 03:02 Potassium 4.1 mmol/L (3.5-5.1) 05/11/23 03:02 Chloride 106 mmol/L (98-107) 05/11/23 03:02 Carbon Dioxide 23 mmol/L (21-32) 05/11/23 03:02 Anion Gap 9 (3-11) 05/11/23 03:02 BUN 55 mg/dl (6-23) H 05/11/23 03:02 Creatinine 3.76 mg/dl (0.6-1.2) H 05/11/23 03:02 Est Cr Clr Drug Dosing 12.9 ml/min 05/11/23 03:02 Est GFR ( Amer) 12.9 ml/min 05/11/23 03:02 Est GFR (Non-Af Amer) 11.1 ml/min 05/11/23 03:02 BUN/Creatinine Ratio 14.6 (10-20) 05/11/23 03:02 Glucose 87 mg/dl (70-99(Fasting)) 05/11/23 03:02 Calcium 8.4 mg/dl (8.6-10.3) L 05/11/23 03:02 Total Bilirubin 0.6 mg/dl (0.2-1.0) 05/11/23 03:02 AST 23 U/L (13-39) 05/11/23 03:02 ALT 12 U/L (7-52) 05/11/23 03:02 Alkaline Phosphatase 65 U/L (34-104) 05/11/23 03:02 Total Creatine Kinase 407 U/L (26-192) H 05/11/23 03:02 Troponin I High Sens 40.6 pg/ml (0-14) H 05/11/23 03:02 B-Natriuretic Peptide 1439 pg/ml (0-100) H 05/11/23 03:02 Total Protein 6.2 gm/dl (6.0-8.3) 05/11/23 03:02 Albumin 3.2 gm/dl (3.4-5.0) L 05/11/23 03:02 Globulin 3.0 gm/dl (2.5-4.0) 05/11/23 03:02 Albumin/Globulin Ratio 1.1 (0.9-2) 05/11/23 03:02 TSH 9.621 uIu/ml (0.300-4.500) H 05/11/23 03:02 Free T4 1.07 ng/dl (0.61-1.60) 05/11/23 03:02 Urine Color Yellow 05/11/23 02:50 Urine Appearance Clear (Clear) 05/11/23 02:50 Urine pH 5.0 (4.5-7.5) 05/11/23 02:50 Ur Specific [place] 1.010 (1.000-1.030) 05/11/23 02:50 Urine Protein Negative (Negative) 05/11/23 02:50 Urine Glucose (UA) Negative (Negative) 05/11/23 02:50 Urine Ketones Negative (Negative) 05/11/23 02:50 Urine Blood Negative (Negative) 05/11/23 02:50 Urine Nitrite Negative (Negative) 05/11/23 02:50 Urine Bilirubin Negative (Negative) 05/11/23 02:50 Urine Urobilinogen Negative (Negative) 05/11/23 02:50 Ur Leukocyte Esterase 1+ (Negative) H 05/11/23 02:50 Urine WBC (Auto) 10-30 /hpf (0-5) H 05/11/23 02:50 Urine RBC (Auto) 0-4 /hpf (0-4) 05/11/23 02:50 U Hyaline Cast (Auto) 1-5 /lpf (0-5) 05/11/23 02:50 U Epithel Cells (Auto) >30 /lpf (0-5) H 05/11/23 02:50 Urine Bacteria (Auto) Negative (Negative) 05/11/23 02:50 Blood Type O Positive 05/11/23 03:02 Antibody Screen NEGATIVE 05/11/23 03:02 Supervising Physician Co-Signing Physician Notes Patient seen and examined, chart reviewed, case discussed with Dr. Cat and I agree with the assessment and plan as above. Patient fell at home. Complains of ongoing weakness Exam with regular bradycardia Edema of bilateral EL 1+ Remainder of exam is unremarkable Labs and images reviewed Assessment/Plan -PT/OT evaluation -Repeat echocardiogram -Remainder of plan as above Resident Activity Tracking Resident Involvement: Resident Care Provided Care Provided: Adult Hospital Medicine (1) Fall Encounter type: initial encounter Qualified Code(s): W19.XXXA - Unspecified fall, initial encounter
--- NOTE | 2023-05-11 07:36 | XRay Report ---
RIGHT KNEE 2 VIEWS CLINICAL HISTORY: Fall with right knee pain. FINDINGS: AP and crosstable lateral views of the right knee are compared to study dated 12/03/2022. The skeletal structures are osteopenic. No fracture is seen. There is mild to moderate tricompartmental degenerative joint space narrowing. There are small marginal osteophytes. There is no significant matthew nt effusion. Mild soft tissue swelling is seen around the knee. Atherosclerotic calcification is note d in the popliteal artery. IMPRESSION: Soft tissue swelling with no fracture identified. Electronically signed by: Wang Curiel M.D. 05/11/2023 7:35 AM
--- NOTE | 2023-05-11 07:56 | XRay Report ---
SINGLE VIEW PELVIS; 2 VIEWS RIGHT HIP CLINICAL HISTORY: Fall. Right hip pain. FINDINGS: An AP view of the pelvis with AP and frog-leg views of the right hip are compared to study dated 12/03/2022. The skeletal structures are osteopenic. There is no radiographic evidence of acute fr acture involving the hips or pelvis. [id number] osteoarthritic change and joint space narrowing is seen in the hips. Enthesophytes arise within the anterior superior iliac spines. Lumbosacral spon dylosis is partially imaged. There is degenerative sclerosis of the sacroiliac joints. Numerous surgi eduardo clips project over the pelvis. The overlying soft tissues are within normal limits. IMPRESSION: No acute bony abnormality is identified. Electronically signed by: Wang Curiel M.D. 05/11/2023 7:55 AM
--- NOTE | 2023-05-11 08:01 | XRay Report ---
SINGLE VIEW CHEST CLINICAL HISTORY: Generalized weakness. FINDINGS: An AP, portable, upright chest radiograph is compared to study dated 05/08/2023. Correlation is made with chest CT dated 03/22/2023. The examination is degraded by portable technique and apical lordotic positioning. The heart is enlarged noting atherosclerotic calcification of the thoracic aort a. The pulmonary vasculature is noncongested. Chronic interstitial thickening is similar to previous. There is bibasilar scarring/atelectasis. No airspace consolidation or large pleural effusion is iden tified. No pneumothorax is seen. The skeletal structures are osteopenic. The bony thorax is grossly i ntact. IMPRESSION: Cardiomegaly with no acute cardiopulmonary abnormality identified. ACT 112: Negative or not required by law. Electronically signed by: Wang Curiel M.D. 05/11/2023 7:59 AM
[2023-05-11] MEDS ORDERED: ONDANSETRON 4 MG OD TAB PO PRN (08:35)
[2023-05-11] MEDS ORDERED: ALBUTEROL HFA 8 GM INHALER INH PRN (08:35)
[2023-05-11] MEDS ORDERED: POLYETHYLENE (MIRALAX) 17 GM PACK PO PRN (08:35)
[2023-05-11 08:37] LABS: Ferritin 143.6 ng/ml (8-388)
[2023-05-11] MEDS ORDERED: lisinopril 5 MG TAB PO SCH (09:00)
[2023-05-11] MEDS: allopurinoL 100 MG TAB PO SCH (10:10)
[2023-05-11] MEDS: ISOSORBIDE MONO EXTENDED REL 30 MG TABCR PO SCH (10:10)
[2023-05-11] MEDS: amLODIPine BESYLATE 5 MG TAB PO SCH (10:12)
[2023-05-11] MEDS: hydrALAZINE HCL 25 MG TAB PO SCH ×2 (10:12→22:34)
[2023-05-11] MEDS: ASPIRIN 81 MG ECTAB PO SCH (10:12)
[2023-05-11] MEDS: METOPROLOL SUCC 25MG EXT REL TAB PO SCH ×2 (10:13→22:37)
[2023-05-11] MEDS: AMIODARONE 200 MG TAB PO SCH (10:13)
[2023-05-11] MEDS: FUROSEMIDE 40 MG TAB PO SCH (10:14)
[2023-05-11] MEDS: HEPARIN SOD 5,000 UNIT/0.5 ML VIAL SQ SCH ×2 (10:17→22:35)
[2023-05-11] MEDS ORDERED: INFLUENZA VACCINE HIGH-DOSE (HD-IIV4) PF 65+ 0.7mL SYR IM ONE (10:59)
--- NOTE | 2023-05-11 11:51 | XCELERA ---
[id number] \\[id number]\[id number]
--- NOTE | 2023-05-11 12:18 | Electrocardiogram Report ---
Test Reason : Blood Pressure : / mmHG Vent. Rate : 053 BPM Atrial Rate : 053 BPM P-R Int : 218 ms QRS Dur : 086 ms QT Int : 482 ms P-R-T Axes : 028 -31 105 degrees QTc Int : 452 ms Sinus bradycardia with 1st degree A-V block Left axis deviation Left ventricular hypertrophy with repolarization abnormality ( R in aVL ) Inferior infarct (cited on or before 18-APR-2022) Abnormal ECG When compared with ECG of 08-MAY-2023 17:39, Borderline criteria for Lateral infarct are no longer Present Confirmed by Jacob Portillo ([id number]) on 05/11/2023 12:17:48 PM Referred By: REFERRED SELF Confirmed By:Jacob Portillo
[2023-05-11] MEDS: FERROUS SULFATE 325 MG TAB PO SCH ×2 (13:51→22:37)
[2023-05-11] MEDS ORDERED: FUROSEMIDE 40 MG TAB PO SCH (17:00)
--- NOTE | 2023-05-11 19:09 | History & Physical Bridge Note ---
Date of Service May 11, 2023 History & Physical Bridge Note I have reviewed the History & Physical and in the interval since the performance of the History & Physical I have noted the following changes of clinical significance: Vital stable No acute events since admission TSH recently was elevated and she has not been taking levothyroxine-add this back on at 25 mcg daily Troponin stable at 40 on second check. For her anemia, check B12 and folate in the morning, iron studies are normal but she is to be on oral iron anyway as per nephrology Need to clarify her home medications as nephrology note says she is to be on losartan but PCP notes say lisinopril. Nonetheless, hold lisinopril for now while renal function is decreased from her usual. May consult nephrology if renal function worsens by tomorrow. Also with a AAA measuring 5.1 x [address] from 03/2023 with severe stenosis of aorta and iliac arteries and extensive calcified plaque of the iliac arteries. Ordered labs for the morning to include CBC, BMP, magnesium, B12, folate
[2023-05-11] MEDS: ATORVASTATIN 40 MG TAB PO SCH (22:34)
[2023-05-12 05:03] LABS: Basophils # (auto) 0.03 K/uL (0.00-0.20); Basophils % (auto) 0.4 %; Eosinophils # (auto) 0.14 K/uL (0.00-0.50); Eosinophils % (auto) 1.7 %; Hematocrit (blood only) 21.8 % (37.0-47.0); Hemoglobin 7.2 g/dl (12.0-16.0); Immature Granulocytes % (auto) 1.2 %; Lymphocytes # (auto) 1.39 K/uL (1.20-3.40); Lymphocytes % (auto) 17.3 %; Mean Corpuscular Volume 96.9 fL (80.0-100.0); Mean Platelet Volume 11.4 fL (9.4-12.4); Monocytes # (auto) 0.63 K/uL (0.11-0.59); Monocytes % (auto) 7.8 %; Neutrophils # (auto) 5.74 K/uL (1.40-6.50); Neutrophils % (auto) 71.6 %; Nucleated RBC # (auto) 0.03 K/uL (0.00-0.12); Nucleated RBC % (auto) 0.4 %; Platelet Count 177 K/uL (130-400); RDW Standard Deviation 55.8 fL (36.4-46.3); Red Blood Count 2.25 M/uL (4.20-5.40); White Blood Count 8.03 K/ul (4.8-10.8)
[2023-05-12 05:21] LABS: BUN Creatinine Ratio 14.2 (10-20); Calcium 7.9 mg/dl (8.6-10.3); Creatinine Clr Calc Pharmacy 12.1 ml/min; Est GFR (African American) 12.2 ml/min; Est GFR (Non-African American) 10.5 ml/min; Magnesium 2.3 mg/dl (1.7-2.4); Potassium 3.5 mmol/L (3.5-5.1)
[2023-05-12 05:36] LABS: Polychromasia 1+
[2023-05-12 06:21] LABS: Folate (Folic Acid),Ser orPlas 7.55 ng/ml (>5.38)
[2023-05-12] MEDS: LEVOTHYROXINE SODIUM 25 MCG TABLET PO SCH (06:43)
[2023-05-12] MEDS: allopurinoL 100 MG TAB PO SCH (09:05)
[2023-05-12] MEDS: ASPIRIN 81 MG ECTAB PO SCH (09:06)
[2023-05-12] MEDS: amLODIPine BESYLATE 5 MG TAB PO SCH (09:06)
[2023-05-12] MEDS: ISOSORBIDE MONO EXTENDED REL 30 MG TABCR PO SCH (09:06)
[2023-05-12] MEDS: AMIODARONE 200 MG TAB PO SCH (09:06)
[2023-05-12] MEDS: FERROUS SULFATE 325 MG TAB PO SCH (09:19)
[2023-05-12] MEDS: hydrALAZINE HCL 25 MG TAB PO SCH ×2 (09:19→20:49)
[2023-05-12] MEDS: METOPROLOL SUCC 25MG EXT REL TAB PO SCH ×2 (09:19→20:50)
[2023-05-12] MEDS: FUROSEMIDE 40 MG TAB PO SCH (09:20)
[2023-05-12] MEDS: HEPARIN SOD 5,000 UNIT/0.5 ML VIAL SQ SCH ×2 (09:21→20:52)
--- NOTE | 2023-05-12 11:07 | Nephrology Consultation ---
Date of Consultation May 12, 2023 Assessment & Plan (1) MATT (acute kidney injury): Non-oliguric. Kidney function near baseline. Elevated creatinine likely associated with intravascular volume depletion. Lisinopril held (home medication reconciliation to be updated to verify if patient was taking lisinopril and/or losartan; different records indicating differences in medications and Georgiana is unable to verify). There is no emergent indication for dialysis. Medications are appropriately dosed for kidney function. (2) Chronic kidney disease, stage IV (severe): CKD V A1. CKD attributed to vascular disease. Prior duplex did not demonstrate notable renovascular disease. Microvascular disease per history. Prior imaging reviewed. AVG placed by Dr. Bobo in March should be ready for use. No emergent indication to start dialysis. Potential future indications were discussed with Georgiana today. (3) (HFpEF) heart failure with preserved ejection fraction: Volume status acceptable. No signs of decompensated CHF on my assessment. Furosemide 80 mg provided this AM. Will hold afternoon dose pending monitoring. Unfortunately, I/O's are not accurate due to urinary incontinence. Low sodium diet. Daily fluid restriction. (4) Anemia due to chronic kidney disease: No melena or hematochezia. Chronic. Venofer 200 mg now (Tsat 20, ferritin 143). Epogen 93446 units x 1 dose now. (5) Hypertension: Continue amlodipine, hydralazine, and Imdur as Rx. RAAS blockade held. BP acceptable. (6) Complex renal cyst: Outpatient follow up with Dr. Millan as scheduled. (7) Atrial fibrillation: Remains in sinus bradycardia on amiodarone. History of Present Illness Reason for Consultation: volume overload, worsening renal failure Requesting Physician: Shaunna Reyez MD Attending Physician: Shaunna Reyez MD History of Present Illness Judi "Emilia Bailon is a 77 year-old female with CKD admitted to [facility] s/p fall at home. Recent history includes multiple falls and thankfully without sustaining significant injury. Georgiana presented to the ER at [facility] on May 11 after being down at home for ~4 hours. She was seen and evaluated in her hospital room this afternoon. I discussed the patient's history and plan of care with Dr. Reyez. Georgiana fell in the bathroom while sitting on the commode before my evaluation today. She was resting comfortably in bed afterward and denied any pain. Georgiana has CKD V A1. CKD attributed to microvascular disease. Georgiana follows in the [facility] [place] [place] nephrology clinic with Dr. Millan. She recently saw Dr. Millan in the clinic on April 02. Baseline creatinine has been ~3.5 mg/dL. Predialysis planning has been initiated. Dr. Bobo placed a left brachiocephalic AVF on March 27. Medical history is notable for significant calcific vascular disease, coronary artery disease, HFpEF (followed in the [facility] [place] [place] CHF clinic), hypertrophic cardiomyopathy, paroxysmal atrial fibrillation, hypertension, hyperlipidemia, COPD, LE venous insufficiency, history of GI bleed in December 2020, spinal stenosis, history of cervical cancer managed with hysterectomy, and hypothyroidism. Judi was recently started on levothyroxine but it is unclear if she was taking the medication at home. She has a degree of chronic bradycardia and 1st degree heart block. She is maintained on amiodarone for her PAF. She is not anticoagulated due to history of GIB and falls. She has a notable chronic anemia. She has not been managed with PANCHO therapy. Imaging of the kidneys demonstrating a complex exophytic cysts which is being monitored by Dr. Millan. Home diuretic regimen has been furosemide 80 mg QAM and 40 mg QPM. Georgiana maintains a dry weight of ~195 lbs. She denies recent chest pains or palpitations. She reports some intermittent lightheadedness without notable syncope or presyncope. She is breathing comfortably. Georgiana notes that her edema has markedly improved over the past few weeks. She denies any fluid retention at this time. Bedbugs were found by EMS. Georgiana is being decontaminated. She denies any symptoms. Allergies Allergy/AdvReac Type Severity Reaction Status Date / Time benzonatate Allergy Mild Dizziness Verified 05/10/23 13:16 Cephalosporins Allergy Mild KEFLEX=RASH Verified 05/10/23 13:16 diltiazem Allergy Mild RASH Verified 05/10/23 13:16 Iodinated Contrast Media Allergy Mild CT Verified 05/10/23 13:16 Contrast = kidney infection Home Medications Medication Instructions Recorded Confirmed Type aspirin 81 mg tablet,delayed 81 mg PO QAM 05/11/19 05/11/23 History release (Shahzad Low Dose Aspirin) atorvastatin 40 mg tablet 40 mg PO QPM #90 tabs 08/04/21 05/11/23 Rx albuterol sulfate 90 mcg/actuation 2 puff inhalation Q4H PRN 10/05/21 05/11/23 Rx aerosol inhaler (ProAir HFA) shortness of breath or wheezing #18 grams nitroglycerin 0.4 mg sublingual 0.4 mg sublingual Q5M PRN chest 04/19/22 05/11/23 Rx tablet pain #1 btl hydralazine 25 mg tablet 25 mg PO BID #60 tabs 08/26/22 05/11/23 Rx metoprolol succinate 50 mg 25 mg PO BID #180 tabs 01/10/23 05/11/23 Rx tablet,extended release 24 hr amlodipine 5 mg tablet (Norvasc) 5 mg PO QAM #30 tabs 02/11/23 05/11/23 Rx allopurinol 100 mg tablet 100 mg PO QAM 02/21/23 05/11/23 History isosorbide mononitrate 30 mg 30 mg PO QAM 02/21/23 05/11/23 History tablet,extended release 24 hr amiodarone 200 mg tablet 200 mg PO QAM #90 tabs 02/22/23 05/11/23 Rx calcitriol 0.25 mcg capsule 0.25 mcg PO 3XWK 04/11/23 05/11/23 History lisinopril 5 mg tablet 5 mg PO DAILY #90 tabs 04/12/23 05/11/23 Rx levothyroxine 25 mcg tablet 25 mcg PO DAILY #30 tabs 04/17/23 05/11/23 Rx prednisone 20 mg tablet 20 mg PO BID 5 days #10 tabs 05/08/23 05/11/23 Rx furosemide 40 mg tablet (Lasix) See Rx Instructions PO BID #90 tabs 05/10/23 05/11/23 Rx Patient History Medical History (Updated 05/11/23 @ 15:07 by Silvia Medina DO) AAA (abdominal aortic aneurysm) - Followed with [facility] [place] and [facility] years ago- does not follow with specialist at this time per patient - 5.1 x 5.0 cm is unchanged per 09/2021 abdomen/pelvis CT - Per 08/2022 renal artery duplex- abdominal aortic aneurysm measuring approximately 4.8 cm in diameter. This appears completely thrombosed. This is likely stable compared to the prior study. MATT (acute kidney injury) Anemia due to chronic kidney disease Asthma rare res inh use per pt Atherosclerosis of both carotid arteries Approximately 50% stenosis to bilateral ICAs per 2014 carotid doppler Atrial fibrillation no pacer > follows with Dr. Dangelo no anticoagulation (on Xarelto in the past but d/c'ed in 2020 due to severe anemia) Cardiomyopathy, hypertrophic No LVOT obstruction per 08/2022 ECHO Chronic diastolic congestive heart failure Chronic kidney disease, stage IV (severe) follows with Dr. Millan Complex renal cyst COPD (chronic obstructive pulmonary disease) rare res inh use Coronary artery disease Known RCA territory severely diseased- (occluded RCA with L to R collaterals) follows Dr. Dangelo Dyslipidemia First degree AV block Gout History of uterine cancer 2008-- s/p hysterectomy - no chemo or XRT Hypertension Hypothyroidism Nocturnal hypoxia No oxygen at night per patient Non-STEMI (non-ST elevated myocardial infarction) 08/2022- due to demand ischemia in the setting of severe CAD and HOCM in the setting of a fib with RVR 04/2022 > cath > no stents per pt report Obstructive sleep apnea of adult no device Peripheral vascular disease Poor historian Renal artery stenosis Secondary hyperparathyroidism Spinal stenosis Tubular adenoma of colon (~04/2014) Surgical History History of bilateral cataract extraction History of cardiac cath 04/2022 [facility] > no stents [address] Dangelo--no stent History of colonoscopy (~04/2014) History of tonsillectomy and adenoidectomy History of tooth extraction all teeth removed History of total hysterectomy with bilateral salpingo-oophorectomy (BSO) Hx of cardiac cath Status post insertion of dialysis catheter Family History Unknown Hypertension Mother Stroke syndrome Sister Uterine cancer Diabetes Myocardial infarction Ovarian cancer Other No family history of adverse response to anesthesia Denies family history of Prostate cancer Breast cancer Lung cancer Colorectal cancer Social History Smoking Status: Current every day smoker Tobacco Type: Cigarettes Age Started Using Tobacco: 19; packs per day: 0.5; Cigarettes Per Day: 1 ppd; Second Hand Exposure: No; Do You Dip or Chew Tobacco: No; Tobacco Cessation Education Requested by Patient: No Hx Alcohol Use: No Hx Substance Use: No Preferred Language: Mohawk Communication Ability: Effective Visual Impairment: No Limitations Hearing Ability: Normal [place] Required: No Beliefs That Will Affect Care: None marital status: / Current Living Situation: Alone current occupational status: retired current occupation: Retired How many Children do You have: 0 Other Information That Helps Us Care for You: No Feels Safe at Home: Yes Safety Concerns: Feels Safe At This Time Childhood Exposure to Second-Hand Smoke: Yes Diet: low salt caffeine: Yes Dental Care, Regularly: No Physical Activity Frequency: Does not Exercise Seatbelt Use: always Sunscreen Use: No Assistive Devices: Walker Review of Systems Review of Systems: All systems reviewed & are unremarkable except as noted in HPI & below Physical Exam Constitutional: well developed, + ill appearing and + morbidly obese; no acute distress Eyes: + anicteric sclerae; no corneal abnormality ENMT: Mouth: + dry oral mucous membranes; no oral mucosal abnormality Neck: normal visual inspection and trachea midline Respiratory: normal respiratory effort Auscultation: lungs clear to auscultation bilaterally Cardiovascular: Rate/Rhythm: + bradycardic Heart Sounds: normal S1 and normal S2 Extremities: + pedal edema and + AV fistula Musculoskeletal: Extremities: no cyanosis and no clubbing Skin: + turgor decreased; no jaundice Neurologic: Motor/Sensory: no tremor and no asterixis Psychiatric: Orientation: alert and oriented x 3 Results & Data Vital Signs (Past 12 Hours) Vital Signs Temp Pulse Resp BP Pulse Ox O2 Del Method O2 Flow Rate 05/12/23 07:33 36.5 C 67 17 168/63 H 90 Nasal Cannula 2 05/12/23 04:26 36.9 C 82 18 160/72 H 95 Nasal Cannula 2 05/11/23 23:19 36.8 C 52 L 18 132/64 88 L Room Air Laboratory Results Laboratory Results - last 24 hr 05/12/23 05/12/23 05/12/23 04:17 04:17 04:17 WBC 8.03 RBC 2.25 L Hgb 7.2 L Hct 21.8 L MCV 96.9 MCH 32.0 MCHC 33.0 RDW Std Deviation 55.8 H RDW Coeff of Lakshmi 16.0 H Plt Count 177 MPV 11.4 Immature Gran % (Auto) 1.2 Neut % (Auto) 71.6 Lymph % (Auto) 17.3 [place] % (Auto) 7.8 Eos % (Auto) 1.7 Baso % (Auto) 0.4 Neut # (Auto) 5.74 Lymph # (Auto) 1.39 [place] # (Auto) 0.63 H Eos # (Auto) 0.14 Baso # (Auto) 0.03 Immature Gran # (Auto) 0.10 Absolute Nucleated RBC 0.03 Nucleated RBC % (auto) 0.4 Polychromasia 1+ Sodium 142 Potassium 3.5 Chloride 109 H Carbon Dioxide 27 Anion Gap 6 BUN 56 H Creatinine 3.94 H Est Cr Clr Drug Dosing 12.1 Est GFR ( Amer) 12.2 Est GFR (Non-Af Amer) 10.5 BUN/Creatinine Ratio 14.2 Glucose 100 H Calcium 7.9 L Magnesium 2.3 Vitamin B12 1030 H Folate 7.55 Nasal Screen MRSA (PCR) 05/12/23 Unknown WBC RBC Hgb Hct MCV MCH MCHC RDW Std Deviation RDW Coeff of Lakshmi Plt Count MPV Immature Gran % (Auto) Neut % (Auto) Lymph % (Auto) [place] % (Auto) Eos % (Auto) Baso % (Auto) Neut # (Auto) Lymph # (Auto) [place] # (Auto) Eos # (Auto) Baso # (Auto) Immature Gran # (Auto) Absolute Nucleated RBC Nucleated RBC % (auto) Polychromasia Sodium Potassium Chloride Carbon Dioxide Anion Gap BUN Creatinine Est Cr Clr Drug Dosing Est GFR ( Amer) Est GFR (Non-Af Amer) BUN/Creatinine Ratio Glucose Calcium Magnesium Vitamin B12 Folate Nasal Screen MRSA (PCR) Negative Diagnostic Findings SINGLE VIEW CHEST FINDINGS: An AP, portable, upright chest radiograph is compared to study dated 05/08/2023. Correlation is made with chest CT dated 03/22/2023. The examination is degraded by portable technique and apical lordotic positioning. The heart is enlarged noting atherosclerotic calcification of the thoracic aorta. The pulmonary vasculature is noncongested. Chronic interstitial thickening is simila r to previous. There is bibasilar scarring/atelectasis. No airspace consolidation or large pleural effusion is identified. No pneumothorax is seen. The skeletal structures are osteopenic. The bony thorax is grossly intact. IMPRESSION: Cardiomegaly with no acute cardiopulmonary abnormality identified. Transthoracic echocardiogram: LVEF 70%. Hyperdynamic LV. Moderate LVH. ABDOMEN AND PELVIS CT WITHOUT CONTRAST, March 2023 COMPARISON STUDY: Chest CT of same day, CT abdomen and pelvis 09/28/2021. FINDINGS: Cardiomegaly with small pericardial effusion. Coronary artery and mitral annular calcifications. 5 mm subpleural solid nodule of the basal right lower lobe on image 60 is stable and benign. Unchanged 3 mm solid nodule of the right lower lobe on image 46. Mild left basilar atelectasis/scarring with bronchiectasis. No pneumatosis or pneumoperitoneum. The unenhanced spleen, pancreas and adrenal glands are unremarkable. Cholelithiasis without CT evidence of acute cholecystitis. Unremarkable appearance of the liver. Cortical thinning of the kidneys. There are numerous bilateral hypodense renal lesions, left greater than right suggestive of cysts measuring up to 5.4 cm on the left. There are bilateral left greater than right renal vascular calcifications. Intermediate density 2.0 cm partially exophytic lesion involving the posterior interpolar right kidney is unchanged on image 156 with Hounsfield unit of 43, stable from prior. Hyperdense subcentimeter foci of inferior poles of the kidneys are too small to characterize, likely complex cysts. Urinary bladder wall thickening with partial distention and mild perivesicular stranding. No definite renal or ureteral calculi or hydronephrosis. Hysterectomy. Extensive atherosclerosis of the abdominal aorta and branch vessels. Fusiform aneurysmal dilation of the infrarenal abdominal aorta measuring up to 5.1 x 5.0 cm is unchanged. There is probable severe stenosis of the aorta and iliac arteries. Extensive calcified plaque of the iliac arteries which are diminutive in morphology redemonstrated. There is no adenopathy. Nonspecific gastric wall thickening. No bowel obstruction or bowel wall thickening. Moderate rectal fecal retention. Colonic diverticulosis. No ascites or mesenteric inflammation. Unremarkable soft tissues. 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 Lumbar levoscoliosis. Degenerative changes of the spine, pelvis and hips. Healing subacute nondisplaced fractures of the posterior medial aspects of the left ninth and 10th ribs and lateral left ninth rib. Healing subacute nondisplaced fracture lateral left eighth rib. Additional acute nondisplaced fractures of the anterior left ninth and 10th ribs. IMPRESSION: 1. Healing subacute fractures of the left eighth through tenth ribs with additional acute nondisplaced fractures of the lateral left ninth and tenth ribs. 2. No acute solid organ injury. 3. Stable indeterminate 2 cm partially exophytic lesion within the interpolar right kidney. As previously stated, correlation with nonemergent follow-up renal ultrasound recommended. 4. Fusiform dilation of the infrarenal abdominal aorta redemonstrated measuring 5.1 cm. Extensive atherosclerosis again noted. 5. Additional findings as above. ECG Rate (beats per minute): 53 Rhythm: sinus bradycardia Findings: + 1st degree AV block and + left axis deviation PG Care Time/CCT Total # of Minutes Spent Total Time Spent with Patient: Total time spent is greater than 50% in coordination of care (as documented) at patient's floor/unit and/or counseling patient: Coding Level of Care Code 45092 INT INP/OBS CARE 3/75MIN Diagnoses MATT (acute kidney injury) N17.9 Chronic kidney disease, stage IV (severe) N18.4 (HFpEF) heart failure with preserved ejection fraction I50.30 Anemia due to chronic kidney disease N18.9; D63.1 Hypertension I10 Complex renal cyst N28.1 Atrial fibrillation I48.91
--- NOTE | 2023-05-12 12:19 | Hospitalist Progress Note ---
Date of Service May 12, 2023 Assessment & Plan (1) Fall: Plan: 77 yo female with PMHx anemia, CAD, HFpEF, HTN, HLD, complex renal cyst, CKD, COPD, and afib presents with a fall. #Fall #Ambulatory weakness -presented with fall while ambulating with cane 2/2 weakness. Was on the ground for 4 hours prior to EMS arrival. WBC wnl. Electrolytes wnl. UA with +LEs however no bacteria, pt asymptomatic. Urine cx pending. CK 400. CXR unremarkable.Knee xray with OA. Suspect fall due to deconditioning and ?anemia. Without obvious signs for infection. Had another fall while going to sit on toilet 05/12 and hit head. No signs of major injury, no imagin gneeded-no headache or bruising, no AMS or focal neuro issues -PT/OT evals pending #Anemia, acute on chronic -Hgb 7.9 on admission, b/l ~9.. Multifactorial due to CKD, anemia of chronic disease, iron deficiency. No active signs of bleeding. -previous nephro note states pt to be on ferrous sulfate however not on medication list. Iron studies pending. STarted po Fe but then Nephro ordered venofer. -will likely need Epogen -checked B12/folate-both normal -folow CBC, monitor for bleeding -could also be from bedbug bites draining blood-0recommend extermination at her house #Bedbugs -found on patient upon EMS arrival. Extensive decontamination performed on scene and in ED. Pt denies itchiness or rashes. -contact precautions ordered -extermination recommended #HFpEF -follows with cardiology. Last echo (08/22/22) with EF >70%, hypokinesis of inferolateral wall with severe hypokineses to akineses of basal inferior wall. Cardiac cath 04/18/2022, medical therapy was recommended. -BNP 1400, b/l ~800. Appears euvolemic on exam. -repeat echo ordered shows similar except no further WMAs -cont. lasix, metoprolol, lisinopril, nitrate; note lasix dose was recently increased at heart clinic. Medication compliancy unclear. -may eventually need HD #Elevated troponin -trop 40 on admission. EKG without ischemia. Suspect due to demand. Trend trops. #MATT on CKD, stage 5 -Cr 3.7 on admission and now 3.9, b/l ~3.0. Monitor. -cont. allopurinol -appreciate Nephro consult -AVF in place, may be mature #COPD -current smoker -albuterol prn -previously seen by pulmonology. Spiriva recommended. Medication not on list, unclear if patient is taking this. -she was prescribed prednisone burst in ED 2 days ago for possible exacerbation, however, pt denies taking this since discharge. No wheezing on exam. #Afib -cont. metoprolol, amiodarone -not on anticoagulation due to h/o GIB while on Xarelto #HTN -cont. amlodipine, hydralazine, lisinopril, metoprolol #HLD -cont. statin #CAD -cont. ASA, statin, metoprolol, nitrate #Hypothyroidism TSH recently 9.6 patient denies taking LT4 po but her PCP recommended she start back on this last month -restart Synthroid 25 mcg and give Rx on discharge -check TFTs in 4-6 weeks #Proteinaceous kidney cyst -follows with nephro. Repeat CT in 6 months. #Tobacco use -smoking cessation discussed DVT ppx: heparin SQ Code Status: full Dispo: med tele (2) Anemia: (3) MATT (acute kidney injury): (4) Complex renal cyst: (5) Right knee pain: (6) Right hip pain: (7) (HFpEF) heart failure with preserved ejection fraction: (8) Chronic kidney disease, stage IV (severe): (9) COPD (chronic obstructive pulmonary disease): (10) Hypothyroidism: (11) Atrial fibrillation: (12) Current smoker: (13) Hypertension: (14) Dyslipidemia: (15) Coronary artery disease: Admission and Anticipated Discharge Date Admission Date: May 11, 2023 Subjective Pt walked to bathroom today with assistance and then as she was sitting down onto the toilet, lost her balance and tipped forward, hitting her forehead off the ground. She reports she feels totally fine. No headache, no pain anywhere. She wants everyone to leave her alone. SHe is aware that she may need HD in the near future and seems agreeable to this if needed. I discussed her care with Nephrology. She is unaware of having any bed bugs but has excoriations all over her body Tele with SB in the 50s Physical Exam Constitutional: WD/WN, vitals as above Respiratory: normal respiratory effort, lungs clear to auscultation Cardiovascular: Rate/Rhythm: regular rhythm and + bradycardic Heart Sounds: no murmur Extremities: + edema (1+ pitting edema legs bilat) and + AV fistula (left forearm with thrill and bruit present) Gastrointestinal (Abdomen): normal bowel sounds, soft, nontender, no hepatosplenomegaly Neurologic: PERRL, EOMI, accommodation nl, no face palsy, no dysarthria Psychiatric: A+Ox3, euthymic affect Results & Data Results & Data Vital Signs (Past 12 Hours) Vital Signs Temp Pulse Resp BP Pulse Ox O2 Del Method O2 Flow Rate 05/12/23 11:53 37.1 C 58 L 17 147/62 H 90 Nasal Cannula 2 05/12/23 07:33 36.5 C 67 17 168/63 H 90 Nasal Cannula 2 05/12/23 04:26 36.9 C 82 18 160/72 H 95 Nasal Cannula 2 Laboratory Results CBC, BMP, B12, folate, Ur cx reviewed PG Care Time/CCT Total # of Minutes Spent Total Time Spent with Patient: Total time spent is greater than 50% in coordination of care (as documented) at patient's floor/unit and/or counseling patient: Coding Level of Care Code 83088 SUB INP/OBS CARE 350MIN Diagnoses Fall W19.XXXA Encounter type: initial encounter Anemia D64.9 MATT (acute kidney injury) N17.9 Complex renal cyst N28.1 Right knee pain M25.561 Right hip pain M25.551 (HFpEF) heart failure with preserved ejection fraction I50.30 Chronic kidney disease, stage IV (severe) N18.4 COPD (chronic obstructive pulmonary disease) J44.9 Hypothyroidism E03.9 Atrial fibrillation I48.91 Current smoker F17.200 Hypertension I10 Dyslipidemia E78.5 Coronary artery disease I25.10 (1) Fall Encounter type: initial encounter Qualified Code(s): W19.XXXA - Unspecified fall, initial encounter
[2023-05-12] MEDS ORDERED: IRON SUCROSE 200 MG in 0.9 % SODIUM CHLORIDE 100 ML IV ONE (13:23)
[2023-05-12] MEDS ORDERED: EPOETIN ALFA 10,000 UNITS/ML VIAL SQ ONE (13:24)
[2023-05-12] MEDS: ATORVASTATIN 40 MG TAB PO SCH (20:51)
--- NOTE | 2023-05-12 22:54 | Billing Data ---
Date of Service May 11, 2023 Coding Level of Care Code 57003 INT INP/OBS CARE
[2023-05-13 04:43] LABS: Basophils # (auto) 0.05 K/uL (0.00-0.20); Basophils % (auto) 0.5 %; Eosinophils # (auto) 0.16 K/uL (0.00-0.50); Eosinophils % (auto) 1.7 %; Hematocrit (blood only) 24.9 % (37.0-47.0); Immature Granulocytes % (auto) 2.1 %; Lymphocytes # (auto) 1.31 K/uL (1.20-3.40); Mean Corpuscular Hemoglobin 31.9 pg (25.0-34.0); Mean Corpuscular Hgb Conc 32.1 g/dL (32.0-36.0); Mean Corpuscular Volume 99.2 fL (80.0-100.0); Monocytes # (auto) 0.69 K/uL (0.11-0.59); Monocytes % (auto) 7.4 %; Neutrophils # (auto) 6.95 K/uL (1.40-6.50); Neutrophils % (auto) 74.3 %; Nucleated RBC # (auto) 0.04 K/uL (0.00-0.12); Nucleated RBC % (auto) 0.4 %; Platelet Count 191 K/uL (130-400); RDW Coefficient of Variation 15.9 % (11.5-14.5); RDW Standard Deviation 57.1 fL (36.4-46.3); Red Blood Count 2.51 M/uL (4.20-5.40); White Blood Count 9.36 K/ul (4.8-10.8)
[2023-05-13 05:00] LABS: BUN Creatinine Ratio 15.5 (10-20); Calcium 8.2 mg/dl (8.6-10.3); Creatinine Clr Calc Pharmacy 13.5 ml/min; Est GFR (African American) 13.8 ml/min; Est GFR (Non-African American) 11.9 ml/min; Potassium 3.4 mmol/L (3.5-5.1)
[2023-05-13] MEDS: LEVOTHYROXINE SODIUM 25 MCG TABLET PO SCH (05:45)
[2023-05-13] MEDS: ACETAMINOPHEN 325 MG TAB PO PRN (09:35)
[2023-05-13] MEDS: HEPARIN SOD 5,000 UNIT/0.5 ML VIAL SQ SCH ×2 (09:35→21:59)
[2023-05-13] MEDS: ASPIRIN 81 MG ECTAB PO SCH (09:36)
[2023-05-13] MEDS: ISOSORBIDE MONO EXTENDED REL 30 MG TABCR PO SCH (09:37)
[2023-05-13] MEDS: allopurinoL 100 MG TAB PO SCH (09:38)
[2023-05-13] MEDS: hydrALAZINE HCL 25 MG TAB PO SCH ×2 (09:39→21:59)
[2023-05-13] MEDS: AMIODARONE 200 MG TAB PO SCH (09:39)
[2023-05-13] MEDS: METOPROLOL SUCC 25MG EXT REL TAB PO SCH (09:39)
[2023-05-13] MEDS: FUROSEMIDE 40 MG TAB PO SCH (09:40)
[2023-05-13] MEDS: amLODIPine BESYLATE 5 MG TAB PO SCH (09:40)
--- NOTE | 2023-05-13 09:52 | Nephrology Progress Note ---
Date of Service May 13, 2023 Assessment & Plan (1) MATT (acute kidney injury): Plan: Non-oliguric. Kidney function near baseline. Elevated creatinine likely associated with intravascular volume depletion. Lisinopril held (home medication reconciliation to be updated to verify if patient was taking lisinopril and/or losartan; different records indicating differences in medications and Georgiana is unable to verify). There is no emergent indication for dialysis. Medications are appropriately dosed for kidney function. (2) Chronic kidney disease, stage IV (severe): Plan: CKD V A1. CKD attributed to microvascular disease. AVG placed by Dr. Bobo in March should be ready for use. No emergent indication to start dialysis. Potential future indications were discussed with Georgiana. (3) (HFpEF) heart failure with preserved ejection fraction: Plan: Volume status acceptable. No signs of decompensated CHF on my assessment. Furosemide 80 mg provided this AM. Unfortunately, I/O's are not accurate due to urinary incontinence. Low sodium diet. Daily fluid restriction. (4) Anemia due to chronic kidney disease: Plan: No melena or hematochezia. Chronic. Venofer 200 mg provided yesterday and additional 200 mg today (Tsat 20, ferritin 143). Epogen 58370 units x 1 dose provided yesterday. (5) Hypertension: Plan: Continue amlodipine, hydralazine, and Imdur as Rx. RAAS blockade held. BP remains elevated. Amlodipine increased to 10 mg. (6) Complex renal cyst: Plan: Outpatient follow up with Dr. Millan as scheduled. (7) Atrial fibrillation: Plan: Remains in sinus bradycardia on amiodarone. Admission and Anticipated Discharge Date Admission Date: May 11, 2023 Subjective No acute events overnight. Out of bed with 2 person assist this AM. Balance and instability remain notable concerns. No dyspnea. Edema continues to improve. Output not accurately documented due to incontinence. Weight down 88.3 to 84.2 kg. No lightheadedness, dizziness, syncope or presyncope. Review of Systems Review of Systems: All systems reviewed & are unremarkable except as noted in HPI & below Physical Exam Constitutional: well developed, + ill appearing and + morbidly obese; no acute distress Eyes: + anicteric sclerae; no corneal abnormality ENMT: Mouth: + dry oral mucous membranes; no oral mucosal abnormality Neck: normal visual inspection and trachea midline Respiratory: normal respiratory effort Auscultation: lungs clear to auscultation bilaterally Cardiovascular: Rate/Rhythm: + bradycardic Heart Sounds: normal S1 and normal S2 Extremities: + pedal edema and + AV fistula Musculoskeletal: Extremities: no cyanosis and no clubbing Skin: + turgor decreased; no jaundice Neurologic: Motor/Sensory: no tremor and no asterixis Psychiatric: Orientation: alert and oriented x 3 Results & Data Vital Signs (Past 12 Hours) Vital Signs Temp Pulse Pulse Resp BP Pulse Ox O2 Del Method 05/13/23 07:43 Nasal Cannula 05/13/23 06:15 51 L 05/13/23 07:36 36.6 C 54 L 16 173/72 H 92 Nasal Cannula 05/13/23 04:28 36.6 C 53 L 18 171/61 H 91 Nasal Cannula 05/12/23 23:15 36.9 C 56 L 16 150/67 H 88 L Nasal Cannula O2 Flow Rate 05/13/23 07:43 2 05/13/23 06:15 05/13/23 07:36 2 05/13/23 04:28 1 05/12/23 23:15 1 Laboratory Results Laboratory Results - last 24 hr 05/13/23 05/13/23 04:21 04:21 WBC 9.36 RBC 2.51 L Hgb 8.0 L Hct 24.9 L MCV 99.2 MCH 31.9 MCHC 32.1 RDW Std Deviation 57.1 H RDW Coeff of Lakshmi 15.9 H Plt Count 191 MPV 12.0 Immature Gran % (Auto) 2.1 Neut % (Auto) 74.3 Lymph % (Auto) 14.0 [place] % (Auto) 7.4 Eos % (Auto) 1.7 Baso % (Auto) 0.5 Neut # (Auto) 6.95 H Lymph # (Auto) 1.31 [place] # (Auto) 0.69 H Eos # (Auto) 0.16 Baso # (Auto) 0.05 Immature Gran # (Auto) 0.20 Absolute Nucleated RBC 0.04 Nucleated RBC % (auto) 0.4 Sodium 143 Potassium 3.4 L Chloride 107 Carbon Dioxide 28 Anion Gap 8 BUN 55 H Creatinine 3.55 H D Est Cr Clr Drug Dosing 13.5 Est GFR ( Amer) 13.8 Est GFR (Non-Af Amer) 11.9 BUN/Creatinine Ratio 15.5 Glucose 93 Calcium 8.2 L PG Care Time/CCT Total # of Minutes Spent Total Time Spent with Patient: Total time spent is greater than 50% in coordination of care (as documented) at patient's floor/unit and/or counseling patient: Coding Level of Care Code 22856 SUB INP/OBS CARE 3/50MIN Diagnoses MATT (acute kidney injury) N17.9 Chronic kidney disease, stage IV (severe) N18.4 (HFpEF) heart failure with preserved ejection fraction I50.30 Anemia due to chronic kidney disease N18.9; D63.1 Hypertension I10 Complex renal cyst N28.1 Atrial fibrillation I48.91
[2023-05-13] MEDS ORDERED: IRON SUCROSE 200 MG in 0.9 % SODIUM CHLORIDE 100 ML IV ONE (10:15)
--- NOTE | 2023-05-13 19:53 | Hospitalist Progress Note ---
Date of Service May 13, 2023 Assessment & Plan (1) Fall: Plan: 77 yo female with PMHx anemia, CAD, HFpEF, HTN, HLD, complex renal cyst, CKD, COPD, and afib presents with a fall. #Fall #Ambulatory weakness -presented with fall while ambulating with cane 2/2 weakness. Was on the ground for 4 hours prior to EMS arrival. WBC wnl. Electrolytes wnl. UA with +LEs however no bacteria, pt asymptomatic. Urine cx mixed paresh. CK 400. CXR unremarkable.Knee xray with OA. Suspect fall due to deconditioning and ?anemia. Without obvious signs for infection. Had another fall while going to sit on toilet 05/12 and hit head. No signs of major injury, no imaging needed-no headache or bruising, no AMS or focal neuro issues, no concussion symptoms -PT/OT evals recommend rehab and she is agreeable #Anemia, acute on chronic -Hgb 7.9 on admission, b/l ~9.. Multifactorial due to CKD, anemia of chronic disease, iron deficiency. No active signs of bleeding. Hemoglobin improved today to 8.0 -previous nephro note states pt to be on ferrous sulfate however not on medication list. Iron studies pending. STarted po Fe but then Nephro ordered venofer. -Received a dose of Epogen today -checked B12/folate-both normal -follow CBC, monitor for bleeding -could also be from bedbug bites draining blood-recommend extermination at her house #Bedbugs -found on patient upon EMS arrival. Extensive decontamination performed on scene and in ED. Pt denies itchiness or rashes. -contact precautions ordered -extermination recommended #HFpEF -follows with cardiology. Last echo (08/22/22) with EF >70%, hypokinesis of inferolateral wall with severe hypokineses to akineses of basal inferior wall. Cardiac cath 04/18/2022, medical therapy was recommended. -BNP 1400, b/l ~800. Appears euvolemic on exam. -repeat echo ordered shows similar except no further WMAs -cont. lasix, metoprolol, lisinopril, nitrate; note lasix dose was recently increased at heart clinic. Medication compliancy unclear. -may eventually need HD #Elevated troponin -trop 40 on admission. EKG without ischemia. Suspect due to demand. Trend trops. #MATT on CKD, stage 5 -Cr 3.7 on admission and now improved to 3.5, making urine, baseline creatinine ~3.0. Monitor. -cont. allopurinol -appreciate Nephro consult -AVF in place, may be mature and may need dialysis in the near future #COPD -current smoker -albuterol prn -previously seen by pulmonology. Spiriva recommended. Medication not on list, unclear if patient is taking this. -she was prescribed prednisone burst in ED 2 days ago for possible exacerbation, however, pt denies taking this since discharge. No wheezing on exam. #Afib -cont. metoprolol, amiodarone -not on anticoagulation due to h/o GIB while on Xarelto #HTN -cont. amlodipine, hydralazine, lisinopril, metoprolol for reduced dose metoprolol to 25 mg once daily in the morning due to bradycardia which may contribute to falls #HLD -cont. statin #CAD -cont. ASA, statin, metoprolol, nitrate #Hypothyroidism TSH recently 9.6 patient denies taking LT4 po but her PCP recommended she start back on this last month -restarted Synthroid 25 mcg and give Rx on discharge -check TFTs in 4-6 weeks #Proteinaceous kidney cyst -follows with nephro. Repeat CT in 6 months. #Tobacco use -smoking cessation discussed DVT ppx: heparin SQ Code Status: full Dispo: med tele continued stay but likely discharge to rehab tomorrow if renal function stable (2) Anemia: (3) MATT (acute kidney injury): (4) Complex renal cyst: (5) Right knee pain: (6) Right hip pain: (7) (HFpEF) heart failure with preserved ejection fraction: (8) Chronic kidney disease, stage IV (severe): (9) COPD (chronic obstructive pulmonary disease): (10) Hypothyroidism: (11) Atrial fibrillation: (12) Current smoker: (13) Hypertension: (14) Dyslipidemia: (15) Coronary artery disease: Admission and Anticipated Discharge Date Admission Date: May 11, 2023 Anticipated date of discharge: 05/14/23 Subjective Patient sleeping most of the day. Denies pain or headache. Did not feel like participating with physical therapy. She is eating. She is getting up to go to the bathroom with staff. Metoprolol was held for bradycardia this morning. Telemetry with sinus bradycardia in the 50s She is willing to go to rehab Physical Exam Constitutional: WD/WN, vitals as above Respiratory: normal respiratory effort, lungs clear to auscultation Cardiovascular: Rate/Rhythm: regular rhythm and + bradycardic Heart Sounds: no murmur Extremities: + edema (1+ pitting edema legs bilat) and + AV fistula (left forearm with thrill and bruit present) Gastrointestinal (Abdomen): normal bowel sounds, soft, nontender, no hepatosplenomegaly Results & Data Results & Data Vital Signs (Past 12 Hours) Vital Signs Temp Pulse Pulse Resp BP Pulse Ox O2 Del Method 05/13/23 19:48 36.6 C 56 L 16 154/67 H 95 Nasal Cannula 05/13/23 14:01 55 L 05/13/23 15:05 36.8 C 55 L 16 154/67 H 93 Nasal Cannula 05/13/23 11:03 37 C 50 L 16 150/69 H 94 Nasal Cannula 05/13/23 09:05 50 L O2 Flow Rate 05/13/23 19:48 1 05/13/23 14:01 05/13/23 15:05 2 05/13/23 11:03 2 05/13/23 09:05 Laboratory Results CBC, BMP reviewed Urine culture with mixed paresh PG Care Time/CCT Total # of Minutes Spent Total Time Spent with Patient: Total time spent is greater than 50% in coordination of care (as documented) at patient's floor/unit and/or counseling patient: Coding Level of Care Code 02191 SUB INP/OBS CARE 2/35MIN Diagnoses Fall W19.XXXA Encounter type: initial encounter Anemia D64.9 MATT (acute kidney injury) N17.9 Complex renal cyst N28.1 Right knee pain M25.561 Right hip pain M25.551 (HFpEF) heart failure with preserved ejection fraction I50.30 Chronic kidney disease, stage IV (severe) N18.4 COPD (chronic obstructive pulmonary disease) J44.9 Hypothyroidism E03.9 Atrial fibrillation I48.91 Current smoker F17.200 Hypertension I10 Dyslipidemia E78.5 Coronary artery disease I25.10 (1) Fall Encounter type: initial encounter Qualified Code(s): W19.XXXA - Unspecified fall, initial encounter
[2023-05-13] MEDS: ATORVASTATIN 40 MG TAB PO SCH (21:59)
[2023-05-14 05:26] LABS: Hematocrit (blood only) 24.4 % (37.0-47.0); Hemoglobin 7.7 g/dl (12.0-16.0); Mean Corpuscular Hemoglobin 31.3 pg (25.0-34.0); Mean Corpuscular Hgb Conc 31.6 g/dL (32.0-36.0); Mean Corpuscular Volume 99.2 fL (80.0-100.0); Mean Platelet Volume 12.1 fL (9.4-12.4); Nucleated RBC # (auto) 0.08 K/uL (0.00-0.12); Nucleated RBC % (auto) 0.8 %; Platelet Count 182 K/uL (130-400); RDW Coefficient of Variation 15.9 % (11.5-14.5); RDW Standard Deviation 56.6 fL (36.4-46.3); Red Blood Count 2.46 M/uL (4.20-5.40); White Blood Count 10.17 K/ul (4.8-10.8)
[2023-05-14 05:39] LABS: BUN Creatinine Ratio 17.3 (10-20); Calcium 8.1 mg/dl (8.6-10.3); Creatinine Clr Calc Pharmacy 14.4 ml/min; Est GFR (African American) 15.4 ml/min; Est GFR (Non-African American) 13.3 ml/min; Phosphorus 2.1 mg/dl (2.5-4.9); Potassium 3.1 mmol/L (3.5-5.1)
[2023-05-14] MEDS: LEVOTHYROXINE SODIUM 25 MCG TABLET PO SCH (06:46)
[2023-05-14] MEDS ORDERED: POTASSIUM CHLORIDE CRTAB 20 MEQ TABCR PO STA ×2 (08:41→08:58)
[2023-05-14] MEDS ORDERED: IRON SUCROSE 200 MG in 0.9 % SODIUM CHLORIDE 100 ML IV ONE (09:01)
[2023-05-14] MEDS: METOPROLOL SUCC 25MG EXT REL TAB PO SCH (09:23)
[2023-05-14] MEDS: hydrALAZINE HCL 25 MG TAB PO SCH ×2 (09:23→20:06)
[2023-05-14] MEDS: HEPARIN SOD 5,000 UNIT/0.5 ML VIAL SQ SCH ×4 (09:23→20:11)
[2023-05-14] MEDS: ASPIRIN 81 MG ECTAB PO SCH (09:24)
[2023-05-14] MEDS: amLODIPine BESYLATE 5 MG TAB PO SCH (09:24)
[2023-05-14] MEDS: ISOSORBIDE MONO EXTENDED REL 30 MG TABCR PO SCH (09:24)
[2023-05-14] MEDS: allopurinoL 100 MG TAB PO SCH (09:24)
[2023-05-14] MEDS: FUROSEMIDE 40 MG TAB PO SCH (09:25)
[2023-05-14] MEDS: AMIODARONE 200 MG TAB PO SCH (09:25)
[2023-05-14] MEDS: POT PHOSPHATE MONOBASIC W/ SOD TAB PO SCH ×3 (10:14→20:01)
--- NOTE | 2023-05-14 10:28 | Nephrology Progress Note ---
Date of Service May 14, 2023 Assessment & Plan (1) MATT (acute kidney injury): Plan: Non-oliguric. Kidney function near baseline. There is no emergent indication for dialysis. Medications are appropriately dosed for kidney function. K phos and KCl replacement ordered this AM. (2) Chronic kidney disease, stage IV (severe): Plan: CKD V A1. CKD attributed to microvascular disease. AVG placed by Dr. Bobo in March should be ready for use. No emergent indication to start dialysis. Potential future indications were discussed with Georgiana. (3) (HFpEF) heart failure with preserved ejection fraction: Plan: Volume status acceptable. No signs of decompensated CHF on my assessment. Remains on Furosemide 80 mg QAM. Unfortunately, I/O's are not accurate due to urinary incontinence. Appears volume depleted on exam today. Will monitor. May benefit from reducing diuretics in the near future. Low sodium diet. Daily fluid restriction. (4) Anemia due to chronic kidney disease: Plan: No melena or hematochezia. Chronic. Venofer 200 mg x 2 provided and additional 200 mg today (Tsat 20, ferritin 143). Epogen 59507 units x 1 dose provided 05/12. (5) Hypertension: Plan: Continue amlodipine, hydralazine, and Imdur as Rx. RAAS blockade held. BP remains elevated. Amlodipine increased to 10 mg. (6) Complex renal cyst: Plan: Outpatient follow up with Dr. Millan as scheduled. (7) Atrial fibrillation: Plan: Remains in sinus bradycardia on amiodarone. Metoprolol held due to low HR. Admission and Anticipated Discharge Date Admission Date: May 11, 2023 Subjective No acute events overnight. Georgiana was resting comfortably in bed this morning. She stated that she feels terrible. She reported that she is tired of being in the hospital. She is having pain in her arms and her legs and back. She stated that she has a headache this AM. She describes a mild, pounding frontal headache. This is similar to headaches that she has had in the past. She reports not sleeping well in the hospital and feeling achy from laying in bed. Arm pain is predominately achiness in the shoulders and leg pain described as discomfort in her knees. Review of Systems Review of Systems: All systems reviewed & are unremarkable except as noted in HPI & below Physical Exam Constitutional: well developed, + ill appearing, + morbidly obese and + frail appearing; no acute distress Eyes: + anicteric sclerae; no corneal abnormality ENMT: Mouth: + dry oral mucous membranes; no oral mucosal abnormality Neck: normal visual inspection and trachea midline Respiratory: normal respiratory effort Auscultation: lungs clear to auscultation bilaterally Cardiovascular: Rate/Rhythm: + bradycardic Heart Sounds: normal S1 and normal S2 Extremities: + AV fistula; no edema Musculoskeletal: Extremities: no cyanosis and no clubbing Skin: + turgor decreased; no jaundice Neurologic: Motor/Sensory: no tremor and no asterixis Psychiatric: Orientation: alert and oriented x 3 Results & Data Vital Signs (Past 12 Hours) Vital Signs Temp Pulse Pulse Resp BP Pulse Ox O2 Del Method 05/14/23 07:49 37.0 C 55 L 16 163/63 H 92 Room Air 05/14/23 03:25 36.7 C 60 18 180/65 H 93 Nasal Cannula 05/13/23 23:45 54 L 05/13/23 23:10 37 C 54 L 18 159/52 H 94 Nasal Cannula O2 Flow Rate 05/14/23 07:49 05/14/23 03:25 1 05/13/23 23:45 05/13/23 23:10 1 Laboratory Results Laboratory Results - last 24 hr 05/14/23 05/14/23 04:43 04:43 WBC 10.17 RBC 2.46 L Hgb 7.7 L Hct 24.4 L MCV 99.2 MCH 31.3 MCHC 31.6 L RDW Std Deviation 56.6 H RDW Coeff of Lakshmi 15.9 H Plt Count 182 MPV 12.1 Absolute Nucleated RBC 0.08 Nucleated RBC % (auto) 0.8 Sodium 144 Potassium 3.1 L Chloride 106 Carbon Dioxide 30 Anion Gap 8 BUN 56 H Creatinine 3.24 H D Est Cr Clr Drug Dosing 14.4 Est GFR ( Amer) 15.4 Est GFR (Non-Af Amer) 13.3 BUN/Creatinine Ratio 17.3 Glucose 96 Calcium 8.1 L Phosphorus 2.1 L Albumin 3.0 L PG Care Time/CCT Total # of Minutes Spent Total Time Spent with Patient: Total time spent is greater than 50% in coordination of care (as documented) at patient's floor/unit and/or counseling patient: Coding Level of Care Code 29454 SUB INP/OBS CARE 3/50MIN Diagnoses MATT (acute kidney injury) N17.9 Chronic kidney disease, stage IV (severe) N18.4 (HFpEF) heart failure with preserved ejection fraction I50.30 Anemia due to chronic kidney disease N18.9; D63.1 Hypertension I10 Complex renal cyst N28.1 Atrial fibrillation I48.91
[2023-05-14] MEDS: ACETAMINOPHEN 325 MG TAB PO PRN (15:11)
--- NOTE | 2023-05-14 18:27 | Hospitalist Progress Note ---
Date of Service May 14, 2023 Assessment & Plan (1) Fall: Plan: 77 yo female with PMHx anemia, CAD, HFpEF, HTN, HLD, complex renal cyst, CKD, COPD, and afib presents with a fall. #Fall #Ambulatory weakness -presented with fall while ambulating with cane 2/2 weakness. Was on the ground for 4 hours prior to EMS arrival. WBC wnl. Electrolytes wnl. UA with +LEs however no bacteria, pt asymptomatic. Urine cx mixed paresh. CK 400. CXR unremarkable.Knee xray with OA. Suspect fall due to deconditioning and ?anemia. Without obvious signs for infection. Had another fall while going to sit on toilet 05/12 and hit head. No signs of major injury, no imaging needed-no headache or bruising, no AMS or focal neuro issues, no concussion symptoms -PT/OT evals recommend rehab and she is agreeable #Anemia, acute on chronic -Hgb 7.9 on admission, b/l ~9.. Multifactorial due to CKD, anemia of chronic disease, iron deficiency. No active signs of bleeding. Hemoglobin stable around 7-8 -previous nephro note states pt to be on ferrous sulfate however not on medication list. Iron studies pending. STarted po Fe but then Nephro ordered venofer. -Received a dose of Epogen here -checked B12/folate-both normal -TSH elevated and started her on LT4 -follow CBC, monitor for bleeding -could also be from bedbug bites draining blood-recommend extermination at her house #Bedbugs -found on patient upon EMS arrival. Extensive decontamination performed on scene and in ED. Pt denies itchiness or rashes. -contact precautions ordered -extermination recommended #HFpEF -follows with cardiology. Last echo (08/22/22) with EF >70%, hypokinesis of inferolateral wall with severe hypokineses to akineses of basal inferior wall. Cardiac cath 04/18/2022, medical therapy was recommended. -BNP 1400, b/l ~800. Appears euvolemic on exam. -repeat echo ordered shows similar except no further WMAs -cont. lasix, metoprolol, lisinopril, nitrate; note lasix dose was recently increased at heart clinic. Medication compliancy unclear. -may eventually need HD -give KCl 20 meq po x 1 today for hypokalemia #Elevated troponin -trop 40 on admission. EKG without ischemia. Suspect due to demand. Trend trops. #MATT on CKD, stage 5 -Cr 3.7 on admission and now improved to 3.2, making urine, baseline creatinine ~3.0. Monitor. -cont. allopurinol -appreciate Nephro consult -AVF in place, may be mature and may need dialysis in the near future #COPD -current smoker -albuterol prn -previously seen by pulmonology. Spiriva recommended. Medication not on list, unclear if patient is taking this. -she was prescribed prednisone burst in ED 2 days ago for possible exacerbation, however, pt denies taking this since discharge. No wheezing on exam. #Afib -cont. metoprolol, amiodarone -not on anticoagulation due to h/o GIB while on Xarelto #HTN -cont. amlodipine, hydralazine, lisinopril, metoprolol for reduced dose metoprolol to 25 mg once daily in the morning due to bradycardia which may contribute to falls #HLD -cont. statin #CAD -cont. ASA, statin, metoprolol, nitrate #Hypothyroidism TSH recently 9.6 patient denies taking LT4 po but her PCP recommended she start back on this last month -restarted Synthroid 25 mcg and give Rx on discharge -check TFTs in 4-6 weeks -could be cause her her poor appetite and depressive symptoms although she denies depression #Proteinaceous kidney cyst -follows with nephro. Repeat CT in 6 months. #Tobacco use -smoking cessation discussed # Right knee and hip pain-2/2 fall at home, no evidence of infection on exam,add Voltaren gel and ice to right knee PT/OT DVT ppx: heparin SQ Code Status: full Dispo: meically stable for discharge, awaiting rehab placement (2) Anemia: (3) MATT (acute kidney injury): (4) Complex renal cyst: (5) Right knee pain: (6) Right hip pain: (7) (HFpEF) heart failure with preserved ejection fraction: (8) Chronic kidney disease, stage IV (severe): (9) COPD (chronic obstructive pulmonary disease): (10) Hypothyroidism: (11) Atrial fibrillation: (12) Current smoker: (13) Hypertension: (14) Dyslipidemia: (15) Coronary artery disease: Admission and Anticipated Discharge Date Admission Date: May 11, 2023 Subjective Pt reports low appetite and has been this way for months. Denies N/V, no constipation, no abd pain. Denies depression or sadness. Does say she misses her dog. Is tired of being in the hospital. Tele with SB in the 50s Physical Exam Constitutional: WD/WN, vitals as above Respiratory: normal respiratory effort, lungs clear to auscultation Cardiovascular: Rate/Rhythm: regular rhythm and + bradycardic Heart Sounds: no murmur Extremities: + edema (1+ pitting edema legs bilat) and + AV fistula (left forearm with thrill and bruit present) Psychiatric: Orientation: alert, oriented x 3 and cooperative Affect: + flat affect Results & Data Results & Data Vital Signs (Past 12 Hours) Vital Signs Temp Pulse Pulse Resp BP Pulse Ox O2 Del Method 05/14/23 16:38 57 L 05/14/23 15:13 36.8 C 56 L 16 138/66 92 Room Air 05/14/23 12:23 36.9 C 54 L 20 148/55 H 94 Room Air 05/14/23 10:36 Room Air 05/14/23 10:36 55 L 05/14/23 07:49 37.0 C 55 L 16 163/63 H 92 Room Air Laboratory Results CBC, BMP, mag, phos reviewed PG Care Time/CCT Total # of Minutes Spent Total Time Spent with Patient: Total time spent is greater than 50% in coordination of care (as documented) at patient's floor/unit and/or counseling patient: Coding Level of Care Code 80530 SUB INP/OBS CARE 2/35MIN Diagnoses Fall W19.XXXA Encounter type: initial encounter Anemia D64.9 MATT (acute kidney injury) N17.9 Complex renal cyst N28.1 Right knee pain M25.561 Right hip pain M25.551 (HFpEF) heart failure with preserved ejection fraction I50.30 Chronic kidney disease, stage IV (severe) N18.4 COPD (chronic obstructive pulmonary disease) J44.9 Hypothyroidism E03.9 Atrial fibrillation I48.91 Current smoker F17.200 Hypertension I10 Dyslipidemia E78.5 Coronary artery disease I25.10 (1) Fall Encounter type: initial encounter Qualified Code(s): W19.XXXA - Unspecified fall, initial encounter
[2023-05-14] MEDS: DICLOFENAC SOD 1% GEL 100 GM TUBE EXT SCH ×2 (19:57→20:37)
[2023-05-14] MEDS: ATORVASTATIN 40 MG TAB PO SCH (20:01)
[2023-05-15 05:21] LABS: Hematocrit (blood only) 22.7 % (37.0-47.0); Hemoglobin 7.3 g/dl (12.0-16.0)
[2023-05-15] MEDS: LEVOTHYROXINE SODIUM 25 MCG TABLET PO SCH (05:37)
[2023-05-15 05:40] LABS: Albumin Level 2.8 gm/dl (3.4-5.0); BUN Creatinine Ratio 16.2 (10-20); Calcium 7.9 mg/dl (8.6-10.3); Creatinine Clr Calc Pharmacy 15.1 ml/min; Est GFR (African American) 16.3 ml/min; Est GFR (Non-African American) 14.1 ml/min; Magnesium 2.2 mg/dl (1.7-2.4)
[2023-05-15] MEDS ORDERED: POTASSIUM CHLORIDE CRTAB 20 MEQ TABCR PO STA ×2 (06:01→07:17)
[2023-05-15] MEDS: HEPARIN SOD 5,000 UNIT/0.5 ML VIAL SQ SCH ×2 (08:58→20:49)
[2023-05-15] MEDS: POT PHOSPHATE MONOBASIC W/ SOD TAB PO SCH ×3 (09:00→20:49)
[2023-05-15] MEDS: AMIODARONE 200 MG TAB PO SCH (09:00)
[2023-05-15] MEDS: hydrALAZINE HCL 25 MG TAB PO SCH ×2 (09:00→20:49)
[2023-05-15] MEDS: allopurinoL 100 MG TAB PO SCH (09:01)
[2023-05-15] MEDS: FUROSEMIDE 40 MG TAB PO SCH (09:01)
[2023-05-15] MEDS: ASPIRIN 81 MG ECTAB PO SCH (09:01)
[2023-05-15] MEDS: ISOSORBIDE MONO EXTENDED REL 30 MG TABCR PO SCH (09:01)
[2023-05-15] MEDS: amLODIPine BESYLATE 5 MG TAB PO SCH (09:01)
[2023-05-15] MEDS: METOPROLOL SUCC 25MG EXT REL TAB PO SCH (09:02)
[2023-05-15] MEDS: DICLOFENAC SOD 1% GEL 100 GM TUBE EXT SCH ×4 (09:02→20:50)
--- NOTE | 2023-05-15 10:33 | Nephrology Progress Note ---
Date of Service May 15, 2023 Assessment & Plan (1) MATT (acute kidney injury): Plan: Non-oliguric. Kidney function near baseline. There is no emergent indication for dialysis. Medications are appropriately dosed for kidney function. K phos and KCl replacement continued today. Additional KCl has been provided. (2) Chronic kidney disease, stage IV (severe): Plan: CKD V A1. CKD attributed to microvascular disease. AVG placed by Dr. Bobo in March should be ready for use. No emergent indication to start dialysis. Potential future indications were discussed with Georgiana. (3) (HFpEF) heart failure with preserved ejection fraction: Plan: Volume status acceptable. No signs of decompensated CHF on my assessment. Re bakari on Furosemide 80 mg QAM. Unfortunately, I/O's are not accurate due to urinary incontinence. Appears volume depleted on exam today. Will monitor. May benefit from reducing diuretics in the near future. Low sodium diet. Daily fluid restriction. (4) Anemia due to chronic kidney disease: Plan: No melena or hematochezia. Chronic. Venofer 200 mg x 3 provided. Epogen 36916 units x 1 dose provided 05/12. (5) Hypertension: Plan: Continue amlodipine, hydralazine, and Imdur as Rx. RAAS blockade held. Amlodipine increased to 10 mg. (6) Complex renal cyst: Plan: Outpatient follow up with Dr. Millan as scheduled. (7) Atrial fibrillation: Plan: Remains in sinus bradycardia on amiodarone. Metoprolol held due to low HR. Admission and Anticipated Discharge Date Admission Date: May 11, 2023 Subjective No acute events overnight. Georgiana asked about potential discharge home this AM. She states that she feels well. She is breathing comfortably. No fluid retention or edema. Appetite is good. Strength improving. Review of Systems Review of Systems: All systems reviewed & are unremarkable except as noted in HPI & below Physical Exam Constitutional: well developed, + ill appearing, + morbidly obese and + frail appearing; no acute distress Eyes: + anicteric sclerae; no corneal abnormality ENMT: Mouth: + dry oral mucous membranes; no oral mucosal abnormality Neck: normal visual inspection and trachea midline Respiratory: normal respiratory effort Auscultation: lungs clear to auscultation bilaterally Cardiovascular: Rate/Rhythm: + bradycardic Heart Sounds: normal S1 and nor mal S2 Extremities: + pedal edema and + AV fistula; no edema Musculoskeletal: Extremities: no cyanosis and no clubbing Skin: + turgor decreased; no jaundice Neurologic: Motor/Sensory: no tremor and no asterixis Psychiatric: Orientation: alert and oriented x 3 Results & Data Vital Signs (Past 12 Hours) Vital Signs Temp Pulse Pulse Resp BP Pulse Ox O2 Del Method 05/15/23 07:55 54 L 05/15/23 07:17 Room Air 05/15/23 07:08 36.7 C 51 L 18 160/53 H 90 Room Air 05/15/23 04:00 36.6 C 51 L 18 158/61 H 94 Room Air 05/15/23 00:00 36.4 C L 56 L 18 159/67 H 90 Room Air Laboratory Results Laboratory Results - last 24 hr 05/15/23 05/15/23 04:46 04:46 Hgb 7.3 L Hct 22.7 L Sodium 145 Potassium 3.0 L Chloride 107 Carbon Dioxide 31 Anion Gap 7 BUN 50 H Creatinine 3.09 H Est Cr Clr Drug Dosing 15.1 Est GFR ( Amer) 16.3 Est GFR (Non-Af Amer) 14.1 BUN/Creatinine Ratio 16.2 Glucose 81 Calcium 7.9 L Phosphorus 3.0 Magnesium 2.2 Albumin 2.8 L PG Care Time/CCT Total # of Minutes Spent Total Time Spent with Patient: Total time spent is greater than 50% in coordination of care (as documented) at patient's floor/unit and/or counseling patient: Coding Level of Care Code 55010 SUB INP/OBS CARE 3/50MIN Diagnoses MATT (acute kidney injury) N17.9 Chronic kidney disease, stage IV (severe) N18.4 (HFpEF) heart failure with preserved ejection fraction I50.30 Anemia due to chronic kidney disease N18.9; D63.1 Hypertension I10 Complex renal cyst N28.1 Atrial fibrillation I48.91
[2023-05-15] MEDS ORDERED: POTASSIUM CHLORIDE CRTAB 20 MEQ TABCR PO ONE (12:00)
--- NOTE | 2023-05-15 19:40 | Hospitalist Progress Note ---
Date of Service May 15, 2023 Assessment & Plan (1) Fall: Plan: 77 yo female with PMHx anemia, CAD, HFpEF, HTN, HLD, complex renal cyst, CKD, COPD, and afib presents with a fall. #Fall,Ambulatory weakness -presented with fall while ambulating with cane 2/2 weakness. Was on the ground for 4 hours prior to EMS arrival. WBC wnl. Electrolytes wnl. UA with +LEs however no bacteria, pt asymptomatic. Urine cx mixed paresh. CK 400. CXR unremarkable.Knee xray with OA. Suspect fall due to deconditioning and ?anemia. Without obvious signs for infection. Had another fall while going to sit on toilet 05/12 and hit head. No signs of major injury, no imaging needed-no headache or bruising, no AMS or focal neuro issues, no concussion symptoms -PT/OT evals recommend rehab and she is agreeable (2) Anemia: Plan: #Anemia, acute on chronic -Hgb 7.9 on admission, b/l ~9.. Multifactorial due to CKD, anemia of chronic disease, iron deficiency. No active signs of bleeding. Hemoglobin stable around 7-8 -previous nephro note states pt to be on ferrous sulfate however not on medication list. Iron studies pending. STarted po Fe but then Nephro ordered venofer. -Received a dose of Epogen here -checked B12/folate-both normal -TSH elevated and started her on LT4 which she had been on previously but stopped taking -follow CBC, monitor for bleeding -could also be from bedbug bites draining blood-recommend extermination at her house (3) MATT (acute kidney injury): Plan: #MATT on CKD, stage 5 -Cr 3.7 on admission and now improved to 3.0, making urine, baseline creatinine ~3.0. Monitor. -appreciate Nephro consult -AVF in place, may be mature and may need dialysis in the near future (4) Infestation by bed bug: Plan: -found on patient upon EMS arrival. Extensive decontamination performed on scene and in ED. Pt denies itchiness or rashes but has visible excoriations all over limbs -contact precautions ordered -extermination recommended (5) Right knee pain: Plan: Right knee and hip pain-2/2 fall at home, no evidence of infection on exam,added Voltaren gel and ice to right knee and with some improvement PT/OT recommend rehab (6) (HFpEF) heart failure with preserved ejection fraction: Plan: -follows with cardiology. Last echo (08/22/22) with EF >70%, hypokinesis of inferolateral wall with severe hypokineses to akineses of basal inferior wall. Cardiac cath 04/18/2022, medical therapy was recommended. -BNP 1400,with chronic LE edema possibly venous stasis -repeat echo ordered shows similar except no further WMAs -cont. lasix, metoprolol, lisinopril, nitrate; note lasix dose was recently increased at heart clinic. Medication compliancy unclear. -may eventually need HD -give KCl 60 meq po x 1 today for hypokalemia (7) Chronic kidney disease, stage IV (severe): Plan: as above (8) COPD (chronic obstructive pulmonary disease): Plan: -current smoker -albuterol prn -previously seen by pulmonology. Spiriva recommended. Medication not on list, unclear if patient is taking this. (9) Hypothyroidism: Plan: TSH recently 9.6 patient denies taking LT4 po but her PCP recommended she start back on this last month -restarted Synthroid 25 mcg and give Rx on discharge -check TFTs in 4-6 weeks -could be cause her her poor appetite and depressive symptoms although she denies depression (10) Atrial fibrillation: Plan: Paroxysmal Afib in sinus rhythm here with bradycardia -cont. metoprolol at reduced dose of 25mg once daily, amiodarone -not on anticoagulation due to h/o GIB while on Xarelto (11) Hypertension: Plan: #BPs stable -cont. amlodipine, hydralazine, lisinopril, metoprolol for reduced dose metoprolol to 25 mg once daily in the morning due to bradycardia which may contribute to falls (12) Dyslipidemia: Plan: -cont. statin (13) Coronary artery disease: Plan: -cont. ASA, statin, metoprolol, nitrate (14) Demand ischemia of myocardium: Plan: -trop 40/40 on repeat. EKG without ischemia. Suspect due to demand in setting of renal failure. (15) Complex renal cyst: Plan: #Proteinaceous kidney cyst -follows with nephro. Repeat CT in 6 months. Plan DVT ppx: heparin SQ Code Status: full Dispo: meically stable for discharge, awaiting rehab placement Admission and Anticipated Discharge Date Admission Date: May 11, 2023 Subjective Pt has no complaints except wants to get out of the hospital. Denies headache. Knee pain is improved with voltaren gel Tele with SB 50-60s Physical Exam Constitutional: WD/WN, vitals as above Respiratory: normal respiratory effort Psychiatric: Orientation: alert, oriented x 3 and cooperative Affect: + flat affect Results & Data Results & Data Vital Signs (Past 12 Hours) Vital Signs Temp Pulse Pulse Resp BP Pulse Ox O2 Del Method 05/15/23 18:27 62 05/15/23 15:24 37.0 C 60 20 110/53 L 91 Room Air 05/15/23 11:33 36.7 C 58 L 18 130/56 L 90 Room Air 05/15/23 07:55 54 L Laboratory Results Hgb, BMP, phos, mag reviewed PG Care Time/CCT Total # of Minutes Spent Total Time Spent with Patient: Total time spent is greater than 50% in coordination of care (as documented) at patient's floor/unit and/or counseling patient: Coding Level of Care Code 70098 SUB INP/OBS CARE 2/35MIN Diagnoses Fall W19.XXXA Encounter type: initial encounter Anemia D64.9 MATT (acute kidney injury) N17.9 Infestation by bed bug B88.8 Right knee pain M25.561 (HFpEF) heart failure with preserved ejection fraction I50.30 Chronic kidney disease, stage IV (severe) N18.4 COPD (chronic obstructive pulmonary disease) J44.9 Hypothyroidism E03.9 Atrial fibrillation I48.91 Hypertension I10 Dyslipidemia E78.5 Coronary artery disease I25.10 Demand ischemia of myocardium I24.89 Complex renal cyst N28.1 (1) Fall Encounter type: initial encounter Qualified Code(s): W19.XXXA - Unspecified fall, initial encounter
[2023-05-15] MEDS: ATORVASTATIN 40 MG TAB PO SCH (20:49)
[2023-05-15] MEDS: ACETAMINOPHEN 325 MG TAB PO PRN (23:43)
[2023-05-16] MEDS: ACETAMINOPHEN 325 MG TAB PO PRN ×2 (04:26→20:47)
[2023-05-16] MEDS: LEVOTHYROXINE SODIUM 25 MCG TABLET PO SCH (06:27)
[2023-05-16 09:20] LABS: Hematocrit (blood only) 22.3 % (37.0-47.0); Hemoglobin 7.2 g/dl (12.0-16.0)
[2023-05-16] MEDS: METOPROLOL SUCC 25MG EXT REL TAB PO SCH (09:24)
[2023-05-16] MEDS: ASPIRIN 81 MG ECTAB PO SCH (09:24)
[2023-05-16] MEDS: hydrALAZINE HCL 25 MG TAB PO SCH ×2 (09:24→20:12)
[2023-05-16] MEDS: POT PHOSPHATE MONOBASIC W/ SOD TAB PO SCH ×3 (09:24→20:12)
[2023-05-16] MEDS: allopurinoL 100 MG TAB PO SCH (09:25)
[2023-05-16] MEDS: AMIODARONE 200 MG TAB PO SCH (09:25)
[2023-05-16] MEDS: ISOSORBIDE MONO EXTENDED REL 30 MG TABCR PO SCH (09:25)
[2023-05-16] MEDS: FUROSEMIDE 40 MG TAB PO SCH (09:25)
[2023-05-16] MEDS: HEPARIN SOD 5,000 UNIT/0.5 ML VIAL SQ SCH ×2 (09:26→20:12)
[2023-05-16] MEDS: amLODIPine BESYLATE 5 MG TAB PO SCH (09:26)
[2023-05-16] MEDS: DICLOFENAC SOD 1% GEL 100 GM TUBE EXT SCH ×4 (09:26→20:12)
[2023-05-16 09:52] LABS: Albumin Level 2.8 gm/dl (3.4-5.0); BUN Creatinine Ratio 16.4 (10-20); Creatinine Clr Calc Pharmacy 13.6 ml/min; Est GFR (African American) 14.5 ml/min; Est GFR (Non-African American) 12.5 ml/min; Magnesium 2.1 mg/dl (1.7-2.4); Phosphorus 2.9 mg/dl (2.5-4.9); Potassium 3.8 mmol/L (3.5-5.1)
--- NOTE | 2023-05-16 12:54 | Nephrology Progress Note ---
Date of Service May 16, 2023 Assessment & Plan (1) MATT (acute kidney injury): Plan: Non-oliguric. Kidney function near baseline. There is no emergent indication for dialysis. Medications are appropriately dosed for kidney function. (2) Chronic kidney disease, stage IV (severe): Plan: CKD V A1. CKD attributed to microvascular disease. AVG placed by Dr. Bobo in March should be ready for use. No emergent indication to start dialysis. Potential future indications were discussed with Georgiana. Follow up with Dr. Millan in the nephrology clinic within 2 weeks of discharge. (3) (HFpEF) heart failure with preserved ejection fraction: Plan: Volume status acceptable. No signs of decompensated CHF on my assessment. Remains on Furosemide 80 mg QAM. Unfortunately, I/O's are not accurate due to urinary incontinence. Low sodium diet. Daily fluid restriction. (4) Anemia due to chronic kidney disease: Plan: No melena or hematochezia. Chronic. Venofer 200 mg x 3 provided. Epogen 54069 units x 1 dose provided 05/12. (5) Hypertension: Plan: Continue amlodipine, hydralazine, and Imdur as Rx. RAAS blockade held. Amlodipine increased to 10 mg. (6) Complex renal cyst: Plan: Outpatient follow up with Dr. Millan as scheduled. (7) Atrial fibrillation: Plan: Remains in sinus bradycardia on amiodarone. Metoprolol held due to low HR. Admission and Anticipated Discharge Date Admission Date: May 11, 2023 Subjective No acute events overnight. No complaints this AM. Review of Systems Review of Systems: All systems reviewed & are unremarkable except as noted in HPI & below Physical Exam Constitutional: well developed and + morbidly obese; no acute distress Eyes: + anicteric sclerae; no corneal abnormality ENMT: Mouth: no oral mucosal abnormality and oral mucous membranes not dry Neck: normal visual inspection and trachea midline Respiratory: normal respiratory effort Auscultation: lungs clear to auscultation bilaterally Cardiovascular: Rate/Rhythm: + bradycardic Heart Sounds: normal S1 and normal S2 Extremities: + pedal edema and + AV fistula; no edema Musculoskeletal: Extremities: no cyanosis and no clubbing Skin: + turgor decreased; no jaundice Neurologic: Motor/Sensory: no tremor and no asterixis Psychiatric: Orientation: alert and oriented x 3 Results & Data Vital Signs (Past 12 Hours) Vital Signs Temp Pulse Pulse Resp BP Pulse Ox O2 Del Method 05/16/23 11:22 56 L 17 104/59 L 93 Room Air 05/16/23 07:56 36.8 C 55 L 17 147/63 H 90 Room Air 05/16/23 07:33 58 L 05/16/23 04:20 37.0 C 59 L 20 146/63 H 90 Room Air Laboratory Results Laboratory Results - last 24 hr 05/16/23 05/16/23 08:37 08:37 Hgb 7.2 L Hct 22.3 L Sodium 141 Potassium 3.8 D Chloride 105 Carbon Dioxide 29 Anion Gap 7 BUN 56 H Creatinine 3.41 H D Est Cr Clr Drug Dosing 13.6 Est GFR ( Amer) 14.5 Est GFR (Non-Af Amer) 12.5 BUN/Creatinine Ratio 16.4 Glucose 93 Calcium 8.0 L Phosphorus 2.9 Magnesium 2.1 Albumin 2.8 L PG Care Time/CCT Total # of Minutes Spent Total Time Spent with Patient: Total time spent is greater than 50% in coordination of care (as documented) at patient's floor/unit and/or counseling patient: Coding Level of Care Code 58784 SUB INP/OBS CARE 3/50MIN Diagnoses MATT (acute kidney injury) N17.9 Chronic kidney disease, stage IV (severe) N18.4 (HFpEF) heart failure with preserved ejection fraction I50.30 Anemia due to chronic kidney disease N18.9; D63.1 Hypertension I10 Complex renal cyst N28.1 Atrial fibrillation I48.91
--- NOTE | 2023-05-16 18:21 | Hospitalist Progress Note ---
Date of Service May 16, 2023 Assessment & Plan (1) Fall: Plan: 77 yo female with PMHx anemia, CAD, HFpEF, HTN, HLD, complex renal cyst, CKD, COPD, and afib presents with a fall. -presented with fall while ambulating with cane 2/2 weakness. Was on the ground for 4 hours prior to EMS arrival. WBC wnl. Electrolytes wnl. UA with +LEs however no bacteria, pt asymptomatic. Urine cx mixed paresh. CK 400. CXR unremarkable.Knee xray with OA. Suspect fall due to deconditioning and ?anemia. Without obvious signs for infection. Had another fall while going to sit on toilet and tipped forward on 05/12 in hospital and hit head. No signs of major injury, no imaging needed-no headache or bruising, no AMS or focal neuro issues, no concussion symptoms -PT/OT evals recommend rehab and she is agreeable (2) Anemia: Plan: acute on chronic -Hgb 7.9 on admission, b/l ~9.. Multifactorial due to CKD, anemia of chronic disease, iron deficiency. No active signs of bleeding. Hemoglobin stable around 7-8 -previous nephro note states pt to be on ferrous sulfate however not on medication list. -Fe studies consistent with anemia of chronic disease, ferritin normal -Nephro ordered venofer and received a dose of Epogen here -checked B12/folate-both normal -TSH elevated and started her on LT4 which she had been on previously but stopped taking -follow CBC, monitor for bleeding -could also be from bedbug bites draining blood-recommend extermination at her house (3) MATT (acute kidney injury): Plan: MATT on CKD, stage 5 -Cr 3.7 on admission and remains fairly stable, making urine, baseline creatinine ~3.0. Monitor. -appreciate Nephro consult -AVF in place, is mature and may need dialysis in the near future --Avoid nephrotoxins -renally dose meds when appropriate -follow BMP -restart home calcitriol -continue lasix at reduced dose of 80mg po qAM (4) Infestation by bed bug: Plan: -found on patient upon EMS arrival. Extensive decontamination performed on scene and in ED. Pt denies itchiness or rashes but has visible excoriations all over limbs -contact precautions ordered -extermination recommended (5) Right knee pain: Plan: Right knee and hip pain-2/2 fall at home, no evidence of infection on exam, xrays negative for acute continue Voltaren gel and ice to right knee and with some improvement PT/OT recommend rehab (6) (HFpEF) heart failure with preserved ejection fraction: Plan: -follows with cardiology. Last echo (08/22/22) with EF >70%, hypokinesis of inferolateral wall with severe hypokineses to akineses of basal inferior wall. Cardiac cath 04/18/2022, medical therapy was recommended. -BNP 1400,with chronic LE edema possibly venous stasis -repeat echo ordered shows similar except no further WMAs -cont. lasix at reduced dose, metoprolol, lisinopril, nitrate -may eventually need HD -with persistent hypokalemia-continue KPhos qid as per Sugar (7) Chronic kidney disease, stage IV (severe): Plan: as above (8) COPD (chronic obstructive pulmonary disease): Plan: -current smoker -albuterol prn -previously seen by pulmonology. Spiriva recommended. Medication not on list, unclear if patient is taking this. (9) Hypothyroidism: Plan: TSH recently 9.6 patient denies taking LT4 po but her PCP recommended she start back on this last month -restarted Synthroid 25 mcg and give Rx on discharge -check TFTs in 4-6 weeks -could be cause her her poor appetite and depressive symptoms although she denies depression (10) Atrial fibrillation: Plan: Paroxysmal Afib in sinus rhythm here with bradycardia persistently in 50s -cont. metoprolol at reduced dose of 25mg once daily, amiodarone -not on anticoagulation due to h/o GIB while on Xarelto -ok to transition off tele (11) Hypertension: Plan: BPs stable -cont. amlodipine at increased dose of 10mg, hydralazine, metoprolol reduced to 25 mg once daily in the morning due to bradycardia which may contribute to falls -discontinued home lisinopril for worsening renal function (12) Dyslipidemia: Plan: -cont. statin (13) Coronary artery disease: Plan: -cont. ASA, statin, metoprolol, nitrate (14) Demand ischemia of myocardium: Plan: -trop 40/40 on repeat. EKG without ischemia. Suspect due to demand in setting of renal failure. (15) Complex renal cyst: Plan: Proteinaceous kidney cyst -follows with nephro. Repeat CT in 6 months. Plan DVT ppx: heparin SQ Code Status: full Dispo: medically stable for discharge, awaiting rehab placement, [facility] Admission and Anticipated Discharge Date Admission Date: May 11, 2023 Subjective Pt has ongoing right knee pain but able to get up and ambulate in room with assistance. Is eating, moving bowels. Tele with 1st degree AV block, sinus rhythm, rates 50-60s Physical Exam Constitutional: WD/WN, vitals as above Respiratory: normal respiratory effort, lungs clear to auscultation normal respiratory effort Cardiovascular: Rate/Rhythm: regular rhythm and + bradycardic Heart Sounds: no murmur Extremities: + edema (1+ pitting edema legs bilat) and + AV fistula (left forearm with thrill and bruit present) Gastrointestinal (Abdomen): normal bowel sounds, soft, nontender, no hepatosplenomegaly Psychiatric: Orientation: alert, oriented x 3 and cooperative Affect: + flat affect Results & Data Results & Data Vital Signs (Past 12 Hours) Vital Signs Temp Pulse Pulse Resp BP Pulse Ox O2 Del Method 05/16/23 15:18 36.6 C 55 L 18 119/63 92 Room Air 05/16/23 11:22 56 L 17 104/59 L 93 Room Air 05/16/23 07:56 36.8 C 55 L 17 147/63 H 90 Room Air 05/16/23 07:33 58 L Laboratory Results CBC, BMP reviewed PG Care Time/CCT Total # of Minutes Spent Total Time Spent with Patient: Total time spent is greater than 50% in coordination of care (as documented) at patient's floor/unit and/or counseling patient: Coding Level of Care Code 27679 SUB INP/OBS CARE 25MIN Diagnoses Fall W19.XXXA Encounter type: initial encounter Anemia D64.9 MATT (acute kidney injury) N17.9 Infestation by bed bug B88.8 Right knee pain M25.561 (HFpEF) heart failure with preserved ejection fraction I50.30 Chronic kidney disease, stage IV (severe) N18.4 COPD (chronic obstructive pulmonary disease) J44.9 Hypothyroidism E03.9 Atrial fibrillation I48.91 Hypertension I10 Dyslipidemia E78.5 Coronary artery disease I25.10 Demand ischemia of myocardium I24.89 Complex renal cyst N28.1 (1) Fall Encounter type: initial encounter Qualified Code(s): W19.XXXA - Unspecified fall, initial encounter
[2023-05-16] MEDS: ATORVASTATIN 40 MG TAB PO SCH (20:12)
[2023-05-17] MEDS: ACETAMINOPHEN 325 MG TAB PO PRN ×2 (04:24→09:19)
[2023-05-17] MEDS: LEVOTHYROXINE SODIUM 25 MCG TABLET PO SCH (05:45)
[2023-05-17] MEDS ORDERED: CALCITRIOL 0.25 MCG CAPSULE PO SCH (09:00)
[2023-05-17] MEDS: HEPARIN SOD 5,000 UNIT/0.5 ML VIAL SQ SCH ×2 (09:18→19:59)
[2023-05-17] MEDS: hydrALAZINE HCL 25 MG TAB PO SCH ×2 (09:20→19:54)
[2023-05-17] MEDS: POT PHOSPHATE MONOBASIC W/ SOD TAB PO SCH ×3 (09:20→19:53)
[2023-05-17] MEDS: METOPROLOL SUCC 25MG EXT REL TAB PO SCH (09:21)
[2023-05-17] MEDS: amLODIPine BESYLATE 5 MG TAB PO SCH (09:21)
[2023-05-17] MEDS: DICLOFENAC SOD 1% GEL 100 GM TUBE EXT SCH ×4 (09:22→19:52)
[2023-05-17] MEDS: ASPIRIN 81 MG ECTAB PO SCH (09:22)
[2023-05-17] MEDS: allopurinoL 100 MG TAB PO SCH (09:22)
[2023-05-17] MEDS: AMIODARONE 200 MG TAB PO SCH (09:22)
[2023-05-17] MEDS: FUROSEMIDE 40 MG TAB PO SCH (09:23)
[2023-05-17] MEDS: ISOSORBIDE MONO EXTENDED REL 30 MG TABCR PO SCH (09:26)
[2023-05-17] MEDS ORDERED: EPOETIN ALFA 10,000 UNITS/ML VIAL SQ ONE (10:29)
--- NOTE | 2023-05-17 10:29 | Nephrology Progress Note ---
Date of Service May 17, 2023 Assessment & Plan (1) MATT (acute kidney injury): Plan: Non-oliguric. Kidney function returned to baseline. Close outpatient follow up will be required. Volume status acceptable. There is no emergent indication for dialysis. Medications are appropriately dosed for kidney function. Nephrology will sign-off. Please schedule outpatient follow up with Dr. Millan within 1-2 weeks of discharge. Repeat metabolic profile early next week and send results to nephrology clinic (fax [phone]). (2) Chronic kidney disease, stage IV (severe): Plan: CKD V A1. CKD attributed to microvascular disease. AVG placed by Dr. Bobo in March should be ready for use. No emergent indication to start dialysis. Potential future indications were discussed with Georgiana. Follow up with Dr. Millan in the nephrology clinic within 2 weeks of discharge. (3) (HFpEF) heart failure with preserved ejection fraction: Plan: Volume status acceptable. No signs of decompensated CHF on my assessment. Remains on Furosemide 80 mg QAM to be continued post discharge. Monitor daily weights. Unfortunately, I/O's are not accurate due to urinary incontinence. Low sodium diet. Daily fluid restriction. (4) Anemia due to chronic kidney disease: Plan: Venofer 200 mg x 3 provided. Epogen 09328 units x 1 dose provided 05/12. Additional 56456 units provided today. Recheck H/H next week. Follow up with Dr. Millan within 1-2 weeks of discharge. (5) Hypertension: Plan: Continue amlodipine, hydralazine, and Imdur as Rx. RAAS blockade held. Amlodipine increased to 10 mg. (6) Complex renal cyst: Plan: Outpatient follow up with Dr. Millan as scheduled. (7) Atrial fibrillation: Plan: Remains in sinus bradycardia on amiodarone. Metoprolol held due to low HR. Admission and Anticipated Discharge Date Admission Date: May 11, 2023 Subjective No acute events overnight. Resting comfortably in bed this AM. Breathing comfortably. No fluid retention or edema. Review of Systems Review of Systems: All systems reviewed & are unremarkable except as noted in HPI & below Physical Exam Constitutional: well developed and + frail appearing; no acute distress Eyes: + anicteric sclerae; no corneal abnormality ENMT: Mouth: no oral mucosal abnormality and oral mucous membranes not dry Neck: normal visual inspection and trachea midline Respiratory: normal respiratory effort Auscultation: lungs clear to auscultation bilaterally Cardiovascular: Rate/Rhythm: + bradycardic Heart Sounds: normal S1 and nor mal S2 Extremities: + pedal edema and + AV fistula; no edema Musculoskeletal: Extremities: no cyanosis and no clubbing Skin: + turgor decreased; no jaundice Neurologic: Motor/Sensory: no tremor and no asterixis Psychiatric: Orientation: alert and oriented x 3 Results & Data Vital Signs (Past 12 Hours) Vital Signs Temp Pulse Resp BP Pulse Ox O2 Del Method 05/17/23 08:22 37.5 C 54 L 16 137/62 91 Room Air 05/17/23 05:48 37.5 C 05/17/23 04:20 37.8 C H 54 L 16 133/57 L 92 Room Air 05/16/23 23:07 37 C 59 L 18 125/63 92 Room Air PG Care Time/CCT Total # of Minutes Spent Total Time Spent with Patient: Total time spent is greater than 50% in coordination of care (as documented) at patient's floor/unit and/or counseling patient: Coding Level of Care Code 52599 SUB INP/OBS CARE 3/50MIN Diagnoses MATT (acute kidney injury) N17.9 Chronic kidney disease, stage IV (severe) N18.4 (HFpEF) heart failure with preserved ejection fraction I50.30 Anemia due to chronic kidney disease N18.9; D63.1 Hypertension I10 Complex renal cyst N28.1 Atrial fibrillation I48.91
--- NOTE | 2023-05-17 17:19 | Hospitalist Progress Note ---
Date of Service May 17, 2023 Assessment & Plan (1) Fall: Plan: Mechanical fall. No fractures. Continue OT and PT while hospitalized. (2) Anemia: Plan: acute on chronic. Multifactorial due to CKD, anemia of chronic disease, iron deficiency. No active signs of bleeding. Hemoglobin stable. She received parenteral iron replacement this admission. (3) MATT (acute kidney injury): Plan: MATT on CKD, stage 5. Appreciate nephrology consultation and recommendations. Monitor intake and output. Serial labs (4) Infestation by bed bug: Plan: found on patient upon EMS arrival. Extensive decontamination performed on scene and in ED. Pt denies itchiness or rashes but has visible excoriations all over limbs. Continue contact precautions while hospitalized (5) Right knee pain: Plan: Right knee and hip pain-due to fall at home. No fractures or evidence of infection on examination. Symptomatic treatment PT/OT recommend rehab (6) (HFpEF) heart failure with preserved ejection fraction: Plan: Stable. Continue current medical management. Monitor intake and output. Chronic LE edema possibly due to venous stasis. Repeat echo shows similar finding except no further regional WMAs. Cont. lasix, metoprolol, lisinopril, nitrate (7) Chronic kidney disease, stage IV (severe): Plan: Appreciate nephrology consultation and recommendations. Monitor intake and output. Serial labs (8) COPD (chronic obstructive pulmonary disease): Plan: Stable. Tobacco use cessation recommended. Continue current medical management. (9) Hypothyroidism: Plan: Stable. Continue thyroid replacement therapy (10) Atrial fibrillation: Plan: Paroxysmal . Currently in sinus rhythm with bradycardia persistently in 50s. Cont. metoprolol at reduced dose of 25mg once daily, amiodarone. Not on anticoagulation due to h/o GIB while on Xarelto (11) Hypertension: Plan: BPs stable. Cont. amlodipine, hydralazine, metoprolol . Lisinopril has been discontinued due to worsening renal function (12) Dyslipidemia: Plan: Stable. Continue statin therapy (13) Coronary artery disease: Plan: Stable. Continue current medical management (14) Demand ischemia of myocardium: Plan: Mildly elevated troponin. No chest pain. No signs of acute coronary syndrome. (15) Complex renal cyst: Plan: Proteinaceous kidney cyst. Follows with nephro. Repeat CT in 6 months. Plan [facility] Admission and Anticipated Discharge Date Admission Date: May 11, 2023 Subjective Alert and oriented. No new problems. Nephrology entry noted. Review of Systems Review of Systems: Constitutional-no fever or chills ENT-no blurred vision, no double vision, no epistaxis, no sore throat Respiratory-no cough, no wheezing, no shortness of breath Cardiac-no palpitations, no chest pain, no syncope GI-no nausea, vomiting, diarrhea, melena, hematochezia -no urinary retention, no urinary incontinence, no dysuria, no hematuria Musculoskeletal-no joint pain, no muscle tenderness Skin-no bruising, no rashes, no pruritus Neuro-no isolated weakness, no paresthesia, no weakness Psych-no depression, no anxiety Physical Exam Physical Exam: General-alert and oriented x3, no fevers, no chills HEENT-head atraumatic and normocephalic, pupils equal and reactive to light, extraocular muscles intact Neck-no lymphadenopathy or thyromegaly, trachea midline Chest-clear to auscultation percussion. No rales wheezing or rhonchi Cardiac-regular rate and rhythm, normal S1 and S2 Abdomen-normal bowel sounds, nontender, no hepatosplenomegaly Extremities-no cyanosis, clubbing, or edema Neuro-cranial nerves II through XII intact, motor and sensory function within normal limits, strength symmetrical , no focal deficits Psych-normal affect, normal mood Results & Data Results & Data Vital Signs (Past 12 Hours) Vital Signs Temp Pulse Resp BP Pulse Ox O2 Del Method 05/17/23 08:22 37.5 C 54 L 16 137/62 91 Room Air 05/17/23 05:48 37.5 C Laboratory Results 05/16/23 08:37 05/16/23 08:37 PG Care Time/CCT Total # of Minutes Spent Total Time Spent with Patient: Total time spent is greater than 50% in coordination of care (as documented) at patient's floor/unit and/or counseling patient: Coding Level of Care Code 04604 SUB INP/OBS CARE 3/50MIN Diagnoses Fall W19.XXXA Encounter type: initial encounter Anemia D64.9 MATT (acute kidney injury) N17.9 Infestation by bed bug B88.8 Right knee pain M25.561 (HFpEF) heart failure with preserved ejection fraction I50.30 Chronic kidney disease, stage IV (severe) N18.4 COPD (chronic obstructive pulmonary disease) J44.9 Hypothyroidism E03.9 Atrial fibrillation I48.91 Hypertension I10 Dyslipidemia E78.5 Coronary artery disease I25.10 Demand ischemia of myocardium I24.89 Complex renal cyst N28.1 (1) Fall Encounter type: initial encounter Qualified Code(s): W19.XXXA - Unspecified fall, initial encounter
[2023-05-17] MEDS: ATORVASTATIN 40 MG TAB PO SCH (19:54)
[2023-05-18] MEDS: LEVOTHYROXINE SODIUM 25 MCG TABLET PO SCH (06:22)
[2023-05-18 06:54] LABS: Basophils # (auto) 0.06 K/uL (0.00-0.20); Basophils % (auto) 0.7 %; Eosinophils # (auto) 0.14 K/uL (0.00-0.50); Eosinophils % (auto) 1.5 %; Hematocrit (blood only) 24.5 % (37.0-47.0); Hemoglobin 7.5 g/dl (12.0-16.0); Immature Granulocytes # (auto) 0.19 K/uL (0.01-0.20); Immature Granulocytes % (auto) 2.1 %; Lymphocytes # (auto) 1.47 K/uL (1.20-3.40); Mean Corpuscular Hemoglobin 31.3 pg (25.0-34.0); Mean Corpuscular Hgb Conc 30.6 g/dL (32.0-36.0); Mean Corpuscular Volume 102.1 fL (80.0-100.0); Mean Platelet Volume 11.7 fL (9.4-12.4); Monocytes # (auto) 0.72 K/uL (0.11-0.59); Monocytes % (auto) 7.8 %; Neutrophils # (auto) 6.63 K/uL (1.40-6.50); Neutrophils % (auto) 71.9 %; Nucleated RBC # (auto) 0.03 K/uL (0.00-0.12); Nucleated RBC % (auto) 0.3 %; Platelet Count 172 K/uL (130-400); RDW Coefficient of Variation 16.7 % (11.5-14.5); RDW Standard Deviation 59.3 fL (36.4-46.3); White Blood Count 9.21 K/ul (4.8-10.8)
[2023-05-18 07:02] LABS: BUN Creatinine Ratio 16.9 (10-20); Calcium 8.1 mg/dl (8.6-10.3); Creatinine Clr Calc Pharmacy 12.9 ml/min; Est GFR (African American) 13.5 ml/min; Est GFR (Non-African American) 11.6 ml/min; Potassium 3.3 mmol/L (3.5-5.1)
[2023-05-18 07:31] LABS: Macrocytosis Present; Polychromasia 1+
[2023-05-18] MEDS: hydrALAZINE HCL 25 MG TAB PO SCH (09:16)
[2023-05-18] MEDS: POT PHOSPHATE MONOBASIC W/ SOD TAB PO SCH (09:16)
[2023-05-18] MEDS: METOPROLOL SUCC 25MG EXT REL TAB PO SCH (09:16)
[2023-05-18] MEDS: allopurinoL 100 MG TAB PO SCH (09:17)
[2023-05-18] MEDS: amLODIPine BESYLATE 5 MG TAB PO SCH (09:17)
[2023-05-18] MEDS: ISOSORBIDE MONO EXTENDED REL 30 MG TABCR PO SCH (09:17)
[2023-05-18] MEDS: HEPARIN SOD 5,000 UNIT/0.5 ML VIAL SQ SCH (09:17)
[2023-05-18] MEDS: DICLOFENAC SOD 1% GEL 100 GM TUBE EXT SCH (09:18)
[2023-05-18] MEDS: FUROSEMIDE 40 MG TAB PO SCH (09:18)
[2023-05-18] MEDS: ASPIRIN 81 MG ECTAB PO SCH (09:18)
[2023-05-18] MEDS: AMIODARONE 200 MG TAB PO SCH (09:18)
--- NOTE | 2023-05-18 09:35 | Discharge Summary ---
Date of Service May 18, 2023 Admission HPI Per Admitting Provider 77 yo female with PMHx anemia, CAD, HFpEF, HTN, HLD, complex renal cyst, CKD, COPD, and afib presents with a fall. Yesterday evening patient fell while using her walker onto her right knee and was unable to get up. She was on the ground for about 4 hours prior to EMS arrival. She states she just felt weak in the legs which caused her to fall. When EMS arrived on scene, reportedly she was covered in bedbugs and subsequently decontaminated. Other than generalized weakness she denies headache, chest pain, shortness of breath, abdominal pain, nausea, vomiting, diarrhea, dysuria, fever. Patient states she is compliant with her home meds. She was seen in the ED couple days ago for wheezing was recommended for inpatient hospitalization however patient left AMA. She was prescribed a prednisone burst on discharge however she states she never received this medication as her meds are typically delivered to her house. Principal Diagnosis Acute on chronic kidney disease stage V, mechanical fall, sinus bradycardia with first-degree AV block Discharge Exam General-alert and oriented x3, no fevers, no chills HEENT-head atraumatic and normocephalic, pupils equal and reactive to light, extraocular muscles intact Neck-no lymphadenopathy or thyromegaly, trachea midline Chest-clear to auscultation percussion. No rales wheezing or rhonchi Cardiac-regular rate and rhythm, normal S1 and S2 Abdomen-normal bowel sounds, nontender, no hepatosplenomegaly Extremities-no cyanosis, clubbing, or edema Neuro-cranial nerves II through XII intact, motor and sensory function within normal limits, strength symmetrical , no focal deficits Psych-normal affect, normal mood Discharge Data Allergies Allergy/AdvReac Type Severity Reaction Status Date / Time benzonatate Allergy Mild Dizziness Verified 05/10/23 13:16 Cephalosporins Allergy Mild KEFLEX=RASH Verified 05/10/23 13:16 diltiazem Allergy Mild RASH Verified 05/10/23 13:16 Iodinated Contrast Media Allergy Mild CT Verified 05/10/23 13:16 Contrast = kidney infection Consultations 05/11/23 04:20 ED Decision to Admit Stat 05/12/23 10:17 Consult Nephrology Routine Hospital Course (1) Fall: Mechanical fall. No fractures. Continue OT and PT while hospitalized. (2) Anemia: acute on chronic. Multifactorial due to CKD, anemia of chronic disease, iron deficiency. No active signs of bleeding. Hemoglobin stable. She received parenteral iron replacement this admission. (3) MATT (acute kidney injury): MATT on CKD, stage 5. Appreciate nephrology consultation and recommendations. Monitor intake and output. Serial labs (4) Infestation by bed bug: found on patient upon EMS arrival. Extensive decontamination performed on scene and in ED. Pt denies itchiness or rashes but has visible excoriations all over limbs. Continue contact precautions while hospitalized (5) Right knee pain: Right knee and hip pain-due to fall at home. No fractures or evidence of infection on examination. Symptomatic treatment PT/OT recommend rehab (6) (HFpEF) heart failure with preserved ejection fraction: Stable. Continue current medical management. Monitor intake and output. Chronic LE edema possibly due to venous stasis. Repeat echo shows similar finding except no further regional WMAs. Cont. lasix, metoprolol, lisinopril, nitrate (7) Chronic kidney disease, stage IV (severe): Appreciate nephrology consultation and recommendations. Monitor intake and output. Serial labs (8) COPD (chronic obstructive pulmonary disease): Stable. Tobacco use cessation recommended. Continue current medical management. (9) Hypothyroidism: Stable. Continue thyroid replacement therapy (10) Atrial fibrillation: Paroxysmal . Currently in sinus rhythm with bradycardia persistently in 50s. Cont. metoprolol at reduced dose of 25mg once daily, amiodarone. Not on anticoagulation due to h/o GIB while on Xarelto (11) Hypertension: BPs stable. Cont. amlodipine, hydralazine, metoprolol . Lisinopril has been discontinued due to worsening renal function (12) Dyslipidemia: Stable. Continue statin therapy (13) Coronary artery disease: Stable. Continue current medical management (14) Demand ischemia of myocardium: Mildly elevated troponin. No chest pain. No signs of acute coronary syndrome. (15) Complex renal cyst: Proteinaceous kidney cyst. Follows with nephro. Repeat CT in 6 months. Plan discharge to [facility] today, May 18 Total Time Total Time Spent Total Time Spent (In Minutes): 40-minute Discharge Plan Discharge Items Patient Disposition: Transfer [facility] Reason For Visit: FALL Discharge Diagnosis: Acute on chronic kidney disease stage V, mechanical fall, sinus bradycardia with first-degree AV block Activity: Resume your previous activity Non-emergency contact: Primary Care Provider Call non-emergency contact if: you have any medication questions and your symptoms worsen Follow-up/Referrals: Shravan Chicas DO [Primary Care Provider] - Diet: Regular and Heart Healthy Addtl Attending Provider Instructions: Follow-up with nephrology and primary care provider after discharge from [facility] Pending Studies at Discharge: No Stand-Alone Forms: My [facility] Skilled Items Patient informed of condition?: Yes DNR: Yes Discharge Level of Care: Skilled Communicable Disease: No Discharge Prognosis: Stable Lines: None Urinary Catheter: No Medications and DC Order Prescriptions: New polyethylene glycol 3350 [Miralax] 17 gram Powder In Packet 17 g PO DAILY PRN (Reason: constipation) Qty: 0 0RF Phospha 250 Neutral 250 mg Tablet 1 tab PO TID Qty: 0 0RF Continued metoprolol succinate 50 mg tablet extended release 24 hr 25 mg PO BID Qty: 180 3RF amlodipine [Norvasc] 5 mg tablet 5 mg PO QAM Qty: 30 1RF amiodarone 200 mg tablet 200 mg PO QAM Qty: 90 1RF lisinopril 5 mg tablet 5 mg PO DAILY Qty: 90 3RF furosemide [Lasix] 40 mg tablet See Rx Instructions PO BID Qty: 90 3RF Rx Instructions: Take 80 mg in am/40 mg in pm atorvastatin 40 mg tablet 40 mg PO QPM Qty: 90 3RF albuterol sulfate [ProAir HFA] 90 mcg/actuation HFA aerosol inhaler 2 puff INH Q4H PRN (Reason: shortness of breath or wheezing) Qty: 18 5RF levothyroxine 25 mcg tablet 25 mcg PO DAILY Qty: 30 2RF aspirin [Shahzad Low Dose Aspirin] 81 mg Tablet,Delayed Release (Dr/Ec) 81 mg PO QAM allopurinol 100 mg tablet 100 mg PO QAM isosorbide mononitrate 30 mg tablet extended release 24 hr 30 mg PO QAM calcitriol 0.25 mcg capsule 0.25 mcg PO 3XWK Rx Instructions: Mon, Wed, Fri prednisone 20 mg tablet 20 mg PO BID 5 Days Qty: 10 0RF nitroglycerin 0.4 mg tablet, sublingual 0.4 mg sublingual Q5M PRN (Reason: chest pain) Qty: 1 0RF Rx Instructions: max 3 tabs in 15 minutes hydralazine 25 mg Tablet 25 mg PO BID Qty: 60 1RF Discharge Orders: Discharge Order (Routine); Ordered 05/18/23 Ordered By: Sami Jones Admission Data Admit Date/Time: 05/11/23 05:46 Attending Provider: Sami Jones Admit Provider: Lincoln Cat Primary Care Provider: Shravan Chicas Other Providers: Lillian Sandoval Kevin C. Coding Level of Care Code 55302 INP/OBS DISCH >30 MIN Diagnoses Fall W19.XXXA Encounter type: initial encounter Anemia D64.9 MATT (acute kidney injury) N17.9 Infestation by bed bug B88.8 Right knee pain M25.561 (HFpEF) heart failure with preserved ejection fraction I50.30 Chronic kidney disease, stage IV (severe) N18.4 COPD (chronic obstructive pulmonary disease) J44.9 Hypothyroidism E03.9 Atrial fibrillation I48.91 Hypertension I10 Dyslipidemia E78.5 Coronary artery disease I25.10 Demand ischemia of myocardium I24.89 Complex renal cyst N28.1
[2023-05-18] MEDS ORDERED: POTASSIUM CHLORIDE CRTAB 20 MEQ TABCR PO ONE (09:48)
== END 2023-05-18 12:10 | DRG 683 ==
LOC: ED 01:32 → SUATTDRO 05:46 → EDINP 05:46 → 2W 18:16